=== PATIENT | male | born 1940 | race Caucasian/White ===

== ENCOUNTER → 2023-04-06 13:21 | Outpatient (REF) | payer OTHER, SELFPAY | LOC: HWRAD 13:21 | PROVIDERS: ATTENDING PHYSICIAN Family Medicine | DX: J15.69 Pneumonia due to other Gram-negative bacteria (principal) | CPT/HCPCS: 71046 ==

== ENCOUNTER → 2023-09-03 11:21 | Outpatient (REF) | payer OTHER, SELFPAY | LOC: RAD 11:21 | PROVIDERS: ATTENDING PHYSICIAN Podiatrist Foot & Ankle Surgery; FAMILY PHYSICIAN Family Medicine | DX: L97.523 Non-pressure chronic ulcer of other part of left foot with necrosis of muscle (principal); M86.172 Other acute osteomyelitis, left ankle and foot | CPT/HCPCS: 73630 ==

== ENCOUNTER → 2023-09-17 08:35 | Outpatient (REF) | payer OTHER, SELFPAY | LOC: RAD 08:35 | PROVIDERS: ATTENDING PHYSICIAN Registered Nurse; FAMILY PHYSICIAN Family Medicine | DX: I87.2 Venous insufficiency (chronic) (peripheral) (principal) | CPT/HCPCS: 93922; 93970 ==

== ENCOUNTER → 2023-09-17 09:00 | Outpatient (REF) | payer OTHER, SELFPAY | LOC: DHSLP 09:00 | PROVIDERS: ATTENDING PHYSICIAN Internal Medicine Critical Care Medicine | DX: G47.00 Insomnia, unspecified (principal) | CPT/HCPCS: 95810 ==

== ENCOUNTER 2023-09-22 18:59 | Inpatient (IN) | payer OTHER, SELFPAY ==
[2023-09-22] VITALS (7 sets, daily range): BP systolic 105–140; BP diastolic 55–65; BMI 23.6; BMI 23.0
--- NOTE | 2023-09-22 15:00 | ED.GENMED ---
History of Present Illness
General
Chief Complaint: Weakness
Source: patient and spouse
Exam Limitations: clinical condition
Time Seen by Provider: 09/22/23 14:40
History of Present Illness
History of Present Illness:
83-year-old male with a history of atrial fibrillation, hypertension, hyperlipidemia, upper GI bleed who presents with complaints of feeling weak. States he went to get out of bed last night and slipped. He injured his left foot and fell to his
buttocks. He did not hit his head. EMS reportedly helped him up but the patient did not want to come to the emergency department. states he has been tired a lot recently. She also notes and agrees that skin is a bit yellow. Patient denies
headache or abdominal pain. No nausea or vomiting. He states he just feels weak. Also was seen by wound care today who was concerned about his left foot wound
Past History
Past History
ED Past Medical History: Arrthythmia (afib on Coumadin), CAD, HTN, Hypothyroidism and Other (a fibrillation, HTN, hyperlipidemia, heart valve replacement, pacemaker, renal insufficiency, hyponatremia)
ED Past Surgical History: Cardiac (pacemaker)
Social History
Tobacco: Non-smoker
Alcohol: None
Drug: None
Personal:
Living: with family
Phy Exam
Physical Exam
Physical Exam:
CONSTITUTIONAL Patient alert and oriented to person, place. ill-appearing. Vital signs reviewed.
HEAD atraumatic, normocephalic.
EYES eyelids normal to inspection, Pupils equally round and reactive to light, Extraocular muscles intact, Conjunctiva normal, Sclera normal.
NECK normal range of motion, Trachea midline, no jugular venous distention.
RESPIRATORY CHEST No respiratory distress noted, Chest expansion equal, Bilateral breath sounds clear.
CARDIOVASCULAR regular rate and rhythm, Heart sounds normal.
ABDOMEN abdomen nontender, Bowel sounds normal. No distention.
UPPER EXTREMITY range of motion normal, Motor strength normal, no cyanosis, no edema. Scattered areas of ecchymosis
LOWER EXTREMITY range of motion normal, Motor strength normal, scattered areas of ecchymosis. Abrasion noted to the left second and first digit. Rounded lesion noted to the lateral aspect just distal to the fifth MTP joint. It is approximate 1
and half centimeter in diameter and is necrotic in appearance. Minimal surrounding redness and no drainage.
NEURO Speech normal, No focal motor deficits, Cranial Nerves intact to screening exam. at times a bit confused.
SKIN skin warm, dry, and normal in color.
Course
Orders/Labs/Results
Orders:
Orders
09/22/23 14:44
Electrocardiogram (*1) Urgent
Reason for Study: Fatigue / Weakness
Cardiac Monitoring- Treatment ONCE
EKG- Treatment ONCE
Urinalysis Reflex To Culture Urgent
09/22/23 14:55
Ammonia Urgent
Complete Blood Count/With Diff Urgent
Comprehensive Metabolic Panel Urgent
Lactic Acid Q4H
Comment: CANCEL 2nd LACTIC ACID IF 1st LACTIC ACID IS LESS THAN 2
Lipase Urgent
Prothrombin Time Urgent
09/22/23 14:59
CT Head W/o Iv Contrast Urgent
Comment:
Reason For Exam: change in ms, minor fall, on eliquis
09/22/23 15:02
Foot, Left 3 View [CR Foot - Left Min 3 Views] Urgent
Comment:
Reason For Exam: left lateral foot wound
09/22/23 16:50
0.9% Sodium Chloride 500 ml [Nss] 500 ml IV BOLUS
Cefepime HCl [Maxipime] 1,000 mg IV NOW STA
Vancomycin 1 Gram/200 ml [Vancocin] 1 gram in 200 ml IV NOW
09/22/23 17:46
CR Chest - 2 Views Urgent
Comment:
Reason For Exam: fever
09/22/23 17:49
Morphine Sulfate 4 mg IV NOW STA
09/22/23 18:14
COVID-19 Antigen Urgent
Source: Nasal Swab
09/22/23 18:34
Admit/Transfer Patient As Directed
Co-Sign Provider:
Level of Care: Inpatient admission
Assign to:: Medical/Surgical
Physician / Group: jeanette prajapati
Diagnosis: left foot wound
Reason for Hospitalization: right foot wound
Expected length of stay greater than two midnights?: Yes
ELOS- Estimated Length of Stay in days: 3
I certify the patient meets the requirements for IP care: Yes
PRN Pain Medication Management As Directed
May give lesser potent ordered pain med per pt: Yes
preference::
Protocol:: Medication orders for pain may be administered in a
manner that supports deferring to patient preference
when the pt is:
- Requesting an ordered lesser potent pain medication.
Least to most potent pain medications are defined
as: acetaminophen < NSAID < tramadol < opioids
(morphine, oxycodone, hydromorphone).
- Requesting a lesser dose of the same medication IF
ORDERED.
- Requesting a less intrusive route of administration
if both routes are prescribed by the provider (PO <
IV).
09/22/23 18:38
PODIATRY CONSULT Routine
Consulting Provider: Gucci Jimenes
Was physician already notified: Yes
Reason for consult: left foot wound, bleeding
09/22/23 19:00
0.9% Sodium Chloride 1000 ml [Nss] 1,000 ml IV 84 mls/hr
09/22/23 19:45
Artificial Tears (Pf) [Refresh Eye Drops (Pf)] 1 drops BOTH EYES QIDPRN PRN
09/22/23 19:57
CRP [C-Reactive Protein] Urgent
ESR [Erythrocyte Sed Rate] Urgent
Lactic Acid Q4H
Comment: CANCEL 2nd LACTIC ACID IF 1st LACTIC ACID IS LESS THAN 2
Total CK [Creatine Phosphokinase] Stat
09/22/23 20:00
Apixaban [Eliquis] 5 mg PO BID
Carvedilol [Coreg] 25 mg PO BID
Enalapril [Vasotec] 20 mg PO BID
Tamsulosin [Flomax] 0.4 mg PO BID
09/23/23 06:00
Levothyroxine [Synthroid] 75 mcg PO DAILY @ 0600
09/23/23 08:00
Allopurinol [Zyloprim] 300 mg PO DAILY
Ascorbic Acid [Vitamin C] 500 mg PO DAILY
Furosemide [Lasix] 20 mg PO DAILY
Abnormal Lab Results
09/22/23
14:55
WBC 11.5 H 10^3/uL
(4.8-10.8)
RBC 2.89 L 10^6/uL
(4.70-6.10)
Hgb 8.4 L g/dL
(13.0-18.0)
Hct 24.4 L %
(39.0-52.0)
RDW 15.2 H %
(11.5-14.5)
Absolute Neuts (auto) 8.9 H 10^3/uL
(1.4-6.5)
Absolute Monos (auto) 1.1 H 10^3/uL
(0.1-0.6)
Neutrophils % 77.2 H %
(42.2-75.2)
Lymphocytes % 10.5 L %
(20.5-51.1)
Monocytes % 9.6 H %
(1.7-9.3)
PT 27.5 H Sec
(11.4-14.6)
Sodium 129 L mmol/L
(135-145)
Chloride 96 L mmol/L
(98-107)
BUN 36 H mg/dl
(9-20)
Creatinine 1.4 H mg/dL
(0.7-1.3)
Total Bilirubin 3.1 H mg/dl
(0.2-1.3)
Ammonia < 9 L umol/L
(9-30)
09/22/23 14:55
09/22/23 14:55
Vital Signs
Initial and Last Documented VS:
Initial Vital Signs
Temp Pulse Resp BP Pulse Ox
100.1 F 69 12 128/61 97
09/22/23 14:29 09/22/23 14:29 09/22/23 14:29 09/22/23 14:29 09/22/23 14:29
Last Documented Vital Signs
Temp Pulse Resp BP Pulse Ox
97.0 F 63 18 134/63 98
09/22/23 19:35 09/22/23 19:35 09/22/23 19:35 09/22/23 19:35 09/22/23 19:35
MDM/Problems Addressed
Differential Diagnosis Includes:
Electrolyte disorder, urine obstruction, hepatitis, intracranial hemorrhage, sepsis, ascending cholangitis, UTI
MDM/Problems Addressed:
Jaundice, weakness, minor fall
*Pulse Oximetry
Patient hypoxic: no
*Critical Care Note
Total Time (30-74mins, 75-104mins- exclusive of procedures): Not Applicable
Data Reviewed
Review of Other/Old Records Reveals: Labs (Prior labs reveal sodium as low as 117.) and Discharge Summary (Discharge summary reviewed from February 2023)
Source: patient and spouse
ED Attending Note
-
Portions of this chart may have been created with voice recognition software.� Occasional wrong word or��sound alike� substitutions may have occurred due to the inherent limitations of voice recognition software.
Discharge Plan
Departure
Patient Disposition: Admit
Date of Disposition: 09/22/23
Time of Disposition: 17:41
Admit to: Telemetry
Presentation/result/management discussed w/ accepting MD/DO: Hospitalist
Discharge Problem:
Acute hyponatremia, infected foot wound, Acute metabolic encephalopathy, Anemia
Interventions
Interventions:
*Risk Screen - Suicide Last Done: 09/22/23 14:29
*General Assessment Last Done: 09/22/23 14:29
*Neglect/Abuse Screening Last Done: 09/22/23 14:29
ED- Fall Risk Assessment Last Done: 09/22/23 19:36
*ED COVID-19 Vaccine History Last Done: 09/22/23 14:43
*Nursing Disposition Last Done: 09/22/23 19:36
ED- Cardiac Assessment Last Done: 09/22/23 14:43
ED- Neurological Assessment Last Done: 09/22/23 14:43
ED- Pulmonary Assessment Last Done: 09/22/23 14:43
Discharge Date and Time
Discharge Date/Time: 09/22/23 19:37
[2023-09-22 15:10] LABS: % Basophils 0.4 % (0-2); % Immature Granulocytes 0.3 % (0-0.5); % Lymphocytes 10.5 % (20.5-51.1); % Monocytes 9.6 % (1.7-9.3); % Neutrophils 77.2 % (42.2-75.2); Absolute Basophils 0.1 10^3/uL (0-0.2); Absolute Eosinophils 0.2 10^3/uL (0-0.7); Absolute Lymphocytes 1.2 10^3/uL (1.2-3.4); Absolute Monocytes 1.1 10^3/uL (0.1-0.6); Absolute Neutrophils 8.9 10^3/uL (1.4-6.5); Hematocrit 24.4 % (39.0-52.0); Hemoglobin 8.4 g/dL (13.0-18.0); Mean Corp Hgb Conc. 34.4 g/dL (33.0-37.0); Mean Corpuscular Hgb 29.1 pg (27.0-31.0); Mean Corpuscular Volume 84.4 fL (80.0-94.0); Mean Platelet Volume 8.4 fL (7.4-10.4); Nucleated Red Blood Cells % 0 % (-); Platelet Count 171 10^3/uL (130-400); Red Blood Cell Count 2.89 10^6/uL (4.70-6.10); Red Cell Dist. Width 15.2 % (11.5-14.5); White Blood Cell Count 11.5 10^3/uL (4.8-10.8)
[2023-09-22 15:17] LABS: INR 2.57; PT 27.5 Sec (11.4-14.6)
[2023-09-22 15:19] LABS: Ammonia < 9 umol/L (9-30); Lactic Acid 1.5 mmol/L (0.7-2.0)
[2023-09-22 15:22] LABS: ALT (SGPT) 12 U/L (0-50); AST (SGOT) 32 U/L (17-59); Albumin 3.6 g/dl (3.5-5.0); Blood Urea Nitrogen 36 mg/dl (9-20); Calcium 9.1 mg/dl (8.4-10.2); Carbon Dioxide 26 mmol/L (22-30); Chloride 96 mmol/L (98-107); Estimated Creatinine Clearance 43 ml/min; Glucose 87 mg/dl (70-99); Lipase 37 U/L (23-300); Potassium 4.3 mmol/L (3.5-5.1); Sodium 129 mmol/L (135-145); Total Bilirubin 3.1 mg/dl (0.2-1.3); Total Protein 6.4 g/dl (6.3-8.2); eGFR 49.56
[2023-09-22 15:29] LABS: Alkaline Phosphatase 68 U/L (38-126)
[2023-09-22] MEDS: NSS 500 IV (16:58)
[2023-09-22] MEDS: MAXIPIME 1000 MG IV (16:59)
[2023-09-22] MEDS: VANCOCIN 200 IV (16:59)
[2023-09-22] MEDS: MORPHINE SULFATE 4 MG IV (17:57)
--- NOTE | 2023-09-22 18:23 | HPS.HSE ---
Family Physician
-
Family Physician: Khalida Hopper
Chief Complaint
History of Present Illness
Past medical history A-fib on Coumadin, pacemaker, CAD, chronic heart failure reduced EF, mitral valve replacement, HTN, HLD, hypothyroidism, hyponatremia SIADH chronic anemia, CKD 3B
Acute leukocytosis secondary to foot infection
WBC 11.5 with left shift, 100.1 F, HR 67, 126/60
LORIE on CKD 3B
Creat 1.4 /bun 36 prior 1.1 CrCl 43
Hyponatremia/SIADH Hx
NA 129 February was as low as 117 and did require Samsca and 3% sodium at that time
Anemia normocytic
Hgb 8.4 prior baseline 05 March 2023
Check iron panel, B12, folate
2D echo 07/26/2021: Mild reduced LVSF EF 45-50%, mild inferior wall hypokinesis, RV pacemaker, mild AR, repaired mitral valve mean gradient 5 mmHg
Medical History
Allergies / Home Medications
Allergies reflects when Allergies were last updated in [facility].
Home Medications with original date entered in [facility]
Physical Exam
Vital Signs
Vital Signs
Temp Pulse Resp BP Pulse Ox
99.5 F 67 16 126/60 96
09/22/23 14:47 09/22/23 18:01 09/22/23 18:01 09/22/23 18:01 09/22/23 18:01
Laboratory Results
-
09/22/23 14:55
09/22/23 14:55
Laboratory Results
PT 27.5 Sec (11.4-14.6) H 09/22/23 14:55
INR 2.57 09/22/23 14:55
Lactic Acid 1.5 mmol/L (0.7-2.0) 09/22/23 14:55
Total Bilirubin 3.1 mg/dl (0.2-1.3) H 09/22/23 14:55
AST 32 U/L (17-59) 09/22/23 14:55
ALT 12 U/L (0-50) 09/22/23 14:55
Alkaline Phosphatase 68 U/L (38-126) 09/22/23 14:55
Lipase 37 U/L (23-300) 09/22/23 14:55
Impression/Plan
-
IMPRESSION:
PLAN:
[2023-09-22 18:34] LABS: COVID-19 Antigen Negative (Negative)
--- NOTE | 2023-09-22 18:44 | HPS.HSE ---
Family Physician
-
Family Physician: Khalida Hopper
Chief Complaint
-
Lower extremity pain
History of Present Illness
83 male history of CAD s/p CABG, atrial fibrillation s/p PPM on anticoagulation, gout who presents with lower extremity pain after sustaining a fall/slip from the side of his bed hitting his buttocks against the ground and hitting his foot against
the ground. Had difficulty getting off the floor 911 was required last night to help him off the floor as his was not able to lift him. Left great hallux has been bleeding since. Bandaged. Bandage is bloody. He states he did not have chest
pain no shortness of breath nor did he lose consciousness before the fall. No head strike.
PER ED Documentation: As was not at bedside
He injured his left foot and fell to his buttocks. He did not hit his head. EMS reportedly helped him up but the patient did not want to come to the emergency department. states he has been tired a lot recently. She also notes and agrees
that skin is a bit yellow. Patient denies headache or abdominal pain. No nausea or vomiting. He states he just feels weak. Also was seen by wound care today who was concerned about his left foot wound
Never smoker. Does not drink alcohol. No drug use history.
Surgical history CABG
Family history father bone cancer, mother black lung
Medical History
Past Medical History
Past Medical History: Reports CAD
Past Surgical History: Reports Cardiac
Social History
Tobacco: Non-smoker
Alcohol: None
Drug: None
Personal:
Living: With Family
Family History
Family History: Cancer
Allergies / Home Medications
Allergies reflects when Allergies were last updated in [facility].
Home Medications with original date entered in [facility]
Allergy/Medication List:
Allergies
Allergy/AdvReac Type Severity Reaction Status Date / Time
Fahbpaa-JAU-GgL Reductase Allergy Unknown Verified 03/02/23 16:50
Inhibitor
[Vhhqvzp-Ddk-Nxn Reductase
Inhibitor]
Home Medications
allopurinol 300 mg tablet 300 mg PO DAILY Gout 12/18/19
ascorbic acid (vitamin C) 500 mg tablet (Vitamin C) 500 mg PO DAILY Supplement 12/18/19
levothyroxine 75 mcg tablet 75 mcg PO DAILY AT 0700 Thyroid 12/18/19
polyvinyl alcohol-povidone (PF) 1.4 %-0.6 % eye drops in a dropperette (Refresh Classic (PF)) 1 drops BOTH EYES QIDPRN PRN dry eyes 12/18/19
apixaban 5 mg tablet (Eliquis) 5 mg PO BID Blood Clot Prevention/Tx 03/02/23
carvedilol 25 mg tablet 25 mg PO BID Blood Pressure 03/02/23
enalapril maleate 20 mg tablet 20 mg PO BID Blood Pressure 03/02/23
furosemide 20 mg tablet 20 mg PO DAILY Fluid Retention/Swelling 03/02/23
tamsulosin 0.4 mg capsule 0.4 mg PO BID Urinary Issue 03/02/23
Review of Systems
-
A 12 point ROS was completed and negative except as noted: Yes
Physical Exam
Vital Signs
Vital Signs
Temp Pulse Resp BP Pulse Ox
99.5 F 67 16 126/60 96
09/22/23 14:47 09/22/23 18:01 09/22/23 18:01 09/22/23 18:01 09/22/23 18:01
Physical Exam
General: Appears Chronically Ill
Laboratory Results
-
09/22/23 14:55
09/22/23 14:55
Laboratory Results
PT 27.5 Sec (11.4-14.6) H 09/22/23 14:55
INR 2.57 09/22/23 14:55
Lactic Acid 1.5 mmol/L (0.7-2.0) 09/22/23 14:55
Total Bilirubin 3.1 mg/dl (0.2-1.3) H 09/22/23 14:55
AST 32 U/L (17-59) 09/22/23 14:55
ALT 12 U/L (0-50) 09/22/23 14:55
Alkaline Phosphatase 68 U/L (38-126) 09/22/23 14:55
Lipase 37 U/L (23-300) 09/22/23 14:55
LEFT FOOT XRAY
IMPRESSION: No convincing radiographic evidence for ostial myelitis with attention to the fifth metatarsophalangeal joint.
Curvilinear increased density within the soft tissues lateral to the fifth metatarsal joint, new since previous examination. This is most likely related to an overlying dressing.
HEAD CT
IMPRESSION:
1. No acute intracranial abnormality.
2. Severe right sided paranasal sinus mucosal disease/sinusitis, which has increased from prior. Soft tissue attenuation in the right nasal cavity again suspicious for a large nasal polyp.
JOSHUA from 09/18/23
IMPRESSION:
1. Right lower extremity: JOSHUA 1.06 within normal limits. TBI is 0.83 also within normal limits. Multiphasic continuous Doppler waveforms are noted at the dorsalis pedis artery. Monophasic continuous Doppler waveforms at the posterior tibial artery.
2. Left lower extremity: JOSHUA not obtainable secondary to noncompressibility of the vessels. TBI severely reduced at 0.26. Significantly decreased compared to prior study dated 08/05/2021 at which time measured 0.80. Continuous Doppler waveforms at
the dorsalis pedis and posterior tibial arteries are monophasic.
Impression/Plan
-
NAD, resting comfortably in bed, bruising throughout body, paperthin skin
Scleral anicteric
Moist mucous membranes
No JVD
CTA bilateral
Normal S1-S2 no murmurs
Soft nontender nondistended bowel sounds active
No peripheral pitting edema
Moves extremities spontaneously
Left great hallux wrapped in gauze. Gauze is soiled with blood. Interestingly was not able to see a superficial wound on the left small toe however this was wrapped and was unable to wrap
AAOx3
Mechanical fall slip and fall from bed. PT OT consult. Fall precautions.
Lower extremity weakness left-sided
-If not improving consider MRI lumbar spine left side
-Otherwise at this time no left great hallux was bleeding appears to have decreased or stopped, dressing is soiled with blood.
-Will obtain MRI of left lower extremity ESR CRP. Consult podiatry.-Low clinical suspicion for osteomyelitis at this time therefore we will hold off on IV antibiotics until MRI returns or podiatry recommends
Hyponatremia, hypovolemic on exam, will provide IV fluids�isotonic
LORIE/bump in creatinine of 1.4 baseline around 1.0. Likely secondary to poor p.o. intake
-He was on the ground for prolonged period of time will check CK
CABG continue beta-martin Eliquis
Hypertension continue antihypertensives
Atrial fibrillation continue beta-martin Eliquis. Repeat CBC in the a.m. if foot continues to actively bleed would repeat stat CBC hold Eliquis
BPH continue Flomax
--- NOTE | 2023-09-22 19:16 | EDRN ---
Report received, introduced myself to patient and sent no-delay upstairs
[2023-09-22 20:28] LABS: Erythrocyte Sed Rate 91 mm/hour (0-20)
[2023-09-22 21:09] LABS: Creatine Phosphokinase 524 U/L (55-170)
[2023-09-22] MEDS: NSS 1000 IV (21:18)
[2023-09-22] MEDS: ELIQUIS 5 MG PO (21:20)
[2023-09-22] MEDS: COREG 25 MG PO (21:20)
[2023-09-22] MEDS: FLOMAX 0.4 MG PO (21:21)
[2023-09-22] MEDS: VASOTEC 20 MG PO (21:21)
[2023-09-23] MEDS: SYNTHROID 75 MCG PO (05:10)
[2023-09-23 05:30] LABS: Urine Albumin Trace (Neg - Trace); Urine Bilirubin Negative (Negative); Urine Character Clear (Clear); Urine Color Yellow; Urine Glucose Negative (Negative); Urine Ketone Negative (Negative); Urine Leukocyte Negative (Negative); Urine Nitrite Negative (Negative); Urine Occult Blood Negative (Negative); Urine Specific Gravity 1.015 (<1.030); Urine Urobilinogen Negative (Neg - 1+)
[2023-09-23 07:00] VITALS: BP 125/58
[2023-09-23 07:23] LABS: Hematocrit 23.3 % (39.0-52.0); Mean Corp Hgb Conc. 34.3 g/dL (33.0-37.0); Mean Corpuscular Volume 84.4 fL (80.0-94.0); Platelet Count 181 10^3/uL (130-400); Red Blood Cell Count 2.76 10^6/uL (4.70-6.10); Red Cell Dist. Width 15.1 % (11.5-14.5)
[2023-09-23 07:54] LABS: Blood Urea Nitrogen 31 mg/dl (9-20); Calcium 8.6 mg/dl (8.4-10.2); Carbon Dioxide 23 mmol/L (22-30); Chloride 100 mmol/L (98-107); Creatine Phosphokinase 707 U/L (55-170); Estimated Creatinine Clearance 50 ml/min; Glucose 67 mg/dl (70-99); Potassium 4.1 mmol/L (3.5-5.1); Sodium 129 mmol/L (135-145); eGFR 59.63
[2023-09-23 08:00] VITALS: BMI 22.8
[2023-09-23] MEDS: ELIQUIS 5 MG PO ×2 (08:53→20:40)
[2023-09-23] MEDS: FLOMAX 0.4 MG PO ×2 (08:53→20:40)
[2023-09-23] MEDS: VITAMIN C 500 MG PO (08:53)
[2023-09-23] MEDS: VASOTEC 20 MG PO (08:53)
[2023-09-23] MEDS: COREG 25 MG PO ×2 (08:53→20:40)
[2023-09-23] MEDS: ZYLOPRIM 300 MG PO (08:53)
[2023-09-23] MEDS: LASIX 20 MG PO (08:53)
[2023-09-23] MEDS: NSS 1000 IV ×2 (10:43→22:34)
--- NOTE | 2023-09-23 10:43 | WOUNDNOTE ---
L FOREARM (UNDERSIDE NEAR ELBOW)
--- NOTE | 2023-09-23 10:44 | WOUNDNOTE ---
L PLANTAR LATERAL 5TH MTH
--- NOTE | 2023-09-23 10:44 | WOUNDNOTE ---
L LATERAL PLANTAR 5TH MTH
--- NOTE | 2023-09-23 10:44 | WOUNDNOTE ---
L TOE TIPS/GREAT TOE
--- NOTE | 2023-09-23 10:45 | WOUNDNOTE ---
L 4TH TOE (LATERAL)
--- NOTE | 2023-09-23 10:46 | WOUNDNOTE ---
L 5TH TOE
--- NOTE | 2023-09-23 10:46 | WOUNDNOTE ---
L GREAT AND 2ND TOE TIPS
--- NOTE | 2023-09-23 10:46 | WOUNDNOTE ---
L 3RD TOE (LATERAL)
--- NOTE | 2023-09-23 10:48 | CON.VAS ---
Addendum entered and electronically signed by Robert Pal MD 09/23/23 12:54:
Seen and examined with KELL Nolan. Agree with findings as noted below. 83-year-old male with CAD/A-fib with left lower extremity wounds nonhealing. He notes no prior wounds in this leg but he has had wounds in the right foot that healed without
difficulty he notes. No history of prior revascularization procedures. Denies any history of tobacco use. He does have a history of a CABG with left-sided saphenous vein harvest.
On exam/she is awake and alert. Head is normocephalic and atraumatic. Eyes are anicteric. Neck is soft without jugular venous distention. Breathing is unlabored. Abdomen is soft. Lower extremity on the right side with 2+ femoral, popliteal, DP
pulse easily palpable. On the left side 2+ femoral, 1+/2+ popliteal pulse. Nonpalpable distally. Left lower extremity wounds as noted in wound care pictures.
Noninvasive studies reviewed, left-sided TBI 0.2.
Plan/ Nonhealing left lower extremity wounds with likely CLTI (chronic limb threatening ischemia). Discussed my recommendation for angiography and possible revascularization. Discussed potential outcomes of angiography including #1 successful
revascularization with endovascular technique, #2 need for staged surgical revascularization with bypass, #3 no unreconstructable nonrevascularizable distal disease with persistent limb threat. I discussed the procedure of angiography technical
aspects as well. Discussed risks including but not limited to bleeding, arterial injury/worsened or acute limb ischemia, renal failure. He understands all these and wishes to proceed with left lower extremity arteriogram, possible
angioplasty/stent. His creatinine is 1.2 which appears to be about his baseline. He does note some history of chronic renal sufficiency for which she sees nephrology as an outpatient. Will defer to hospitalist team whether they need to be
involved now given contrast administration for angiography. Will plan angiogram tomorrow. N.p.o. after midnight.
Original Note:
Consultation
Consultation Request
Date/Time Consultation Performed: 09/23/2023 1100
Requesting Provider: Hospitalist
Performing Provider: Zahra Nolan, [employer] OPERATOR-C for Robert Pal MD
Reason for Consultation: Left foot wound
Medical History
-
Chief Complaint: Left foot wound
History of Present Illness:
This is a 83 male with significant past medical history of CAD, atrial fibrillation on anticoagulation, PPM, and gout who presented to [facility] ED on 09/22/2023 with reports of left lower extremity pain/wound after sustaining a fall from the side
of his bed. Patient endorses that he however had to call 911/EMS for assistance as his is not able to assist him off the floor. He endorses that left hallux bleeding was difficult to stop. He states he did not have chest pain no shortness of
breath nor did he lose consciousness before the fall. No head strike. He declined for EMS to take him to the ER the night of the fall. However, when bleeding persisted he then agreed to seek ED evaluation. Per ER documentation patient's
also endorses that he has been extremely fatigued and has noted yellow tinge to his skin. Noninvasive JOSHUA/TBI were obtained which demonstrated noncompressible JOSHUA but severely reduced TBI at 0.26 at the left lower extremity prompting vascular
surgical consultation. Patient denies past history of peripheral arterial disease or requirement of peripheral vascular intervention. See wound care note for pictures of wounds.
Past Medical History
Past Medical History: Arrhythmias (Atrial fibrillation), CAD and Other (Gout)
Past Surgical History: Cardiac (CABG, permanent pacemaker)
Social History
Tobacco: Non-Smoker
Alcohol: None
Drug: None
Personal:
Living: With Family
Allergies / Home Medications
Allergy/AdvReac Type Severity Reaction Status Date / Time
Oddoley-WRS-ShB Reductase Allergy Unknown Verified 03/02/23 16:50
Inhibitor
[Hncqnwv-Btq-Bmu Reductase
Inhibitor]
�Medication �Instructions �Recorded �Confirmed �Type
allopurinol 300 mg tablet 300 mg PO DAILY Gout 12/18/19 09/22/23 History
ascorbic acid (vitamin C) 500 mg 500 mg PO DAILY Supplement 12/18/19 09/22/23 History
tablet (Vitamin C)
levothyroxine 75 mcg tablet 75 mcg PO DAILY AT 0700 Thyroid 12/18/19 09/22/23 History
polyvinyl alcohol-povidone (PF) 1 drops BOTH EYES QIDPRN PRN dry 12/18/19 09/22/23 History
1.4 %-0.6 % eye drops in a eyes
dropperette (Refresh Classic (PF))
apixaban 5 mg tablet (Eliquis) 5 mg PO BID Blood Clot 03/02/23 09/22/23 History
Prevention/Tx
carvedilol 25 mg tablet 25 mg PO BID Blood Pressure 03/02/23 09/22/23 History
enalapril maleate 20 mg tablet 20 mg PO BID Blood Pressure 03/02/23 09/22/23 History
furosemide 20 mg tablet 20 mg PO DAILY Fluid 03/02/23 09/22/23 History
Retention/Swelling
tamsulosin 0.4 mg capsule 0.4 mg PO BID Urinary Issue 03/02/23 09/22/23 History
Review of Systems
-
History Source: Patient
Constitutional: Reports No Symptoms
EENT: Reports No Symptoms
Respiratory: Reports No Symptoms
Cardiac: Reports No Symptoms
Abdomen/GI: Reports No Symptoms
: Reports No Symptoms
Musculoskeletal: Reports Edema (Left lower extremity)
Skin: Reports Other (Left hallux and lateral aspect of foot with wound)
Neurological: Reports No Symptoms
Endocrine: Reports No Symptoms
Physical Exam
Vital Signs
Temp Pulse Resp BP Pulse Ox
97.8 F 74 18 125/58 97
09/23/23 07:00 09/23/23 07:00 09/23/23 07:00 09/23/23 07:00 09/23/23 09:00
Lab Results
09/23/23 08:19
09/23/23 08:19
Physical Exam
General: No Apparent Distress and Comfortable
HEENT: Normocephalic, Anicteric and Atraumatic
Respiratory: Non Labored Respirations
Cardiac: Negative JVD
GI: Soft, Non Tender and Non Distended
Musculoskeletal: Edema (+1 edema left lower extremity)
Skin: Warm and Other (Patient has multiple skin tears and abrasions with accompanying ecchymosis over left lower extremity at upper thigh and knee. Left hallux tip ulceration with dry necrosis. Left second toe with dry abrasion/ulceration. Left
plantar/medial aspect of foot with deep abrasion covered with eschar)
Neuro: AO x 3
Pulses: Bilateral Femoral: +1, Left Dorsalis Pedis: Doppler and Left Posterior Tibial: Doppler
Assessment / Plan
-
Assessment: 83-year-old male who presented to hospital status post fall with wound to left hallux, left medial aspect of foot, and left second digit with suspected peripheral arterial disease given decreased TBI.
Plan:
Dr. Robert Pal reviewed risk versus benefit, clinical indication, procedure, and recovery process for left lower extremity arteriogram with the patient at bedside, all questions and concerned addressed and he agrees to proceed.
Plan for arteriogram of left lower extremity with possible endovascular mention tomorrow 09/24/[address] Pal
NPO at midnight
Podiatry consult
--- NOTE | 2023-09-23 10:49 | WOUNDNOTE ---
[facility] RN note: Patient admitted with L foot wound, L Hallux bleeding, patient slide out of bed prior to admission. He lives with his . Patient followed by vascular Dr. Reyna.
See H&P for complete history.
PMH: CABG, a fib (Eliquis), pacemaker, gout, venous stasis.
Wound Location and type/assessment: Patient admitted with: Multiple dermal leg skin tears and bruises. Dull red sacrum, chafed discolored medial buttocks, blanchable red heels, L plantar full thickness to muscle or deeper diabetic/PAD wound, pink
with black slough cover. R great toe tip with black tissue, no current bleeding. L 4th toe and 5th toes with pink dermal ulcer d/t PAD. L lateral 3rd toe with faint purple ulcer d/t PAD. L distal 2nd toe and R distal 1st toe with dry red abrasion.
Trace-+1 LE edema. +Palpable R pedal pulse, L pedal pulse heard via portable Doppler. 09/18/23 Arterial Doppler R JOSHUA 1.06, R toe .83; L toe pressure .26.
Appetite: good.
Pressure redistribution devices in place: [employer] Accumax. Nurse Linda to coordinate switching bed to a [employer] air bed.
Plan: L foot, L great toe dressings changed. Silicone foam maintained on leg skin tears. Protective foam applied to heels and sacrum. Heels off bed with pillows. Air chair cushion given. Dr. Kasi Armas was in who consulted Dr. Pal who came in at
end of visit. Discussed with Vascular COMMUNITY CASE MANAGER Siomara, defer to vascular if any compression indicated re: RLE. Podiatry Dr. Zamudio on consult.
Confirm orders with Dr. Nohemi Armas and updated nurse Linda.
Care plan to be updated and will follow as needed.
Recommend follow up at wound care center upon discharge.
--- NOTE | 2023-09-23 11:42 | CON.ORTHO ---
Consultation
-
Date/Time Consultation Requested: 09/23/2023 10:18 am
Date/Time Consultation Performed: 09/23/2023 11:30 am
Requesting Provider: Dr. Armas
Performing Provider: Lexie Zee PA-C, for Dr. Hughes
Reason for Consultation: Left knee effusion
Consultation - Orthopedics
History
HPI: This is an 83 year old male who presented to ED yesterday after sustaining a fall at home in which his left foot slipped out and he landed on his buttocks. He was unable to get up and brought to the ED via EMS. Most of his history was
obtained through chart review as he was somnolent on exam. He was noted to have a left foot wound that was bleeding on admission and weakness per his . Today, he was noted to have left knee swelling, prompting orthopedic consultation. He
denies any current pain in the left knee and admits that the swelling and pain have improved since yesterday. He is currently on Eliquis for A-fib and has multiple skin tears on his lower extremities. He tells me he is scheduled for a vascular
procedure tomorrow on his left leg to 'open up the veins.' He denies any n/t of his left knee or any significant problems with the left knee at baseline. No x-rays of the left knee have been performed.
Past medical history: Chronic A-fib, CAD, HTN, Hypothyroidism, HLD, pacemaker, renal insufficiency, hyponatremia.
Past surgical history: Pacemaker placement, heart valve replacement.
Social history: Denies tobacco or alcohol use, lives at home with family.
Review of systems: All systems reviewed and negative except for those mentioned in HPI.
Allergies / Home Medications
Allergy/AdvReac Type Severity Reaction Status Date / Time
Nmblrxz-MJI-YfA Reductase Allergy Unknown Verified 03/02/23 16:50
Inhibitor
[Lcudgcy-Ked-Ypb Reductase
Inhibitor]
�Medication �Instructions �Recorded
allopurinol 300 mg tablet 300 mg PO DAILY Gout 12/18/19
ascorbic acid (vitamin C) 500 mg 500 mg PO DAILY Supplement 12/18/19
tablet (Vitamin C)
levothyroxine 75 mcg tablet 75 mcg PO DAILY AT 0700 Thyroid 12/18/19
polyvinyl alcohol-povidone (PF) 1 drops BOTH EYES QIDPRN PRN dry 12/18/19
1.4 %-0.6 % eye drops in a eyes
dropperette (Refresh Classic (PF))
apixaban 5 mg tablet (Eliquis) 5 mg PO BID Blood Clot 03/02/23
Prevention/Tx
carvedilol 25 mg tablet 25 mg PO BID Blood Pressure 03/02/23
enalapril maleate 20 mg tablet 20 mg PO BID Blood Pressure 03/02/23
furosemide 20 mg tablet 20 mg PO DAILY Fluid 03/02/23
Retention/Swelling
tamsulosin 0.4 mg capsule 0.4 mg PO BID Urinary Issue 03/02/23
Vital Signs / Lab Results
Temp Pulse Resp BP Pulse Ox
97.8 F 74 18 125/58 97
09/23/23 07:00 09/23/23 07:00 09/23/23 07:00 09/23/23 07:00 09/23/23 09:00
09/23/23 08:19
09/23/23 08:19
Physical examination:
General: WD/WN male in no distress at rest.
HEENT: AT/NC, neck supple.
Lungs: Non labored breathing on room air, no audible wheezing.
Left knee: Multiple superficial skin tears present on knee and lower leg. No significant warmth. No erythema about the knee. Mild effusion present. No tenderness to palpation about the knee. ROM 5- 100 degrees with pain on flexion. Able to do
independent SLR. Diffuse swelling of LLE with discoloration c/w venous insufficiency. Calf soft and non tender to palpation. N/v intact distally.
Radiographic studies:
non pertinent to left knee.
Assessment / Plan
Assessment: Left knee effusion, likely hemarthrosis secondary to eliquis.
Plan: See likely aggravated some underlying degenerative changes in his left knee during his recent fall as he reports falling onto his buttocks, rather than landing directly on the knee. He does have an effusion on exam, but reports his pain,
swelling, and function have improved since yesterday. At this point, I do not think his current level of swelling warrants aspiration. He did not have any x-rays of his left knee performed, so I have placed an order to have these done to evaluate
for any acute bony pathology. An domonique wrap was placed on his left knee today. He should continue with ice, elevation, compression, and WBAT on the LLE. Will follow up once x-rays completed to provide any updated recommendations based on the
imaging.
--- NOTE | 2023-09-23 12:01 | W.PN.HOSP.TC ---
Today's Communication/Plan
-
Monitor off of ATB until sen by Pod
Vscular consulted, LLE Angio tomorrow
Neph consulted as he will get a large ocntrast load tomorrow
Ortho to otbain Xray of the left knee
Assessment / Plan
Assessment / Plan
NAD, resting comfortably in bed, bruising throughout body, paperthin skin
Scleral anicteric
Moist mucous membranes
No JVD
CTA bilateral
Normal S1-S2 no murmurs
Soft nontender nondistended bowel sounds active
No peripheral pitting edema, Left knee effused
Moves extremities spontaneously
Left great hallux wrapped in gauze. Gauze is soiled with blood. Interestingly was not able to see a superficial wound on the left small toe however this was wrapped and was unable to wrap
AAOx3
Mechanical fall slip and fall from bed. PT OT consult. Fall precautions.
Lower extremity weakness left-sided
-If not improving consider MRI lumbar spine left side
-Otherwise at this time no left great hallux was bleeding appears to have decreased or stopped, dressing is soiled with blood.
-High EsR/CRP
-Pod to see
-Unable to obtain MRI due to old PPM
-Vascular to eval, poor JOSHUA's from 09/16
- -For LLE Angio
Hyponatremia, hypovolemic on exam, will provide IV fluids�isotonic
LORIE/bump in creatinine of 1.4 baseline around 1.0.
Likely secondary to poor p.o. intake and Rhabdo. Now improved with IVF
Mild Traumatic Rhabdo from fall
-IVF
-Daily CK and LFT's
CKD Pdlri2m
-Avoid nephrtoxins and hypotension
-Monitor UOP
-Neph consulted as he will go for LLE angio tomrorow
Knee Effusion - Left sided
-Ortho consulted
-Xray ordered
CABG continue beta-martin Eliquis
Hypertension continue antihypertensives
Atrial fibrillation continue beta-martin Eliquis. Repeat CBC in the a.m. if foot continues to actively bleed would repeat stat CBC hold Eliquis
BPH continue Flomax
Anticipated Discharge: 24 - 48 hours
Subjective/Interval History
-
Date of Service: September 23, 2023
seen an dexamined
states pain is managed
feeling better today
wound care at bedside.
-lateral left foot wound appears necrotic
-great hallux with dried blood
-doppler pulses
Objective Data
-
Labs:
Laboratory Results
09/23/23 09/23/23
06:45 08:19
WBC 10.0 Cancelled
Hgb 8.0 L Cancelled
Hct 23.3 L Cancelled
Plt Count 181 Cancelled
Sodium 129 L Cancelled
Potassium 4.1 Cancelled
Chloride 100 Cancelled
Carbon Dioxide 23 Cancelled
BUN 31 H Cancelled
Creatinine 1.2 Cancelled
Glucose 67 L Cancelled
Calcium 8.6 Cancelled
Vital Signs:
Vital Signs
Temp Pulse Resp BP Pulse Ox
97.8 F 74 18 125/58 97
09/23/23 07:00 09/23/23 07:00 09/23/23 07:00 09/23/23 07:00 09/23/23 09:00
I&O
09/22/23 09/23/23 09/24/23
06:59 06:59 06:59
Intake Total 1080 / 1080
Balance 1080 / 1080
--- NOTE | 2023-09-23 12:47 | WOUNDNOTE ---
[facility] RN Note: Rafael texted Dr. Jimenes who requested L heel weight bear only and recommended a flat surgical shoe L foot. t/c SPD and ordered a men's large flat surgical shoe. Orders placed for L heel weight bear only/flat surgical shoe L foot while
out of bed. Care plan updated.
--- NOTE | 2023-09-23 12:53 | WOUNDNOTE ---
[facility] RN Note: Colmesneil texted Dr. Jimenes who requested L heel weight bear only and recommended a flat surgical shoe L foot. t/c SPD and ordered a men's large flat surgical shoe. Orders placed for L heel weight bear only/flat surgical shoe L foot while
out of bed. Care plan updated. Updated nurse Linda via tiger text.
--- NOTE | 2023-09-23 15:15 | W.CON.NEPH ---
Consultation
-
Date/Time Consultation Requested: 09/23/23 1045
Date/Time Consultation Performed: 09/23/23 1640
Requesting Provider: Kasi Noriega
Performing Provider: Amalia Davenport
Reason for Consultation: hypoantremia and CKD
Medical History
-
Chief Complaint: Leg pain
History of Present Illness:
83 male history of CAD s/p CABG, cardiomyopathy with EF 45-50% on lasix, HTN on coreg and ACEI, atrial fibrillation s/p PPM on anticoagulation with Eliquis, gout on Allopurinol, who presents with lower extremity pain after sustaining a fall/slip
from the side of his bed hitting his buttocks and left foot against the ground, left GT started to bleed. Had difficulty getting off the floor so called 911. No loss of consciousness or head injury. He has wound lateral side of left foot for few
weeks and his recent JOSHUA done [employer] noted to PAD and need of vascular intervention for healing of the wound. He has CKD [id number] baseline cr of 1-1.3, it was at 1.4 on admit and now better at 1.3. H/o hyponatremia in Feb titi 117 required HTS which
later improved to normal range and now since admit sodium persistently low at 129. Reports pain of left foot. Offers no cp or sob. No n/v or diarrhea. No abd pain.
Past Medical History
1. Atrial fibrillation on chronic Coumadin.
2. History of pacemaker for sick sinus syndrome.
3. Coronary artery disease.
4. History of CABG and mitral valve replacement.
5. History of cardiomyopathy with EF of approximately 40-45%.
6. Hypertension.
7. Hypothyroidism.
8. Dyslipidemia.
9. BPH.
10. Gout.
PAD
Past Surgical History: Other (CABG, permanent pacemaker)
Social History
Tobacco: Non-Smoker
Alcohol: None
Personal:
Living: With Family
Family History
Family History: Not Pertinent
Allergies / Home Medications
Allergy/AdvReac Type Severity Reaction Status Date / Time
Sgcqbgz-CMG-OjJ Reductase Allergy Unknown Verified 03/02/23 16:50
Inhibitor
[Gendpku-Gis-Ycz Reductase
Inhibitor]
�Medication �Instructions �Recorded �Confirmed �Type
allopurinol 300 mg tablet 300 mg PO DAILY Gout 12/18/19 09/22/23 History
ascorbic acid (vitamin C) 500 mg 500 mg PO DAILY Supplement 12/18/19 09/22/23 History
tablet (Vitamin C)
levothyroxine 75 mcg tablet 75 mcg PO DAILY AT 0700 Thyroid 12/18/19 09/22/23 History
polyvinyl alcohol-povidone (PF) 1 drops BOTH EYES QIDPRN PRN dry 12/18/19 09/22/23 History
1.4 %-0.6 % eye drops in a eyes
dropperette (Refresh Classic (PF))
apixaban 5 mg tablet (Eliquis) 5 mg PO BID Blood Clot 03/02/23 09/22/23 History
Prevention/Tx
carvedilol 25 mg tablet 25 mg PO BID Blood Pressure 03/02/23 09/22/23 History
enalapril maleate 20 mg tablet 20 mg PO BID Blood Pressure 03/02/23 09/22/23 History
furosemide 20 mg tablet 20 mg PO DAILY Fluid 03/02/23 09/22/23 History
Retention/Swelling
tamsulosin 0.4 mg capsule 0.4 mg PO BID Urinary Issue 03/02/23 09/22/23 History
Review of Systems
-
All complete 12 point ROS have been inquired and found negative other than stated in HPI
Physical Exam
Vital Signs
Vital Signs
Temp Pulse Resp BP Pulse Ox
97.8 F 74 18 125/58 97
09/23/23 07:00 09/23/23 07:00 09/23/23 07:00 09/23/23 07:00 09/23/23 09:00
Lab Results
WBC Cancelled 09/23/23 08:19
RBC Cancelled 09/23/23 08:19
Hgb Cancelled 09/23/23 08:19
Hct Cancelled 09/23/23 08:19
Plt Count Cancelled 09/23/23 08:19
Sodium Cancelled 09/23/23 08:19
Potassium Cancelled 09/23/23 08:19
Chloride Cancelled 09/23/23 08:19
Carbon Dioxide Cancelled 09/23/23 08:19
BUN Cancelled 09/23/23 08:19
Creatinine Cancelled 09/23/23 08:19
eGFR Cancelled 09/23/23 08:19
Glucose Cancelled 09/23/23 08:19
Calcium Cancelled 09/23/23 08:19
Albumin 3.6 g/dl (3.5-5.0) 09/22/23 14:55
Abnormal Lab Results
09/22/23 09/23/23
19:57 06:45
RBC 2.76 L
Hgb 8.0 L
Hct 23.3 L
RDW 15.1 H
ESR 91 H
Sodium 129 L
BUN 31 H
Glucose 67 L
Creatine Kinase 524 H 707 H
C-Reactive Protein 150.50 H
LEFT FOOT XRAY
IMPRESSION: No convincing radiographic evidence for ostial myelitis with attention to the fifth metatarsophalangeal joint.
Curvilinear increased density within the soft tissues lateral to the fifth metatarsal joint, new since previous examination. This is most likely related to an overlying dressing.
HEAD CT
IMPRESSION:
1. No acute intracranial abnormality.
2. Severe right sided paranasal sinus mucosal disease/sinusitis, which has increased from prior. Soft tissue attenuation in the right nasal cavity again suspicious for a large nasal polyp.
JOSHUA from 09/18/23
IMPRESSION:
1. Right lower extremity: JOSHUA 1.06 within normal limits. TBI is 0.83 also within normal limits. Multiphasic continuous Doppler waveforms are noted at the dorsalis pedis artery. Monophasic continuous Doppler waveforms at the posterior tibial artery.
2. Left lower extremity: JOSHUA not obtainable secondary to noncompressibility of the vessels. TBI severely reduced at 0.26. Significantly decreased compared to prior study dated 08/05/2021 at which time measured 0.80. Continuous Doppler waveforms at
the dorsalis pedis and posterior tibial arteries are monophasic.
CXR 09/21
IMPRESSION:
Linear densities within both lower lungs, likely linear scarring and/or atelectasis.
No convincing consolidation to suggest pneumonia.
Cardiomegaly. I do not believe that the vasculature is actively congested.
Physical Exam
General: Awake, Alert, Oriented, AOx3, No Distress and Nontoxic
HEENT: EOMI, Anicteric, Conjunctivae Clear, Facial Symmetry, Neck Supple and Other (prominent ext jugar vein)
Respiratory: Clear, Normal Excursion and Nonlabored Respirations
Cardiac: S1/S2 and Regular Rate/Rhythm
Breast: Deferred by me
Abdomen: Soft, Nontender and Nondistended
Musculoskeletal: No Cyanosis and No Edema
Skin: Other (chr skin changes in both LEs)
Neuro: Nonfocal/Grossly Intact
Psych: Mood/afflect pleasant, Insight/judgement good and Appropriate
Data Reviewed
-
Radiology: Report Reviewed by me
Labs: Labs Reviewed by me and Discussed with Patient
Assessment/Plan
-
Impression:
Mechanical fall slip and fall from bed
Left lower extremity weakness
Hyponatremia,
[id number] 1-1.3
Mild Traumatic Rhabdo from fall
Knee Effusion - Left sided
CAD s/pCABG
Hypertension
Atrial fibrillation
Cardiomyopathy EF 45 to 50%
Mitral valve regurgitation, status post mitral valve repair.
Permanent pacemaker and placement
Hypothyroidism
Obstructive sleep apnea�
BPH
Gout
Plan:
a/w fall and left GT injury but has nonhealing wound fro few weeks with known PAD
CKD-cr seem with in the range of baseline
mild hyponatremia-suspect from pain, stable with isotonic IVF
monitor for now, check U osmo and U na
Bp are stable with out hypotension, holding parameters for ACEI and BB
for angio tomorrow, follow cr post procedure
hold lasix tomorrow, vol status seem stable
d/w pt
[2023-09-23 15:20] VITALS: BP 109/50
--- NOTE | 2023-09-23 16:13 | CM ---
Addendum entered by Lucinda Chavis 09/23/23 16:47:
Sent referral via [facility] to [facility] to let them know that patient was admitted; if home health recommended at discharge, will send update
Addendum entered by Lucinda Chavis 09/23/23 16:33:
CM spoke with patient's via phone; she reported that Bathroom has a low tub w/ shower and grab bars
also reported that he stopped driving ~4 weeks ago; was independent with ADLs and she assists if needed
Currently receiving Home Care services with [facility] #[phone]
Original Note:
Met with patient at bedside; initial assessment completed
Pharmacy verified: [facility] @ [address] [place] [address]
Patient and spouse live in a 2nd floor apartment; 1 step to enter building; elevator access to 2nd floor
PLOF: before admission, he reported that he was ambulating with a cane or walker; assists with ADLs as needed; Drives
DME: reported that he use to wear a CPAP; device was recalled and has not been able to get a new device
NO recent SNF history
Home Health: reported that [employer] arranged for [facility] for wound care; unable to identify agency
Transportation: or family member will provide ride home
LLE Angio scheduled for tomorrow
Plan: disposition to be determined; PT/OT assessments pending; CM will monitor for discharge needs/services
--- NOTE | 2023-09-23 16:27 | W.CS.POD ---
Consult Summary - Podiatry
-
This patient is an 83 yo male with CAD and Atrial fibrillation on anticoagulants who slipped and fell trying to to get out of his bed on 09/21/23, injuring his foot and landing on his buttocks. He could not get up and his could not lift him so
they called 911. At the time he refused to go to the ER. The patient noticed his great toe was bleeding heavily so he visited his first aid officer (Dr. Shaffer) the next day who was concerned by the increased redness an swelling of the foot, the
patient's overall appearance as well as the potential for a head injury during the fall, and subsequently sent the patient to [facility] ER with a RX/Note to be consulted to manage his foot issues. Instead, I (international tax manager DPM) was consulted to evaluate his
foot. Today the patient reports only mild discomfort intermittently, denies fever, chills or sweats.
The patient is AA&Ox3.
Afebrile, VSS.
No leukocytosis.
09/22/23 left foot XRAYS:
There is curvilinear increased density within the soft tissues lateral to the fifth metatarsophalangeal joint, new from previous examination. This is most likely related to an overlying dressing, as calcification developing in this region over the
past 19 days seem unlikely.
Comparing to previous radiograph, no definite evidence for interval bony destruction at the fifth metatarsophalangeal joint, with no convincing evidence for (osteomyelitis).
09/17/23 LE Arterial U/S:
1. Right lower extremity: JOSHUA 1.06 within normal limits. TBI is 0.83 also within normal limits. Multiphasic continuous Doppler waveforms are noted at the dorsalis pedis artery. Monophasic continuous Doppler waveforms at the posterior tibial artery.
2. Left lower extremity: JOSHUA not obtainable secondary to noncompressibility of the vessels. TBI severely reduced at 0.26. Significantly decreased compared to prior study dated 08/05/2021 at which time measured 0.80. Continuous Doppler waveforms at
the dorsalis pedis and posterior tibial arteries are monophasic.
Assessment/Plan:
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 No radiographic evidence of osteomyelitis.
-Soft tissue injury to the nail complex and distal right great toe, with dried blood/eschar essentially stable and clean. No underlying fracture on XRAY.
-CAD s/p CABG
-Atrial Fibrillation on anticoagulants
Plan:
Continue local wound care as per WCN.
Vascular note appreciated. Anticipate Angiogram on 09/24/23.
Considering non-healing wound, would recommend MRI to determine possible underlying osteomyelitis of the fifth metatarsal head.
Spoke with Dr. Shaffer by phone. She has requested taking over the in-patient care of this patient. Will have consult transferred to her service.
[2023-09-23 17:33] LABS: Osmolality Urine 431 mOsm/kg (300-900)
[2023-09-23 17:44] LABS: Urine Sodium 29 mmol/L (30-90)
[2023-09-23 23:00] VITALS: BP 134/57
[2023-09-23] MEDS: TYLENOL 650 MG PO (23:01)
--- NOTE | 2023-09-23 23:05 | PTCARENOTE ---
Pt became confused, hallucinating, and forgetful. pt thought there was a crowd of people in his room. was disoriented to time and year. pt had a iyal=036.4 - administered Tylenol. informed ACCOUNTS RECEIVABLE MANAGER [facility] [place] order. pt yelled out several times,
but eventually fell asleep.
[2023-09-23 23:24] LABS: % Basophils 0.3 % (0-2); % Immature Granulocytes 0.5 % (0-0.5); % Lymphocytes 11.4 % (20.5-51.1); % Monocytes 8.8 % (1.7-9.3); Absolute Eosinophils 0.2 10^3/uL (0-0.7); Absolute Immature Granulocytes 0.1 10^3/uL (0-0.05); Absolute Lymphocytes 1.2 10^3/uL (1.2-3.4); Absolute Monocytes 0.9 10^3/uL (0.1-0.6); Absolute Neutrophils 8.1 10^3/uL (1.4-6.5); Hematocrit 22.7 % (39.0-52.0); Hemoglobin 7.8 g/dL (13.0-18.0); Mean Corp Hgb Conc. 34.4 g/dL (33.0-37.0); Mean Corpuscular Hgb 28.8 pg (27.0-31.0); Mean Corpuscular Volume 83.8 fL (80.0-94.0); Mean Platelet Volume 9.1 fL (7.4-10.4); Nucleated Red Blood Cells % 0 % (-); Platelet Count 164 10^3/uL (130-400); Red Blood Cell Count 2.71 10^6/uL (4.70-6.10); Red Cell Dist. Width 15.1 % (11.5-14.5); White Blood Cell Count 10.5 10^3/uL (4.8-10.8)
[2023-09-23 23:36] LABS: Lactic Acid 0.8 mmol/L (0.7-2.0)
[2023-09-24] MEDS: SYNTHROID 75 MCG PO (05:36)
[2023-09-24 06:00] VITALS: BMI 24.3
[2023-09-24] MEDS: TYLENOL 650 MG PO ×2 (06:45→15:49)
--- NOTE | 2023-09-24 06:48 | W.PN.UPDATE ---
Update Note
Progress Note Update
Follow-up on patient this morning for x-ray review. X-rays left knee completed September 23, 2023 here at [facility] were negative for fracture or dislocation. Moderate tricompartmental osteoarthritis noted. Left knee Adalberto wrap was removed
while several small dressings in place over the front of the knee were left in place. Trace to small effusion noted. No warmth or erythema noted. No pain to palpation about the knee. Range of motion 0-100 degrees without pain or instability.
Minimal pain over the medial and patellofemoral joint lines. Distal neurovascular grossly intact throughout the bilateral lower extremities. Patient may do conservative treatments for his knee pain/osteoarthritis. Physical therapy may be helpful
as well. Follow-up outpatient basis for further treatment if needed. Orthopedics to sign off for now.
[2023-09-24 07:00] VITALS: BP 135/59
[2023-09-24 07:42] LABS: Hematocrit 23.3 % (39.0-52.0); Hemoglobin 7.9 g/dL (13.0-18.0); Mean Corp Hgb Conc. 33.9 g/dL (33.0-37.0); Mean Corpuscular Hgb 28.7 pg (27.0-31.0); Mean Corpuscular Volume 84.7 fL (80.0-94.0); Mean Platelet Volume 9.1 fL (7.4-10.4); Platelet Count 185 10^3/uL (130-400); Red Blood Cell Count 2.75 10^6/uL (4.70-6.10); White Blood Cell Count 10.7 10^3/uL (4.8-10.8)
[2023-09-24 08:01] LABS: INR 2.53; PT 27.6 Sec (11.4-14.6)
[2023-09-24 08:02] LABS: APTT 56.5 Sec (23.4-35.0)
[2023-09-24 08:20] LABS: Blood Urea Nitrogen 27 mg/dl (9-20); Calcium 8.5 mg/dl (8.4-10.2); Carbon Dioxide 24 mmol/L (22-30); Chloride 102 mmol/L (98-107); Estimated Creatinine Clearance 50 ml/min; Glucose 82 mg/dl (70-99); Potassium 3.9 mmol/L (3.5-5.1); Sodium 131 mmol/L (135-145); eGFR 59.63
--- NOTE | 2023-09-24 08:26 | PN.CDI ---
CDI
- -
CDI:
Physician Documentation Request
Admit Date: 09/22/23 18:59
Dear Doctor Pawel,
Please review the following and provide your response in the progress notes.
Clinical Indicators:
ED, 09/21
#Chief Complaint: Weakness
#She also notes and agrees that skin is a bit yellow.
Laboratory Tests
09/22/23
14:55
Total Bilirubin 3.1 H
Based on the above, please clarify in the progress notes, the appropriate diagnosis, if significant, that supports the above abnormalities and additional evaluation, monitoring and/or treatment rendered:
Elevated bilirubin
Abnormal lab value, clinically insignificant
Other(please specify)
Use of terms such as suspected, likely, concern for, or probable (associated with a specific diagnosis that is being evaluated, monitored, or treated as if it exists) are acceptable and can be coded in the inpatient setting, when documented at the
time of discharge.
Thank you,
Marie Corral RN BSN CCDS
CDI Specialist
Please contact via tiger text
Please use your independent medical judgment in providing your response.
[2023-09-24] MEDS: COREG 25 MG PO ×2 (08:32→20:00)
[2023-09-24] MEDS: VITAMIN C 500 MG PO (08:32)
[2023-09-24] MEDS: ELIQUIS 5 MG PO ×2 (08:32→20:00)
[2023-09-24] MEDS: ZYLOPRIM 300 MG PO (08:33)
[2023-09-24] MEDS: FLOMAX 0.4 MG PO ×2 (08:33→20:01)
--- NOTE | 2023-09-24 08:35 | PN.CDI ---
CDI
- -
CDI:
Physician Documentation Request
Admit Date: 09/22/23 18:59
Dear Doctor Pawel,
Please review the following and provide your response in the progress notes.
Clinical Indicators:
ED, 09/22
#Acute hyponatremia, infected foot wound, Acute metabolic encephalopathy, Anemia
09/23/23 23:05 (created 09/24/23 03:03) - Patient Care Note
#Pt became confused, hallucinating, and forgetful.
#...pt thought there was a crowd of people in his room.
#...was disoriented to time and year. pt had a bzhx=583.4 - administered Tylenol.
#...pt yelled out several times, but eventually fell asleep.
Based on the above and your clinical assessment, please clarify in the Progress Notes and Discharge Summary which, if any of the following, is the most likely etiology of the confusion/altered mental status.
Multifactorial Toxic Encephalopathy - due to please specify, ie infection, metabolic derangements, septic, hypertensive, hyponatremia etc.
Baseline Dementia - indicate type, such as Alzheimer's, senile, vascular, Lewy body etc., and any associated behavioral disturbances (aggressive, combative or violent behavior) if present
Other (please specify)
Use of terms such as suspected, likely, concern for, or probable (associated with a specific diagnosis that is being evaluated, monitored, or treated as if it exists) are acceptable and can be coded in the inpatient setting, when documented at the
time of discharge.
Thank you,
Marie Corral RN BSN CCDS
CDI Specialist
please contact via tiger text
Please use your independent medical judgment in providing your response.
[2023-09-24 09:56] LABS: Creatine Phosphokinase 422 U/L (55-170)
--- NOTE | 2023-09-24 11:42 | CM ---
CM met with patient bedside, confirmed patient is current with [facility]. CM will update [facility] when patient is stable for discharge. CM will continue to follow for all discharge planning needs.
Plan; home with [facility]N through [facility] phone- [phone]
--- NOTE | 2023-09-24 13:24 | W.PN.HOSP.TC ---
Addendum entered and electronically signed by Kasi Armas MD 09/24/23 17:47:
unable to comment on mental status as when i saw him he was at baseline.
cholestatic pattern lft's likely related to rhabdo.
Original Note:
Today's Communication/Plan
-
Left lower extremity angiogram
Follow-up on vascular surgery recommended
Podiatry to evaluate
Assessment / Plan
Assessment / Plan
NAD, resting comfortably in bed, bruising throughout body, paperthin skin
Scleral anicteric
Moist mucous membranes
No JVD
CTA bilateral
Normal S1-S2 no murmurs
Soft nontender nondistended bowel sounds active
No peripheral pitting edema, Left knee effused
Moves extremities spontaneously
Left great hallux wrapped in gauze. Gauze is soiled with blood. Interestingly was not able to see a superficial wound on the left small toe however this was wrapped and was unable to wrap
AAOx3
Mechanical fall slip and fall from bed. PT OT consult. Fall precautions.
Lower extremity weakness left-sided
-If not improving consider MRI lumbar spine left side
-Otherwise at this time no left great hallux was bleeding appears to have decreased or stopped, dressing is soiled with blood.
-High EsR/CRP
-Pod to see
-Unable to obtain MRI due to old PPM
-Vascular to eval, poor JOSHUA's from 09/16
- -For LLE Angio
Hyponatremia, hypovolemic on exam, will provide IV fluids�isotonic
LORIE/bump in creatinine of 1.4 baseline around 1.0.
Likely secondary to poor p.o. intake and Rhabdo. Now improved with IVF
Mild Traumatic Rhabdo from fall
-IVF
-Daily CK and LFT's
CKD [id number]
-Avoid nephrtoxins and hypotension
-Monitor UOP
-Neph consulted as he will go for LLE angio tomrorow
Knee Effusion - Left sided
-Ortho consulted
-Xray ordered
CABG continue beta-martin Eliquis
Hypertension continue antihypertensives
Atrial fibrillation continue beta-martin Eliquis. Repeat CBC in the a.m. if foot continues to actively bleed would repeat stat CBC hold Eliquis
BPH continue Flomax
Anticipated Discharge: 24 - 48 hours
Subjective/Interval History
-
Date of Service: September 24, 2023
Seen and examined. No new complaints. No acute overnight event
Objective Data
-
Labs:
Laboratory Results
09/24/23
07:05
WBC 10.7
Hgb 7.9 L
Hct 23.3 L
Plt Count 185
PT 27.6 H
INR 2.53
APTT 56.5 H
Sodium 131 L
Potassium 3.9
Chloride 102
Carbon Dioxide 24
BUN 27 H
Creatinine 1.2
Glucose 82
Calcium 8.5
Vital Signs:
Vital Signs
Temp Pulse Resp BP Pulse Ox
98.0 F 64 20 135/59 99
09/24/23 07:00 09/24/23 07:00 09/24/23 07:00 09/24/23 07:00 09/24/23 11:46
I&O
09/23/23 09/24/23 09/25/23
06:59 06:59 06:59
Intake Total 1080 / 1080 780 / 780
Output Total 450 / 450
Balance 1080 / 1080 330 / 330
[2023-09-24 15:00] VITALS: BP 119/77
--- NOTE | 2023-09-24 15:13 | PHA.VAN.IN ---
Assessment
- Assessment
Renal Function: Appears elevated from baseline (SCR slightly elevated at 1.2 vs 0.9-1 in Feb 2023)
Concomitant Antimicrobials: cefepime
AUC Dosing Plan
- Dosing Variables
Dosing Weight (kg): 81
Dosing CrCl (ml/min): 50
Vd coefficient (L/kg): 0.7
- Empiric Dosing
Initial / Loading Dose: Vanc 1000mg 09/21 16:59
Maintenance Regimen: Vanc 1250mg Q24H - first dose now then 09/24 0600
Estimated AUC (mcg*h/mL): 497
Estimated Peak (mcg*h/mL): 33
Estimated Trough (mcg/ml): 11.8
Estimated Half Life (H): 15
- Monitoring
No levels ordered at this time: consider levels in next few days
Pharmacokinetics Vancomycin I
- -
Patient Age: 83
Patient Sex: Male
Vancomycin Day #: 1
Indication: Bone And Joint
Requesting Provider: Dr. Cheney
Pertinent Antimicrobial Allergies:
no pertinent antibiotic allergies
Height / Weight:
Height 6 ft
Actual Weight 81.25 kg
Pertinent Past Medical History: CKD
- Vital Signs / Lab Results
Temp Pulse Resp BP Pulse Ox
98.0 F 64 20 135/59 99
09/24/23 07:00 09/24/23 07:00 09/24/23 07:00 09/24/23 07:00 09/24/23 11:46
Lab Results - Hematology
09/22/23 09/23/23 09/23/23
14:55 06:45 08:19
WBC 11.5 H 10.0 Cancelled
09/23/23 09/24/23
23:19 07:05
WBC 10.5 10.7
Lab Results - Chemistry
09/22/23 09/23/23 09/23/23
14:55 06:45 08:19
BUN 36 H 31 H Cancelled
Creatinine 1.4 H 1.2 Cancelled
Estimated Creat Clear 43 50 Cancelled
Albumin 3.6
09/24/23
07:05
BUN 27 H
Creatinine 1.2
Estimated Creat Clear 50
Albumin
09/22/23 09/22/23 09/23/23
14:55 19:57 23:19
Lactic Acid 1.5 1.0 0.8
Lab Results - Urine
09/23/23
04:54
Urine Nitrite (Reflex) Negative
Leukocyte Esterase Rfl Negative
Microbiology Results
09/22/23 20:41 MRSA Screen - Final
Nose No Methicillin Resistant Staphylococcus aureus isolated.
[2023-09-24] MEDS: STERILE WATER FOR INJECTION 10 ML IV (15:45)
[2023-09-24] MEDS: VANCOCIN 275 MG IV (15:45)
[2023-09-24] MEDS: MAXIPIME 1000 MG IV (15:45)
[2023-09-24] MEDS: NSS 1000 IV (15:45)
--- NOTE | 2023-09-24 16:03 | W.PN.UPDATE ---
Update Note
Progress Note Update
Patient febrile with intermittent confusion and elevated INR, will cancel arteriogram. Informed patient at bedside, will tentatively reschedule for Wednesday 09/27. Please hold Eliquis starting 09/25 after evening dose.
--- NOTE | 2023-09-24 16:12 | W.PN.NEPH.PH ---
Today's Communication / Plan
-
- stable
Assessment/Plan
-
Impression:
Mechanical fall slip and fall from bed
Left lower extremity weakness
Hyponatremia,
[id number] 1-1.3
Mild Traumatic Rhabdo from fall
Knee Effusion - Left sided
CAD s/pCABG
Hypertension
Atrial fibrillation
Cardiomyopathy EF 45 to 50%
Mitral valve regurgitation, status post mitral valve repair.
Permanent pacemaker and placement
Hypothyroidism
Obstructive sleep apnea�
BPH
Gout
Plan:
a/w fall and left GT injury but has nonhealing wound fro few weeks with known PAD
CKD-cr seem with in the range of baseline
mild hyponatremia-suspect from pain, stable with isotonic IVF
monitor for now, check U osmo and U na
Bp are stable with out hypotension, holding parameters for ACEI and BB
s/p angio, awaiting surgery recs
vol status seem stable
d/w pt
-
-
Date of Service: September 24, 2023
CC / HPI / ROS
-
Chief Complaint:
CKD, mild hypoNa
History of Present Illness:
Cr at baseline
Na stable at 131
Review of Systems:
s/p angiogram
awaiting recs of when procedure will be
Labs
-
Labs:
WBC 10.7 10^3/uL (4.8-10.8) 09/24/23 07:05
RBC 2.75 10^6/uL (4.70-6.10) L 09/24/23 07:05
Hgb 7.9 g/dL (13.0-18.0) L 09/24/23 07:05
Hct 23.3 % (39.0-52.0) L 09/24/23 07:05
Plt Count 185 10^3/uL (130-400) 09/24/23 07:05
Sodium 131 mmol/L (135-145) L 09/24/23 07:05
Potassium 3.9 mmol/L (3.5-5.1) 09/24/23 07:05
Chloride 102 mmol/L (98-107) 09/24/23 07:05
Carbon Dioxide 24 mmol/L (22-30) 09/24/23 07:05
BUN 27 mg/dl (9-20) H 09/24/23 07:05
Creatinine 1.2 mg/dL (0.7-1.3) 09/24/23 07:05
eGFR 59.63 09/24/23 07:05
Glucose 82 mg/dl (70-99) 09/24/23 07:05
Calcium 8.5 mg/dl (8.4-10.2) 09/24/23 07:05
Albumin 3.6 g/dl (3.5-5.0) 09/22/23 14:55
Physical Exam
-
Vital Signs:
Vital Signs
Temp Pulse Resp BP Pulse Ox
98.0 F 66 20 119/77 99
09/24/23 15:00 09/24/23 15:00 09/24/23 15:00 09/24/23 15:00 09/24/23 15:00
Cardiovascular:: Regular rate and rhythm
Respiratory:: Bilateral: CTA
Lung Excursion:: Normal
Abdomen:: Nontender and Soft
Bowel Sounds:: Normal
Extremity Edema:: None: Bilateral: and None: Left: (wrapped)
Reyna Catheter: No
--- NOTE | 2023-09-24 16:14 | CON.ID ---
Consultation
-
Date/Time Consultation Requested: 09/24/2023 1424
Date/Time Consultation Performed: 09/24/2023 1530
Requesting Provider: Dr. Armas
Performing Provider: Dr. Cheney
Reason for Consultation: Fever; left foot wound
Chief Complaint / Past History
History of Present Illness
See Lauren is a 83-year-old man being evaluated at the request of Dr. Armas in regards to fever and a left foot wound. History is obtained from chart review, along with patient interview. The patient presented to the emergency room on 09/21
after reportedly slipping out of bed and onto the floor the night before. According to reviewed notes the patient was evaluated by EMS at that point, but he declined coming to the emergency room. Ultimately, he had ongoing bleeding from the left
foot, along with redness and swelling and he was convinced to come to the emergency room.
He reports that he has had an ulceration on the lateral aspect of his left foot for several weeks. He notes that intermittently bleeds, but does not admit to significant pain in the area.
Overnight, the patient developed a single isolated temperature to 101 degrees. The patient has been started on empiric antibiotics, and Infectious Diseases is asked to comment upon further antimicrobial management.
Past History
Additional Past Medical History:
A-fib
CAD
HTN
Hypothyroid
Dyslipidemia
CKD
Hyponatremia
Additional Past Surgical History:
PPM placement
Mitral valve repair
Allergy History:
Prvmxxd-LPZ-PtD Reductase Inhibitor [Oqojxzk-Zef-Rui Reductase Inhibitor] Allergy (Verified 03/02/23 16:50)
Unknown
Medications Reviewed: Yes
Current Antibiotics:
Vancomycin
Cefepime
Social History
Tobacco: Non-Smoker
Alcohol: None
Drug: None
Personal:
Living: With Family
Employment: Retired
Family History
Family History: Not Pertinent
Review of Systems
Vital Signs
Temp Pulse Resp BP Pulse Ox
98.0 F 66 20 119/77 99
09/24/23 15:00 09/24/23 15:00 09/24/23 15:00 09/24/23 15:00 09/24/23 15:00
Physical Exam
Physical Exam
Constitutional: Comfortable, Chronically Ill and Non-toxic
Eyes: No Conjunctival Hemorrhage and Sclera Anicteric
Oral: No Thrush
Cardiovascular: Irregular Rate and S1/S2; Negative S3/S4 or Murmur
Pulmonary: Clear; Negative Wheezes, Rales or Rhonchi
Gastrointestinal: Soft, Non Tender, Non Distended and Normal Bowel Sounds
Skin: Warm and Dry
Wound: Other (Lateral foot with 1.5 cm fleshy ulceration over the fifth met head. Positive probe to bone.)
Neurological: Awake and Alert
Psychological: Calm
Lab / Diagnostic Study Results
09/24/23 07:05
09/24/23 07:05
Abs Immat Gran (auto) 0.1 10^3/uL (0-0.05) H 09/23/23 23:19
Absolute Neuts (auto) 8.1 10^3/uL (1.4-6.5) H 09/23/23 23:19
Absolute Lymphs (auto) 1.2 10^3/uL (1.2-3.4) 09/23/23 23:19
Absolute Monos (auto) 0.9 10^3/uL (0.1-0.6) H 09/23/23 23:19
Absolute Basos (auto) 0.0 10^3/uL (0-0.2) 09/23/23 23:19
Immature Gran % 0.5 % (0-0.5) 09/23/23 23:19
Neutrophils % 77.0 % (42.2-75.2) H 09/23/23 23:19
Lymphocytes % 11.4 % (20.5-51.1) L 09/23/23 23:19
Monocytes % 8.8 % (1.7-9.3) 09/23/23 23:19
Eosinophils % 2.0 % (0-6) 09/23/23 23:19
Basophils % 0.3 % (0-2) 09/23/23 23:19
ESR 91 mm/hour (0-20) H 09/22/23 19:57
PT 27.6 Sec (11.4-14.6) H 09/24/23 07:05
INR 2.53 09/24/23 07:05
Lactic Acid 0.8 mmol/L (0.7-2.0) 09/23/23 23:19
C-Reactive Protein 150.50 mg/L (0.0-10.00) H 09/22/23 19:57
Microbiology Results
Micro:
09/24/23 14:50 Blood Culture - Pending
Blood/Venous
09/22/23 20:41 MRSA Screen - Final
Nose No Methicillin Resistant Staphylococcus aureus isolated.
09/23/23 23:39 Blood Culture - Pending
Blood/Venous
Imaging:
09/17/2023 JOSHUA: 1. Right lower extremity: JOSHUA 1.06 within normal limits. TBI is 0.83 also within normal limits. Multiphasic continuous Doppler waveforms are noted at the dorsalis pedis artery. Monophasic continuous Doppler waveforms at the posterior
tibial artery.
2. Left lower extremity: JOSHUA not obtainable secondary to noncompressibility of the vessels. TBI severely reduced at 0.26. Significantly decreased compared to prior study dated 08/05/2021 at which time measured 0.80. Continuous Doppler waveforms at
the dorsalis pedis and posterior tibial arteries are monophasic.
Assessment / Plan
Fever
Left foot wound
Critical limb ischemia, LLE
A-fib
CAD
HTN
Hypothyroid
Dyslipidemia
CKD
Hyponatremia
Recommendations:
Fever noted, but no recurrence thus far. Cultures have been obtained. White count noted to be normal.
Workup will need to proceed for suspected osteomyelitis of left foot. Patient tentatively for angiogram.
Will order MRI to assess for osteomyelitis. If present, patient will likely need bone biopsy +/- bone debridement versus resection of the area. Podiatry is on board.
Discontinue further antibiotics in anticipation of further workup of the left foot suspected osteo.
Follow white count and temperature curve. If patient continues to spike temperatures, though, will reinitiate antibiotic therapy.
Care Review
Plan reviewed with: Other (Clinical Pharmacist)
--- NOTE | 2023-09-24 18:46 | CON.MD ---
Consultation - Medical
-
Consulted 09/24/2023 Dr Jimenes (allocation analyst) notified me patient was admitted 09/23/23 [address] Rae Shaffer 09/24/23 1745
HPI: Patient presented to my office on 09/22/2023 stating he had sustained a fall at his home @ 1am and medics were called to pick him up, he refused trip to ED. He was at that time displaying malaise and holding his head and stated he felt weak.
There was blood saturating his socks and noted to be all over his legs from various skin tears.
The hypergranular wound sub 5 present >4 weeks needed to be cauterized with AgNo3 (hence the sclerotic rim noted on 09/21 xray) to control bleeding.
Cellulitis was also noted to the left foot.
Based on h/o hyponatremia, excessive blood loss left foot, cellulitis left foot and LE weakness I sent him to ED for evaluation.
Medical History
History of Present Illness
As above. Wound left foot -hypergranular- with acute bleeding post mechanical fall as well as acute onset of edema and erythema to the dorsal left foot (contusion/hematoma second to eliquis vs cellulitis )
Past Medical / Surgical History
A-fib
CAD
HTN
Hypothyroid
Dyslipidemia
CKD
Hyponatremia
Additional Past Surgical History:
PPM placement
Mitral valve repair
ROS:All complete 12 point ROS have been inquired and found negative other than stated in HPI
Medications
Current Antibiotics: Vancomycin/Cefepime
Tamsulosin, Levothyroxine, furosemide, enalapril maleate, eliquis, carvedilol, vit c, allopurinol
Allergies
Allergy History:
Unwrnfo-IDY-EyW Reductase Inhibitor [Fckpmsx-Ifh-Rkz Reductase Inhibitor] Allergy (Verified 03/02/23 16:50)
Social / Family History
Social History
Tobacco: Non-Smoker
Alcohol: None
Drug: None
Personal:
Living: With spouse
Employment: Retired
Family History
Family History: Not Pertinent
Vital Signs / Labs
-
Vital Signs and Labs:
Temp Pulse Resp BP Pulse Ox
98.0 F 66 20 119/77 99
09/24/23 15:00 09/24/23 15:00 09/24/23 15:00 09/24/23 15:00 09/24/23 15:00
09/24/23 07:05
09/24/23 07:05
09/23/23 09/24/23
23:19 07:05
RBC 2.71 L 2.75 L
Hgb 7.8 L 7.9 L
Hct 22.7 L 23.3 L
RDW 15.1 H 15.0 H
Abs Immat Gran (auto) 0.1 H
Absolute Neuts (auto) 8.1 H
Absolute Monos (auto) 0.9 H
Neutrophils % 77.0 H
Lymphocytes % 11.4 L
PT 27.6 H
APTT 56.5 H
Sodium 131 L
BUN 27 H
Creatine Kinase 422 H D
Physical Exam
Vital Signs
Vital Signs
Temp Pulse Resp BP Pulse Ox
98.0 F 66 20 119/77 99
09/24/23 15:00 09/24/23 15:00 09/24/23 15:00 09/24/23 15:00 09/24/23 15:00
XRAYS left foot: No convincing radiographic evidence for osteomyelitis with attention to the fifth metatarsophalangeal joint.
Curvilinear increased density within the soft tissues lateral to the fifth metatarsal joint, new since previous examination. This is most likely related to an overlying dressing.THIS IS result of AGNO3 used by me on 09/21 in office to cauterize
hypergranular wound that was actively bleeding
Left lower extremity: JOSHUA not obtainable secondary to noncompressibility of the vessels. TBI severely reduced at 0.26. Significantly decreased compared to prior study dated 08/05/2021 at which time measured 0.80. Continuous Doppler waveforms at the
dorsalis pedis and posterior tibial arteries are monophasic.
Physical Exam
General: normal affect, conversant. C/O back pain. States he was sleepy, but could hear and understand everything being said yesterday and today. He in in NAD
Other: LE focused
Non palp DP/feeble PT left feet are warm and dry, RLE +1/4 DPA and CORROSION CONTROL SPECIALIST RLE
+Edema and erythema left foot (improved since last seen 09/22/23) denies pain.
Skin tears to the left great toe, right grt toe, left 2nd toe, 4th and 5th toes
Chronic left foot wound sub 5th metatarsal head-dusky appearing measures >2cm2, boggy. (Previously hypergranular and bleeding profusely) no bone is exposed or undermined no purulence was expressed to the left foot wound.
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
Assessemnt/Plan
-
1-PAD- Vascular service following. Agram cxl as result of possible bacteremia and fever sched now for Thursday
2-Chronic non healing wound sub 5 left foot- ? OM
-pt unable to have MRI as result of old pacer, will order tagged wbc scan, once agram performed we can also discuss resection of 5th met head left while off eliquis
-Continue wound care as ordered for now, WB for transfers in post op shoe.
3-Cellulitis Vs contusion/hematoma left dorsal foot- ID following, bld cx pending
Will follow along with you
[2023-09-24 23:14] VITALS: BP 146/65
[2023-09-25] MEDS: NSS IV (03:49)
[2023-09-25 06:00] VITALS: BMI 24.6
[2023-09-25] MEDS: SYNTHROID 75 MCG PO (06:19)
[2023-09-25 07:00] VITALS: BP 100/71
[2023-09-25 08:30] LABS: Blood Urea Nitrogen 22 mg/dl (9-20); Calcium 8.4 mg/dl (8.4-10.2); Carbon Dioxide 23 mmol/L (22-30); Chloride 104 mmol/L (98-107); Estimated Creatinine Clearance 60 ml/min; Glucose 74 mg/dl (70-99); Sodium 131 mmol/L (135-145); eGFR > 60.00
[2023-09-25 08:41] LABS: Potassium 3.8 mmol/L (3.5-5.1)
[2023-09-25] MEDS: ELIQUIS 5 MG PO ×2 (09:04→19:30)
[2023-09-25] MEDS: FLOMAX 0.4 MG PO ×2 (09:04→19:30)
[2023-09-25] MEDS: COREG PO (09:04)
[2023-09-25] MEDS: VITAMIN C 500 MG PO (09:04)
[2023-09-25] MEDS: ZYLOPRIM 300 MG PO (09:05)
[2023-09-25] MEDS: REFRESH EYE DROPS (PF) 1 DROPS BOTH EYES ×2 (09:12→18:24)
[2023-09-25] MEDS: TYLENOL 650 MG PO ×2 (09:12→18:24)
--- NOTE | 2023-09-25 12:18 | CM ---
Patient seen bedside with , discussed referral made to [facility], would also like PT/OT upon discharge. [facility]. CM will continue to follow for all discharge planning needs.
Plan; home with [facility] when stable.
[facility]
--- NOTE | 2023-09-25 12:48 | W.PN.HOSP.TC ---
Today's Communication/Plan
-
Hold atb per ID
-If febrile again then consider atb
Follow up Bcx
FOllow up Pod recs
Follow up on Tagged wbc scan and LLE angio
FOllow up Pod and Vascular surgery recs
Assessment / Plan
Assessment / Plan
NAD, resting comfortably in bed, bruising throughout body, paperthin skin
Scleral anicteric
Moist mucous membranes
No JVD
CTA bilateral
Normal S1-S2 no murmurs
Soft nontender nondistended bowel sounds active
No peripheral pitting edema, Left knee effused
Moves extremities spontaneously
Left great hallux wrapped in gauze. Gauze is soiled with blood. Interestingly was not able to see a superficial wound on the left small toe however this was wrapped and was unable to wrap
AAOx3
Mechanical fall slip and fall from bed. PT OT consult. Fall precautions.
Lower extremity weakness left-sided
-If not improving consider MRI lumbar spine left side
-Otherwise at this time no left great hallux was bleeding appears to have decreased or stopped, dressing is soiled with blood.
-High EsR/CRP
-Pod to see
-Unable to obtain MRI due to old PPM
-Tagged WBC scan ordered
-Vascular to eval, poor JOSHUA's from 09/16
-Hold eliuis start 09/25
- -For LLE Angio on 09/27
Hyponatremia, hypovolemic on exam, will provide IV fluids�isotonic
LORIE/bump in creatinine of 1.4 baseline around 1.0.
Likely secondary to poor p.o. intake and Rhabdo. Now improved with IVF
Mild Traumatic Rhabdo from fall
-IVF
-Daily CK and LFT's
CKD [id number]
-Avoid nephrtoxins and hypotension
-Monitor UOP
-Neph consulted as he will go for LLE angio tomrorow
Knee Effusion - Left sided
-Ortho consulted
-Xray ordered
CABG continue beta-martin Eliquis
Hypertension continue antihypertensives
Atrial fibrillation continue beta-martin Eliquis. Repeat CBC in the a.m. if foot continues to actively bleed would repeat stat CBC hold Eliquis
BPH continue Flomax
Anticipated Discharge: > 48 hours
Subjective/Interval History
-
Date of Service: September 25, 2023
Seen and examined. No new complaints. No acute overnight events
Objective Data
-
Labs:
Laboratory Results
09/25/23
07:24
Sodium 131 L
Potassium 3.8
Chloride 104
Carbon Dioxide 23
BUN 22 H
Creatinine 1.0
Glucose 74
Calcium 8.4
Vital Signs:
Vital Signs
Temp Pulse Resp BP Pulse Ox
98.9 F 80 16 100/71 95
09/25/23 07:00 09/25/23 07:00 09/25/23 07:00 09/25/23 07:00 09/25/23 07:00
I&O
09/24/23 09/25/23 09/26/23
06:59 06:59 06:59
Intake Total 780 / 780 1260 / 1260
Output Total 450 / 450 1450 / 1450
Balance 330 / 330 -190 / -190
--- NOTE | 2023-09-25 12:53 | W.PN.ID1 ---
Date of Service
Date of Service: September 25, 2023
Today's Communication
Observe closely off antibiotics. Await further vascular workup.
Assessment / Plan
Fever episode
- appears isolated
Left foot wound
- concern for underlying osteo
Critical limb ischemia, LLE
A-fib
CAD
HTN
Hypothyroid
Dyslipidemia
CKD
Hyponatremia
Recommendations:
Fever noted, but no recurrence thus far. Cultures have been obtained. White count noted to be normal.
Workup will need to proceed for suspected osteomyelitis of left foot. Patient tentatively for angiogram.
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
Bone scan to be performed.
- If positive, patient will likely need bone biopsy +/- bone debridement versus resection of the area. Podiatry is on board.
Follow white count and temperature curve. If patient continues to spike temperatures, though, will reinitiate antibiotic therapy.
����������������������������������������������������������
Chief Complaint
-: Other (Left foot ulceration)
Subjective / Review of Systems
Review of Systems: No Fever and No Chills
Vital Signs / Physical Exam
Vital Signs
Vital Signs
Temp Pulse Resp BP Pulse Ox
98.9 F 80 16 100/71 95
09/25/23 07:00 09/25/23 07:00 09/25/23 07:00 09/25/23 07:00 09/25/23 07:00
Physical Exam
Constitutional: No Acute Distress, Comfortable, Chronically Ill and Non-toxic
Eyes: Sclera Anicteric
Cardiovascular: Irregular Rate and S1/S2; Negative S3/S4
Pulmonary: Clear; Negative Wheezes or Rales
Extremities: Edema and Erythema (mild)
Wound: Other (left lat. 5th met head ulceration dressed.)
Neurological: Awake
Psychological: Calm
Objective Data
Lab Data
Lab Results
09/24/23 07:05
09/25/23 07:24
ESR 91 mm/hour (0-20) H 09/22/23 19:57
PT 27.6 Sec (11.4-14.6) H 09/24/23 07:05
INR 2.53 09/24/23 07:05
APTT 56.5 Sec (23.4-35.0) H 09/24/23 07:05
Estimated Creat Clear 60 ml/min 09/25/23 07:24
Lactic Acid 0.8 mmol/L (0.7-2.0) 09/23/23 23:19
Total Bilirubin 3.1 mg/dl (0.2-1.3) H 09/22/23 14:55
AST 32 U/L (17-59) 09/22/23 14:55
ALT 12 U/L (0-50) 09/22/23 14:55
Alkaline Phosphatase 68 U/L (38-126) 09/22/23 14:55
C-Reactive Protein 150.50 mg/L (0.0-10.00) H 09/22/23 19:57
Most recent labs reviewed.
Micro Results:
09/23/23 23:39 Blood Culture - Preliminary
Blood/Venous No Growth in 24 hours- Final report to follow
09/24/23 14:50 Blood Culture - Pending
Blood/Venous
09/22/23 20:41 MRSA Screen - Final
Nose No Methicillin Resistant Staphylococcus aureus isolated.
Imaging:
09/17/2023 JOSHUA: Right lower extremity: JOSHUA 1.06 within normal limits. TBI is 0.83 also within normal limits. Multiphasic continuous Doppler waveforms are noted at the dorsalis pedis artery. Monophasic continuous Doppler waveforms at the posterior
tibial artery. Left lower extremity: JOSHUA not obtainable secondary to noncompressibility of the vessels. TBI severely reduced at 0.26. Significantly decreased compared to prior study dated 08/05/2021 at which time measured 0.80. Continuous Doppler
waveforms at the dorsalis pedis and posterior tibial arteries are monophasic.
--- NOTE | 2023-09-25 14:24 | W.PN.NEPH.PH ---
Today's Communication / Plan
-
Chief Complaint:
Hyponatremia
History of Present Illness:
Hemodynamically labile
131 sodium
Creatinine at 1.0
Review of Systems:
Nonoliguric
Assessment/Plan
-
Impression:
Mechanical fall slip and fall from bed
Left lower extremity weakness
Hyponatremia,
[id number] 1-1.3
Mild Traumatic Rhabdo from fall
Knee Effusion - Left sided
CAD s/pCABG
Hypertension
Atrial fibrillation
Cardiomyopathy EF 45 to 50%
Mitral valve regurgitation, status post mitral valve repair.
Permanent pacemaker and placement
Hypothyroidism
Obstructive sleep apnea�
BPH
Gout
Plan:
a/w fall and left GT injury but has nonhealing wound fro few weeks with known PAD
CKD-cr seem with in the range of baseline
mild hyponatremia-suspect from pain, stable with isotonic IVF
Sodium at 131
monitor for now, check U osmo and U na
Hemodynamically labile, holding parameters for ACEI and BB
Sign off
-
-
Date of Service: September 25, 2023
CC / HPI / ROS
-
Chief Complaint:
CKD, mild hypoNa
History of Present Illness:
Cr at baseline
Na stable at 131
Review of Systems:
s/p angiogram
awaiting recs of when procedure will be
Labs
-
Labs:
WBC 10.7 10^3/uL (4.8-10.8) 09/24/23 07:05
RBC 2.75 10^6/uL (4.70-6.10) L 09/24/23 07:05
Hgb 7.9 g/dL (13.0-18.0) L 08/01/24 07:05
Hct 23.3 % (39.0-52.0) L 09/24/23 07:05
Plt Count 185 10^3/uL (130-400) 09/24/23 07:05
Sodium 131 mmol/L (135-145) L 09/25/23 07:24
Potassium 3.8 mmol/L (3.5-5.1) 09/25/23 07:24
Chloride 104 mmol/L (98-107) 09/25/23 07:24
Carbon Dioxide 23 mmol/L (22-30) 09/25/23 07:24
BUN 22 mg/dl (9-20) H 09/25/23 07:24
Creatinine 1.0 mg/dL (0.7-1.3) 09/25/23 07:24
eGFR > 60.00 09/25/23 07:24
Glucose 74 mg/dl (70-99) 09/25/23 07:24
Calcium 8.4 mg/dl (8.4-10.2) 09/25/23 07:24
Albumin 3.6 g/dl (3.5-5.0) 09/22/23 14:55
Physical Exam
-
Vital Signs:
Vital Signs
Temp Pulse Resp BP Pulse Ox
98.9 F 80 16 100/71 95
09/25/23 07:00 09/25/23 07:00 09/25/23 07:00 09/25/23 09:04 09/25/23 07:00
Cardiovascular:: Regular rate and rhythm
Respiratory:: Bilateral: CTA
Lung Excursion:: Normal
Abdomen:: Nontender and Soft
Bowel Sounds:: Normal
Extremity Edema:: None: Bilateral: and None: Left: (wrapped)
Reyna Catheter: No
[2023-09-25 15:00] VITALS: BP 97/48
[2023-09-25 15:49] VITALS: BP 101/51
[2023-09-25 16:47] VITALS: BP 113/54; BP 91/49; PULSE 66; O2SAT 97
[2023-09-25] MEDS: COREG 25 MG PO (19:29)
[2023-09-25 23:00] VITALS: BP 116/57
[2023-09-26] MEDS: SYNTHROID 75 MCG PO (05:26)
[2023-09-26 06:00] VITALS: BMI 24.5
[2023-09-26 07:00] VITALS: BP 123/58
[2023-09-26 08:30] LABS: Blood Urea Nitrogen 28 mg/dl (9-20); Calcium 8.7 mg/dl (8.4-10.2); Carbon Dioxide 22 mmol/L (22-30); Chloride 103 mmol/L (98-107); Estimated Creatinine Clearance 50 ml/min; Glucose 69 mg/dl (70-99); Potassium 4.1 mmol/L (3.5-5.1); Sodium 132 mmol/L (135-145); eGFR 59.63
[2023-09-26] MEDS: COREG 25 MG PO ×2 (09:02→20:39)
[2023-09-26] MEDS: ZYLOPRIM 300 MG PO (09:02)
[2023-09-26] MEDS: FLOMAX 0.4 MG PO ×2 (09:02→20:39)
[2023-09-26] MEDS: VITAMIN C 500 MG PO (09:02)
[2023-09-26] MEDS: ELIQUIS 5 MG PO (09:02)
[2023-09-26] MEDS: TYLENOL 650 MG PO ×2 (09:36→15:30)
--- NOTE | 2023-09-26 10:16 | W.PN.HOSP.TC ---
Today's Communication/Plan
-
On 09/28/2023
Will plan for her left lower extremity angio
Will plan for tagged white blood cell scan
Continue to monitor off of antibiotics until able to get bone culture/biopsy. If starts mounting evidence of sepsis then would start antibiotics to cover bone and soft tissue.
Assessment / Plan
Assessment / Plan
NAD, resting comfortably in bed, bruising throughout body, paperthin skin
Scleral anicteric
Moist mucous membranes
No JVD
CTA bilateral
Normal S1-S2 no murmurs
Soft nontender nondistended bowel sounds active
No peripheral pitting edema, Left knee effused
Moves extremities spontaneously
Left great hallux wrapped in gauze. Gauze is soiled with blood. Interestingly was not able to see a superficial wound on the left small toe however this was wrapped and was unable to wrap
AAOx3
Mechanical fall slip and fall from bed. PT OT consult. Fall precautions.
Lower extremity weakness left-sided
-If not improving consider MRI lumbar spine left side
-Otherwise at this time no left great hallux was bleeding appears to have decreased or stopped, dressing is soiled with blood.
-High EsR/CRP
-Pod to see
-Unable to obtain MRI due to old PPM
-Tagged WBC scan ordered likely will happen on Thursday
-Vascular to eval, poor JOSHUA's from 09/16
-Hold eliuis start 09/25
- -For LLE Angio on 09/27
Hyponatremia, hypovolemic on exam, will provide IV fluids�isotonic
LORIE/bump in creatinine of 1.4 baseline around 1.0.
Likely secondary to poor p.o. intake and Rhabdo. Now improved with IVF
Mild Traumatic Rhabdo from fall
-IVF
-Daily CK and LFT's
CKD [id number]
-Avoid nephrtoxins and hypotension
-Monitor UOP
-Neph consulted as he will go for LLE angio tomrorow
Knee Effusion - Left sided
-Ortho consulted
-Xray ordered
CABG continue beta-martin Eliquis
Hypertension continue antihypertensives
Atrial fibrillation continue beta-martin Eliquis. Repeat CBC in the a.m. if foot continues to actively bleed would repeat stat CBC hold Eliquis
BPH continue Flomax
Anticipated Discharge: > 48 hours
Subjective/Interval History
-
Date of Service: September 26, 2023
Seen and examined. Asking if he is going to go for any procedures if not he was to be able to eat breakfast. Informed him that there is no procedure scheduled for today. Breakfast has been ordered for him.
Objective Data
-
Labs:
Laboratory Results
09/26/23
05:39
Sodium 132 L
Potassium 4.1
Chloride 103
Carbon Dioxide 22
BUN 28 H
Creatinine 1.2
Glucose 69 L
Calcium 8.7
Vital Signs:
Vital Signs
Temp Pulse Resp BP Pulse Ox
97.9 F 62 20 123/58 97
09/26/23 07:00 09/26/23 07:00 09/26/23 07:00 09/26/23 07:00 09/26/23 07:00
I&O
09/25/23 09/26/23 09/27/23
06:59 06:59 06:59
Intake Total 1260 / 1260
Output Total 1450 / 1450 325 / 325
Balance -190 / -190 -325 / -325
--- NOTE | 2023-09-26 14:03 | PTCARENOTE ---
Patient OOB to chair with assist x2 and walker & off loading shoe. Patient tolerated sitting up for two hours. Patient tolerating 100% of meals. Patient with BM smears. Patient states, 'I went to the bathroom yesterday.' Patient c/o low back pain
when assisted back to bed. Tylenol given. Spouse at bedside.
--- NOTE | 2023-09-26 14:10 | W.PN.POD ---
Today's Communication
Today's Communication
Increased size of wound left sub 5, bleeding persists. bx was taken in the office 09/16 as result of chronic hypergranular wound to eval for malignancy(prior to fall and recent admission)it did not and still does not probe to bone and no bone is
exposed. Will proceed with biopsy of bone vs resection of met head to allow for better chance of healing by reducing pressure under the wound, pending agram results.
Will follow closely, continue wound care as ordered
Assessment / Plan
-
PAD- agram thursday
Non healing wound left foot
LLE weakness-back pain-
Anemia-Hgb 7.9 medicine following
Hyponatremia-per medicine/nephrology
Subjective
Chief Complaint
S/P mechanical fall/PAD/LLE weakness/Poss OM left foot
Subjective
C/O decreased back pain, but unable to freely lift the LLE as result of pain and weakness
Objective
Temp Pulse Resp BP Pulse Ox
97.9 F 62 20 123/58 97
09/26/23 07:00 09/26/23 07:00 09/26/23 07:00 09/26/23 07:00 09/26/23 07:00
09/24/23 07:05
09/26/23 05:39
Vital Signs and Lab results were reviewed.
Review of Systems
Review of Systems
Review of Systems: No Fever, No Chills, No Headache and No Nausea
Physical Exam
Physical Exam
General: No Apparent Distress
Musculoskeletal: Clubbing (left foot with ankle/foot equinas), Edema, Left Lower Extrem and Muscle Strength (weak LLE, unable to raise LLE while in bed)
Skin: Warm and Wound (left foot again hypergranular and friable, bleeding easily. Measures 2.5cm long x 3cm wide, boggy but w/o exposed bone, no undermining or tunneling)
Neuro: AO x 3 and Protective Sensation Diminished
Vascular: Capillary Refill Delayed, Pedal Hair Absent and Skin Temperature Warm to Cool
Dorsalis Pedis: Diminished
Posterior Tibialis: Absent
--- NOTE | 2023-09-26 14:47 | W.PN.ID1 ---
Date of Service
Date of Service: September 26, 2023
Today's Communication
Observe off antibiotics.
Assessment / Plan
Fever episode
- appears isolated
Left foot wound
- concern for underlying osteo
Critical limb ischemia, LLE
A-fib
CAD
HTN
Hypothyroid
Dyslipidemia
CKD
Hyponatremia
Recommendations:
Fever noted, but no recurrence thus far. Cultures have been obtained. White count noted to be normal.
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
Labeled WBC scan to be performed.
- If positive, patient will likely need bone biopsy +/- bone debridement VS. resection of the area. Podiatry is on board.
Follow white count and temperature curve.
At present, continue to follow off antibiotics.
����������������������������������������������������������
Chief Complaint
-: Other (Left foot ulceration)
Subjective / Review of Systems
Review of Systems: No Fever and No Chills
Vital Signs / Physical Exam
Vital Signs
Vital Signs
Temp Pulse Resp BP Pulse Ox
97.9 F 62 20 123/58 97
09/26/23 07:00 09/26/23 07:00 09/26/23 07:00 09/26/23 07:00 09/26/23 07:00
Physical Exam
Constitutional: No Acute Distress, Comfortable, Chronically Ill and Non-toxic
Eyes: Sclera Anicteric
Cardiovascular: Irregular Rate and S1/S2; Negative S3/S4
Pulmonary: Clear; Negative Wheezes or Rales
Extremities: Edema and Erythema (mild)
Wound: Other (left lat. 5th met head ulceration; dressed.)
Neurological: Awake and Alert
Psychological: Calm
Objective Data
Lab Data
Lab Results
09/24/23 07:05
09/26/23 05:39
ESR 91 mm/hour (0-20) H 09/22/23 19:57
PT 27.6 Sec (11.4-14.6) H 09/24/23 07:05
INR 2.53 09/24/23 07:05
APTT 56.5 Sec (23.4-35.0) H 09/24/23 07:05
Estimated Creat Clear 50 ml/min 09/26/23 05:39
Lactic Acid 0.8 mmol/L (0.7-2.0) 09/23/23 23:19
Total Bilirubin 3.1 mg/dl (0.2-1.3) H 09/22/23 14:55
AST 32 U/L (17-59) 09/22/23 14:55
ALT 12 U/L (0-50) 09/22/23 14:55
Alkaline Phosphatase 68 U/L (38-126) 09/22/23 14:55
C-Reactive Protein 150.50 mg/L (0.0-10.00) H 09/22/23 19:57
Most recent labs reviewed.
Micro Results:
09/23/23 23:39 Blood Culture - Preliminary
Blood/Venous No Growth in 48 hours- Final report to follow
09/24/23 14:50 Blood Culture - Preliminary
Blood/Venous No Growth in 24 hours- Final report to follow
09/22/23 20:41 MRSA Screen - Final
Nose No Methicillin Resistant Staphylococcus aureus isolated.
Imaging:
09/17/2023 JOSHUA: Right lower extremity: JOSHUA 1.06 within normal limits. TBI is 0.83 also within normal limits. Multiphasic continuous Doppler waveforms are noted at the dorsalis pedis artery. Monophasic continuous Doppler waveforms at the posterior
tibial artery. Left lower extremity: JOSHUA not obtainable secondary to noncompressibility of the vessels. TBI severely reduced at 0.26. Significantly decreased compared to prior study dated 08/05/2021 at which time measured 0.80. Continuous Doppler
waveforms at the dorsalis pedis and posterior tibial arteries are monophasic.
Care Review
Plan reviewed with: Physician (Podiatry)
[2023-09-26 15:00] VITALS: BP 129/55
[2023-09-26 15:46] VITALS: BP 129/55
[2023-09-26 23:00] VITALS: BP 127/65
[2023-09-27 06:00] VITALS: BMI 24.9
[2023-09-27] MEDS: SYNTHROID 75 MCG PO (06:12)
[2023-09-27 07:40] VITALS: BP 137/65
[2023-09-27] MEDS: TYLENOL 650 MG PO ×2 (08:35→18:34)
[2023-09-27] MEDS: VITAMIN C 500 MG PO (08:36)
[2023-09-27] MEDS: COREG 25 MG PO ×2 (08:36→19:58)
[2023-09-27] MEDS: ZYLOPRIM 300 MG PO (08:36)
[2023-09-27] MEDS: FLOMAX 0.4 MG PO ×2 (08:36→19:58)
[2023-09-27 09:16] LABS: Blood Urea Nitrogen 29 mg/dl (9-20); Calcium 8.7 mg/dl (8.4-10.2); Carbon Dioxide 25 mmol/L (22-30); Chloride 103 mmol/L (98-107); Estimated Creatinine Clearance 55 ml/min; Glucose 79 mg/dl (70-99); Potassium 4.3 mmol/L (3.5-5.1); Sodium 133 mmol/L (135-145); eGFR > 60.00
--- NOTE | 2023-09-27 10:43 | W.PN.HOSP.TC ---
Today's Communication/Plan
-
.
Assessment / Plan
Assessment / Plan
NAD, resting comfortably in bed, bruising throughout body, paperthin skin
Scleral anicteric
Moist mucous membranes
No JVD
CTA bilateral
Normal S1-S2 no murmurs
Soft nontender nondistended bowel sounds active
No peripheral pitting edema, Left knee effused
Moves extremities spontaneously
Left great hallux and left foot wrapped in gauze.
AAOx3
Mechanical fall slip and fall from bed. PT OT consult. Fall precautions.
Lower extremity weakness left-sided
-If not improving consider MRI lumbar spine left side
-Otherwise at this time no left great hallux was bleeding appears to have decreased or stopped, dressing is soiled with blood.
-High EsR/CRP
-Pod to see
-Unable to obtain MRI due to old PPM
-Tagged WBC scan ordered likely will happen on Thursday
-Vascular to eval, poor JOSHUA's from 09/16
-Hold eliuis start 09/25
- -For LLE Angio on 09/27
Hyponatremia, hypovolemic on exam, will provide IV fluids�isotonic
LORIE/bump in creatinine of 1.4 baseline around 1.0.
Likely secondary to poor p.o. intake and Rhabdo. Now improved with IVF
Mild Traumatic Rhabdo from fall
-IVF
-Daily CK and LFT's
CKD [id number]
-Avoid nephrtoxins and hypotension
-Monitor UOP
-Neph consulted as he will go for LLE angio tomrorow
Knee Effusion - Left sided
-Ortho consulted
-Xray ordered
CABG continue beta-martin Eliquis
Hypertension continue antihypertensives
Atrial fibrillation continue beta-martin Eliquis. Repeat CBC in the a.m. if foot continues to actively bleed would repeat stat CBC hold Eliquis
-If need to hold eliquis for more then 48hr then would start hep gtt for cva prevention
BPH continue Flomax
Anticipated Discharge: 24 - 48 hours
Subjective/Interval History
-
Date of Service: September 27, 2023
seen and examind
no new comaplints
no acute ovenriggt events.';
frustrated that he is just sitting here and waiting through out the weekend
Objective Data
-
Labs:
Laboratory Results
09/27/23
06:59
Sodium 133 L
Potassium 4.3
Chloride 103
Carbon Dioxide 25
BUN 29 H
Creatinine 1.1
Glucose 79
Calcium 8.7
Vital Signs:
Vital Signs
Temp Pulse Resp BP Pulse Ox
98.1 F 69 18 137/65 98
09/27/23 07:40 09/27/23 07:40 09/27/23 07:40 09/27/23 07:40 09/27/23 07:40
I&O
09/26/23 09/27/23 09/28/23
06:59 06:59 06:59
Intake Total 780 / 780
Output Total 325 / 325 825 / 825
Balance -325 / -325 -45 / -45
--- NOTE | 2023-09-27 12:34 | W.PN.ID1 ---
Date of Service
Date of Service: September 27, 2023
Today's Communication
Observe off abx. Await further vascular workup.
Assessment / Plan
Fever episode
- appears isolated
Left foot wound
- concern for underlying osteo
Critical limb ischemia, LLE
A-fib
CAD
HTN
Hypothyroid
Dyslipidemia
CKD
Hyponatremia
Recommendations:
Fever noted, but no recurrence thus far. Blood cultures - NGTD. White count noted to be normal.
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
Labeled WBC scan to be performed.
- If positive, patient will likely need bone biopsy +/- bone debridement VS. resection of the area. Podiatry following.
Follow white count and temperature curve.
At present, continue to follow off antibiotics.
����������������������������������������������������������
Chief Complaint
-: Other (Left foot ulceration)
Subjective / Review of Systems
Review of Systems: No Fever and No Chills
Vital Signs / Physical Exam
Vital Signs
Vital Signs
Temp Pulse Resp BP Pulse Ox
98.1 F 69 18 137/65 98
09/27/23 07:40 09/27/23 07:40 09/27/23 07:40 09/27/23 07:40 09/27/23 07:40
Physical Exam
Constitutional: No Acute Distress, Comfortable, Chronically Ill and Non-toxic
Eyes: Sclera Anicteric
Cardiovascular: Irregular Rate and S1/S2; Negative S3/S4
Pulmonary: Clear; Negative Wheezes or Rales
Extremities: Edema, Erythema (mild) and Venous Insufficiency
Wound: Other (left lat. 5th met head ulceration; dressed.)
Neurological: Awake and Alert
Psychological: Calm
Objective Data
Lab Data
Lab Results
09/24/23 07:05
09/27/23 06:59
ESR 91 mm/hour (0-20) H 09/22/23 19:57
PT 27.6 Sec (11.4-14.6) H 09/24/23 07:05
INR 2.53 09/24/23 07:05
APTT 56.5 Sec (23.4-35.0) H 09/24/23 07:05
Estimated Creat Clear 55 ml/min 09/27/23 06:59
Lactic Acid 0.8 mmol/L (0.7-2.0) 09/23/23 23:19
Total Bilirubin 3.1 mg/dl (0.2-1.3) H 09/22/23 14:55
AST 32 U/L (17-59) 09/22/23 14:55
ALT 12 U/L (0-50) 09/22/23 14:55
Alkaline Phosphatase 68 U/L (38-126) 09/22/23 14:55
C-Reactive Protein 150.50 mg/L (0.0-10.00) H 09/22/23 19:57
Most recent labs reviewed.
Micro Results:
09/23/23 23:39 Blood Culture - Preliminary
Blood/Venous No Growth in 72 hours- Final report to follow
09/24/23 14:50 Blood Culture - Preliminary
Blood/Venous No Growth in 48 hours- Final report to follow
09/22/23 20:41 MRSA Screen - Final
Nose No Methicillin Resistant Staphylococcus aureus isolated.
Imaging:
09/17/2023 JOSHUA: Right lower extremity: JOSHUA 1.06 within normal limits. TBI is 0.83 also within normal limits. Multiphasic continuous Doppler waveforms are noted at the dorsalis pedis artery. Monophasic continuous Doppler waveforms at the posterior
tibial artery. Left lower extremity: JOSHUA not obtainable secondary to noncompressibility of the vessels. TBI severely reduced at 0.26. Significantly decreased compared to prior study dated 08/05/2021 at which time measured 0.80. Continuous Doppler
waveforms at the dorsalis pedis and posterior tibial arteries are monophasic.
--- NOTE | 2023-09-27 13:02 | PTCARENOTE ---
Patient OOB to chair with assist x1, walker and off loading shoe. Patient tolerated sitting in chair for 2.5 hours. Patient tolerating 100% of diet, ambulated to bathroom and had BM. Tylenol given for low back discomfort 05/02 with good relief.
[2023-09-27 15:15] VITALS: BP 134/59
[2023-09-27 23:09] VITALS: BP 130/62
[2023-09-28] VITALS (12 sets, daily range): BP systolic 116–176; BP diastolic 58–85; BMI 24.9
[2023-09-28] MEDS: SYNTHROID 75 MCG PO (05:57)
--- NOTE | 2023-09-28 06:07 | W.PN.HOSP.TC ---
Today's Communication/Plan
-
pain control
wound care
pending tagged WBC
NPO after midnight for podiatry procedure
Monitor H&H
Assessment / Plan
Assessment / Plan
Physical Exam
Genera: NAD, resting comfortably in bed, bruising throughout body
HEENT: Scleral anicteric Moist mucous membranes
Neck: No JVD
Resp: CTA Bilateral
Card: Normal S1-S2 no murmurs
Abd: Soft nontender nondistended bowel sounds active
Ext: No peripheral pitting edema, Left great hallux and left foot wrapped in gauze. Dressing clean dry intact
Neuro: AAOx3
83M CAD CABG afib s/p ppm Gout here for evaluation non-healing left foot wound and rhabdomyolysis
Mechanical fall slip and fall from bed.
PT OT consult. appreciated SNF rehab
Fall precautions.
Lower extremity weakness left-sided
-CT Head appreciated no acute intracranial abn's, Severe right sided paranasal sinus mucosal disease/sinusitis, which has increased from prior. Soft tissue attenuation in the right nasal cavity again suspicious for a large nasal polyp. (outpt ENT
follow up recommended)
-Unable to obtain MRI due to old PPM
Left great hallux bleeding resolved at this time, dressing clean dry intact.
-High EsR/CRP
-Pod eval appreciated
-Tagged WBC scan pending
-Vascular to eval appreciated, poor JOSHUA's noted from 09/16
-Eliquis held for procedures starting 09/25
-LLE Angio on 09/27
Mild Hyponatremia
Monitor
LORIE/bump in creatinine 1.4 baseline around 1.0.
Mild Traumatic Rhabdo from fall
Likely prerenal. Improved with IVF
Mild CK elevation trended down
CKD [id number]
-Avoid nephrotoxins and hypotension
-Monitor UOP
-Neph consult appreciated since signed off
Knee Effusion - Left sided
-X-ray appreciated appreciated arthritis no fracture or dislocation
-Ortho consult appreciated conservative mgmt no intervention recommended at this time
CABG continue beta-martin Eliquis
Hypertension continue antihypertensives
Atrial fibrillation
continue beta-martin
Eliquis on hold for interventions as above
BPH continue Flomax
I spent a total of 50 minutes with the patient or on the floor. More than 50% of this time involved counseling and coordination of care.
Anticipated Discharge: 24 - 48 hours
Subjective/Interval History
-
Date of Service: September 28, 2023
No acute distress sitting up comfortably in bed. Reports pain well controlled at this time.
Objective Data
-
Labs:
Laboratory Results
09/28/23
06:00
WBC Pending
Hgb Pending
Hct Pending
Plt Count Pending
PT Pending
INR Pending
APTT Pending
Sodium Pending
Potassium Pending
Chloride Pending
Carbon Dioxide Pending
BUN Pending
Creatinine Pending
Glucose Pending
Calcium Pending
Vital Signs:
Vital Signs
Temp Pulse Resp BP Pulse Ox
99.3 F 67 18 130/62 96
09/27/23 23:09 09/27/23 23:09 09/27/23 23:09 09/27/23 23:09 09/27/23 23:09
I&O
09/26/23 09/27/23 09/28/23
06:59 06:59 06:59
Intake Total 780 / 780 480 / 480
Output Total 325 / 325 825 / 825 700 / 700
Balance -325 / -325 -45 / -45 -220 / -220
[2023-09-28 07:32] LABS: Hematocrit 21.8 % (39.0-52.0); Hemoglobin 7.4 g/dL (13.0-18.0); Mean Corp Hgb Conc. 33.9 g/dL (33.0-37.0); Mean Corpuscular Hgb 28.6 pg (27.0-31.0); Mean Corpuscular Volume 84.2 fL (80.0-94.0); Mean Platelet Volume 9.3 fL (7.4-10.4); Platelet Count 227 10^3/uL (130-400); Red Blood Cell Count 2.59 10^6/uL (4.70-6.10); Red Cell Dist. Width 15.4 % (11.5-14.5); White Blood Cell Count 9.1 10^3/uL (4.8-10.8)
[2023-09-28 08:01] LABS: INR 1.86; PT 21.3 Sec (11.4-14.6)
[2023-09-28 08:10] LABS: Blood Urea Nitrogen 31 mg/dl (9-20); Calcium 8.8 mg/dl (8.4-10.2); Carbon Dioxide 23 mmol/L (22-30); Chloride 104 mmol/L (98-107); Estimated Creatinine Clearance 60 ml/min; Glucose 84 mg/dl (70-99); Potassium 4.4 mmol/L (3.5-5.1); Sodium 133 mmol/L (135-145); eGFR > 60.00
--- NOTE | 2023-09-28 09:38 | W.SUR.PREOP ---
Pre-Operative Surgical Note
-
I have examined this patient prior to the performance of the scheduled procedure.
The patient's condition is unchanged from the time of the current History and
Physical and the patient is able to undergo the scheduled procedure.
--- NOTE | 2023-09-28 11:44 | W.SUR.POST ---
Surgical Immediate Post Op
Note
Pre Op Diagnosis: PAD
Post Op Diagnosis: PAD
Procedure Performed: Left lower extremity arteriogram, balloon angioplasty x 2 to the left PT with 3 mm balloon
Primary Surgeon: Demarco
Anesthesia: Local and sedation
Estimated Blood Loss: 2 cc
Fluids: See anesthesia flowsheet
Drains/Shunts: None
Specimens/Cultures: None
Doppler/Duplex/Angio (Y/N): Y
Complications: None
Operative Findings: Palpable PT
--- NOTE | 2023-09-28 13:34 | W.PN.ID1 ---
Date of Service
Date of Service: September 28, 2023
Today's Communication
Observe off antibiotics.
Assessment / Plan
Febrile episode
- appears resolved
Left foot wound
- concern for underlying osteo
Critical limb ischemia, LLE
A-fib
CAD
HTN
Hypothyroid
Dyslipidemia
CKD
Hyponatremia
Recommendations:
Blood cultures - NGTD. White count normal.
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
Labeled WBC scan performed. Awaiting official report.
- If positive, patient will likely need bone biopsy +/- bone debridement VS. resection of the area. Podiatry following.
Follow white count and temperature curve.
At present, continue to follow off antibiotics.
����������������������������������������������������������
Chief Complaint
-: Other (Left foot ulceration)
Subjective / Review of Systems
Review of Systems: No Fever and No Chills
Vital Signs / Physical Exam
Vital Signs
Vital Signs
Temp Pulse Resp BP Pulse Ox
97.7 F 62 17 149/71 95
09/28/23 13:00 09/28/23 13:00 09/28/23 13:00 09/28/23 13:00 09/28/23 13:00
Physical Exam
Constitutional: No Acute Distress
Eyes: Sclera Anicteric
Cardiovascular: Irregular Rate and S1/S2; Negative S3/S4
Pulmonary: Clear and Non Labored; Negative Wheezes or Rales
Gastrointestinal: Non Distended
Extremities: Edema, Erythema (mild) and Venous Insufficiency
Wound: Other (left lat. 5th met head ulceration; dressed.)
Neurological: Awake and Alert
Psychological: Calm
Objective Data
Lab Data
Lab Results
09/28/23 07:02
09/28/23 07:02
ESR 91 mm/hour (0-20) H 09/22/23 19:57
PT 21.3 Sec (11.4-14.6) H 09/28/23 07:02
INR 1.86 09/28/23 07:02
APTT 58.0 Sec (23.4-35.0) H 09/28/23 07:02
Estimated Creat Clear 60 ml/min 09/28/23 07:02
Lactic Acid 0.8 mmol/L (0.7-2.0) 09/23/23 23:19
Total Bilirubin 3.1 mg/dl (0.2-1.3) H 09/22/23 14:55
AST 32 U/L (17-59) 09/22/23 14:55
ALT 12 U/L (0-50) 09/22/23 14:55
Alkaline Phosphatase 68 U/L (38-126) 09/22/23 14:55
C-Reactive Protein 150.50 mg/L (0.0-10.00) H 09/22/23 19:57
Most recent labs reviewed.
Micro Results:
09/23/23 23:39 Blood Culture - Preliminary
Blood/Venous No Growth in 4 days- Final report to follow
09/24/23 14:50 Blood Culture - Preliminary
Blood/Venous No Growth in 72 hours- Final report to follow
09/22/23 20:41 MRSA Screen - Final
Nose No Methicillin Resistant Staphylococcus aureus isolated.
Imaging:
09/17/2023 JOSHUA: Right lower extremity: JOSHUA 1.06 within normal limits. TBI is 0.83 also within normal limits. Multiphasic continuous Doppler waveforms are noted at the dorsalis pedis artery. Monophasic continuous Doppler waveforms at the posterior
tibial artery. Left lower extremity: JOSHUA not obtainable secondary to noncompressibility of the vessels. TBI severely reduced at 0.26. Significantly decreased compared to prior study dated 08/05/2021 at which time measured 0.80. Continuous Doppler
waveforms at the dorsalis pedis and posterior tibial arteries are monophasic.
[2023-09-28] MEDS: VITAMIN C 500 MG PO (13:46)
[2023-09-28] MEDS: COREG 25 MG PO ×2 (13:46→20:39)
[2023-09-28] MEDS: NSS 1000 IV (13:47)
[2023-09-28] MEDS: FLOMAX 0.4 MG PO ×2 (13:47→20:39)
[2023-09-28] MEDS: ZYLOPRIM 300 MG PO (13:47)
[2023-09-28] MEDS: ASPIRIN 325 MG PO (14:14)
--- NOTE | 2023-09-28 14:46 | CM ---
CM reviewed chart, patient had left lower extremity arteriogram today. Patient seen bedside, CM discussed SNF recommendation with patient, patient would like to speak to his about recommendation. CM will continue to follow for all discharge
planning needs.
Plan; SNF likely, pt would like to speak with first.
--- NOTE | 2023-09-28 15:00 | PTCARENOTE ---
Patient with worsening lower leg edema. Daily weights increased last two days. Physician made aware. Lungs clear, diminished, RA sat 96%
--- NOTE | 2023-09-28 16:19 | W.PN.POD ---
Today's Communication
Today's Communication
Tagged wbc scan is pending- Will add to OR sched for tmrw/wed for debridement and bone culture
Will make NPO for tonight
Continue wound care as ordered
Assessment / Plan
-
PAD- agram with successful balloon TRANSITION MGR x 2
Non healing wound left foot
LLE weakness-back pain-
Anemia-Hgb 7.9 medicine following
Hyponatremia-per medicine/nephrology
Subjective
Chief Complaint
non healing wound left foot
Subjective
States he is feeling well post Agram.
Objective
Temp Pulse Resp BP Pulse Ox
98.0 F 66 17 164/85 96
09/28/23 15:30 09/28/23 15:30 09/28/23 15:30 09/28/23 15:30 09/28/23 15:30
09/28/23 07:02
09/28/23 07:02
Vital Signs and Lab results were reviewed.
Inspection: Cellulitis (none) and Ulcer (unchanged in size, no longer bleeding, + purulent drainage (scant) was expressed from the wound)
Review of Systems
Review of Systems
Review of Systems: No Fever, No Chills, No Nausea and No Diarrhea
Physical Exam
Physical Exam
General: No Apparent Distress
Skin: Warm and Dry
Neuro: Protective Sensation Diminished and Other (LLE weak)
Vascular: Pedal Hair Absent and Skin Temperature Warm to Warm
Dorsalis Pedis: Intact
Posterior Tibialis: Diminished
[2023-09-28] MEDS: TYLENOL 650 MG PO (22:47)
[2023-09-29] VITALS (8 sets, daily range): BP systolic 140–175; BP diastolic 68–81; PULSE 61; O2SAT 97; BMI 24.8
[2023-09-29] MEDS: NSS 1000 IV (01:18)
[2023-09-29] MEDS: SYNTHROID PO (04:17)
[2023-09-29 06:44] LABS: INR 1.54; PT 18.3 Sec (11.4-14.6)
[2023-09-29 06:56] LABS: Hematocrit 20.7 % (39.0-52.0); Hemoglobin 7.1 g/dL (13.0-18.0); Mean Corp Hgb Conc. 34.3 g/dL (33.0-37.0); Mean Corpuscular Hgb 29.5 pg (27.0-31.0); Mean Corpuscular Volume 85.9 fL (80.0-94.0); Mean Platelet Volume 9.4 fL (7.4-10.4); Platelet Count 214 10^3/uL (130-400); Red Blood Cell Count 2.41 10^6/uL (4.70-6.10); Red Cell Dist. Width 15.1 % (11.5-14.5); White Blood Cell Count 9.6 10^3/uL (4.8-10.8)
[2023-09-29 07:00] LABS: Blood Urea Nitrogen 35 mg/dl (9-20); Calcium 8.5 mg/dl (8.4-10.2); Carbon Dioxide 22 mmol/L (22-30); Chloride 106 mmol/L (98-107); Estimated Creatinine Clearance 60 ml/min; Glucose 151 mg/dl (70-99); Potassium 4.5 mmol/L (3.5-5.1); Sodium 134 mmol/L (135-145); eGFR > 60.00
--- NOTE | 2023-09-29 07:12 | W.PN.HOSP.TC ---
Today's Communication/Plan
-
cont wound care
1PRBC transfusion
Monitor H&H
npo after midnight as per Podiatry
Assessment / Plan
Assessment / Plan
Physical Exam
Genera: NAD, resting comfortably in bed, bruising throughout body
HEENT: Scleral anicteric Moist mucous membranes
Neck: No JVD
Resp: CTA Bilateral
Card: Normal S1-S2 no murmurs
Abd: Soft nontender nondistended bowel sounds active
Ext: No peripheral pitting edema, Left great hallux and left foot wrapped in gauze. Dressing clean dry intact
Neuro: AAOx3
83M CAD CABG afib s/p ppm Gout here for evaluation non-healing left foot wound and rhabdomyolysis
Mechanical fall slip and fall from bed.
PT OT consult. appreciated SNF rehab
Fall precautions.
Lower extremity weakness left-sided
-CT Head appreciated no acute intracranial abn's, Severe right sided paranasal sinus mucosal disease/sinusitis, which has increased from prior. Soft tissue attenuation in the right nasal cavity again suspicious for a large nasal polyp. (outpt ENT
follow up recommended)
-Unable to obtain MRI due to old PPM
Left great hallux bleeding resolved at this time, dressing clean dry intact.
-High EsR/CRP
-Pod eval appreciated
-Tagged WBC scan appreciated
-Vascular to eval appreciated, poor JOSHUA's noted from 09/16
-Eliquis held for procedures starting 09/25
-LLE Angioplasty 09/27
Mild Hyponatremia
Monitor
LORIE/bump in creatinine 1.4 baseline around 1.0.
Mild Traumatic Rhabdo from fall
Likely prerenal. Improved with IVF
Mild CK elevation trended down
CKD [id number]
-Avoid nephrotoxins and hypotension
-Monitor UOP
-Neph consult appreciated since signed off
Knee Effusion - Left sided
-X-ray appreciated appreciated arthritis no fracture or dislocation
-Ortho consult appreciated conservative mgmt no intervention recommended at this time
CABG continue beta-martin Eliquis
Hypertension continue antihypertensives
Atrial fibrillation
continue beta-martin
Eliquis on hold for interventions as above
Anemia multifactorial
Anemia of Chronic Disease
Mild iron deficiency
Acute blood loss from foot wound
09/28 1PRBC transfusion Hgb 7.2
monitor H&H
iron supplementation started
BPH continue Flomax
I spent a total of 50 minutes with the patient or on the floor. More than 50% of this time involved counseling and coordination of care.
Anticipated Discharge: > 48 hours
Subjective/Interval History
-
Date of Service: September 29, 2023
no acute distress sitting up comfortably in chair. Debby present during evaluation
Objective Data
-
Labs:
Laboratory Results
09/29/23
06:24
WBC 9.6
Hgb 7.1 L
Hct 20.7 L*
Plt Count 214
PT 18.3 H
INR 1.54
APTT 53.0 H
Sodium 134 L
Potassium 4.5
Chloride 106
Carbon Dioxide 22
BUN 35 H
Creatinine 1.0
Glucose 151 H
Calcium 8.5
Vital Signs:
Vital Signs
Temp Pulse Resp BP Pulse Ox
97.4 F 65 18 176/83 96
09/28/23 23:01 09/28/23 23:01 09/28/23 23:01 09/28/23 23:01 09/28/23 23:01
I&O
09/28/23 09/29/23 09/30/23
06:59 06:59 06:59
Intake Total 480 / 480 2130 / 2130
Output Total 700 / 700 950 / 950
Balance -220 / -220 1180 / 1180
--- NOTE | 2023-09-29 08:09 | W.PN.UPDATE ---
Update Note
Progress Note Update
Unable to coordinate OR time for today, Will Resume diet.
Patient added to OR schedule for thursday.
WBC scan confirms liklihood of OM, plan is for resection of ulcer and met head and will send prox margin for cx/path
Continue wound care.
PT- WB to the left heel. May require SNF for PT post op based on LLE weakness. Discussed with Debby (pts ) and she does not think he will do well with HHC/PT at home and is fall risk.
[2023-09-29 08:19] LABS: Iron 40 ug/dl (49-181)
[2023-09-29] MEDS: VITAMIN C 500 MG PO (08:21)
[2023-09-29] MEDS: COREG 25 MG PO ×2 (08:21→20:00)
[2023-09-29] MEDS: FLOMAX 0.4 MG PO ×2 (08:21→20:00)
[2023-09-29] MEDS: ZYLOPRIM 300 MG PO (08:21)
[2023-09-29] MEDS: LASIX 20 MG PO (08:22)
[2023-09-29] MEDS: LOW STRENGTH ASPIRIN 81 MG PO (08:22)
[2023-09-29] MEDS: REFRESH EYE DROPS (PF) 1 DROPS BOTH EYES ×2 (08:23→13:17)
[2023-09-29 08:28] LABS: Percent Saturation 22 % (20-50); Total Iron Binding Capacity 178 ug/dl (261-462)
--- NOTE | 2023-09-29 08:31 | OR.RPT ---
Operative Report
Operative Report
PROCEDURE DATE: 09/28/2023
Preoperative diagnosis: Chronic limb threatening ischemia left lower extremity.
Postoperative diagnosis: Same
Procedure:
1. Duplex assisted right common femoral artery cannulation.
2. Aortogram and pelvic angiogram.
3. Left lower extremity arteriogram with third order vessel catheterization of the left posterior tibial artery via right common femoral artery puncture.
4. Balloon angioplasty of long segment occlusion left posterior tibial artery with 3 mm angioplasty balloon.
5. Balloon angioplasty of proximal/origin posterior tibial artery stenosis with 3 mm angioplasty balloon.
6. Right femoral angiogram and Perclose percutaneous suture closure right common femoral artery.
7. Supervision and interpretation.
Surgeon: Demarco
Animal Eviscerator: None
Complications: None
Anesthesia: Local, sedation
Fluoroscopy:
13 min
40 mGy
10.97 Gy.cm2
Indications for procedure:
Left lower extremity nonhealing wounds. Evidence of peripheral arterial disease. Risk/benefits/alternatives of left lower extremity arteriogram were discussed. Patient understood all wish to proceed.
Description of procedure:
Patient was identified, brought to the operating room. Placed on the table in the supine position. After the adequate administration of anesthesia, the patient was prepped and draped in the standard surgical fashion. A standard preoperative
timeout was undertaken and everybody was in agreement with the plan.
The right common femoral artery was accessed with a micropuncture kit under direct duplex ultrasound guidance. A 5 German sheath was then advanced over a 0.035 inch wire, and a hilton's hook catheter was advanced into the abdominal aorta.
Aortogram and pelvic angiogram was obtained. Findings as follows:
Infrarenal aorta: Patent with no significant stenosis, though eccentric calcified plaque could be visualized.
Right common iliac artery: Patent with no significant stenosis.
Right external iliac artery: Patent with no significant stenosis.
Left common iliac artery: Patent with no significant stenosis.
Left external iliac artery: Patent with no significant stenosis.
Using a floppy angled hydrophilic wire, the left common femoral artery was cannulated and the catheter was advanced. Left lower extremity arteriogram was obtained. Findings as follows:
Common femoral artery: Patent with no significant stenosis.
Profunda femoris artery: Patent with no significant stenosis.
Superficial femoral artery: Patent with no significant stenosis.
Popliteal artery: Patent with no significant stenosis, mild luminal irregularities seen in the behind the knee segment but no stenosis noted.
Anterior tibial artery: Patent for approximately 5 to 6 cm and then occluded. No reconstituted flow seen on the foot and the dorsalis pedis.
Tibial peroneal trunk: Patent with no significant stenosis.
Peroneal artery: Patent with continuous flow down to the level of the ankle where Y collaterals seen, the distal aspect of the collaterals were very wispy small vessels.
Posterior tibial artery: Patent proximally with moderate at least stenosis at the origin. About 2 to 3 cm beyond the origin there was an occlusion with collaterals formed. Occlusion of approximately 15 cm. Reconstituted flow in the distal
posterior tibial artery with continuous flow down to the ankle and appeared to be the dominant runoff vessel into the foot to form the plantar arteries. One of the 2 plantar arteries filled the foot well, the other 1 gave collaterals and petered
out.
At this point I selectively cannulated the distal superficial femoral artery and then exchanged for a Storq wire and an up and over 5 German 70 cm sheath. I gave the patient an appropriate dose of heparin. Next under roadmap assisted guidance I
was able to cannulate the posterior tibial artery. I did this with a flopping of hydrophilic wire and a CXI catheter. I now tried with some difficulty to use that 0.035 inch Glidewire to traverse the area of occlusion in the posterior tibial
artery. I had difficulty but finally was able to get my wire through and then into the distal posterior tibial artery appearing to be in the true lumen. I could not advance my CXI catheter however. Therefore exchanged for a quick cross catheter.
This I was able to advance all the way through. I then performed angiogram to confirm I was in the true lumen. I then exchanged for a 0.014 inch [employer] wire. Next I performed balloon angioplasty of the occluded segment with a 3 mm x 160 mm
angioplasty balloon with prolonged inflation. Completion angiogram demonstrated an excellent result with no residual stenosis and excellent flow through the posterior tibial artery. The proximal stenosis/at the origin however appeared to be
significant more so now. I therefore then used a 3 mm angioplasty balloon (3 mm x 40 mm) to angioplasty this. Again prolonged angioplasty inflation was undertaken. Completion angiogram now demonstrated excellent result with brisk flow through the
entire posterior tibial artery and no residual stenosis. Flow into the runoff was preserved. At this point is very satisfied. I then withdrew my sheath over a 0.035 inch wire to the right external iliac artery. Right femoral angiogram
demonstrated good puncture in the right common femoral artery. I therefore then used a 6 German dilator after exchanging out my 5 German sheath and then used a Pro-glide Perclose percutaneous suture to suture close the common femoral artery.
Manual pressure was also applied. The patient was given some protamine to reverse the heparin as well.
The patient tolerated procedure well. Upon completion had a palpable left posterior tibial pulse.
--- NOTE | 2023-09-29 08:37 | W.PN.VS ---
Today's Communication / Plan
-
Discussed with Dr. Reyna
Assessment/Plan
-
POD 1Left lower extremity arteriogram, balloon angioplasty x 2 to the left PT with 3 mm balloon
Plan:
-Okay for discharge from vascular standpoint
-Follow-up added to chart
Subjective Data
-
Date of Service: September 29, 2023
Patient seen at bedside this a.m. Patient offers no complaints at this time. No events overnight. Groin remains clean, dry, intact.
Objective Data
-
Vital Signs
Temp Pulse Resp BP Pulse Ox
97.8 F 62 18 161/81 96
09/29/23 07:00 09/29/23 07:00 09/29/23 07:00 09/29/23 07:00 09/29/23 07:00
Intake and Output
09/28/23 09/29/23 09/30/23
06:59 06:59 06:59
Intake Total 480 / 480 2130 / 2130
Output Total 700 / 700 950 / 950
Balance -220 / -220 1180 / 1180
Intake:
Oral fluids 480 / 480 920 / 920
IV fluids (Total) 1210 / 1210
Normosol 50 / 50
Output:
Urine, Voided 700 / 700 950 / 950
Lab Results
09/29/23 06:24
Calcium 8.5 mg/dl (8.4-10.2) 09/29/23 06:24
Total Bilirubin 3.1 mg/dl (0.2-1.3) H 09/22/23 14:55
AST 32 U/L (17-59) 09/22/23 14:55
ALT 12 U/L (0-50) 09/22/23 14:55
Alkaline Phosphatase 68 U/L (38-126) 09/22/23 14:55
Total Protein 6.4 g/dl (6.3-8.2) 09/22/23 14:55
Albumin 3.6 g/dl (3.5-5.0) 09/22/23 14:55
Physical Exam
-
AAOx3
No tachypnea
No tachycardia
Abdomen soft
Groin site clean, dry, intact, no drainage noted, soft
Foot warm, pink
Palpable PT pulse
--- NOTE | 2023-09-29 08:54 | W.PN.ID1 ---
Date of Service
Date of Service: September 29, 2023
Today's Communication
Observe off antibiotics.
Assessment / Plan
Febrile episode
- appears resolved
Left foot wound
- concern for underlying osteo
Critical limb ischemia, LLE
A-fib
CAD
HTN
Hypothyroid
Dyslipidemia
CKD
Hyponatremia
Recommendations:
Blood cultures - NGTD. White count normal.
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
Labeled WBC scan performed. Small focus of activity seen, but cannot rule out infection.
Podiatry has placed patient on schedule for tomorrow for resection of ulcer and met head.
Follow white count and temperature curve.
At present, continue to follow off antibiotics.
����������������������������������������������������������
Chief Complaint
-: Other (Left foot ulceration)
Subjective / Review of Systems
Review of Systems: No Fever
Vital Signs / Physical Exam
Vital Signs
Vital Signs
Temp Pulse Resp BP Pulse Ox
97.8 F 62 18 161/81 96
09/29/23 07:00 09/29/23 07:00 09/29/23 07:00 09/29/23 07:00 09/29/23 07:00
Objective Data
Lab Data
Lab Results
09/29/23 06:24
ESR 91 mm/hour (0-20) H 09/22/23 19:57
PT 18.3 Sec (11.4-14.6) H 09/29/23 06:24
INR 1.54 09/29/23 06:24
APTT 53.0 Sec (23.4-35.0) H 09/29/23 06:24
Estimated Creat Clear 60 ml/min 09/29/23 06:24
Lactic Acid 0.8 mmol/L (0.7-2.0) 09/23/23 23:19
Total Bilirubin 3.1 mg/dl (0.2-1.3) H 09/22/23 14:55
AST 32 U/L (17-59) 09/22/23 14:55
ALT 12 U/L (0-50) 09/22/23 14:55
Alkaline Phosphatase 68 U/L (38-126) 09/22/23 14:55
C-Reactive Protein 150.50 mg/L (0.0-10.00) H 09/22/23 19:57
Most recent labs reviewed.
Micro Results:
09/23/23 23:39 Blood Culture - Final
Blood/Venous No Growth - Final Report
09/24/23 14:50 Blood Culture - Preliminary
Blood/Venous No Growth in 4 days- Final report to follow
09/22/23 20:41 MRSA Screen - Final
Nose No Methicillin Resistant Staphylococcus aureus isolated.
Imaging:
09/28/2023 Labeled WBC scan: Small focus of mild to moderate uptake of activity seen in the lateral left foot most likely about the left fifth metatarsal phalangeal joint. Unfortunately, the significance of this finding is uncertain without preceding
Nuclear Bone Scan for correlation as both studies are necessary. On the basis of this study alone, infection cannot be excluded.
09/17/2023 JOSHUA: Right lower extremity: JOSHUA 1.06 within normal limits. TBI is 0.83 also within normal limits. Multiphasic continuous Doppler waveforms are noted at the dorsalis pedis artery. Monophasic continuous Doppler waveforms at the posterior
tibial artery. Left lower extremity: JOSHUA not obtainable secondary to noncompressibility of the vessels. TBI severely reduced at 0.26. Significantly decreased compared to prior study dated 08/05/2021 at which time measured 0.80. Continuous Doppler
waveforms at the dorsalis pedis and posterior tibial arteries are monophasic.
[2023-09-29] MEDS: VASOTEC 20 MG PO (09:23)
[2023-09-29 09:25] LABS: Folate 9.5 ng/ml (2.76-20); Vitamin B12 > 1000 pg/ml (239-931)
--- NOTE | 2023-09-29 10:45 | CM ---
CM met with patient and bedside, requesting referral to [facility]. CM discussed sending additional referrals as backup. Patient for OR tomorrow. Will send SNF referrals once updated PT/OT notes. CM will continue to follow for all
discharge planning needs.
Plan; SNF pending accepting facility, once medically stable, will need auth.
[2023-09-29 11:16] LABS: Hematocrit 21.1 % (39.0-52.0); Hemoglobin 7.2 g/dL (13.0-18.0)
--- NOTE | 2023-09-29 11:25 | PTCARENOTE ---
Notified provider of patient's H/H in AM. Repeat labs ordered.
[2023-09-29] MEDS: NSS IV (12:56)
[2023-09-29] MEDS: TYLENOL 650 MG PO (22:56)
[2023-09-29] MEDS: APRESOLINE 5 MG IV (23:52)
[2023-09-30] VITALS (10 sets, daily range): BP systolic 122–156; BP diastolic 63–77; BMI 25.1
[2023-09-30] MEDS: SYNTHROID 75 MCG PO (05:11)
[2023-09-30 07:08] LABS: Hematocrit 22.6 % (39.0-52.0); Hemoglobin 7.9 g/dL (13.0-18.0); Mean Corpuscular Hgb 29.6 pg (27.0-31.0); Mean Corpuscular Volume 84.6 fL (80.0-94.0); Mean Platelet Volume 9.3 fL (7.4-10.4); Platelet Count 275 10^3/uL (130-400); Red Blood Cell Count 2.67 10^6/uL (4.70-6.10); White Blood Cell Count 11.2 10^3/uL (4.8-10.8)
--- NOTE | 2023-09-30 07:30 | W.PN.HOSP.TC ---
Today's Communication/Plan
-
wound post-op care as per podiatry
monitor H&H
pain control
follow cultures pathology
Assessment / Plan
Assessment / Plan
Physical Exam
Genera: NAD, resting comfortably in bed, bruising throughout body
HEENT: Scleral anicteric Moist mucous membranes
Neck: No JVD
Resp: CTA Bilateral
Card: Normal S1-S2 no murmurs
Abd: Soft nontender nondistended bowel sounds active
Ext: No peripheral pitting edema, Left foot wound Dressing AMANDEEP wrap clean dry intact
Neuro: AAOx3
83M CAD CABG afib s/p ppm Gout here for evaluation non-healing left foot wound and rhabdomyolysis
Mechanical fall slip and fall from bed.
PT OT consult. appreciated SNF rehab
Fall precautions.
Lower extremity weakness left-sided
-CT Head appreciated no acute intracranial abn's, Severe right sided paranasal sinus mucosal disease/sinusitis, which has increased from prior. Soft tissue attenuation in the right nasal cavity again suspicious for a large nasal polyp. (outpt ENT
follow up recommended)
-Unable to obtain MRI due to old PPM
Left great hallux bleeding resolved at this time, dressing clean dry intact.
-High EsR/CRP
-Tagged WBC scan appreciated
-Vascular to eval appreciated, poor JOSHUA's noted from 09/16
-Eliquis held for procedures starting 09/25
-LLE Angioplasty 09/27
-podiatry eval appreciated performed resection 5th met head and excision of ulcer and primary repair of wound left foot 09/29 tolerated well
Mild Hyponatremia
Monitor
LORIE/bump in creatinine 1.4 baseline around 1.0.
Mild Traumatic Rhabdo from fall
Likely prerenal. Improved with IVF
Mild CK elevation trended down
CKD [id number]
-Avoid nephrotoxins and hypotension
-Monitor UOP
-Neph consult appreciated since signed off
Knee Effusion - Left sided
-X-ray appreciated appreciated arthritis no fracture or dislocation
-Ortho consult appreciated conservative mgmt no intervention recommended at this time
CABG continue beta-martin Eliquis
Hypertension continue antihypertensives
Atrial fibrillation
continue beta-martin
Eliquis on hold for interventions as above
Anemia multifactorial
Anemia of Chronic Disease
Mild iron deficiency
Acute blood loss from foot wound
09/28 1PRBC transfusion Hgb 7.2
monitor H&H
iron supplementation started
BPH continue Flomax
updated patient's Debby over phone.
I spent a total of 50 minutes with the patient or on the floor. More than 50% of this time involved counseling and coordination of care.
Anticipated Discharge: 24 - 48 hours
Subjective/Interval History
-
Date of Service: September 30, 2023
Seen and examined at bedside in no acute distress resting comfortably in bed s/p resection 5th met head and excision of ulcer and primary repair of wound left foot. Reports overall feeling well. Denies any new acute issues at this time.
Objective Data
-
Labs:
Laboratory Results
09/30/23
05:18
WBC 11.2 H
Hgb 7.9 L
Hct 22.6 L
Plt Count 275 D
Sodium Pending
Potassium Pending
Chloride Pending
Carbon Dioxide Pending
BUN Pending
Creatinine Pending
Glucose Pending
Calcium Pending
Vital Signs:
Vital Signs
Temp Pulse Resp BP Pulse Ox
98.0 F 64 18 141/70 97
09/30/23 03:56 09/30/23 03:56 09/30/23 03:56 09/30/23 03:56 09/30/23 03:56
I&O
09/29/23 09/30/23 10/01/23
06:59 06:59 06:59
Intake Total 2130 / 2130 850 / 850
Output Total 950 / 950 910 / 910
Balance 1180 / 1180 -60 / -60
[2023-09-30 08:02] LABS: Blood Urea Nitrogen 40 mg/dl (9-20); Calcium 8.8 mg/dl (8.4-10.2); Carbon Dioxide 20 mmol/L (22-30); Chloride 107 mmol/L (98-107); Estimated Creatinine Clearance 60 ml/min; Glucose 93 mg/dl (70-99); Magnesium 1.9 mg/dl (1.6-2.3); Phosphorus 3.3 mg/dl (2.5-4.5); Potassium 4.5 mmol/L (3.5-5.1); Sodium 136 mmol/L (135-145); eGFR > 60.00
[2023-09-30] MEDS: VASOTEC 20 MG PO (08:25)
[2023-09-30] MEDS: FEOSOL 325 MG PO (08:25)
[2023-09-30] MEDS: FLOMAX 0.4 MG PO ×2 (08:25→20:09)
[2023-09-30] MEDS: LOW STRENGTH ASPIRIN 81 MG PO (08:26)
[2023-09-30] MEDS: COREG 25 MG PO ×2 (08:26→20:09)
[2023-09-30] MEDS: VITAMIN C 500 MG PO (08:26)
[2023-09-30] MEDS: LASIX 20 MG PO (08:26)
[2023-09-30] MEDS: ZYLOPRIM 300 MG PO (08:26)
--- NOTE | 2023-09-30 09:03 | CM ---
CM reviewed chart, patient for OR today. PT recommending SNF upon discharge. Patient and requesting [facility], discussed sending additional referrals as backup. Referrals sent in [facility]. Patient will need insurance auth when stable for
discharge and bed is found. CM will continue to follow all discharge planning needs.
Plan; SNF pending accepting facility, will need auth, once medically stable.
--- NOTE | 2023-09-30 12:40 | W.PN.ID1 ---
Date of Service
Date of Service: September 30, 2023
Today's Communication
Observe closely off antibiotics.
Assessment / Plan
Febrile episode
- appears resolved
Left foot wound
- concern for underlying osteo
Critical limb ischemia, LLE
A-fib
CAD
HTN
Hypothyroid
Dyslipidemia
CKD
Hyponatremia
Recommendations:
Blood cultures - NGTD. White count normal.
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
Labeled WBC scan performed. Small focus of activity seen, but cannot rule out infection.
Patient for resection of ulcer and met head.
Follow white count and temperature curve.
At present, continue to follow off antibiotics.
����������������������������������������������������������
Chief Complaint
-: Other (Left foot ulceration)
Subjective / Review of Systems
Review of Systems: No Fever and No Chills
Vital Signs / Physical Exam
Vital Signs
Vital Signs
Temp Pulse Resp BP Pulse Ox
98.2 F 60 16 156/67 97
09/30/23 11:32 09/30/23 11:32 09/30/23 11:32 09/30/23 11:32 09/30/23 11:32
Physical Exam
Constitutional: No Acute Distress, Comfortable and Non-toxic
Cardiovascular: S1/S2; Negative S3/S4
Pulmonary: Non Labored
Gastrointestinal: Non Distended
Extremities: Edema and Venous Insufficiency
Wound: Other (Left lateral fifth met head wound dressed.)
Neurological: Awake and Alert
Psychological: Calm
Objective Data
Lab Data
Lab Results
09/30/23 05:18
09/30/23 05:18
ESR 91 mm/hour (0-20) H 09/22/23 19:57
PT 18.3 Sec (11.4-14.6) H 09/29/23 06:24
INR 1.54 09/29/23 06:24
APTT 53.0 Sec (23.4-35.0) H 09/29/23 06:24
Estimated Creat Clear 60 ml/min 09/30/23 05:18
Lactic Acid 0.8 mmol/L (0.7-2.0) 09/23/23 23:19
Total Bilirubin 3.1 mg/dl (0.2-1.3) H 09/22/23 14:55
AST 32 U/L (17-59) 09/22/23 14:55
ALT 12 U/L (0-50) 09/22/23 14:55
Alkaline Phosphatase 68 U/L (38-126) 09/22/23 14:55
C-Reactive Protein 150.50 mg/L (0.0-10.00) H 09/22/23 19:57
Most recent labs reviewed.
Micro Results:
09/24/23 14:50 Blood Culture - Final
Blood/Venous No Growth - Final Report
09/23/23 23:39 Blood Culture - Final
Blood/Venous No Growth - Final Report
09/22/23 20:41 MRSA Screen - Final
Nose No Methicillin Resistant Staphylococcus aureus isolated.
Imaging:
09/28/2023 Labeled WBC scan: Small focus of mild to moderate uptake of activity seen in the lateral left foot most likely about the left fifth metatarsal phalangeal joint. Unfortunately, the significance of this finding is uncertain without preceding
Nuclear Bone Scan for correlation as both studies are necessary. On the basis of this study alone, infection cannot be excluded.
09/17/2023 JOSHUA: Right lower extremity: JOSHUA 1.06 within normal limits. TBI is 0.83 also within normal limits. Multiphasic continuous Doppler waveforms are noted at the dorsalis pedis artery. Monophasic continuous Doppler waveforms at the posterior
tibial artery. Left lower extremity: JOSHUA not obtainable secondary to noncompressibility of the vessels. TBI severely reduced at 0.26. Significantly decreased compared to prior study dated 08/05/2021 at which time measured 0.80. Continuous Doppler
waveforms at the dorsalis pedis and posterior tibial arteries are monophasic.
--- NOTE | 2023-09-30 13:17 | W.SUR.POST ---
Surgical Immediate Post Op
Note
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
Post Op Diagnosis: same
Procedure Performed: resection 5th met head and excision of ulcer and primary repair of wound left foot
Primary Surgeon: Mp Shaffer
Secondary Surgeons: n/a
Anesthesia: mac w/local block - 10 ml 1% lido pl and 10 cc 0.5%jean-paul plain
Estimated Blood Loss: 50mL
Fluids: N/A
Drains/Shunts: none
Specimens/Cultures: prox margin 5th met left
Doppler/Duplex/Angio (Y/N): N
Complications: none
Operative Findings: see op note. No abscess or purulence
[2023-09-30] MEDS: TYLENOL 650 MG PO (23:15)
[2023-10-01] VITALS (12 sets, daily range): BP systolic 101–150; BP diastolic 49–75; PULSE 60–62; O2SAT 97–98; BMI 24.6
[2023-10-01] MEDS: SYNTHROID 75 MCG PO (06:06)
[2023-10-01 06:48] LABS: Hemoglobin 7.5 g/dL (13.0-18.0); Mean Corp Hgb Conc. 34.1 g/dL (33.0-37.0); Mean Corpuscular Hgb 29.3 pg (27.0-31.0); Mean Corpuscular Volume 85.9 fL (80.0-94.0); Mean Platelet Volume 9.4 fL (7.4-10.4); Platelet Count 255 10^3/uL (130-400); Red Blood Cell Count 2.56 10^6/uL (4.70-6.10); Red Cell Dist. Width 15.5 % (11.5-14.5); White Blood Cell Count 9.7 10^3/uL (4.8-10.8)
[2023-10-01 07:16] LABS: Blood Urea Nitrogen 42 mg/dl (9-20); Calcium 8.8 mg/dl (8.4-10.2); Carbon Dioxide 23 mmol/L (22-30); Chloride 107 mmol/L (98-107); Estimated Creatinine Clearance 55 ml/min; Glucose 86 mg/dl (70-99); Magnesium 1.9 mg/dl (1.6-2.3); Phosphorus 3.3 mg/dl (2.5-4.5); Potassium 4.2 mmol/L (3.5-5.1); Sodium 136 mmol/L (135-145); eGFR > 60.00
--- NOTE | 2023-10-01 07:24 | W.PN.HOSP.TC ---
Today's Communication/Plan
-
resume Eliquis
wound care as per Podiatry
monitor H&H
PT/OT
Assessment / Plan
Assessment / Plan
Physical Exam
Genera: NAD, resting comfortably in bed, bruising throughout body
HEENT: Scleral anicteric Moist mucous membranes
Neck: No JVD
Resp: CTA Bilateral
Card: Normal S1-S2 no murmurs
Abd: Soft nontender nondistended bowel sounds active
Ext: No peripheral pitting edema, Left foot wound Dressing AMANDEEP wrap clean dry intact
Neuro: AAOx3
83M CAD CABG afib s/p ppm Gout here for evaluation non-healing left foot wound and rhabdomyolysis
Mechanical fall slip and fall from bed.
PT OT consult. appreciated SNF rehab
Fall precautions.
Lower extremity weakness left-sided
-CT Head appreciated no acute intracranial abn's, Severe right sided paranasal sinus mucosal disease/sinusitis, which has increased from prior. Soft tissue attenuation in the right nasal cavity again suspicious for a large nasal polyp. (outpt ENT
follow up recommended)
-Unable to obtain MRI due to old PPM
Left great hallux bleeding resolved at this time, dressing clean dry intact.
-High EsR/CRP
-Tagged WBC scan appreciated
-Vascular to eval appreciated, poor JOSHUA's noted from 09/16
-Eliquis held for procedures starting 09/25
-LLE Angioplasty 09/27
-podiatry eval appreciated performed resection 5th met head and excision of ulcer and primary repair of wound left foot 09/29 tolerated well
Mild Hyponatremia
Monitor
LORIE/bump in creatinine 1.4 baseline around 1.0.
Mild Traumatic Rhabdo from fall
Likely prerenal. Improved with IVF
Mild CK elevation trended down
CKD Uithl2t
-Avoid nephrotoxins and hypotension
-Monitor UOP
-Neph consult appreciated since signed off
Knee Effusion - Left sided
-X-ray appreciated appreciated arthritis no fracture or dislocation
-Ortho consult appreciated conservative mgmt no intervention recommended at this time
CABG continue beta-martin Eliquis
Hypertension continue antihypertensives
Atrial fibrillation
continue beta-martin
Cleared to resume anticoagulation as per Podiatry, Eliquis resumed
Anemia multifactorial
Anemia of Chronic Disease
Mild iron deficiency
Acute blood loss from foot wound
09/28 1PRBC transfusion Hgb 7.2
monitor H&H
iron supplementation started
BPH continue Flomax
updated patient's Debby
I spent a total of 50 minutes with the patient or on the floor. More than 50% of this time involved counseling and coordination of care.
Anticipated Discharge: 24 - 48 hours
Subjective/Interval History
-
Date of Service: October 01, 2023
no acute distress reports feeling well.
Objective Data
-
Labs:
Laboratory Results
10/01/23
06:20
WBC 9.7
Hgb 7.5 L
Hct 22.0 L
Plt Count 255
Sodium 136
Potassium 4.2
Chloride 107
Carbon Dioxide 23
BUN 42 H
Creatinine 1.1
Glucose 86
Calcium 8.8
Vital Signs:
Vital Signs
Temp Pulse Resp BP Pulse Ox
97.7 F 61 16 104/51 96
10/01/23 03:20 10/01/23 03:20 10/01/23 03:20 10/01/23 03:20 10/01/23 03:20
I&O
09/30/23 10/01/23 10/02/23
06:59 06:59 06:59
Intake Total 850 / 850 660 / 660
Output Total 910 / 910 900 / 900
Balance -60 / -60 -240 / -240
[2023-10-01] MEDS: FEOSOL 325 MG PO (08:59)
[2023-10-01] MEDS: FLOMAX 0.4 MG PO ×2 (08:59→19:43)
[2023-10-01] MEDS: ZYLOPRIM 300 MG PO (08:59)
[2023-10-01] MEDS: LOW STRENGTH ASPIRIN 81 MG PO (08:59)
[2023-10-01] MEDS: VITAMIN C 500 MG PO (08:59)
[2023-10-01] MEDS: LASIX 20 MG PO (09:00)
[2023-10-01] MEDS: VASOTEC 20 MG PO (09:00)
[2023-10-01] MEDS: COREG 25 MG PO ×2 (09:00→19:43)
--- NOTE | 2023-10-01 10:56 | W.PN.ID1 ---
Date of Service
Date of Service: October 01, 2023
Today's Communication
Observe off antibiotics. Await cultures and pathology.
Assessment / Plan
Febrile episode
- appears resolved
Left foot wound
- concern for underlying osteo
Critical limb ischemia, LLE
A-fib
CAD
HTN
Hypothyroid
Dyslipidemia
CKD
Hyponatremia
Recommendations:
Blood cultures - NGTD. White count normal.
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
Labeled WBC scan performed. Small focus of activity seen, but cannot rule out infection.
Patient S/P resection of ulcer and partial met head resection.
Cultures pending, but no growth at present.
Follow white count and temperature curve.
At present, continue to follow off antibiotics.
Await final culture and pathology to determine if antibiotics necessary.
����������������������������������������������������������
Chief Complaint
-: Other (Left foot ulceration)
Subjective / Review of Systems
Patient seen and examined. Patient underwent left fifth partial met resection yesterday. Currently feels well. Denies complaints at present.
Review of Systems: No Fever and No Chills
Vital Signs / Physical Exam
Vital Signs
Vital Signs
Temp Pulse Resp BP Pulse Ox
98.4 F 61 18 148/75 97
10/01/23 07:00 10/01/23 09:00 10/01/23 07:00 10/01/23 09:00 10/01/23 07:00
Physical Exam
Constitutional: No Acute Distress, Comfortable, Chronically Ill and Non-toxic
Eyes: Sclera Anicteric
Cardiovascular: S1/S2; Negative S3/S4
Pulmonary: Non Labored
Gastrointestinal: Non Distended
Extremities: Edema and Venous Insufficiency
Wound: Other (Left foot dressed in Adalberto wrap.)
Neurological: Awake and Alert
Psychological: Calm
Objective Data
Lab Data
Lab Results
10/01/23 06:20
10/01/23 06:20
ESR 91 mm/hour (0-20) H 09/22/23 19:57
PT 18.3 Sec (11.4-14.6) H 09/29/23 06:24
INR 1.54 09/29/23 06:24
APTT 53.0 Sec (23.4-35.0) H 09/29/23 06:24
Estimated Creat Clear 55 ml/min 10/01/23 06:20
Lactic Acid 0.8 mmol/L (0.7-2.0) 09/23/23 23:19
Total Bilirubin 3.1 mg/dl (0.2-1.3) H 09/22/23 14:55
AST 32 U/L (17-59) 09/22/23 14:55
ALT 12 U/L (0-50) 09/22/23 14:55
Alkaline Phosphatase 68 U/L (38-126) 09/22/23 14:55
C-Reactive Protein 150.50 mg/L (0.0-10.00) H 09/22/23 19:57
Most recent labs reviewed.
Micro Results:
09/30/23 12:47 Wound Culture - Pending
Foot - Left Gram Stain - Preliminary
09/30/23 12:47 Anaerobic Culture - Pending
Foot - Left
09/24/23 14:50 Blood Culture - Final
Blood/Venous No Growth - Final Report
09/23/23 23:39 Blood Culture - Final
Blood/Venous No Growth - Final Report
09/22/23 20:41 MRSA Screen - Final
Nose No Methicillin Resistant Staphylococcus aureus isolated.
Imaging:
09/28/2023 Labeled WBC scan: Small focus of mild to moderate uptake of activity seen in the lateral left foot most likely about the left fifth metatarsal phalangeal joint. Unfortunately, the significance of this finding is uncertain without preceding
Nuclear Bone Scan for correlation as both studies are necessary. On the basis of this study alone, infection cannot be excluded.
09/17/2023 JOSHUA: Right lower extremity: JOSHUA 1.06 within normal limits. TBI is 0.83 also within normal limits. Multiphasic continuous Doppler waveforms are noted at the dorsalis pedis artery. Monophasic continuous Doppler waveforms at the posterior
tibial artery. Left lower extremity: JOSHUA not obtainable secondary to noncompressibility of the vessels. TBI severely reduced at 0.26. Significantly decreased compared to prior study dated 08/05/2021 at which time measured 0.80. Continuous Doppler
waveforms at the dorsalis pedis and posterior tibial arteries are monophasic.
--- NOTE | 2023-10-01 12:41 | CM ---
CM reviewed patient with Hospitalist. [facility] can accept patient tomorrow. Patient will need updated PT/OT notes for insurance authorization. CM spoke with patients , discussed [facility] will have bed tomorrow if patient is stable for discharge. CM
will continue to follow for all discharge planning needs.
Plan; [facility] SNF tomorrow, will need insurance auth.
--- NOTE | 2023-10-01 18:06 | W.PN.POD ---
Today's Communication
Today's Communication
Non healing wound w/ Osteomyelitis left foot-POD #1 S/P 5th met resection and excision of ulceration and primary repair
-->Patient able to ambulate in post op shoe w/weight to heel
-->Incision / dressing left undisrupted. If he is here 10/02/23 afternoon I will change dressing, (wound care upon DC to SNF: cleanse wound w/ vashe, apply adaptic over sutures/silver alginate,4x4 and loosely wrap with kerlix q 2 days)
--> Re Wound cx bone/prox margin- few staph/diptheroids, It is possible there was some contamination of specimen, if path returns - for OM long-term abt could be terminated early, however, I will defer to Dr Cheney/ID
Assessment / Plan
-
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
Non healing wound w/ Osteomyelitis left foot-POD #1 S/P 5th met resection and excision of ulceration and primary repair
LLE weakness-back pain- improved
Anemia-Hgb dropped post op- medicine following/ transfused today
Hyponatremia-per medicine/nephrology-corrected
Subjective
Chief Complaint
Chronic wound left foot/Osteomyelitis
Subjective
POD #1 S/P resection 5th metatarsal head and repair of plantar ulceration.
Patient sitting up- denies pain to the left foot, states he was up walking with PT and feeling Ok
Objective
Temp Pulse Resp BP Pulse Ox
98.1 F 60 18 148/73 98
10/01/23 16:51 10/01/23 16:56 10/01/23 16:56 10/01/23 16:56 10/01/23 15:00
10/01/23 06:20
10/01/23 06:20
Wendy
RUN DATE: 10/01/23 [facility] *LIVE* PAGE 1
RUN TIME: 1817 Specimen Inquiry
PATIENT: TRUNG VEGA LOC: [facility] U #: [id number]
AGE/SX: 83/M Race: WHITE ROOM: 414 RE09/22/[address]: Praveen Ortiz MD : 1940 BED: 01 DIS:
STATUS: ADM IN TLOC:
SPEC #: [id number] MICHAEL: 09/30/23-124 STATUS: RES REQ #: [id number]
RECD: 09/30/23-[address]: Rae Shaffer DPM
SOURCE: FOOT ENTR: 09/30/23-[address]: Saul PRESSLEY,Jered Aponte
SPDESC: Left Khalida Hopper DO
Maximiliano Cheney DO
Kasi Armas MD
Praveen Ortiz MD
Amalia Alfonso MD
ORDERED: Wound/Other
QUERIES: Comment BONE 5TH METATARSAL HEAD PROXIMAL MARGIN
Date Specimen was Collected 09/30/23
Time Specimen was Collected 1246
Procedure Result Verified
Wound/abscess/other Cult Preliminary 10/01/23-1233
Few Presumptive Staphylococcus aureus
Few Diptheroids
Gram Stain Preliminary 10/01/23-1129
Rare WBC
No Organisms Seen
l Signs and Lab results were reviewed.
Inspection: Cellulitis (none) and Other (post op dressing left intact C/D w/o bloody strike through. )
Review of Systems
Review of Systems
Review of Systems: No Chills, No Headache, No Nausea and No Diarrhea
Physical Exam
Physical Exam
General: No Apparent Distress and Comfortable
Musculoskeletal: Clubbing (equinovarus deformity left foot) and Edema, Left Lower Extrem (mild)
Skin: Warm, Dry and Other (incision left foot- dressing left intact)
Neuro: AO x 3, Protective Sensation Diminished and Other
Vascular: Capillary Refill Delayed, Pedal Hair Absent and Skin Temperature Warm to Warm
Dorsalis Pedis: Intact
Posterior Tibialis: Intact
[2023-10-01] MEDS: ELIQUIS 5 MG PO (19:43)
[2023-10-02] MEDS: TYLENOL 650 MG PO (00:20)
[2023-10-02 03:38] VITALS: BP 140/66
[2023-10-02 06:00] VITALS: BMI 24.4
[2023-10-02] MEDS: SYNTHROID 75 MCG PO (06:23)
[2023-10-02 07:00] VITALS: BP 151/75
--- NOTE | 2023-10-02 07:14 | W.PN.HOSP.TC ---
Today's Communication/Plan
-
abx as per ID
Medically stable for discharge SNF rehab pending placement
Assessment / Plan
Assessment / Plan
Physical Exam
Genera: NAD, resting comfortably in bed, bruising throughout body
HEENT: Scleral anicteric Moist mucous membranes
Neck: No JVD
Resp: CTA Bilateral
Card: Normal S1-S2 no murmurs
Abd: Soft nontender nondistended bowel sounds active
Ext: No peripheral pitting edema, Left foot wound Dressing AMANDEEP wrap clean dry intact
Neuro: AAOx3
83M CAD CABG afib s/p ppm Gout here for evaluation non-healing left foot wound and rhabdomyolysis
Mechanical fall slip and fall from bed.
PT OT consult. appreciated SNF rehab
Fall precautions.
Lower extremity weakness left-sided
-CT Head appreciated no acute intracranial abn's, Severe right sided paranasal sinus mucosal disease/sinusitis, which has increased from prior. Soft tissue attenuation in the right nasal cavity again suspicious for a large nasal polyp. (outpt ENT
follow up recommended)
-Unable to obtain MRI due to old PPM
Left great hallux bleeding resolved at this time, dressing clean dry intact.
-High EsR/CRP
-Tagged WBC scan appreciated
-Vascular to eval appreciated, poor JOSHUA's noted from 09/16
-Eliquis held for procedures starting 09/25
-LLE Angioplasty 09/27
-podiatry eval appreciated performed resection 5th met head and excision of ulcer and primary repair of wound left foot 09/29 tolerated well
-wound cx noted positive MSSA and diphtheroid started empirically in Cefazolin later switched to PO Keflex as path result notes surgical cure per ID
Mild Hyponatremia
Monitor
LORIE/bump in creatinine 1.4 baseline around 1.0.
Mild Traumatic Rhabdo from fall
Likely prerenal. Improved with IVF
Mild CK elevation trended down
CKD [id number]
-Avoid nephrotoxins and hypotension
-Monitor UOP
-Neph consult appreciated since signed off
Knee Effusion - Left sided
-X-ray appreciated appreciated arthritis no fracture or dislocation
-Ortho consult appreciated conservative mgmt no intervention recommended at this time
CABG continue beta-martin Eliquis
Hypertension continue antihypertensives
Atrial fibrillation
continue beta-martin
Cleared to resume anticoagulation as per Podiatry, Eliquis resumed
Anemia multifactorial
Anemia of Chronic Disease
Mild iron deficiency
Acute blood loss from foot wound
09/28 1PRBC transfusion Hgb 7.2
monitor H&H
iron supplementation started
BPH continue Flomax
updated patient's Debby
I spent a total of 40 minutes with the patient or on the floor. More than 50% of this time involved counseling and coordination of care.
Anticipated Discharge: Within 24 hours
Subjective/Interval History
-
Date of Service: October 02, 2023
No acute distress. Reports overall feeling well. Looking forward to discharge.
Objective Data
-
Labs:
Laboratory Results
10/02/23
06:00
WBC Pending
Hgb Pending
Hct Pending
Plt Count Pending
Sodium Pending
Potassium Pending
Chloride Pending
Carbon Dioxide Pending
BUN Pending
Creatinine Pending
Glucose Pending
Calcium Pending
Vital Signs:
Vital Signs
Temp Pulse Resp BP Pulse Ox
98.5 F 61 18 140/66 98
10/02/23 03:38 10/02/23 03:38 10/02/23 03:38 10/02/23 03:38 10/02/23 03:38
I&O
10/01/23 10/02/23 10/03/23
06:59 06:59 06:59
Intake Total 660 / 660 1450 / 1450
Output Total 900 / 900 1050 / 1050
Balance -240 / -240 400 / 400
[2023-10-02] MEDS: VASOTEC 20 MG PO (08:04)
[2023-10-02] MEDS: ZYLOPRIM 300 MG PO (08:05)
[2023-10-02] MEDS: FLOMAX 0.4 MG PO ×2 (08:05→20:27)
[2023-10-02] MEDS: LASIX 20 MG PO (08:05)
[2023-10-02] MEDS: FEOSOL 325 MG PO (08:05)
[2023-10-02] MEDS: LOW STRENGTH ASPIRIN 81 MG PO (08:05)
[2023-10-02] MEDS: COREG 25 MG PO ×2 (08:05→20:26)
[2023-10-02] MEDS: VITAMIN C 500 MG PO (08:05)
[2023-10-02] MEDS: ELIQUIS 5 MG PO ×2 (08:05→20:26)
[2023-10-02 09:29] LABS: Hematocrit 26.3 % (39.0-52.0); Mean Corp Hgb Conc. 34.2 g/dL (33.0-37.0); Mean Corpuscular Hgb 30.1 pg (27.0-31.0); Mean Platelet Volume 8.9 fL (7.4-10.4); Platelet Count 252 10^3/uL (130-400); Red Blood Cell Count 2.99 10^6/uL (4.70-6.10); Red Cell Dist. Width 15.7 % (11.5-14.5); White Blood Cell Count 10.7 10^3/uL (4.8-10.8)
--- NOTE | 2023-10-02 09:58 | W.PN.ID1 ---
Addendum entered and electronically signed by Zahra Gregorio MD 10/02/23 15:05:
5th metatarsal bone proximal margin negative osteo.
Can discharge on cephalexin 500mg po qid x 7 days.
d/w Dr. Shaffer and Dr. Ortiz
Original Note:
Date of Service
Date of Service: October 02, 2023
Today's Communication
Start IV cefazolin.
Await bone path to determine length of IV abx.
Assessment / Plan
Febrile episode
- appears resolved
Left foot wound
- concern for underlying osteo
Critical limb ischemia, LLE
A-fib
CAD
HTN
Hypothyroid
Dyslipidemia
CKD
Hyponatremia
Recommendations:
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
Labeled WBC scan performed. Small focus of activity seen, but cannot rule out infection.
Patient S/P resection of ulcer and partial met head resection.
OR proximal margin bone cx: MSSA, diphtheroids
OR bone path pending
Start IV cefazolin.
Await bone path to determine length of IV abx.
����������������������������������������������������������
Chief Complaint
-: Other (Left foot ulceration)
Subjective / Review of Systems
No post-op pain.
Vital Signs / Physical Exam
Vital Signs
Vital Signs
Temp Pulse Resp BP Pulse Ox
98.2 F 61 18 151/75 97
10/02/23 07:00 10/02/23 08:04 10/02/23 07:00 10/02/23 08:04 10/02/23 07:00
Physical Exam
Constitutional: No Acute Distress and Comfortable
Pulmonary: Clear
Gastrointestinal: Non Tender and Non Distended
Wound: Other (left wound dressing dry)
Objective Data
Lab Data
Lab Results
10/02/23 08:44
ESR 91 mm/hour (0-20) H 09/22/23 19:57
PT 18.3 Sec (11.4-14.6) H 09/29/23 06:24
INR 1.54 09/29/23 06:24
APTT 53.0 Sec (23.4-35.0) H 09/29/23 06:24
Estimated Creat Clear 55 ml/min 10/01/23 06:20
Lactic Acid 0.8 mmol/L (0.7-2.0) 09/23/23 23:19
Total Bilirubin 3.1 mg/dl (0.2-1.3) H 09/22/23 14:55
AST 32 U/L (17-59) 09/22/23 14:55
ALT 12 U/L (0-50) 09/22/23 14:55
Alkaline Phosphatase 68 U/L (38-126) 09/22/23 14:55
C-Reactive Protein 150.50 mg/L (0.0-10.00) H 09/22/23 19:57
Most recent labs reviewed.
Micro Results:
09/30/23 12:47 Anaerobic Culture - Preliminary
Foot - Left Culture pending. Anaerobic cultures are examined after 3
days incubation. Additional information to follow.
09/30/23 12:47 Wound Culture - Preliminary
Foot - Left S aureus-Methicillin Sensitive
Diptheroids
Gram Stain - Preliminary
09/24/23 14:50 Blood Culture - Final
Blood/Venous No Growth - Final Report
09/23/23 23:39 Blood Culture - Final
Blood/Venous No Growth - Final Report
09/22/23 20:41 MRSA Screen - Final
Nose No Methicillin Resistant Staphylococcus aureus isolated.
Imaging:
09/28/2023 Labeled WBC scan: Small focus of mild to moderate uptake of activity seen in the lateral left foot most likely about the left fifth metatarsal phalangeal joint. Unfortunately, the significance of this finding is uncertain without preceding
Nuclear Bone Scan for correlation as both studies are necessary. On the basis of this study alone, infection cannot be excluded.
09/17/2023 JOSHUA: Right lower extremity: JOSHUA 1.06 within normal limits. TBI is 0.83 also within normal limits. Multiphasic continuous Doppler waveforms are noted at the dorsalis pedis artery. Monophasic continuous Doppler waveforms at the posterior
tibial artery. Left lower extremity: JOSHUA not obtainable secondary to noncompressibility of the vessels. TBI severely reduced at 0.26. Significantly decreased compared to prior study dated 08/05/2021 at which time measured 0.80. Continuous Doppler
waveforms at the dorsalis pedis and posterior tibial arteries are monophasic.
[2023-10-02 10:06] LABS: Blood Urea Nitrogen 41 mg/dl (9-20); Calcium 8.8 mg/dl (8.4-10.2); Carbon Dioxide 27 mmol/L (22-30); Chloride 106 mmol/L (98-107); Estimated Creatinine Clearance 55 ml/min; Glucose 93 mg/dl (70-99); Magnesium 1.9 mg/dl (1.6-2.3); Phosphorus 3.3 mg/dl (2.5-4.5); Sodium 137 mmol/L (135-145); eGFR > 60.00
[2023-10-02 11:00] VITALS: BP 136/69
--- NOTE | 2023-10-02 11:50 | CM ---
CM reviewed with Hospitalist, possible discharge over weekend. CM updated [facility] at [facility]. Patient seen bedside, discussed possible discharge over weekend. Patient disappointed, hopeful to go to rehab today. CM discussed [facility] may have a bed
over the weekend, will depend on patient discharge status and if facility has open beds, patient understands. CM will continue to follow for all discharge planning needs.
Plan: SNF pending accepting facility, patient will need auth ([employer] patient). Check in with [facility] over weekend if any open beds.
[2023-10-02] MEDS: ANCEF 10 IV (14:41)
[2023-10-02 15:00] VITALS: BP 118/63
--- NOTE | 2023-10-02 15:25 | W.PN.POD ---
Today's Communication
Today's Communication
incision redressed to the left lateral foot, wound care upon DC- Aquacel Ag and dry dressing q2days and prn if soiled or removed
D/W Dr De La Rosa/ID results of culture prox margin + few S.A and diptheroids and bone path - for osteo to prox margin, therefore, it is likely that the bone cx was contaminated during procedure as result of proximity to the chronic wound. Appreciaate ID
recommendations 1 week po abt
DC to SNF pending placement
Assessment / Plan
-
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
Non healing wound w/ Osteomyelitis left foot-POD #2 S/P 5th met resection and excision of ulceration and primary repair
LLE weakness-back pain- improved, c/o knee and thight pain
Anemia-Hgb improved to 9 post transfusion
Subjective
Chief Complaint
Chronic wound left foot/OM 5th met head
Subjective
POD # 2 S/P 5th met head resection and primary repair wound left foot.
Patient sitting up, denies pain
Objective
Temp Pulse Resp BP Pulse Ox
98.4 F 63 18 118/63 96
10/02/23 15:00 10/02/23 15:00 10/02/23 15:00 10/02/23 15:00 10/02/23 15:00
10/02/23 08:44
10/02/23 08:44
Vital Signs and Lab results were reviewed.
Review of Systems
Review of Systems
Review of Systems: No Fever, No Chills, No Headache, No Nausea and Other (c/o pain left thigh and knee)
Physical Exam
Physical Exam
General: No Apparent Distress and Comfortable
Musculoskeletal: Edema, Left Lower Extrem
Skin: Other (Dressing with scant bloody drainage. Incision seen and evaluated C/D/I with good CFT. No active bleeding from incision noted. No signs of dehiscense, no erythema, mild LLE edema)
Neuro: AO x 3, Protective Sensation Diminished and Other (equinovarus Left foot)
Vascular: Capillary Refill Intact and Pedal Hair Absent
Dorsalis Pedis: Intact
Posterior Tibialis: Intact
[2023-10-02] MEDS: KEFLEX 500 MG PO ×2 (17:24→22:06)
[2023-10-02 19:37] VITALS: BP 144/67
[2023-10-02 23:05] VITALS: BP 149/78
[2023-10-03 03:35] VITALS: BP 146/71
[2023-10-03] MEDS: SYNTHROID 75 MCG PO (05:37)
[2023-10-03 05:55] VITALS: BMI 24.6
--- NOTE | 2023-10-03 07:11 | W.PN.HOSP.TC ---
Today's Communication/Plan
-
Medically stable for discharge SNF rehab pending placement/insurance Auth
Assessment / Plan
Assessment / Plan
Physical Exam
Genera: NAD, resting comfortably in bed, bruising throughout body
HEENT: Scleral anicteric Moist mucous membranes
Neck: No JVD
Resp: CTA Bilateral
Card: Normal S1-S2 no murmurs
Abd: Soft nontender nondistended bowel sounds active
Ext: No peripheral pitting edema, Left foot wound Dressing AMANDEEP wrap clean dry intact
Neuro: AAOx3
83M CAD CABG afib s/p ppm Gout here for evaluation non-healing left foot wound and rhabdomyolysis
Mechanical fall slip and fall from bed.
PT OT consult. appreciated SNF rehab
Fall precautions.
Lower extremity weakness left-sided
-CT Head appreciated no acute intracranial abn's, Severe right sided paranasal sinus mucosal disease/sinusitis, which has increased from prior. Soft tissue attenuation in the right nasal cavity again suspicious for a large nasal polyp. (outpt ENT
follow up recommended)
-Unable to obtain MRI due to old PPM
Left great hallux bleeding resolved at this time, dressing clean dry intact.
-High EsR/CRP
-Tagged WBC scan appreciated
-Vascular to eval appreciated, poor JOSHUA's noted from 09/16
-Eliquis held for procedures starting 09/25
-LLE Angioplasty 09/27
-podiatry eval appreciated performed resection 5th met head and excision of ulcer and primary repair of wound left foot 09/29 tolerated well
-wound cx noted positive MSSA and diphtheroid started empirically in Cefazolin later switched to PO Keflex as path result note surgical cure per ID
Mild Hyponatremia
Monitor
LORIE/bump in creatinine 1.4 baseline around 1.0.
Mild Traumatic Rhabdo from fall
Likely prerenal. Improved with IVF, LORIE resolved
Mild CK elevation trended down
CKD [id number]
-Avoid nephrotoxins and hypotension
-Monitor UOP
-Neph consult appreciated since signed off
Knee Effusion - Left sided
-X-ray appreciated appreciated arthritis no fracture or dislocation
-Ortho consult appreciated conservative mgmt no intervention recommended at this time
CABG
continue beta-amrtin Eliquis
Hypertension continue antihypertensives
Atrial fibrillation
continue beta-martin
Cleared to resume anticoagulation as per Podiatry, Eliquis resumed tolerating
Anemia multifactorial
Anemia of Chronic Disease
Mild iron deficiency
Acute blood loss from foot wound
PRBC transfusions 09/28 and 09/30 with good response noted
H&H stable since last transfusion
iron supplementation started, cont
BPH continue Flomax
Medically stable for discharge SNF rehab with outpatient follow up recommendations.
discussed with patient and patient's Debby
Total Time Preparing Discharge ___50____ minutes including examination of the patient, summary of the hospital stay, instructions for continuing care to all relevant caregivers; and preparation of discharge records, prescriptions, and referral
forms if necessary.
Anticipated Discharge: Within 24 hours
Subjective/Interval History
-
Date of Service: October 03, 2023
Seen and examined at bedside in no acute distress sitting up comfortably chair. Reports feeling well, no significant bleeding. Denies new acute issues, pain well controlled a this time.
Objective Data
-
Labs:
Laboratory Results
10/03/23
06:00
Hgb Pending
Hct Pending
Vital Signs:
Vital Signs
Temp Pulse Resp BP Pulse Ox
98.8 F 60 18 146/71 98
10/03/23 03:35 10/03/23 03:35 10/03/23 03:35 10/03/23 03:35 10/03/23 03:35
I&O
10/02/23 10/03/23 10/04/23
06:59 06:59 06:59
Intake Total 1450 / 1450 1530 / 1530
Output Total 1050 / 1050 1620 / 1620
Balance 400 / 400 -90 / -90
[2023-10-03 07:12] VITALS: BP 155/74
[2023-10-03] MEDS: VASOTEC 20 MG PO (07:57)
[2023-10-03] MEDS: VITAMIN C 500 MG PO (07:57)
[2023-10-03] MEDS: COREG 25 MG PO ×2 (07:58→21:30)
[2023-10-03] MEDS: FLOMAX 0.4 MG PO ×2 (07:58→21:31)
[2023-10-03] MEDS: ZYLOPRIM 300 MG PO (07:58)
[2023-10-03] MEDS: FEOSOL 325 MG PO (07:58)
[2023-10-03] MEDS: KEFLEX 500 MG PO ×4 (07:59→21:31)
[2023-10-03] MEDS: ELIQUIS 5 MG PO ×2 (07:59→21:30)
[2023-10-03] MEDS: LOW STRENGTH ASPIRIN 81 MG PO (07:59)
[2023-10-03] MEDS: LASIX 20 MG PO (07:59)
[2023-10-03 10:02] LABS: Hematocrit 26.4 % (39.0-52.0); Hemoglobin 8.8 g/dL (13.0-18.0)
--- NOTE | 2023-10-03 10:17 | CM ---
Addendum entered by Lucinda Chavis 10/03/23 15:09:
Contacted Shaun to submit AUTH; was told to call -ASK BLUE.
--ASK BLUE forwarded me to an answering service; patient info and reason for call provided; was told that someone would call me back to submit AUTH.
As of now, no one returned my call.
Attending and [facility] Admission coordinator notified
Addendum entered by Lucinda Chavis 10/03/23 12:25:
IMM benefit explained; form signed
Addendum entered by Lucinda Chavis 10/03/23 10:45:
Just notified that [facility] has a bed pending AUTH approval
Addendum entered by Lucinda Chavis 10/03/23 10:23:
Care Team notified of placement status
Original Note:
Per Attending, patient is stable for discharge pending bed availability
Left Voice Mails @ [facility] and [facility]
[2023-10-03] MEDS: TYLENOL 650 MG PO (14:20)
[2023-10-03] MEDS: SENOKOT-S 1 TABLET PO (14:21)
[2023-10-03 15:07] VITALS: BP 124/65
[2023-10-03 20:58] VITALS: BP 129/57
[2023-10-03 23:00] VITALS: BP 147/72
[2023-10-04] MEDS: SYNTHROID 75 MCG PO (05:30)
[2023-10-04 06:00] VITALS: BMI 24.2
[2023-10-04 07:16] VITALS: BP 144/71
--- NOTE | 2023-10-04 07:52 | W.PN.HOSP.TC ---
Today's Communication/Plan
-
discharge
Assessment / Plan
Assessment / Plan
Physical Exam
Genera: NAD, resting comfortably in bed, bruising throughout body
HEENT: Scleral anicteric Moist mucous membranes
Neck: No JVD
Resp: CTA Bilateral
Card: Normal S1-S2 no murmurs
Abd: Soft nontender nondistended bowel sounds active
Ext: No peripheral pitting edema, Left foot wound Dressing AMANDEEP wrap clean dry intact
Neuro: AAOx3
83M CAD CABG afib s/p ppm Gout here for evaluation non-healing left foot wound and rhabdomyolysis
Mechanical fall slip and fall from bed.
PT OT consult. appreciated SNF rehab
Fall precautions.
Lower extremity weakness left-sided
-CT Head appreciated no acute intracranial abn's, Severe right sided paranasal sinus mucosal disease/sinusitis, which has increased from prior. Soft tissue attenuation in the right nasal cavity again suspicious for a large nasal polyp. (outpt ENT
follow up recommended)
-Unable to obtain MRI due to old PPM
Left great hallux bleeding resolved at this time, dressing clean dry intact.
-High EsR/CRP
-Tagged WBC scan appreciated
-Vascular to eval appreciated, poor JOSHUA's noted from 09/16
-Eliquis held for procedures starting 09/25
-LLE Angioplasty 09/27
-podiatry eval appreciated performed resection 5th met head and excision of ulcer and primary repair of wound left foot 09/29 tolerated well
-wound cx noted positive MSSA and diphtheroid started empirically in Cefazolin later switched to PO Keflex as path result note surgical cure per ID
Mild Hyponatremia
Monitor
LORIE/bump in creatinine 1.4 baseline around 1.0.
Mild Traumatic Rhabdo from fall
Likely prerenal. Improved with IVF, LORIE resolved
Mild CK elevation trended down
CKD [id number]
-Avoid nephrotoxins and hypotension
-Monitor UOP
-Neph consult appreciated since signed off
Knee Effusion - Left sided
-X-ray appreciated appreciated arthritis no fracture or dislocation
-Ortho consult appreciated conservative mgmt no intervention recommended at this time
CABG
continue beta-martin Eliquis
Hypertension continue antihypertensives
Atrial fibrillation
continue beta-martin
Cleared to resume anticoagulation as per Podiatry, Eliquis resumed tolerating
Anemia multifactorial
Anemia of Chronic Disease
Mild iron deficiency
Acute blood loss from foot wound
PRBC transfusions 09/28 and 09/30 with good response noted
H&H stable since last transfusion
iron supplementation started, cont
BPH continue Flomax
Medically stable for discharge SNF rehab with outpatient follow up recommendations.
Total Time Preparing Discharge ___40____ minutes including examination of the patient, summary of the hospital stay, instructions for continuing care to all relevant caregivers; and preparation of discharge records, prescriptions, and referral
forms if necessary.
Anticipated Discharge: Today
Subjective/Interval History
-
Date of Service: October 04, 2023
Seen and examined at bedside in acute distress sitting up comfortably in chair. Reports overall feeling well. Looking forward to discharge to SNF rehab.
Objective Data
-
Vital Signs:
Vital Signs
Temp Pulse Resp BP Pulse Ox
98.1 F 68 18 147/72 97
10/03/23 23:00 10/03/23 23:00 10/03/23 23:00 10/03/23 23:00 10/03/23 23:00
I&O
10/03/23 10/04/23 10/05/23
06:59 06:59 06:59
Intake Total 1530 / 1530 910 / 910
Output Total 1620 / 1620 1055 / 1055
Balance -90 / -90 -145 / -145
[2023-10-04] MEDS: ELIQUIS 5 MG PO (08:01)
[2023-10-04] MEDS: LOW STRENGTH ASPIRIN 81 MG PO (08:01)
[2023-10-04] MEDS: ZYLOPRIM 300 MG PO (08:01)
[2023-10-04] MEDS: KEFLEX 500 MG PO ×2 (08:01→11:23)
[2023-10-04] MEDS: FLOMAX 0.4 MG PO (08:01)
[2023-10-04] MEDS: LASIX 20 MG PO (08:01)
[2023-10-04] MEDS: COREG 25 MG PO (08:02)
[2023-10-04] MEDS: VITAMIN C 500 MG PO (08:02)
[2023-10-04] MEDS: VASOTEC 20 MG PO (08:02)
[2023-10-04] MEDS: FEOSOL 325 MG PO (08:02)
--- NOTE | 2023-10-04 10:43 | CM ---
Addendum entered by Lucinda Chavis 10/04/23 11:24:
Ambulance slat pickler time 1300 today
Addendum entered by Lucinda Chavis 10/04/23 11:03:
AUTH for Ambulance transport approved:
Auth # [id number]
Addendum entered by Lucinda Chavis 10/04/23 10:56:
Plan: Discharge to [facility] today
Transport to be determined; waiting to hear from [place] regarding ambulance coverage
Patient may need to transport via [facility]
Report # [phone]

Original Note:
AUTH approved; start 10/03 - 10/08/2023
AUTH # [id number]; Call # for concurrent review
Plan: Discharge to [facility]
Report #
Fax #
[2023-10-04 11:31] VITALS: BP 119/53
== END 2023-10-04 13:10 | DRG 253 ==
LOC: 4 WEST ACU 18:59
PROVIDERS: Nurse Practitioner; Nurse Practitioner Acute Care; Nurse Practitioner Family; Surgery Vascular Surgery; ADMITTING PHYSICIAN Hospitalist; ATTENDING PHYSICIAN Internal Medicine; CONSULT PHYSICIAN Internal Medicine; CONSULT PHYSICIAN Internal Medicine Infectious Disease; CONSULT PHYSICIAN Orthopaedic Surgery; CONSULT PHYSICIAN Podiatrist Foot & Ankle Surgery; EMERGENCY PHYSICIAN Emergency Medicine; FAMILY PHYSICIAN Family Medicine; OTHER PHYSICIAN Podiatrist Foot & Ankle Surgery
PROC: 047S3ZZ Dilation of Left Posterior Tibial Artery, Percutaneous Approach (ICD-10-PCS; 2023-09-29)
PROC: 30233N1 Transfusion of Nonautologous Red Blood Cells into Peripheral Vein, Percutaneous Approach (ICD-10-PCS; 2023-09-29)
PROC: 0QBP0ZZ Excision of Left Metatarsal, Open Approach (ICD-10-PCS; 2023-09-30)
DX: I70.262 Atherosclerosis of native arteries of extremities with gangrene, left leg (principal); D62 Acute posthemorrhagic anemia; E87.1 Hypo-osmolality and hyponatremia; I48.20 Chronic atrial fibrillation, unspecified; N17.9 Acute kidney failure, unspecified; M86.9 Osteomyelitis, unspecified; I42.9 Cardiomyopathy, unspecified; L03.116 Cellulitis of left lower limb; L97.522 Non-pressure chronic ulcer of other part of left foot with fat layer exposed; I34.0 Nonrheumatic mitral (valve) insufficiency; I25.10 Atherosclerotic heart disease of native coronary artery without angina pectoris; I12.9 Hypertensive chronic kidney disease with stage 1 through stage 4 chronic kidney disease, or unspecified chronic kidney disease; N18.31 Chronic kidney disease, stage 3a; E86.1 Hypovolemia; N40.0 Benign prostatic hyperplasia without lower urinary tract symptoms; T79.6XXA Traumatic ischemia of muscle, initial encounter; M25.462 Effusion, left knee; M10.9 Gout, unspecified; I49.5 Sick sinus syndrome; E03.9 Hypothyroidism, unspecified; E78.5 Hyperlipidemia, unspecified; G47.33 Obstructive sleep apnea (adult) (pediatric); R53.1 Weakness; D63.1 Anemia in chronic kidney disease; M17.12 Unilateral primary osteoarthritis, left knee; S90.412A Abrasion, left great toe, initial encounter; S90.415A Abrasion, left lesser toe(s), initial encounter; W06.XXXA Fall from bed, initial encounter; Z79.01 Long term (current) use of anticoagulants; Z95.0 Presence of cardiac pacemaker; Z95.1 Presence of aortocoronary bypass graft; Z79.890 Hormone replacement therapy; Y92.003 Bedroom of unspecified non-institutional (private) residence as the place of occurrence of the external cause; Z79.899 Other long term (current) drug therapy
CPT/HCPCS: 88304; 88311; 37228; 70450; 71046; 73560; 73620; 73630; 75625; 75716; 76937; 78803; 80048; 80053; 81003; 82140; 82550; 82607; 82746; 83540; 83550; 83605; 83690; 83735; 83935; 84100; 84300; 85014; 85018; 85025; 85027; 85610; 85652; 85730; 86140; 86850; 86900; 86901; 86920; 87040; 87070; 87075; 87147; 87186; 87205; 87811; 93005; 97116; 97163; 97167; 97530; 97535; 99285; A9569; C1725; C1760; C1769; C1887; C1894; P9016

== ENCOUNTER 2023-10-15 16:53 | Inpatient (IN) | payer OTHER, SELFPAY ==
[2023-10-15] VITALS (27 sets, daily range): BP systolic 69–130; BP diastolic 43–100; BMI 24.2; BMI 23.6
[2023-10-15 14:18] LABS: % Basophils 0.1 % (0-2); % Eosinophils 5.8 % (0-6); % Immature Granulocytes 0.7 % (0-0.5); % Lymphocytes 20.1 % (20.5-51.1); % Monocytes 7.6 % (1.7-9.3); % Neutrophils 65.7 % (42.2-75.2); Absolute Eosinophils 0.5 10^3/uL (0-0.7); Absolute Immature Granulocytes 0.1 10^3/uL (0-0.05); Absolute Lymphocytes 1.7 10^3/uL (1.2-3.4); Absolute Monocytes 0.7 10^3/uL (0.1-0.6); Absolute Neutrophils 5.7 10^3/uL (1.4-6.5); Hematocrit 13.5 % (39.0-52.0); Hemoglobin 4.5 g/dL (13.0-18.0); Mean Corp Hgb Conc. 33.3 g/dL (33.0-37.0); Mean Corpuscular Hgb 28.7 pg (27.0-31.0); Mean Platelet Volume 10.1 fL (7.4-10.4); Nucleated Red Blood Cells % 0 % (-); Platelet Count 185 10^3/uL (130-400); Red Blood Cell Count 1.57 10^6/uL (4.70-6.10); Red Cell Dist. Width 16.5 % (11.5-14.5); White Blood Cell Count 8.6 10^3/uL (4.8-10.8)
[2023-10-15 14:26] LABS: INR 2.26; PT 25.2 Sec (11.4-14.6)
[2023-10-15 14:27] LABS: APTT 61.1 Sec (23.4-35.0)
--- NOTE | 2023-10-15 14:44 | ED.GENMED ---
History of Present Illness
General
Chief Complaint: Abnormal Lab Value
Source: patient and records
Exam Limitations: none
Time Seen by Provider: 10/15/23 14:14
Nursing documentation reviewed up to this point in time: agreed with
History of Present Illness
History of Present Illness:
Patient is a 83-year-old male that was sent to the emergency department because of low hemoglobin. Patient denies any chest pain, shortness of breath, abdominal pain, nausea, vomiting or diarrhea. Patient states his stools are dark but denies any
blood. Patient has chronic issues with his lower extremities. Patient does complain of right low back pain. Patient denies a history of falling. Patient denies any injury or illnesses. Patient does have a history of upper GI bleeds.
Past History
Past History
ED Past Medical History: Arrthythmia (afib on Coumadin), CAD, HTN, Hypothyroidism and Other (a fibrillation, HTN, hyperlipidemia, heart valve replacement, pacemaker, renal insufficiency, hyponatremia)
ED Past Surgical History: Cardiac (pacemaker)
Social History
Tobacco: Non-smoker
Alcohol: None
Drug: None
Personal:
Living: with family
Review of Systems
Review of Systems
All Other Systems: ROS reviewed and negative except as documented in HPI and ROS
Constitutional: Reports fatigue; Denies fever or chills
EENT: Reports no symptoms
Respiratory: Reports no symptoms
Cardiac: Reports no symptoms
ABD/GI: Reports black stools; Denies abdominal pain, nausea, vomiting, diarrhea or constipated
: Reports no symptoms
Musculoskeletal: Reports back pain
Skin: Reports no symptoms
Neurological: Reports no symptoms
Hematologic/Lymphatic: Reports no symptoms
Phy Exam
Physical Exam
Physical Exam:
Physical Exam
General: mild to moderate distress, alert and appropriate, well nourished, well hydrated
HENT: Normocephalic, supple with no lymphadenopathy, no thyromegaly
Eyes: Clear sclera, conjuctiva without injection
Heart: Regular rhythm and rate. No S3, S4. No murmur. No NVD
Lungs: No respiratory distress, no stridor, lung sounds clear and equal bilaterally, chest wall symmetrical and nontender
Abdomen: Soft, nontender, no organomegaly, BS good. Rectal shows good sphincter tone with black stool which is Hemoccult positive
Neuro: Alert and usual mental status, CN II - XII intact, no motor focality
Skin: Scattered ecchymosis as well as on the left great toe distally there is an eschar
Psychiatric: well kept. interactive and cooperative
Extremities: No edema, cyanosis, tenderness
Musculoskeletal: Mild tenderness in the right SI region
Course
Orders/Labs/Results
Orders:
Orders
10/15/23 13:58
Cardiac Monitoring- Treatment ONCE
IV Insert/Care/Rem.- Treatment PRN
O2 Therapy [RESP] Urgent
Titrate/Wean O2 to maintain O2 sat greater than (%): 93
Special Instructions: MAINTAIN CONTINOUS O2 SATS > OR = 93%
Pulse Ox/spot Check [RESP] Urgent
Quantity: 1
Special Instructions: ON ROOM AIR
10/15/23 14:03
Basic Metabolic Panel Urgent
Complete Blood Count/With Diff Urgent
PTT Urgent
Prothrombin Time Urgent
10/15/23 14:30
Type+Screen Routine
[employer] Wristband Number:
10/15/23 14:44
Blood Bank Products [* Blood Bank Products] Urgent
Blood Bank Products: *Packed RBC Leuko(PRBC's)
Quantity: 2
Transfuse Today: Yes
Reason: Anemia
0.9% Sodium Chloride 500 ml [Nss] 500 ml IV BOLUS
Morphine Sulfate 4 mg IV NOW STA
Ondansetron Injectable [Zofran] 4 mg IV NOW STA
10/15/23 15:04
Potassium Urgent
Comment: potassium
10/15/23 15:07
IV Insert/Care/Rem.- Treatment PRN
Pantoprazole 80 mg/100 ml Nss [Protonix] 80 mg in 100 ml IV NOW
Pantoprazole [Protonix IV] 80 mg IV NOW STA
Abnormal Lab Results
10/15/23 10/15/23
14:03 14:30
RBC 1.57 L 10^6/uL
(4.70-6.10)
Hgb 4.5 L* g/dL
(13.0-18.0)
Hct 13.5 L* %
(39.0-52.0)
RDW 16.5 H %
(11.5-14.5)
Abs Immat Gran (auto) 0.1 H 10^3/uL
(0-0.05)
Absolute Monos (auto) 0.7 H 10^3/uL
(0.1-0.6)
Immature Gran % 0.7 H %
(0-0.5)
Lymphocytes % 20.1 L %
(20.5-51.1)
PT 25.2 H Sec
(11.4-14.6)
APTT 61.1 H Sec
(23.4-35.0)
Sodium 129 L mmol/L
(135-145)
BUN 116 H* mg/dl
(9-20)
Calcium 8.1 L mg/dl
(8.4-10.2)
Crossmatch IS Only See Detail
10/15/23 14:03
Vital Signs
Initial and Last Documented VS:
Initial Vital Signs
Temp Pulse Resp Pulse Ox
97.7 F 61 18 100
10/15/23 13:43 10/15/23 13:43 10/15/23 13:43 10/15/23 13:43
Last Documented Vital Signs
Temp Pulse Resp BP Pulse Ox
97.7 F 60 15 94/45 99
10/15/23 13:43 10/15/23 14:30 10/15/23 14:30 10/15/23 14:05 10/15/23 14:30
*Radiology
Radiology exam reviewed: other (na)
*Pulse Oximetry
Patient hypoxic: no
*EKG
Interpreted by ED Provider?: NA
*Dry Can Tender Interpretation
Rate: normal
Interpretation: abnormal
Heart Rate: 60
Rhythm: ventricular paced
*Critical Care Note
Total Time (30-74mins, 75-104mins- exclusive of procedures): 35 minutes
Update Note
Update Note:
Patient's hemoglobin is low for him or he runs normally around 8-9. Rectal was positive. Patient's BUN is elevated. This appears to be an upper GI bleed. Patient will be transfused placed on Protonix and admitted. Patient has been hypotensive
especially after the morphine but relatively asymptomatic with it.
ED Attending Note
-
Portions of this chart may have been created with voice recognition software.� Occasional wrong word or��sound alike� substitutions may have occurred due to the inherent limitations of voice recognition software.
Discharge Plan
Departure
Patient Disposition: Admit
Date of Disposition: 10/15/23
Time of Disposition: 15:49
Admit to: Telemetry
Admit to doctor: Hospitalist
Presentation/result/management discussed w/ accepting MD/DO: Hospitalist
Patient with high blood pressure during this ER visit?: No
Condition: Serious
Covid-19: Not Applicable
Discharge Problem:
Acute upper gastrointestinal hemorrhage, Anemia, Transfusion, Acute prerenal azotemia
Prescriptions:
No Action
levothyroxine 75 MCG tablet
75 mcg PO DAILY
ascorbic acid (vitamin C) [Vitamin C] 500 MG tablet
500 mg PO DAILY
allopurinol 300 MG tablet
300 mg PO DAILY
furosemide 20 mg Tablet
20 mg PO DAILY
Eliquis 5 mg Tablet
5 mg PO BID
carvedilol 25 mg tablet
25 mg PO BID
enalapril maleate 20 mg tablet
20 mg PO BID
tamsulosin 0.4 mg capsule
0.4 mg PO BID
ferrous sulfate [FeroSul] 325 mg (65 mg iron) Tablet
325 mg PO DAILY 30 Days Qty: 30 0RF
aspirin 81 mg Tablet,Chewable
81 mg PO DAILY 30 Days Qty: 30 0RF
acetaminophen 325 mg Tablet
650 mg PO Q6HPRN MDD 3000 mg PRN (Reason: mild pain/fever >100)
guaifenesin 100 mg/5 mL Liquid
200 mg PO Q4HPRN PRN (Reason: cough)
magnesium hydroxide [Milk of Magnesia] 400 mg/5 mL Suspension
400 mg PO HSPRN PRN (Reason: no bm 2 days)
bisacodyl [Dulcolax (bisacodyl)] 10 mg Suppository
10 mg IL DAILYPRN PRN (Reason: no bm 3 days)
Fleet Enema 19-7 gram/118 mL Enema
118 ml IL DAILYPRN PRN (Reason: no bm 4 days)
folic acid 1 mg Tablet
1 mg PO DAILY
polyvinyl alcohol-povidone 0.5-0.6 % Drops
1 drp BOTH EYES Q6HPRN PRN (Reason: dry eyes)
Referrals:
Karan Horta MD [Family Provider] -
Interventions
Interventions:
*Risk Screen - Suicide Last Done: 10/15/23 13:43
*General Assessment Last Done: 10/15/23 13:43
*Neglect/Abuse Screening Last Done: 10/15/23 13:43
*ED COVID-19 Vaccine History Last Done: 10/15/23 13:43
Discharge Date and Time
Print Language: SENEGALESE
[2023-10-15] MEDS: NSS 500 IV (14:50)
[2023-10-15] MEDS: MORPHINE SULFATE 4 MG IV (14:51)
[2023-10-15] MEDS: ZOFRAN 4 MG IV (14:51)
[2023-10-15 14:57] LABS: Blood Urea Nitrogen 116 mg/dl (9-20); Calcium 8.1 mg/dl (8.4-10.2); Carbon Dioxide 22 mmol/L (22-30); Chloride 98 mmol/L (98-107); Estimated Creatinine Clearance 50 ml/min; Glucose 98 mg/dl (70-99); Sodium 129 mmol/L (135-145); eGFR 59.63
[2023-10-15] MEDS: PROTONIX IV 80 MG IV (15:14)
[2023-10-15] MEDS: PROTONIX 100 IV (15:15)
[2023-10-15 15:55] LABS: Potassium 5.2 mmol/L (3.5-5.1)
--- NOTE | 2023-10-15 16:10 | HPS.HSE ---
Family Physician
-
Family Physician: Kraan Horta
Chief Complaint
-
low hemoglobin
History of Present Illness
83-year-old male with PMH forCKD, CAD, HTN,atrial fib, sick sinus syndrome, coronary artery disease, hypothyroidism gout, anemia, GI bleed presented to the [facility]. Patient had a blood work done at 0.1 which showed hemoglobin of 4.5.
Patient always has black stool as he is on iron panel. Denied bright blood BM from rectum denied abdominal pain, nausea, vomiting, diarrhea. Patient denied any headache, dizziness, syncopal episode patient denied fever, chills, chest pain, short
of breath. Patient denied any headache, dizziness, syncopal episode. Patient denied dysuria,hematuria.patient has left plantar surface wound. Patient does complain of right low back pain. Patient denies a history of falling.
patient was tested positive for COVID few days at [facility].
patient was discharged on 10/08 s/p resection 5th met head and excision of ulcer and primary repair of wound left foot 09/29 tolerated well. Wound cx noted positive MSSA and diphtheroid started empirically in Cefazolin later switched to PO Keflex.
he was noted to have acute blood loss from foot wound and was transfused with PRBCs.
Upon arrival noted hemoglobin of 4.5. Transfusing with 2 units of blood initiated on IV PPI.. Admitting for further management
Medical History
Past Medical History
Past Medical History: Reports Other
Additional Past Medical History:
Chronic kidney disease stage IV
Coronary artery disease
hypertension
Paroxysmal A-fib
Sick sinus syndrome
Hypothyroidism
Gout
Anemia
Obstructive sleep apnea
Past Surgical History: Reports Other
Additional Past Surgical History:
Mitral valve repair
Cardiac pacemaker
Coronary artery bypass graft
Social History
Tobacco: Non-smoker
Alcohol: None
Drug: None
Personal:
Living: Assisted Living
Family History
Family History: Not pertinent
Allergies / Home Medications
Allergies reflects when Allergies were last updated in [facility].
Home Medications with original date entered in [facility]
Allergy/Medication List:
Allergies
Allergy/AdvReac Type Severity Reaction Status Date / Time
Ieebphf-CMD-RiQ Reductase Allergy Unknown Verified 03/02/23 16:50
Inhibitor
[Bovkstz-Xgn-Doh Reductase
Inhibitor]
Home Medications
allopurinol 300 mg tablet 300 mg PO DAILY Gout 12/18/19
ascorbic acid (vitamin C) 500 mg tablet (Vitamin C) 500 mg PO DAILY Supplement 12/18/19
levothyroxine 75 mcg tablet 75 mcg PO DAILY Thyroid 12/18/19
apixaban 5 mg tablet (Eliquis) 5 mg PO BID Blood Clot Prevention/Tx 03/02/23
carvedilol 25 mg tablet 25 mg PO BID Blood Pressure 03/02/23
enalapril maleate 20 mg tablet 20 mg PO BID Blood Pressure 03/02/23
furosemide 20 mg tablet 20 mg PO DAILY Fluid Retention/Swelling 03/02/23
tamsulosin 0.4 mg capsule 0.4 mg PO BID Urinary Issue 03/02/23
aspirin 81 mg chewable tablet 81 mg PO DAILY 30 days #30 tabs 10/03/23
ferrous sulfate 325 mg (65 mg iron) tablet (FeroSul) 325 mg PO DAILY 30 days #30 tabs 10/03/23
acetaminophen 325 mg tablet 650 mg PO Q6HPRN PRN mild pain/fever >100 10/15/23
bisacodyl 10 mg rectal suppository (Dulcolax (bisacodyl)) [address] DAILYPRN PRN no bm 3 days 10/15/23
folic acid 1 mg tablet 1 mg PO DAILY 10/15/23
guaifenesin 100 mg/5 mL oral liquid 200 mg PO Q4HPRN PRN cough 10/15/23
magnesium hydroxide 400 mg/5 mL oral suspension (Milk of Magnesia) 400 mg PO HSPRN PRN no bm 2 days 10/15/23
polyvinyl alcohol-povidone 0.5 %-0.6 % eye drops 1 drp BOTH EYES Q6HPRN PRN dry eyes 10/15/23
sodium phosphates 19 gram-7 gram/118 mL enema (Fleet Enema) [address] DAILYPRN PRN no bm 4 days 10/15/23
Review of Systems
-
Constitutional: Reports No Symptoms
EENT: Reports No Symptoms
Respiratory: Reports No Symptoms
Cardiac: Reports No Symptoms
Abdomen/GI: Reports Black Stools
: Reports No Symptoms
Musculoskeletal: Reports No Symptoms
Skin: Reports Other (Left plantar, left quan wound)
Neurological: Reports No Symptoms
Endocrine: Reports No Symptoms
Hematologic/Lymphatic: Reports No Symptoms
Psych: Reports No Symptoms
Physical Exam
Vital Signs
Vital Signs
Temp Pulse Resp BP Pulse Ox
98.2 F 61 20 90/44 99
10/15/23 15:58 10/15/23 16:00 10/15/23 16:00 10/15/23 16:00 10/15/23 15:45
Physical Exam
General: Well Developed, Well Nourished and No Apparent Distress
HEENT: NormoCephalic, Moist mucous membranes and Atraumatic
Respiratory: Clear
Cardiac: S1/S2 and Regular Rhythm; No Murmur or Rub
GI: Soft, Non Tender, Non Distended and Normal Bowel Sounds; No Organomegaly
Rectal: Deferred by Provider
Musculoskeletal: No Clubbing, No Cyanosis and No Edema
Skin: Other (Left plantar wound, left quan wound, right lower extremity wrapped in Adalberto as well)
Neuro: AO x 3 and Nonfocal/grossly intact
Psych: Calm
Laboratory Results
-
10/15/23 14:03
10/15/23 15:04
Laboratory Results
PT 25.2 Sec (11.4-14.6) H 10/15/23 14:03
INR 2.26 10/15/23 14:03
APTT 61.1 Sec (23.4-35.0) H 10/15/23 14:03
Total Bilirubin Cancelled 10/15/23 14:03
AST Cancelled 10/15/23 14:03
ALT Cancelled 10/15/23 14:03
Alkaline Phosphatase Cancelled 10/15/23 14:03
Data Reviewed
-
Lab Data: Labs Reviewed by me
Impression/Plan
-
# Acute on chronic blood loss anemia likely from GI bleed
-Rectal Hemoccult positive and melanotic stools
-Hemoglobin 4.5
-Protonix drip continued
-Transfusing with 2total of 4 units of blood
-Trend hemoglobin
-Keep patient n.p.o.
-GI consult
# Acute on chronic hyponatremia likely hypovolemic
-Sodium 129, K5.2
-Normal saline continued
# Recent COVID-19 infection
-Obtain COVID swab
-Patient symptoms getting better
-Oxygenating very well on room air
-Continue to monitor
-obtain chest x ray
# Hypotensive likely from anemia
-Hold all antihypertensive
-Normal saline continued
#Atrial fibrillation
-Hold beta-blockers due to hypotension
-Hold anticoagulants
-Obtain EKG
-Heart rate controlled
# Gout
-Allopurinol continued
# Hypothyroidism
-Levothyroxine continued
BPH continue Flomax
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
-Status post fifth metatarsal resection and excision of ulceration and primary repair
-Patient was discharged on cephalexin 500 mg 4 times a day for 7 days
# DVT prophylaxis
-SCDs
# CODE STATUS
-Full code
--- NOTE | 2023-10-15 16:52 | CON.INTV ---
Consultation
Consultation Request
Date/Time Consultation Requested: 10/15/2023 - 1646
Date/Time Consultation Performed: 10/15/2023 - 1647
Requesting Provider: LIANET Christopher
Performing Provider: Matthew Reyna MD
Reason for Consultation: GIB/Hypotension
Medical History
-
Chief Complaint: Abnormal labs with low hemoglobin
History of Present Illness:
83-year-old male non-smoker with past medical history of CAD s/p CABG, history of upper GI bleed, history of CHF, LENA, hypothyroidism, history of SSS, paroxysmal atrial fibrillation on Eliquis, gout and CKD who presents with abnormal labs showing
low hemoglobin. In triage she stated he has lower back pain and was positive for COVID-19 recently on 10/09/2023. He endorses black stool but that this is chronic for him as he is on iron. Initial vitals showed he was afebrile to 97.7 �F, pulse
rate 61, RR: 18 breaths/min, BP 87/61 and saturating 100% on room air. Labs show severe anemia with Hb 4.5 (baseline Hb 9-10.5g/dL), INR 2.26, serum sodium 129, serum potassium 5.2, BUN 116, and creatinine 1.2, he was given IVF with NS 0.9% X5 100
cc, Protonix 80 mg IV followed by Protonix drip, Zofran 4 mg + morphine 4 mg. 2 units PRBC also being ordered. Given patient's hypotension with severe anemia, patient being admitted to the ICU for further care, and critical care services consulted
for additional management/recommendations.
When I saw the patient he was in bed in no acute distress. Says he has dark stools without he takes iron. He denies abdominal pain, chest pain, shortness of breath, fatigue, fevers or chills. He mainly endorses back pain.
PMHx: CKD, CAD, hypertension, paroxysmal A-fib on Eliquis, history of SSS, hypothyroidism, gout, anemia, LENA, Hx of CHF, Hx of pneumonia, Hx of UGIB, [place]
PSHx: MV repair, PPM, CABG
Past Medical History
Past Medical History: Other (Above as per HPI)
Past Surgical History: Other (Above as per HPI)
Social History
Tobacco: Non-smoker
Alcohol: None
Drug: None
Personal:
Living: Assisted Living
Family History
Family History: Reviewed & Not Pertinent
Allergies / Home Medications
Allergies
Allergy/AdvReac Type Severity Reaction Status Date / Time
Domcypp-NFL-JdS Reductase Allergy Unknown Verified 03/02/23 16:50
Inhibitor
[Tgndpsc-Duz-Elg Reductase
Inhibitor]
Home Medications
�Medication �Instructions �Recorded �Confirmed �Last Taken �Type
allopurinol 300 mg tablet 300 mg PO DAILY Gout 12/18/19 10/15/23 09/21/23 History
ascorbic acid (vitamin C) 500 mg 500 mg PO DAILY Supplement 12/18/19 10/15/23 09/22/23 History
tablet (Vitamin C)
levothyroxine 75 mcg tablet 75 mcg PO DAILY Thyroid 12/18/19 10/15/23 09/22/23 History
apixaban 5 mg tablet (Eliquis) 5 mg PO BID Blood Clot 03/02/23 10/15/23 09/22/23 History
Prevention/Tx
carvedilol 25 mg tablet 25 mg PO BID Blood Pressure 03/02/23 10/15/23 09/22/23 History
enalapril maleate 20 mg tablet 20 mg PO BID Blood Pressure 03/02/23 10/15/23 09/22/23 History
furosemide 20 mg tablet 20 mg PO DAILY Fluid 03/02/23 10/15/23 09/22/23 History
Retention/Swelling
tamsulosin 0.4 mg capsule 0.4 mg PO BID Urinary Issue 03/02/23 10/15/23 09/22/23 History
aspirin 81 mg chewable tablet 81 mg PO DAILY 30 days #30 tabs 10/03/23 10/15/23 Unknown Rx
ferrous sulfate 325 mg (65 mg 325 mg PO DAILY 30 days #30 tabs 10/03/23 10/15/23 Unknown Rx
iron) tablet (FeroSul)
acetaminophen 325 mg tablet 650 mg PO Q6HPRN PRN mild 10/15/23 10/15/23 Unknown History
pain/fever >100
bisacodyl 10 mg rectal suppository [address] DAILYPRN PRN no bm 3 days 10/15/23 10/15/23 Unknown History
(Dulcolax (bisacodyl))
folic acid 1 mg tablet 1 mg PO DAILY 10/15/23 10/15/23 Unknown History
guaifenesin 100 mg/5 mL oral liquid 200 mg PO Q4HPRN PRN cough 10/15/23 10/15/23 Unknown History
magnesium hydroxide 400 mg/5 mL 400 mg PO HSPRN PRN no bm 2 days 10/15/23 10/15/23 Unknown History
oral suspension (Milk of Magnesia)
polyvinyl alcohol-povidone 0.5 1 drp BOTH EYES Q6HPRN PRN dry eyes 10/15/23 10/15/23 Unknown History
%-0.6 % eye drops
sodium phosphates 19 gram-[address] DAILYPRN PRN no bm 4 days 10/15/23 10/15/23 Unknown History
gram/118 mL enema (Fleet Enema)
Review of Systems
-
History Source: Patient
All other systems: Negative unless noted
Vitals / Labs / Diagnostic Testing
Vital Signs
Temp Pulse Resp BP Pulse Ox
96.4 F L 60 18 90/44 99
10/15/23 16:13 10/15/23 16:13 10/15/23 16:13 10/15/23 16:00 10/15/23 15:45
Lab Data
10/15/23 14:03
10/15/23 15:04
Laboratory Results
10/15/23
14:03
PT 25.2 H
INR 2.26
APTT 61.1 H
Diagnostic Testing:
Physical Exam
-
HEENT: Normocephalic and Anicteric
Cardiovascular: S1/S2 and Peripheral Edema (negative)
Respiratory: Wheeze (negative), Rales (negative), Rhonchi (negative) and Non-Labored Respirations
GI: Soft, Non Distended, Non Tender and Normal Bowel Sounds
Neurology: Awake and Alert
Skin: Warm, Dry and Other (Bandage across left foot and right knee)
General: Respiratory Distress (negative), Comfortable, Fever (negative) and Chills (negative)
Assessment
-
Assessment: 83-year-old male non-smoker with past medical history of CAD s/p CABG, history of upper GI bleed, history of CHF, LENA, hypothyroidism, history of SSS, paroxysmal atrial fibrillation on Eliquis, gout and CKD who presents with abnormal
labs showing low hemoglobin. In triage she stated he has lower back pain and was positive for COVID-19 recently on 10/09/2023. He endorses black stool but that this is chronic for him as he is on iron. Initial vitals showed he was afebrile to 97.7
�F, pulse rate 61, RR: 18 breaths/min, BP 87/61 and saturating 100% on room air. Labs show severe anemia with Hb 4.5 (baseline Hb 9-10.5g/dL), INR 2.26, serum sodium 129, serum potassium 5.2, BUN 116, and creatinine 1.2, he was given IVF with NS
0.9% X5 100 cc, Protonix 80 mg IV followed by Protonix drip, Zofran 4 mg + morphine 4 mg. 2 units PRBC also being ordered. Given patient's hypotension with severe anemia, patient being admitted to the ICU for further care, and critical care
services consulted for additional management/recommendations.
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
Impression:
#Acute GI bleed: Suspect upper GI bleed given severely elevated BUN much greater than baseline
#Acute blood loss anemia (baseline Hb 9-10.5g/dL)
#Hypotension
#Hypothermia
#Elevated INR likely due to Eliquis
#Hyponatremia (baseline Na 136-137)
#Atrial fibrillation on Eliquis
Plan:
- Large bore IV x2
- Being transfused 2 units PRBC --> follow up Hb with serial H/H
- Transfuse to keep Hb >7g/dL, and keep plt>50k
- Hold anticoagulation/antiplatelets
- Consult GI
- NPO
- PPI gtt
- Maintain SpO2 >90-94%
- Maintain MAP>65
- Replete electrolytes with K>4, Mg>2
- Maintain euglycemia with goal BG 140-180
- prn nebulized bronchodilators
- Incentive spirometer
- DVT ppx: SCDs for now
Continue ICU level care for this critically ill patient with severe acute on chronic anemia.
Critical care statement: A total of 40 minutes of critical care time was provided for this patient today. This includes management of unstable vital signs, evaluation of the patient at bedside, reviewing the patient's pertinent medical records
including radiographs, microbiology, laboratory evaluations, and discussion with primary team, consultants, pharmacy, nutrition, physical therapy, case management, charge nurse, critical care nursing, and respiratory therapy.
--- NOTE | 2023-10-15 16:59 | W.PN.UPDATE ---
Addendum entered and electronically signed by Holger Kern MD 10/15/23 17:01:
#COVID-19
tested posuitive few days ago
not hypoxic
Check chest XR
No indication for decadron/remdesivir treatment at this time, will avoid Paxlovid with multiple interactions and new acute status
Original Note:
Update Note
Progress Note Update
I have independently examined the patient and agree with H&P written on the same date. In addition:
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 His hgb 4.5 with his previous on discharge to be >8. He had 2
units of PRBC transfused on his past admission due to obngoing bleeding from his wound. This time in ED found FOBT positive stool, that ws melanotic, however patient is on iron.
A/P:
#Acute blood lose anemia with impending hemorrhagic shock 2/2 GIB on chronic bleeding from wound
#PENNY
Hold anticoag and antiplatelets
two large bore IV and transfuse PRBC for Hgbaround 8
PPI drip
NPO
GI consult
ICU observation
IVF
hold oral antihypertensives
#PAD
#Recent OM
Podiatry consult to eval for wound as a bleeding source
#Afib, unspecified
cont rate control
telemetry
#BPH
Watch for retention as FLomax held
#Gout
#Hypothyroidism
cont home meds
DVT ppx SCDs
I have spent at least 78min admitting the patient, reviewing chart, test results, communicating with consultants and direct patient care
[2023-10-15 17:12] LABS: COVID-19 Antigen Negative (Negative)
--- NOTE | 2023-10-15 18:30 | CON.GI ---
Consultation
-
Date/Time Consultation Requested: 10/15/23 5pm
Date/Time Consultation Performed: 10/15/23 6:30pm
Requesting Provider: Ave Mckeon
Performing Provider: Reno Harrison
Reason for Consultation: Melena
Medical History
Chief Complaint / HPI
Chief Complaint: Melena
History of Present Illness:
Patient is an 83-year-old male who was just discharged from the hospital for left foot wound requiring metatarsal amputation and left lower extremity angioplasty. He was discharged to SNF. He tested positive for COVID and was sent to the ER.
Hemoglobin was noted to be 4.5. He had black heme positive stool. Discharge hemoglobin was 8.8 on October 02. He reports 1 bowel movement per day that is black due to being on oral iron. He denies NSAIDs. He had endoscopy and colonoscopy done in
November 2019 for melena that was negative for bleeding source.
Past Medical History
Past Medical History: Arrhythmias (Afib), CAD, HTN and Other (PAD)
Past Surgical History: Cardiac (CABG, MV repair) and Orthopedic
Social History
Tobacco: Non-Smoker
Alcohol: None
Family History
Family History: Reviewed & Not Pertinent
Allergies / Home Medications
Allergy/AdvReac Type Severity Reaction Status Date / Time
Msnhsze-GZU-JpE Reductase Allergy Unknown Verified 03/02/23 16:50
Inhibitor
[Vadxkdn-Gah-Bys Reductase
Inhibitor]
�Medication �Instructions �Recorded
allopurinol 300 mg tablet 300 mg PO DAILY Gout 12/18/19
ascorbic acid (vitamin C) 500 mg 500 mg PO DAILY Supplement 12/18/19
tablet (Vitamin C)
levothyroxine 75 mcg tablet 75 mcg PO DAILY Thyroid 12/18/19
apixaban 5 mg tablet (Eliquis) 5 mg PO BID Blood Clot 03/02/23
Prevention/Tx
carvedilol 25 mg tablet 25 mg PO BID Blood Pressure 03/02/23
enalapril maleate 20 mg tablet 20 mg PO BID Blood Pressure 03/02/23
furosemide 20 mg tablet 20 mg PO DAILY Fluid 03/02/23
Retention/Swelling
tamsulosin 0.4 mg capsule 0.4 mg PO BID Urinary Issue 03/02/23
aspirin 81 mg chewable tablet 81 mg PO DAILY 30 days #30 tabs 10/03/23
ferrous sulfate 325 mg (65 mg 325 mg PO DAILY 30 days #30 tabs 10/03/23
iron) tablet (FeroSul)
acetaminophen 325 mg tablet 650 mg PO Q6HPRN PRN mild 10/15/23
pain/fever >100
bisacodyl 10 mg rectal suppository 10 mg [place] DAILYPRN PRN no bm 3 days 10/15/23
(Dulcolax (bisacodyl))
folic acid 1 mg tablet 1 mg PO DAILY 10/15/23
guaifenesin 100 mg/5 mL oral liquid 200 mg PO Q4HPRN PRN cough 10/15/23
magnesium hydroxide 400 mg/5 mL 400 mg PO HSPRN PRN no bm 2 days 10/15/23
oral suspension (Milk of Magnesia)
polyvinyl alcohol-povidone 0.5 1 drp BOTH EYES Q6HPRN PRN dry eyes 10/15/23
%-0.6 % eye drops
sodium phosphates 19 gram-7 118 ml [place] DAILYPRN PRN no bm 4 days 10/15/23
gram/118 mL enema (Fleet Enema)
Review of Systems
-
All other systems: A 12 pt ROS was Negative except as stated above in HPI
Vital Signs
Temp Pulse Resp BP Pulse Ox
97.3 F 66 18 105/61 100
10/15/23 17:49 10/15/23 18:00 10/15/23 18:00 10/15/23 17:49 10/15/23 18:00
Physical Exam
Exam
General: No Apparent Distress
HEENT: Normocephalic and Atraumatic
Respiratory: Non Labored Respirations
GI: Soft, Non Tender and Non Distended
Skin: Warm and Dry
Neuro: Awake and Alert
Results
WBC 8.6 10^3/uL (4.8-10.8) 10/15/23 14:03
Hgb 4.5 g/dL (13.0-18.0) L* 10/15/23 14:03
Hct 13.5 % (39.0-52.0) L* 10/15/23 14:03
MCV 86.0 fL (80.0-94.0) 10/15/23 14:03
Plt Count 185 10^3/uL (130-400) 10/15/23 14:03
Absolute Neuts (auto) 5.7 10^3/uL (1.4-6.5) 10/15/23 14:03
PT 25.2 Sec (11.4-14.6) H 10/15/23 14:03
INR 2.26 10/15/23 14:03
APTT 61.1 Sec (23.4-35.0) H 10/15/23 14:03
Sodium 129 mmol/L (135-145) L 10/15/23 14:03
Potassium 5.2 mmol/L (3.5-5.1) H 10/15/23 15:04
Chloride 98 mmol/L (98-107) 10/15/23 14:03
Carbon Dioxide 22 mmol/L (22-30) 10/15/23 14:03
BUN 116 mg/dl (9-20) H* 10/15/23 14:03
Creatinine 1.2 mg/dL (0.7-1.3) 10/15/23 14:03
Calcium 8.1 mg/dl (8.4-10.2) L 10/15/23 14:03
Total Bilirubin Cancelled 10/15/23 14:03
AST Cancelled 10/15/23 14:03
ALT Cancelled 10/15/23 14:03
Alkaline Phosphatase Cancelled 10/15/23 14:03
Diagnostic Image Results:
Prior GI Procedures:
EGD:
Colonoscopy:
Assessment / Plan
-
Summary: 83yo male presents from rehab with COVID positive test and Hgb 4.5. He was recently d/c'd for L foot wound and underwent metatarsal amputation, LLE angioplasty. Hgb was 8.8 at d/c on 10/03/23. Black heme positive stool in ER. BUN 116. He
had EGD/colonoscopy in November 2019 for melena, negative for bleeding source. Denies NSAIDs. INR 2.26. On Eliquis for Afib
Impression:
Melena. Hgb 4.5
Afib on Eliquis. INR 2.26
COVID positive
CAD/CABG
PAD s/p recent L foot metatarsal amputation
Recommendations:
NPO
Protonix gtt
Transfuse PRBC
Hold Eliquis
Check f/u Hgb, INR
Recommend EGD when INR appropriate or more urgently if necessary. Pt was somewhat ambivalent about proceeding with EGD.
Possible PUD with rapid drop in Hgb and elevated BUN
Will follow
-
-
Thank you for consultation and allowing me to participate in the patient's care. Please call the traction power engineer GI physician during the after hours with any questions or concerns.
[2023-10-15] MEDS: NSS 1000 IV (20:38)
[2023-10-15] MEDS: LIDOCAINE 4% PATCH 1 PATCH TOPICAL (20:38)
[2023-10-15] MEDS: FLOMAX 0.4 MG PO (20:39)
[2023-10-15] MEDS: DILAUDID 0.5 MG IV (22:05)
[2023-10-16] VITALS (31 sets, daily range): BP systolic 89–123; BP diastolic 43–94; PULSE 70; O2SAT 96; BMI 23.5
[2023-10-16] MEDS: PROTONIX 100 IV ×4 (00:16→20:26)
[2023-10-16 00:46] LABS: Hematocrit 20.6 % (39.0-52.0); Hemoglobin 7.1 g/dL (13.0-18.0)
[2023-10-16] MEDS: SYNTHROID 75 MCG PO (06:39)
[2023-10-16 06:53] LABS: Blood Urea Nitrogen 96 mg/dl (9-20); Calcium 7.5 mg/dl (8.4-10.2); Carbon Dioxide 22 mmol/L (22-30); Chloride 104 mmol/L (98-107); Estimated Creatinine Clearance 50 ml/min; Glucose 77 mg/dl (70-99); Potassium 4.6 mmol/L (3.5-5.1); Sodium 134 mmol/L (135-145); eGFR 59.63
[2023-10-16 07:18] LABS: Hematocrit 19.3 % (39.0-52.0); Hemoglobin 6.6 g/dL (13.0-18.0); Mean Corp Hgb Conc. 34.2 g/dL (33.0-37.0); Mean Corpuscular Hgb 29.7 pg (27.0-31.0); Mean Corpuscular Volume 86.9 fL (80.0-94.0); Red Blood Cell Count 2.22 10^6/uL (4.70-6.10); Red Cell Dist. Width 15.2 % (11.5-14.5); White Blood Cell Count 9.8 10^3/uL (4.8-10.8)
[2023-10-16 08:13] LABS: Mean Platelet Volume 9.8 fL (7.4-10.4); Platelet Count 145 10^3/uL (130-400)
--- NOTE | 2023-10-16 08:30 | PTCARENOTE ---
Unit of PRBC started. (4th unit per TAR)
Pt AAOx3, very [place]
Pt denies pain or SOB. SpO2 96% on RA
Protonix gtt infusing per order.
No BM. Last reported yesterday per pt.
Urine clear yellow via condom cath.
[2023-10-16] MEDS: ZYLOPRIM 300 MG PO (08:38)
[2023-10-16] MEDS: FLOMAX 0.4 MG PO ×2 (08:38→20:26)
--- NOTE | 2023-10-16 08:43 | W.PN.INTV ---
Today's Communication / Plan
Recommendations
Serial H&H with goal Hb >7
keep plt>50k
INR goal <1.8
Hold Eliquis and resume anti-HTN meds when clinically safe to with SBP>100mmHg for >12-18 hrs
Defer endoscopy to GI
Large bore IV x2
PPI gtt
If Hb remains stable with no plans for endoscopy, downgrade to telemetry status if okay with gastroenterology. Otherwise if patient remains in ICU we will continue to follow along. If patient downgraded then ladle operator/pulmonary service will sign
off.
Assessment
-
Assessment: 83-year-old male non-smoker with past medical history of CAD s/p CABG, history of upper GI bleed, history of CHF, LENA, hypothyroidism, history of SSS, paroxysmal atrial fibrillation on Eliquis, gout and CKD who presents with abnormal
labs showing low hemoglobin. In triage she stated he has lower back pain and was positive for COVID-19 recently on 10/09/2023. He endorses black stool but that this is chronic for him as he is on iron. Initial vitals showed he was afebrile to 97.7
�F, pulse rate 61, RR: 18 breaths/min, BP 87/61 and saturating 100% on room air. Labs show severe anemia with Hb 4.5 (baseline Hb 9-10.5g/dL), INR 2.26, serum sodium 129, serum potassium 5.2, BUN 116, and creatinine 1.2, he was given IVF with NS
0.9% X5 100 cc, Protonix 80 mg IV followed by Protonix drip, Zofran 4 mg + morphine 4 mg. 2 units PRBC also being ordered. Given patient's hypotension with severe anemia, patient being admitted to the ICU for further care, and critical care
services consulted for additional management/recommendations.
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
Impression:
#Acute GI bleed: Suspect upper GI bleed given severely elevated BUN much greater than baseline
#Acute blood loss anemia (baseline Hb 9-10.5g/dL)
#Hypotension
#Hypothermia - resolved
#Elevated INR likely due to Eliquis
#Hyponatremia (baseline Na 136-137)
#Atrial fibrillation on Eliquis
Plan:
- Large bore IV x2
- Has been transfused 3 units total since admission, getting 4th U PRBC now due to Hb 6.6 this AM--> c/w serial H/H
- Transfuse to keep Hb >7g/dL, and keep plt>50k
- Hold anticoagulation/antiplatelets
- GI consulted --> defer endoscopy to GI
- NPO
- PPI gtt
- Maintain SpO2 >90-94%
- Maintain MAP>65
- Replete electrolytes with K>4, Mg>2
- Maintain euglycemia with goal BG 140-180
- prn nebulized bronchodilators
- Incentive spirometer
- DVT ppx: SCDs for now
If Hb remains stable with no plans for endoscopy, downgrade to telemetry status if okay with gastroenterology. Otherwise if patient remains in ICU we will continue to follow along. If patient downgraded then ladle operator/pulmonary service will sign
off.
Total time spent today was 75 minutes for this encounter. Time includes reviewing laboratory test/imaging results, reviewing pertinent medical records, obtaining and reviewing medical history, performing an appropriate exam, ordering medications,
tests and procedures. Time also includes documentation of this encounter, coordinating patient care and communicating with other healthcare professionals. Total time does not include separately billed tests performed on this date of service.
Subjective Dataa
Subjective Data
Date of Service:
Date of Service: October 16, 2023
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
Subjective:
Patient seen and evaluated this morning. No BM overnight, and no nausea/vomiting. BP 98/52, heart rate 66, SpO2 97% on room air. Remains on PPI gtt. he feels well although has some back pain. Denies SOB, HENDRICKS, abdominal pain, nausea, fevers or
chills.
Review of Systems
General: Other (Negative unless mentioned above)
Objective Data
Data Reviewed
Vital Signs / I&O / Oxygen:
Vital Signs
Temp Pulse Resp BP Pulse Ox
97.7 F 72 21 107/49 96
10/16/23 08:43 10/16/23 08:43 10/16/23 08:43 10/16/23 08:43 10/16/23 05:00
Intake and Output
10/15/23 10/16/23 10/17/23
06:59 06:59 06:59
Intake Total 250 / 250 700 / 700
Output Total 1000 / 1000
Balance -750 / -750 700 / 700
SaO2 96
Physical Exam
General: Respiratory Distress (Negative) and Comfortable
HEENT: Normocephalic and Anicteric
Cardiovascular: Irregular Rhythm, Peripheral Edema (Trace TAZ bilaterally) and Other (normal rate)
Respiratory: Clear, Wheeze (Negative), Crackles (Negative), Rhonchi (Negative) and Non-Labored Respirations
GI: Soft, Non Distended, Non Tender and Normal Bowel Sounds
Neurology: Awake, Alert and Tremors (Negative)
Skin: Warm, Dry, Cyanosis (Negative), Jaundice (Negative) and Other (Bandage on right knee + left foot)
Labs/Micro/Reports
Lab Data
10/16/23 06:05
Laboratory Results
10/15/23
14:03
PT 25.2 H
INR 2.26
APTT 61.1 H
--- NOTE | 2023-10-16 08:43 | W.PN.HOSP.TC ---
Today's Communication/Plan
-
serial H&H
GI for mgmt
Assessment / Plan
Assessment / Plan
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 His hgb 4.5 with his previous on discharge to be >8. He had 2
units of PRBC transfused on his past admission due to ongoing bleeding from his wound. This time in ED found FOBT positive stool. Received 4 units of PRBC in first 24h from admission
A/P:
#Acute blood lose anemia with impending hemorrhagic shock 2/2 GIB on chronic bleeding from wound
#PENNY
Hold anticoag and antiplatelets - patient aware of increased risk of stroke and worsening CAD, however with severe anemia - accepted it
two large bore IV and transfuse PRBC for Hgb around 8, serial H&H
Follow Ca, consider supplementation oif low
PPI drip
NPO
GI consult
ICU observation
IVF
hold oral antihypertensives
#PAD
#Recent OM
Podiatry consult to eval for wound as a bleeding source
#Afib, unspecified
#SSS s/p PPM
#CAD s/p CABG
cont rate control
telemetry
cont home meds when appropriate
#BPH
Watch for retention as FLomax held
#Gout
#Hypothyroidism
cont home meds
#COVID-19
tested positive reportedly 8 days ago
repeated test neg
no need for isolation
#LENA
CPAP @HS as needed
DVT ppx SCDs
Full code
I have spent at least 57min reviewing chart, test results, communication with consultants and direct patient care
Anticipated Discharge: > 48 hours
Subjective/Interval History
-
Date of Service: October 16, 2023
Objective Data
-
Labs:
Laboratory Results
10/15/23 10/16/23 10/16/23
20:00 00:12 06:05
WBC 9.8
Hgb Cancelled 7.1 L D Cancelled
Hct Cancelled 20.6 L*
Plt Count
Sodium
Potassium
Chloride
Carbon Dioxide
BUN
Creatinine
Glucose
Calcium
10/16/23 10/16/23 10/16/23
06:05 06:05 08:00
WBC
Hgb 6.6 L* Pending
Hct Cancelled 19.3 L* Pending
Plt Count 145 D
Sodium 134 L
Potassium 4.6
Chloride 104
Carbon Dioxide 22
BUN 96 H
Creatinine 1.2
Glucose 77
Calcium 7.5 L
10/16/23
14:00
WBC
Hgb Pending
Hct Pending
Plt Count
Sodium
Potassium
Chloride
Carbon Dioxide
BUN
Creatinine
Glucose
Calcium
Vital Signs:
Vital Signs
Temp Pulse Resp BP Pulse Ox
98.5 F 72 21 95/44 96
10/16/23 08:25 10/16/23 08:25 10/16/23 08:25 10/16/23 08:25 10/16/23 05:00
I&O
10/15/23 10/16/23 10/17/23
06:59 06:59 06:59
Intake Total 250 / 250 700 / 700
Output Total 1000 / 1000
Balance -750 / -750 700 / 700
Review of Systems
-
History Source: Patient
All other systems: Reviewed and negative
Physical Exam
-
General: No Apparent Distress
HEENT: Normocephalic and Atraumatic
Respiratory: Clear to Auscultation
Cardiac: Regular Rhythm
GI: Soft, Nontender and Nondistended
Musculoskeletal: No Clubbing, No Cyanosis, No Edema and Other (RLE in dressing)
Neuro: Awake, Alert, Oriented and AO x 3
Psych: Calm
--- NOTE | 2023-10-16 09:58 | W.PN.GI.CBS2 ---
Addendum entered and electronically signed by Kemar Gupta MD 10/16/23 17:06:
I saw and examined the patient.
The DEVOPS CONSULTANT or PA's note was reviewed and I agree with the note.
Comment:
Pt with no overt bleeding last night (did speak to night nurse). biggest issue is coughing
abd soft, nontender
impression:
anemia
recent covid
?melena
plan:
PPI
watch hgb and transfuse as needed
hold eliquis
EGD at some point when cough is better
Addendum entered and electronically signed by LIANET Edmonds 10/16/23 14:04:
still no further bleeding, hbg up to 7.8 and INR 1.7 will hold EGD for today. Consider closer to discharge with recent covid unless signs of increased bleeding ok for clear diet no reds.
Original Note:
Today's Communication / Plan
-
s/p 3 units PRBC with still some drop to 6.6 but no stools overnight, BUN trending down 116 to 96
now getting 4th units and still some cough with recent covid per nursing staff
for repeat H/H and INR around noon after transfusion
will need to decide of possible EGD today vs further Eliquis(pt unsure of last dose) wash out and INR down before proceeding
Pt still considering if he would want to proceed but would like to be aware prior to proceeding
NPO
Protonix gtt
Transfuse PRBC
Hold Eliquis
reviewed with nursing staff
Assessment / Plan
-
Summary: 83yo male presents from rehab with COVID positive test and Hgb 4.5. He was recently d/c'd for L foot wound and underwent metatarsal amputation, LLE angioplasty. Hgb was 8.8 at d/c on 10/03/23. Black heme positive stool in ER. BUN 116. He
had EGD/colonoscopy in November 2019 for melena, negative for bleeding source. Denies NSAIDs. INR 2.26. On Eliquis for Afib
Laboratory Tests
10/03/23 10/15/23 10/15/23
08:00 06:00 14:03
Hgb 8.8 L 4.5 L* 4.5 L*
10/16/23 10/16/23
00:12 06:05
Hgb 7.1 L D 6.6 L*
Impression:
Melena. Hgb 4.5
Afib on Eliquis. INR 2.26
COVID positive
CAD/CABG
PAD s/p recent L foot metatarsal amputation
Recommendations:
s/p 3 units PRBC with still some drop to 6.6 but no stools overnight, BUN trending down 116 to 96
now getting 4th units and still some cough with recent covid per nursing staff
for repeat H/H and INR around noon after transfusion
will need to decide of possible EGD today vs further Eliquis(pt unsure of last dose) wash out and INR down before proceeding
Pt still considering if he would want to proceed but would like to be aware prior to proceeding
NPO
Protonix gtt
Transfuse PRBC
Hold Eliquis
reviewed with nursing staff
Subjective
Subjective
Date of Service: October 16, 2023
NPO no stools, NPO
Objective
Data Reviewed
Laboratory Data:
Laboratory Results
10/16/23 06:05
Laboratory Results
PT 25.2 Sec (11.4-14.6) H 10/15/23 14:03
INR 2.26 10/15/23 14:03
APTT 61.1 Sec (23.4-35.0) H 10/15/23 14:03
Total Bilirubin Cancelled 10/15/23 14:03
AST Cancelled 10/15/23 14:03
ALT Cancelled 10/15/23 14:03
Alkaline Phosphatase Cancelled 10/15/23 14:03
Vital Signs and I&O:
Vital Signs
Temp Pulse Resp BP Pulse Ox
97.7 F 66 16 115/94 98
10/16/23 08:43 10/16/23 09:45 10/16/23 09:45 10/16/23 09:00 10/16/23 09:45
I&O
10/15/23 10/16/23 10/17/23
06:59 06:59 06:59
Intake Total 250 / 250 700 / 700
Output Total 1000 / 1000
Balance -750 / -750 700 / 700
Physical Exam
Physical Exam
HEENT: Anicteric and Moist mucous membranes
Cardiology: Normal Sinus Rhythm
Pulmonary: Other (decreased mild cough )
GI: Soft, Non Distended and Non Tender
Extremities: No Edema
Neuro: Non Focal
[2023-10-16 10:43] LABS: Magnesium 1.7 mg/dl (1.6-2.3); Phosphorus 3.7 mg/dl (2.5-4.5)
[2023-10-16] MEDS: CALCIUM GLUCONATE 100 IV (11:22)
--- NOTE | 2023-10-16 11:44 | PTCARENOTE ---
PRBC complete. No s/s transfusion reaction noted. Pt offers no complaints except for back pain with turns. Will request PO Tylenol as Pt does not report pain as severe requiring Dilaudid. All other assessments unchanged.
[2023-10-16 12:32] LABS: Hematocrit 22.6 % (39.0-52.0); Hemoglobin 7.8 g/dL (13.0-18.0)
[2023-10-16 12:45] LABS: INR 1.77; PT 20.5 Sec (11.4-14.6)
[2023-10-16 12:46] LABS: APTT 51.6 Sec (23.4-35.0)
[2023-10-16] MEDS: TYLENOL 650 MG PO (16:21)
[2023-10-16 17:03] LABS: TSH Reflex To Free T4 3.91 uIU/ml (0.47-4.68)
--- NOTE | 2023-10-16 17:23 | W.CS.POD ---
Consult Summary - Podiatry
-
Time Consultation Requested: 10/15/23 1655
Date/Time Consultation Performed: 10/16/23 1530
Requesting Provider: Ave Mckeon
Performing Provider: Rae Shaffer
Reason for Consultation: S/P debridement left foot (DOS 09/30/2023)
Medical History
History of Present Illness: Patient is an 83-year-old male who was discharged from the hospital for left foot wound requiring ostectomy left 5th met head and excision of ulcer left foot. He also was noted to have PAD and had revasc via left lower
extremity angioplasty. He was not feeling well at SNF and tested +covid and sent to ED where he was found to have Hemoglobin of 4.5.
Past Medical History
Past Medical History: Arrhythmias (Afib), CAD, HTN and Other (PAD)
Past Surgical History: Cardiac (CABG, MV repair) and Orthopedic
Social History: Non-Smoker, denies alcohol or drug use. Lives home with his .
Family History: Reviewed & Not Pertinent
Allergies / Home Medications
Allergy/AdvReac Type Severity Reaction Status Date / Time
Myvzofh-IOS-CfX Reductase Allergy Unknown Verified 03/02/23 16:50
Inhibitor
[Nmirnbc-Fru-Mwu Reductase
Inhibitor]
�Medication �Instructions �Recorded
allopurinol 300 mg tablet 300 mg PO DAILY Gout 12/18/19
ascorbic acid (vitamin C) 500 mg 500 mg PO DAILY Supplement 12/18/19
tablet (Vitamin C)
levothyroxine 75 mcg tablet 75 mcg PO DAILY Thyroid 12/18/19
apixaban 5 mg tablet (Eliquis) 5 mg PO BID Blood Clot 03/02/23
Prevention/Tx
carvedilol 25 mg tablet 25 mg PO BID Blood Pressure 03/02/23
enalapril maleate 20 mg tablet 20 mg PO BID Blood Pressure 03/02/23
furosemide 20 mg tablet 20 mg PO DAILY Fluid 03/02/23
Retention/Swelling
tamsulosin 0.4 mg capsule 0.4 mg PO BID Urinary Issue 03/02/23
aspirin 81 mg chewable tablet 81 mg PO DAILY 30 days #30 tabs 10/03/23
ferrous sulfate 325 mg (65 mg 325 mg PO DAILY 30 days #30 tabs 10/03/23
iron) tablet (FeroSul)
acetaminophen 325 mg tablet 650 mg PO Q6HPRN PRN mild 10/15/23
pain/fever >100
bisacodyl 10 mg rectal suppository 10 mg ID DAILYPRN PRN no bm 3 days 10/15/23
(Dulcolax (bisacodyl))
folic acid 1 mg tablet 1 mg PO DAILY 10/15/23
guaifenesin 100 mg/5 mL oral liquid 200 mg PO Q4HPRN PRN cough 10/15/23
magnesium hydroxide 400 mg/5 mL 400 mg PO HSPRN PRN no bm 2 days 10/15/23
oral suspension (Milk of Magnesia)
polyvinyl alcohol-povidone 0.5 1 drp BOTH EYES Q6HPRN PRN dry eyes 10/15/23
%-0.6 % eye drops
sodium phosphates 19 gram-7 118 ml ID DAILYPRN PRN no bm 4 days 10/15/23
gram/118 mL enema (Fleet Enema)
Review of Systems
-
All other systems: A 12 pt ROS was Negative except as stated above in HPI
Vital Signs / Labs
-
Vital Signs and Labs:
Temp Pulse Resp BP Pulse Ox
98.9 F 69 18 112/56 96
10/16/23 11:19 10/16/23 14:15 10/16/23 14:15 10/16/23 14:00 10/16/23 14:15
10/16/23 06:05
10/15/23 10/16/23 10/16/23
14:30 00:12 06:05
RBC 2.22 L
Hgb 7.1 L D 6.6 L*
Hct 20.6 L* 19.3 L*
RDW 15.2 H
PT
APTT
Sodium 134 L
BUN 96 H
Calcium 7.5 L
Crossmatch IS Only See Detail
10/16/23
12:15
RBC
Hgb 7.8 L
Hct 22.6 L
RDW
PT 20.5 H
APTT 51.6 H
Sodium
BUN
Calcium
Crossmatch IS Only
Physical Exam
Vital Signs
Vital Signs
Temp Pulse Resp BP Pulse Ox
98.9 F 69 18 112/56 96
10/16/23 11:19 10/16/23 14:15 10/16/23 14:15 10/16/23 14:00 10/16/23 14:15
Physical Exam
General: Lethargic, chronically-ill appearing, but alert and oriented and in NAD
Lower Extremities: pedal pulses are feeble but palpable. feet are warm and dry. There are various skin tears noted to LEs and left dorsal midfoot, crusted eschar left great toe that is boggy and necrotic appearing, suture site left foot 5th met is
well coapted c/d/i, no signs of infection. Absent protective sensation, equinovarus foot and ankle left, LE weakness B/L L>RLE, Skin overall is hyperpigmented dry, scaly and thin/fragile. Heels slightly boggy but intact and w/o breakdown at present
Assessemnt/Plan
-
1-PAD S/P LLE revasc
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
-Sutures DC at bedside today and dressed with dry dressing as result of scant bleeding from suture removal (otherwise incision healed)
3-Anemia/Afib/anticoag- pt transfused last hospitalization prior to DC to SNF, GI work up ongoing
4-Unstable gait- increased equinas LLE and LE weakness. H/O of fall and excessive blood loss from open wound was primary reason for ED eval last admission.
Patient was DC to SNF upon Dc 10/03/23 for rehab and deconditioning, and will require further PT. WBAT LLE with grippy socks/sneakers
5-Superficial abscess and chronic wound left great toe- wound non-excisionally debrided at bedside with sterile forceps and purulent drainage was expressed. Patient insensate and tolerated well. No active bleeding noted.
6-Multiple skin tears and abrasions noted to legs and feet- mostly superficial and secondary to fragile skin and bleeding caused by eliquis
wound care orders on chart.
-Protect skin/heels as he is at high risk for further skin breakdown.
Will see prn request.
[2023-10-16 18:39] LABS: Hemoglobin 7.3 g/dL (13.0-18.0)
--- NOTE | 2023-10-16 19:49 | PTCARENOTE ---
on assessment pt aaox3 but drowsy, denies pain, underlying AFIB on the monitor with V paced beats, ABD and BLLE edema noted, RA, denies SOB, clear liquids, wound dressings C/D/I, bed alarm on , and call phillips in reach. no signs of bleeding noted,
Protonix gtt infusing per MD order.
[2023-10-17] VITALS (35 sets, daily range): BP systolic 75–157; BP diastolic 44–88; BMI 23.6
[2023-10-17 04:42] LABS: ALT (SGPT) 18 U/L (0-50); AST (SGOT) 54 U/L (17-59); Albumin 2.4 g/dl (3.5-5.0); Alkaline Phosphatase 58 U/L (38-126); Blood Urea Nitrogen 87 mg/dl (9-20); Carbon Dioxide 20 mmol/L (22-30); Chloride 108 mmol/L (98-107); Estimated Creatinine Clearance 46 ml/min; Glucose 71 mg/dl (70-99); Potassium 4.5 mmol/L (3.5-5.1); Sodium 137 mmol/L (135-145); Total Bilirubin 1.7 mg/dl (0.2-1.3); eGFR 54.17
[2023-10-17 04:45] LABS: % Basophils 0.3 % (0-2); % Eosinophils 4.6 % (0-6); % Immature Granulocytes 0.5 % (0-0.5); % Lymphocytes 17.9 % (20.5-51.1); % Monocytes 8.8 % (1.7-9.3); % Neutrophils 67.9 % (42.2-75.2); Absolute Eosinophils 0.3 10^3/uL (0-0.7); Absolute Lymphocytes 1.1 10^3/uL (1.2-3.4); Absolute Monocytes 0.6 10^3/uL (0.1-0.6); Absolute Neutrophils 4.2 10^3/uL (1.4-6.5); Hematocrit 20.3 % (39.0-52.0); Hemoglobin 7.1 g/dL (13.0-18.0); Mean Corpuscular Hgb 30.1 pg (27.0-31.0); Mean Platelet Volume 8.8 fL (7.4-10.4); Nucleated Red Blood Cells % 0 % (-); Platelet Count 144 10^3/uL (130-400); Red Blood Cell Count 2.36 10^6/uL (4.70-6.10); Red Cell Dist. Width 15.8 % (11.5-14.5); White Blood Cell Count 6.2 10^3/uL (4.8-10.8)
[2023-10-17 04:47] LABS: INR 1.58; PT 18.6 Sec (11.4-14.6)
[2023-10-17 05:13] LABS: APTT 49.4 Sec (23.4-35.0)
[2023-10-17] MEDS: PROTONIX 100 IV ×2 (05:50→17:36)
[2023-10-17] MEDS: SYNTHROID 75 MCG PO (05:50)
--- NOTE | 2023-10-17 07:55 | PTCARENOTE ---
Medium burgundy-black stool, heme +
Gait improved today ambulating to bathroom with walker and one assist.
Good appetite. Clear liquid diet.
[2023-10-17] MEDS: FLOMAX 0.4 MG PO ×2 (08:06→21:07)
[2023-10-17] MEDS: ZYLOPRIM 300 MG PO (08:06)
--- NOTE | 2023-10-17 08:38 | W.PN.INTV ---
Today's Communication / Plan
Recommendations
Serial H&H with goal Hb >7
keep plt>50k
INR goal <1.8
Hold Eliquis and resume anti-HTN meds when clinically safe to with SBP>100mmHg for >12-18 hrs
Defer endoscopy to GI --> hopefully EGD will be done this Thursday as his Hb continues to be low despite multiple PRBC transfusions
Large bore IV x2
PPI gtt
Given no plans for endoscopy today, downgrade to IMU level of care for continued monitoring with serial H&H. Electric Motor Winder/Pulmonary service will now sign off. Please reconsult if there are any additional questions/concerns, or if patient's
respiratory status deteriorates.
Assessment
-
Assessment: 83-year-old male non-smoker with past medical history of CAD s/p CABG, history of upper GI bleed, history of CHF, LENA, hypothyroidism, history of SSS, paroxysmal atrial fibrillation on Eliquis, gout and CKD who presents with abnormal
labs showing low hemoglobin. In triage she stated he has lower back pain and was positive for COVID-19 recently on 10/09/2023. He endorses black stool but that this is chronic for him as he is on iron. Initial vitals showed he was afebrile to 97.7
�F, pulse rate 61, RR: 18 breaths/min, BP 87/61 and saturating 100% on room air. Labs show severe anemia with Hb 4.5 (baseline Hb 9-10.5g/dL), INR 2.26, serum sodium 129, serum potassium 5.2, BUN 116, and creatinine 1.2, he was given IVF with NS
0.9% X5 100 cc, Protonix 80 mg IV followed by Protonix drip, Zofran 4 mg + morphine 4 mg. 2 units PRBC also being ordered. Given patient's hypotension with severe anemia, patient being admitted to the ICU for further care, and critical care
services consulted for additional management/recommendations.
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
Impression:
#Acute GI bleed: Suspect upper GI bleed given severely elevated BUN much greater than baseline
#Acute blood loss anemia (baseline Hb 9-10.5g/dL)
#Hypotension
#Hypothermia - resolved
#Elevated INR likely due to Eliquis
#Transaminitis with elevated T. bili + D. bili
#Hyponatremia (baseline Na 136-137)
#Atrial fibrillation on Eliquis
Plan:
- Large bore IV x2
- Has been transfused 4 units total since admission, getting 5th unit PRBC now due to Hb 7.1 this AM--> c/w serial H/H
- Transfuse to keep Hb >7g/dL, and keep plt>50k
- Give a dose of lasix 40mg IVP x1 to avoid volume overload given he now has minor crackles on exam and is getting his 5th unit of PRBC, plus he takes lasix at home and we've been holding his diuretics
- Hold anticoagulation/antiplatelets
- GI consulted --> defer endoscopy to GI (plan for EGD hopefully early next week)
- Continue with clear liquid diets and ADAT at direction of GI
- PPI gtt
- Maintain SpO2 >90-94%
- Maintain MAP>65
- Replete electrolytes with K>4, Mg>2
- Maintain euglycemia with goal BG 140-180
- prn nebulized bronchodilators
- Incentive spirometer encouraged
- DVT ppx: SCDs for now; continue to hold Eliquis especially in preparation for upcoming endoscopy
Given no plans for endoscopy today, downgrade to IMU level of care for continued monitoring with serial H&H. Electric [employer] Winder/Pulmonary service will now sign off. Thank you for allowing us to be involved in the care of this patient. Please reconsult
if there are any additional questions/concerns, or if patient's respiratory status deteriorates.
Total time spent today was 75 minutes for this encounter. Time includes reviewing laboratory test/imaging results, reviewing pertinent medical records, obtaining and reviewing medical history, performing an appropriate exam, ordering medications,
tests and procedures. Time also includes documentation of this encounter, coordinating patient care and communicating with other healthcare professionals. Total time does not include separately billed tests performed on this date of service.
Subjective Dataa
Subjective Data
Date of Service:
Date of Service: October 17, 2023
Chief Complaint: Electric Motor Winder Follow Up
Subjective:
Patient seen and evaluated today at bedside. Patient's , Debby, at bedside. All questions were answered. Hb this morning 7.1 and 1 unit PRBC being transfused. This will be his 5th unit PRBC since admission. He has no complaints. Denies
CP, HENDRICKS, SOB, abdominal pain, fevers or chills. Heart rate 72, BP 110/59 and he is on room air breathing comfortably saturating 94%.
Review of Systems
General: Other (Negative unless mentioned above)
Objective Data
Data Reviewed
Vital Signs / I&O / Oxygen:
Vital Signs
Temp Pulse Resp BP Pulse Ox
97.9 F 70 19 120/59 94
10/17/23 11:02 10/17/23 11:02 10/17/23 11:02 10/17/23 11:02 10/17/23 08:51
Intake and Output
10/16/23 10/17/23 10/18/23
06:59 06:59 06:59
Intake Total 250 / 250 1260 / 1260 250 / 250
Output Total 1000 / 1000 925 / 925 300 / 300
Balance -750 / -750 335 / 335 -50 / -50
SaO2 94
Physical Exam
General: Respiratory Distress (Negative) and Comfortable
HEENT: Normocephalic and Anicteric
Cardiovascular: Irregular Rhythm, Peripheral Edema (Trace TAZ bilaterally) and Other (normal rate; V-paced)
Respiratory: Wheeze (Negative), Crackles (Bibasilar (R >L)), Rhonchi (Negative), Non-Labored Respirations and Other (Diminished breath sounds bilaterally)
GI: Soft, Non Distended, Non Tender and Normal Bowel Sounds
Neurology: Awake, Alert and Tremors (Negative)
Skin: Warm, Dry, Cyanosis (Negative), Jaundice (Negative) and Other (Bandage on right knee + left foot)
Labs/Micro/Reports
Lab Data
10/17/23 04:07
10/17/23 04:07
Laboratory Results
10/16/23 10/17/23
12:15 04:07
PT 20.5 H 18.6 H
INR 1.77 1.58
APTT 51.6 H 49.4 H
--- NOTE | 2023-10-17 11:03 | PTCARENOTE ---
1 unit of PRBC transfused per order. No s/s transfusion reaction noted.
Pt denies pain or SOB at this time. Reports feeling tired and weak today.
All other assessments unchanged.
[2023-10-17] MEDS: TYLENOL 650 MG PO (11:29)
--- NOTE | 2023-10-17 13:39 | W.PN.HOSP.TC ---
Addendum entered and electronically signed by Holger Kern MD 10/17/23 13:46:
#Mild bilirubinemia
check retics, LDH, haptoglobin and direct bili
Follow LFT
No RUQ tenderness at this time
Original Note:
Today's Communication/Plan
-
Transfuse PRBC
had melanotic stool
Serial H&H q12h
Transfer to IMU
Assessment / Plan
Assessment / Plan
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 His hgb 4.5 with his previous on discharge to be >8. He had 2
units of PRBC transfused on his past admission due to ongoing bleeding from his wound. This time in ED found FOBT positive stool. Received 4 units of PRBC in first 24h from admission
A/P:
#Acute blood lose anemia with impending hemorrhagic shock 2/2 GIB on chronic bleeding from wound
#PENNY
Hold anticoag and antiplatelets - patient aware of increased risk of stroke and worsening CAD, however with severe anemia - accepted it
two large bore IV and transfuse PRBC for Hgb around 8, serial H&H
Follow Ca, consider supplementation oif low
PPI drip
NPO
GI consult
ICU observation
IVF
hold oral antihypertensives
#PAD
#Recent OM
Podiatry consult: no significant bleeding from the wound
#Afib, unspecified
#SSS s/p PPM
#CAD s/p CABG
cont rate control
telemetry
cont home meds when appropriate
If cannot restart Eliquis - will ask cardio to eval for Watchman
#BPH
Watch for retention as Flomax held
#Gout
#Hypothyroidism
cont home meds
#COVID-19
tested positive reportedly 8 days ago
repeated test neg
no need for isolation
#LENA
CPAP @HS as needed
DVT ppx SCDs
Full code
I have spent at least 37min reviewing chart, test results, communication with consultants and direct patient care
Anticipated Discharge: > 48 hours
Subjective/Interval History
-
Date of Service: October 17, 2023
Objective Data
-
Labs:
Laboratory Results
10/17/23 10/17/23
04:07 14:00
WBC 6.2 Pending
Hgb 7.1 L Pending
Hct 20.3 L* Pending
Plt Count 144 Pending
PT 18.6 H
INR 1.58
APTT 49.4 H
Sodium 137
Potassium 4.5
Chloride 108 H
Carbon Dioxide 20 L
BUN 87 H
Creatinine 1.3
Glucose 71
Calcium 8.0 L
Total Bilirubin 1.7 H
AST 54
ALT 18
Alkaline Phosphatase 58
Vital Signs:
Vital Signs
Temp Pulse Resp BP Pulse Ox
97.9 F 70 19 120/59 94
10/17/23 11:02 10/17/23 11:02 10/17/23 11:02 10/17/23 11:02 10/17/23 08:51
I&O
10/16/23 10/17/23 10/18/23
06:59 06:59 06:59
Intake Total 250 / 250 1260 / 1260 500 / 500
Output Total 1000 / 1000 925 / 925 300 / 300
Balance -750 / -750 335 / 335 200 / 200
Review of Systems
-
History Source: Patient
All other systems: Reviewed and negative
Physical Exam
-
General: Well Developed and Well Nourished
HEENT: Normocephalic
Respiratory: Clear to Auscultation
Cardiac: Regular Rhythm
GI: Soft, Nontender and Nondistended
Musculoskeletal: No Clubbing, No Cyanosis and No Edema
Neuro: Other (Back pain, chronic)
Psych: Calm
[2023-10-17 14:44] LABS: Hemoglobin 7.3 g/dL (13.0-18.0); Mean Corp Hgb Conc. 34.8 g/dL (33.0-37.0); Mean Corpuscular Hgb 29.9 pg (27.0-31.0); Mean Corpuscular Volume 86.1 fL (80.0-94.0); Mean Platelet Volume 9.1 fL (7.4-10.4); Platelet Count 133 10^3/uL (130-400); Red Blood Cell Count 2.44 10^6/uL (4.70-6.10); Red Cell Dist. Width 15.4 % (11.5-14.5); White Blood Cell Count 6.4 10^3/uL (4.8-10.8)
[2023-10-17 15:18] LABS: Reticulocyte Count 2.5 % (0.4-2.8)
[2023-10-17] MEDS: LASIX 40 MG IV (15:18)
[2023-10-17 15:26] LABS: Direct Bilirubin 0.5 mg/dl (0.0-0.4); LDH 236 U/L (120-246)
--- NOTE | 2023-10-17 15:55 | W.PN.GI.CBS2 ---
Today's Communication / Plan
-
egd this week
Assessment / Plan
-
Summary: 83yo male presents from rehab with COVID positive test and Hgb 4.5. He was recently d/c'd for L foot wound and underwent metatarsal amputation, LLE angioplasty. Hgb was 8.8 at d/c on 10/03/23. Black heme positive stool in ER. BUN 116. He
had EGD/colonoscopy in November 2019 for melena, negative for bleeding source. Denies NSAIDs. INR 2.26. On Eliquis for Afib
Laboratory Tests
10/03/23 10/15/23 10/15/23
08:00 06:00 14:03
Hgb 8.8 L 4.5 L* 4.5 L*
10/16/23 10/16/23
00:12 06:05
Hgb 7.1 L D 6.6 L*
Impression:
Melena. Hgb 4.5
Afib on Eliquis. INR 2.26
COVID positive
CAD/CABG
PAD s/p recent L foot metatarsal amputation
Recommendations:
PPI
holding eliquis
INR trending down
received 1 unit this morning and will continue to monitor hgb
EGD early this week
Subjective
Subjective
Date of Service: October 17, 2023
Some dark stool overnight
Objective
Data Reviewed
Laboratory Data:
Laboratory Results
10/17/23 04:07
Laboratory Results
PT 18.6 Sec (11.4-14.6) H 10/17/23 04:07
INR 1.58 10/17/23 04:07
APTT 49.4 Sec (23.4-35.0) H 10/17/23 04:07
Phosphorus 3.7 mg/dl (2.5-4.5) 10/16/23 06:05
Magnesium 1.7 mg/dl (1.6-2.3) 10/16/23 06:05
Total Bilirubin 1.7 mg/dl (0.2-1.3) H 10/17/23 04:07
AST 54 U/L (17-59) 10/17/23 04:07
ALT 18 U/L (0-50) 10/17/23 04:07
Alkaline Phosphatase 58 U/L (38-126) 10/17/23 04:07
Vital Signs and I&O:
Vital Signs
Temp Pulse Resp BP Pulse Ox
98.7 F 70 19 120/59 94
10/17/23 15:00 10/17/23 11:02 10/17/23 11:02 10/17/23 11:02 10/17/23 08:51
I&O
10/16/23 10/17/23 10/18/23
06:59 06:59 06:59
Intake Total 250 / 250 1260 / 1260 500 / 500
Output Total 1000 / 1000 925 / 925 300 / 300
Balance -750 / -750 335 / 335 200 / 200
Physical Exam
Physical Exam
GI: Soft and Non Distended
[2023-10-17 17:55] LABS: Hematocrit 21.2 % (39.0-52.0); Hemoglobin 7.5 g/dL (13.0-18.0)
[2023-10-18] VITALS (25 sets, daily range): BP systolic 82–137; BP diastolic 44–98; PULSE 81–118; O2SAT 100; BMI 22.7
[2023-10-18] MEDS: PROTONIX 100 IV (03:12)
[2023-10-18 05:41] LABS: % Basophils 0.4 % (0-2); % Eosinophils 6.1 % (0-6); % Immature Granulocytes 0.4 % (0-0.5); % Lymphocytes 16.5 % (20.5-51.1); % Monocytes 9.4 % (1.7-9.3); % Neutrophils 67.2 % (42.2-75.2); Absolute Eosinophils 0.4 10^3/uL (0-0.7); Absolute Lymphocytes 1.1 10^3/uL (1.2-3.4); Absolute Monocytes 0.7 10^3/uL (0.1-0.6); Absolute Neutrophils 4.6 10^3/uL (1.4-6.5); Hematocrit 22.1 % (39.0-52.0); Hemoglobin 7.7 g/dL (13.0-18.0); Mean Corp Hgb Conc. 34.8 g/dL (33.0-37.0); Mean Corpuscular Hgb 30.1 pg (27.0-31.0); Mean Corpuscular Volume 86.3 fL (80.0-94.0); Mean Platelet Volume 9.8 fL (7.4-10.4); Nucleated Red Blood Cells % 0 % (-); Platelet Count 176 10^3/uL (130-400); Red Blood Cell Count 2.56 10^6/uL (4.70-6.10); Red Cell Dist. Width 15.7 % (11.5-14.5); White Blood Cell Count 6.9 10^3/uL (4.8-10.8)
[2023-10-18 06:09] LABS: NT-proBNP 8630 pg/ml
[2023-10-18 06:10] LABS: ALT (SGPT) 19 U/L (0-50); AST (SGOT) 55 U/L (17-59); Albumin 2.6 g/dl (3.5-5.0); Alkaline Phosphatase 59 U/L (38-126); Blood Urea Nitrogen 73 mg/dl (9-20); Calcium 8.2 mg/dl (8.4-10.2); Carbon Dioxide 22 mmol/L (22-30); Chloride 107 mmol/L (98-107); Direct Bilirubin 0.5 mg/dl (0.0-0.4); Estimated Creatinine Clearance 42 ml/min; Glucose 68 mg/dl (70-99); Magnesium 1.9 mg/dl (1.6-2.3); Phosphorus 3.5 mg/dl (2.5-4.5); Potassium 4.5 mmol/L (3.5-5.1); Sodium 138 mmol/L (135-145); Total Bilirubin 2.3 mg/dl (0.2-1.3); Total Protein 5.5 g/dl (6.3-8.2); eGFR 49.56
[2023-10-18] MEDS: SYNTHROID 75 MCG PO (06:43)
[2023-10-18] MEDS: FLOMAX 0.4 MG PO ×2 (08:12→20:08)
[2023-10-18] MEDS: ZYLOPRIM 300 MG PO (08:12)
[2023-10-18] MEDS: TYLENOL 650 MG PO ×2 (08:13→16:18)
--- NOTE | 2023-10-18 08:40 | PTCARENOTE ---
Assumed care of pt at 0715 following shift report. Pt awake and resting quietly in bed. Reports 3/10 lower back pain. Medicated w/ Tylenol as documented in APR. Protonix gtt continues at 8mg/hr via peripheral IV site. Physical assessment completed.
Hygiene and comfort care provided. Call alan w/in pt reach and safe environment maintained.
--- NOTE | 2023-10-18 08:56 | W.PN.HOSP.TC ---
Addendum entered and electronically signed by Holger Kern MD 10/18/23 09:02:
#Indirect bilirubinemia
possible Gilbert, since LDH WNL
Haptoglobin still pending
Original Note:
Today's Communication/Plan
-
keep follow Hgb and transfuse as needed
Assessment / Plan
Assessment / Plan
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 His hgb 4.5 with his previous on discharge to be >8. He had 2
units of PRBC transfused on his past admission due to ongoing bleeding from his wound. This time in ED found FOBT positive stool. Received 4 units of PRBC in first 24h from admission. Patient has a remote history of EGD and colonoscopy in 2019 for
anemia without significant findings
A/P:
#Acute blood lose anemia with impending hemorrhagic shock 2/2 GIB on chronic bleeding from wound
#PENNY
Hold anticoag and antiplatelets - patient aware of increased risk of stroke and worsening CAD, however with severe anemia - accepted it
two large bore IV and transfuse PRBC for Hgb around 8, serial H&H
Follow Ca, consider supplementation of low
PPI drip
NPO
GI consult: to determine timing for the procedure. No additional suggestions from paperhanger and painter at this point
ICU observation
IVF
hold oral antihypertensives
Patient is not decompensated from the perspective of his chronic condition. No additional acute management indicated to minimize his already at least moderate risk for complications during endoscopic procedures.
#PAD
#Recent OM
Podiatry consult: no significant bleeding from the wound
#Afib, unspecified
#SSS s/p PPM
#CAD s/p CABG
cont rate control
telemetry
cont home meds when appropriate
If cannot restart Eliquis - will ask cardio to eval for Watchman
#BPH
Watch for retention as Flomax held
#Gout
#Hypothyroidism
cont home meds
#COVID-19
tested positive reportedly 8 days ago
repeated test neg
no need for isolation
#LENA
CPAP @HS as needed
DVT ppx SCDs
Full code
I have spent at least 37min reviewing chart, test results, communication with consultants and direct patient care
Anticipated Discharge: > 48 hours
Subjective/Interval History
-
Date of Service: October 18, 2023
Objective Data
-
Labs:
Laboratory Results
10/18/23
05:12
WBC 6.9
Hgb 7.7 L
Hct 22.1 L
Plt Count 176 D
Sodium 138
Potassium 4.5
Chloride 107
Carbon Dioxide 22
BUN 73 H
Creatinine 1.4 H
Glucose 68 L
Calcium 8.2 L
Total Bilirubin 2.3 H
AST 55
ALT 19
Alkaline Phosphatase 59
Vital Signs:
Vital Signs
Temp Pulse Resp BP Pulse Ox
98.8 F 74 16 116/61 94
10/18/23 03:41 10/18/23 06:30 10/18/23 06:30 10/18/23 06:00 10/17/23 08:51
I&O
10/17/23 10/18/23 10/19/23
06:59 06:59 06:59
Intake Total 1260 / 1260 530 / 530
Output Total 925 / 925 2750 / 2750
Balance 335 / 335 -2220 / -2220
Review of Systems
-
History Source: Patient
All other systems: Reviewed and negative
Physical Exam
-
General: No Apparent Distress
HEENT: Normocephalic and Atraumatic
Respiratory: Clear to Auscultation
Cardiac: Irregular Rhythm
GI: Soft, Nontender and Nondistended
Genito-urinary: No Costovertebral Tender
Musculoskeletal: No Clubbing, No Cyanosis and No Edema
Skin: Warm
Neuro: Awake, Alert, Oriented and AO x 3
Psych: Calm
--- NOTE | 2023-10-18 09:30 | W.PN.GI.CBS2 ---
Today's Communication / Plan
-
EGD tomorrow
Assessment / Plan
-
Summary: 83yo male presents from rehab with COVID positive test and Hgb 4.5. He was recently d/c'd for L foot wound and underwent metatarsal amputation, LLE angioplasty. Hgb was 8.8 at d/c on 10/03/23. Black heme positive stool in ER. BUN 116. He
had EGD/colonoscopy in November 2019 for melena, negative for bleeding source. Denies NSAIDs. INR 2.26. On Eliquis for Afib
Laboratory Tests
10/03/23 10/15/23 10/15/23
08:00 06:00 14:03
Hgb 8.8 L 4.5 L* 4.5 L*
10/16/23 10/16/23
00:12 06:05
Hgb 7.1 L D 6.6 L*
Impression:
Melena. Hgb 4.5
Afib on Eliquis. INR 2.26
COVID positive
CAD/CABG
PAD s/p recent L foot metatarsal amputation
Recommendations:
PPI
EGD tomorrow, Debby his gave consent via the phone (patient preferred this)
INR acceptable
eliquis has now been off > 2 days
NPO after midnight
Subjective
Subjective
Date of Service: October 18, 2023
Pt w/o bleeding last night. Hgb still hanging in the 7s. he has had multiple transfusions. no abdominal pain
Objective
Data Reviewed
Laboratory Data:
Laboratory Results
10/18/23 05:12
Laboratory Results
PT 18.6 Sec (11.4-14.6) H 10/17/23 04:07
INR 1.58 10/17/23 04:07
APTT 49.4 Sec (23.4-35.0) H 10/17/23 04:07
Phosphorus 3.5 mg/dl (2.5-4.5) 10/18/23 05:12
Magnesium 1.9 mg/dl (1.6-2.3) 10/18/23 05:12
Total Bilirubin 2.3 mg/dl (0.2-1.3) H 10/18/23 05:12
AST 55 U/L (17-59) 10/18/23 05:12
ALT 19 U/L (0-50) 10/18/23 05:12
Alkaline Phosphatase 59 U/L (38-126) 10/18/23 05:12
Vital Signs and I&O:
Vital Signs
Temp Pulse Resp BP Pulse Ox
98.8 F 74 16 116/61 94
10/18/23 03:41 10/18/23 06:30 10/18/23 06:30 10/18/23 06:00 10/17/23 08:51
I&O
10/17/23 10/18/23 10/19/23
06:59 06:59 06:59
Intake Total 1260 / 1260 530 / 530
Output Total 925 / 925 2750 / 2750
Balance 335 / 335 -2220 / -2220
Physical Exam
Physical Exam
GI: Soft and Non Distended
Neuro: Other (awake, no distress)
--- NOTE | 2023-10-18 14:00 | PTCARENOTE ---
Pt OOB in chair since visit from PT/OT, here to visit-updated on pt's present condition, plan of care including planned EGD in AM. All questions answered. Protonix gtt d/c'ed per order. Pt remains on RA w/ Pox 96%.
[2023-10-18 16:20] LABS: Hemoglobin 7.8 g/dL (13.0-18.0)
[2023-10-18] MEDS: NSS (PRESERVATIVE FREE) 10 ML IV (20:08)
[2023-10-18] MEDS: PROTONIX IV 40 MG IV (20:08)
--- NOTE | 2023-10-18 20:28 | W.PN.UPDATE ---
Update Note
Progress Note Update
Reported by the nursing staff that the called and would like to change the patient from full code to DNR.
- I called the / Debby, explained what is full code and what is DNR. Debby verbalized her understanding. She mentioned that she had this discussion with her before and that what he want to be DNR.
-Patient & also agreed about fluids and pressors if needed.
-Confirm with the patient while the assigned nurse in the room. Patient stated ' I agree with what Debby is saying'.
-Code status changed from full code to DNR per and patient request.
[2023-10-18] MEDS: TYLENOL 1000 MG PO (22:08)
--- NOTE | 2023-10-18 22:43 | PTCARENOTE ---
Received pt resting in bed, AAOx3. C/O low back pain- extra dose 1000mg Tylenol ordered by LIANET. Repositioning PRN. Afib on tele. HR 70s-80s. B/L LE trace edema. L foot dressing c/d/i. On RA. Harsh, productive cough with thick, yellow mucus. + bowel
sounds. No BM today. Tolerating clear liquid diet- will be NPO at midnight. Voiding in urinal celeste urine.
, Debby, called and wished to change his code status. Notified LIANET Mcclelland who discussed status with and patient. Code status changed to DNR.
[2023-10-18] MEDS: ROBITUSSIN DM 5 ML PO (23:45)
[2023-10-19] VITALS (13 sets, daily range): BP systolic 102–134; BP diastolic 53–77; PULSE 80; O2SAT 97; BMI 22.8
[2023-10-19] MEDS: TESSALON PERLES 100 MG PO ×2 (02:42→12:47)
[2023-10-19 04:29] LABS: % Basophils 0.4 % (0-2); % Immature Granulocytes 0.7 % (0-0.5); % Lymphocytes 14.4 % (20.5-51.1); % Monocytes 10.9 % (1.7-9.3); % Neutrophils 68.6 % (42.2-75.2); Absolute Eosinophils 0.4 10^3/uL (0-0.7); Absolute Immature Granulocytes 0.1 10^3/uL (0-0.05); Absolute Lymphocytes 1.1 10^3/uL (1.2-3.4); Absolute Monocytes 0.8 10^3/uL (0.1-0.6); Hematocrit 22.8 % (39.0-52.0); Hemoglobin 7.8 g/dL (13.0-18.0); Mean Corp Hgb Conc. 34.2 g/dL (33.0-37.0); Mean Corpuscular Volume 90.5 fL (80.0-94.0); Mean Platelet Volume 9.4 fL (7.4-10.4); Nucleated Red Blood Cells % 0 % (-); Platelet Count 159 10^3/uL (130-400); Red Blood Cell Count 2.52 10^6/uL (4.70-6.10); Red Cell Dist. Width 15.9 % (11.5-14.5); White Blood Cell Count 7.3 10^3/uL (4.8-10.8)
[2023-10-19 04:52] LABS: ALT (SGPT) 17 U/L (0-50); AST (SGOT) 40 U/L (17-59); Albumin 2.5 g/dl (3.5-5.0); Alkaline Phosphatase 70 U/L (38-126); Blood Urea Nitrogen 57 mg/dl (9-20); Calcium 8.4 mg/dl (8.4-10.2); Carbon Dioxide 23 mmol/L (22-30); Chloride 107 mmol/L (98-107); Estimated Creatinine Clearance 42 ml/min; Glucose 70 mg/dl (70-99); Potassium 3.9 mmol/L (3.5-5.1); Sodium 138 mmol/L (135-145); Total Bilirubin 2.8 mg/dl (0.2-1.3); Total Protein 5.3 g/dl (6.3-8.2); eGFR 49.56
[2023-10-19] MEDS: SYNTHROID 75 MCG PO (06:01)
[2023-10-19] MEDS: TYLENOL 650 MG PO ×3 (06:01→23:52)
[2023-10-19] MEDS: FLOMAX PO (07:26)
[2023-10-19] MEDS: PROTONIX IV 40 MG IV ×2 (07:26→20:01)
[2023-10-19] MEDS: ZYLOPRIM PO (07:26)
[2023-10-19] MEDS: NSS (PRESERVATIVE FREE) 10 ML IV ×2 (07:26→20:00)
--- NOTE | 2023-10-19 08:07 | PTCARENOTE ---
Update with GI team. In at bedside this am for am EGD await call time. Updated assessment and vital signs ongoing and as documented. Follow up update with via phone. Continue with teaching and bedside cares as needed. Medication follow up via
emar. Patient verbalizes relief in chrinic back pain with meds and sleep.
--- NOTE | 2023-10-19 09:06 | W.PN.HOSP.TC ---
Addendum entered and electronically signed by Chaparro Roberts MD 10/19/23 15:18:
Spoke with Dr. George and okay to resume Eliquis but hold Aspirin. Resumed Eliquis. Also requested vascular surgery input.
Original Note:
Today's Communication/Plan
-
Transferred to tele
Discuss with GI today about restarting Eliquis -- can restart if patient really needs it -- consulted cardiology and vascular surgery for guidance regarding continuing Aspirin vs. Eliquis vs. both
Assessment / Plan
Assessment / Plan
Physical Exam
General: No Apparent Distress
HEENT: Normocephalic and Atraumatic
Respiratory: Clear to Auscultation
Cardiac: Irregular Rhythm
GI: Soft, Nontender and Nondistended. Positive bowel sounds.
Musculoskeletal: No Cyanosis and No Edema
Skin: Warm
Neuro: Awake, Alert, Oriented and AO x 3
Psych: Calm

A/P
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 His hgb 4.5 with his previous on discharge to be >8. He had 2
units of PRBC transfused on his past admission due to ongoing bleeding from his wound. This time in ED found FOBT positive stool. Received 4 units of PRBC in first 24h from admission. Patient has a remote history of EGD and colonoscopy in 2019 for
anemia without significant findings
#Acute blood lose anemia with impending hemorrhagic shock 2/2 GIB on chronic bleeding from wound
#PENNY
#Black Stool initially from iron patient was taking
#Bleeding from wound
Hold anticoagulation and antiplatelet agents - patient aware of increased risk of stroke and worsening CAD, however with severe anemia - accepted it
INR goal <1.8
Resume anti-HTN meds when clinically safe to with SBP>100mmHg for >12-18 hrs
Two large bore IV and transfuse PRBC for Hgb around 8, and platelets >50k serial H&H -- received at least 5 PRBC transfusions this admission
Follow Ca, consider supplementation of low
Replete electrolytes with K>4, Mg>2
PPI drip
NPO
GI consulted: EGD from 10/19/23 showed gastritis and very thick yellow mucus coming down from the oropharynx to the stomach
Discussed (with Dr. Kemar Gupta from GI) on 10/19/23 about restarting patient's Eliquis and Aspirin, and per Dr. Kemar Gupta can resume patient's Aspirin and Eliquis if patient really needs it -- consulted cardiology and vascular surgery for
guidance regarding continuing Aspirin vs. Eliquis vs. both
#Indirect bilirubinemia
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
Haptoglobin still pending
Consulted hematology, appreciate evaluation and recommendations
#PAD
#Recent OM
Podiatry consult: no significant bleeding from the wound
#Afib, unspecified
#SSS s/p PPM
#CAD s/p CABG
cont rate control
telemetry
cont home meds when appropriate
If cannot restart Eliquis - will ask cardio to eval for Watchman
#BPH
Watch for retention as Flomax held
#Gout
#Hypothyroidism
cont home meds
#COVID-19
tested positive reportedly 8 days ago
repeated test neg
no need for isolation
#LENA
CPAP @HS as needed
DVT PPx: Eliquis
Code Status: DNR (see 'Update Note' from October 18, 2023)
Anticipated Discharge: > 48 hours
Subjective/Interval History
-
Date of Service: October 19, 2023
Patient was seen and examined. He denied any pain or any other complaints at the time he was seen.
Objective Data
-
Labs:
Laboratory Results
10/19/23
03:54
WBC 7.3
Hgb 7.8 L
Hct 22.8 L
Plt Count 159
Sodium 138
Potassium 3.9
Chloride 107
Carbon Dioxide 23
BUN 57 H
Creatinine 1.4 H
Glucose 70
Calcium 8.4
Total Bilirubin 2.8 H
AST 40
ALT 17
Alkaline Phosphatase 70
Vital Signs:
Vital Signs
Temp Pulse Resp BP Pulse Ox
98.4 F 69 16 134/58 97
10/19/23 07:33 10/19/23 07:33 10/19/23 07:33 10/19/23 07:33 10/19/23 08:01
I&O
10/18/23 10/19/23 10/20/23
06:59 06:59 06:59
Intake Total 530 / 530 650 / 650
Output Total 2750 / 2750 1000 / 1000
Balance -2220 / -2220 -350 / -350
--- NOTE | 2023-10-19 10:11 | PTCARENOTE ---
Update with GI team pending transfer to lab. Update with patient. Voided. 300ml celeste urine. Skin cares provided.
--- NOTE | 2023-10-19 10:57 | W.PN.UPDATE ---
Update Note
Progress Note Update
Very thick yellow mucus coming from oropharynx into esophagus
Otherwise EGD unremarkable
would not pursue any other GI w/u at this time. Black initial stool likely from iron he was initially taken
will sign off call with questions
he can resume diet that is preferred by primary team
--- NOTE | 2023-10-19 11:58 | PTCARENOTE ---
Patient return from EGD. Viatl signs stable and ongoing. Assessment unchanged. Continue pulmonary toilet and cough deep breath exercises. Hospitalist at [facility] restart diet as ordered. Continue hourly rounds and skin care needs, oral cares and
patient cares. Await lunch. Updated via phone, await arrival. Follow up telemetry orders continue.
[2023-10-19] MEDS: ROBITUSSIN DM 5 ML PO ×2 (12:47→20:08)
--- NOTE | 2023-10-19 13:22 | PTCARENOTE ---
Family updated plan of cares. Plan of transfer. Discuss family request for [facility] rehab. Hospitalist to follow up pt/ot and transfer plan of cares. Update with [facility] team. Prep for transfer. Liliam high tolerated 100% of lunch with assist.
--- NOTE | 2023-10-19 13:25 | CM ---
CM following re: discharge planning.
Reviewed pt's chart, met with pt. pt's spouse and her twin sister at bedside.
Pt is an 83 year old male admitted with primary dx of Acute Blood Loss anemia.
Pt lives with spouse in a small 2nd floor apartment; 1 step to enter building; elevator access to 2nd floor. Per spouse, pt ambulates with a cane or walker at baseline; assists with ADLs as needed; Pt drives. pt had C-pap machine at home.
Pt is admitted from [facility] where he was 11 days. Per [facility] admissions assistant, pt will be accepted back for a short term rehab when medically stable.
Pt's spouse agrees with pt returning back to [facility] and at the same time pt's spouse requested [facility] as number one choice.
PT and PT evaluations noted - SNF level of care recommended.
A referral to [facility] and [facility] made. Awaiting for determination.
D/C plan: [facility] number one choice. Plan B: [facility].
CM will follow with discharge plan updates as hospitalization progresses
[2023-10-19 14:22] LABS: Haptoglobin 76 mg/dL (30-200)
[2023-10-19] MEDS: FLOMAX 0.4 MG PO (20:00)
[2023-10-19] MEDS: ELIQUIS 5 MG PO (20:00)
[2023-10-20 03:00] VITALS: BP 114/55
[2023-10-20] MEDS: SYNTHROID 75 MCG PO (05:59)
[2023-10-20 06:00] VITALS: BMI 22.4
[2023-10-20 07:10] VITALS: BP 130/64
[2023-10-20] MEDS: PROTONIX IV 40 MG IV ×2 (09:00→20:58)
[2023-10-20] MEDS: FLOMAX 0.4 MG PO ×2 (09:00→20:57)
[2023-10-20] MEDS: ZYLOPRIM 300 MG PO (09:00)
[2023-10-20] MEDS: NSS (PRESERVATIVE FREE) 10 ML IV ×2 (09:01→20:57)
[2023-10-20] MEDS: ELIQUIS 5 MG PO ×2 (09:01→20:57)
[2023-10-20 09:07] LABS: Hemoglobin 7.7 g/dL (13.0-18.0); Mean Corp Hgb Conc. 33.5 g/dL (33.0-37.0); Mean Corpuscular Hgb 30.7 pg (27.0-31.0); Mean Corpuscular Volume 91.6 fL (80.0-94.0); Platelet Count 168 10^3/uL (130-400); Red Blood Cell Count 2.51 10^6/uL (4.70-6.10); Red Cell Dist. Width 16.4 % (11.5-14.5); White Blood Cell Count 6.9 10^3/uL (4.8-10.8)
--- NOTE | 2023-10-20 09:51 | CON.ONC ---
Impression
Impression
acute on chronic anemia
heme+ stool (?melena at admission), high BUN/creat ratio at admission, as can be seen w/ GI bleeding
EGD without bleeding source
on Eliquis for Afib
recent toe amputation for osteomyelitis
slight elevation of bilirubin, normal haptoglobin
recent COVID
CKD3
Plan
Plan
Clinical picture most suggestive of anemia of blood loss (GI bleed, wound bleeding), on Eliquis for afib, as well as AoCD n the setting of recent osteomyelitis. CKD could also be contributory.
No bleeding source noted on EGD. Colonoscopy not done. Would monitor H/H and BMs as Eliquis was restarted
I added iron studies to am labs, haven't been done this admission. If ferritin < 100, recommend treating with IV iron while hospitalized.
Slight bilirubin elevation noted, may be c/w Gilbert's or secondary to transfusions. Normal haptoglobin noted
Will sign off, please call w/ any hematology questions.
Patient History
History of Present Illness
83 yo M presented to ER on 10/15/23 after outpatient labs showed hgb of 4.5. He reported black stool, on oral iron as outpatient. Rectal exam revealed melena, heme+.
BUN was 116, creatinine 1.2.
Eliquis (for afib) was held at admission.
He was transfused 4u prbcs at admission.
Total bililrubin yesterday was 2.3 with direct bili 0.5. Tbili is 2.8 today. Haptoglobin is normal.
He'd been hospitalized in early September with left foot wound, for which he underwent resxn of 5th met head, and was d/c'd on 10/09/23. He's had ongoing blood loss from the wound.
Hgb in August 2023 was in the 7-8gm range.
Iron studies on 09/29/23 were suggestive of chronic disease, with iron of 40, low TIBC and borderline low iron saturation. Ferritin wasn't done. Iron studies haven't been updated since then.
EGD on 10/19/23 showed normal esophagus, gastritis, normal duodenum. No specimens collected.
He recently tested positive for COVID.
Past-Medical/Surgical History
Past Medical History: Reports Other
Additional Past Medical History:
Chronic kidney disease stage IV
Coronary artery disease
hypertension
Paroxysmal A-fib
Sick sinus syndrome
Hypothyroidism
Gout
Anemia
Obstructive sleep apnea
Past Surgical History: Reports Other
Additional Past Surgical History:
Mitral valve repair
Cardiac pacemaker
Coronary artery bypass graft
Social History
Tobacco: Non-smoker
Alcohol: None
Drug: None
Personal:
Living: Assisted Living
Family History
Family History: Not pertinent
Patient Medication
�Medication �Instructions �Recorded �Confirmed �Last Taken �Type
allopurinol 300 mg tablet 300 mg PO DAILY Gout 12/18/19 10/15/23 09/21/23 History
ascorbic acid (vitamin C) 500 mg 500 mg PO DAILY Supplement 12/18/19 10/15/23 09/22/23 History
tablet (Vitamin C)
levothyroxine 75 mcg tablet 75 mcg PO DAILY Thyroid 12/18/19 10/15/23 09/22/23 History
apixaban 5 mg tablet (Eliquis) 5 mg PO BID Blood Clot 03/02/23 10/15/23 09/22/23 History
Prevention/Tx
carvedilol 25 mg tablet 25 mg PO BID Blood Pressure 03/02/23 10/15/23 09/22/23 History
enalapril maleate 20 mg tablet 20 mg PO BID Blood Pressure 03/02/23 10/15/23 09/22/23 History
furosemide 20 mg tablet 20 mg PO DAILY Fluid 03/02/23 10/15/23 09/22/23 History
Retention/Swelling
tamsulosin 0.4 mg capsule 0.4 mg PO BID Urinary Issue 03/02/23 10/15/23 09/22/23 History
aspirin 81 mg chewable tablet 81 mg PO DAILY 30 days #30 tabs 10/03/23 10/15/23 Unknown Rx
ferrous sulfate 325 mg (65 mg 325 mg PO DAILY 30 days #30 tabs 10/03/23 10/15/23 Unknown Rx
iron) tablet (FeroSul)
acetaminophen 325 mg tablet 650 mg PO Q6HPRN PRN mild 10/15/23 10/15/23 Unknown History
pain/fever >100
bisacodyl 10 mg rectal suppository 10 mg GA DAILYPRN PRN no bm 3 days 10/15/23 10/15/23 Unknown History
(Dulcolax (bisacodyl))
folic acid 1 mg tablet 1 mg PO DAILY Supplement 10/15/23 10/15/23 Unknown History
guaifenesin 100 mg/5 mL oral liquid 200 mg PO Q4HPRN PRN cough 10/15/23 10/15/23 Unknown History
magnesium hydroxide 400 mg/5 mL 400 mg PO HSPRN PRN no bm 2 days 10/15/23 10/15/23 Unknown History
oral suspension (Milk of Magnesia)
polyvinyl alcohol-povidone 0.5 1 drp BOTH EYES Q6HPRN PRN dry eyes 10/15/23 10/15/23 Unknown History
%-0.6 % eye drops
sodium phosphates 19 gram-7 118 ml GA DAILYPRN PRN no bm 4 days 10/15/23 10/15/23 Unknown History
gram/118 mL enema (Fleet Enema)
Active Medications
Generic Name Dose Route Start Last Admin
Trade Name Freq PRN Reason Stop Dose Admin
Acetaminophen 650 mg 10/18/23 21:10 10/19/23 23:52
Acetaminophen 325 Mg Tablet PO 11/15/23 21:08 650 mg
Q4HPRN PRN Administration
mild pain/ fever>100.5F
Allopurinol 300 mg 10/16/23 08:00 10/20/23 09:00
Allopurinol 300 Mg Tablet PO 11/13/23 07:59 300 mg
DAILY GAB Administration
Apixaban 5 mg 10/19/23 20:00 10/20/23 09:01
Apixaban (Eliquis) 5 Mg Tablet PO 11/16/23 19:59 5 mg
BID GAB Administration
Benzonatate 100 mg 10/19/23 02:02 10/19/23 12:47
Benzonatate 100 Mg Capsule PO 11/16/23 02:01 100 mg
TIDPRN PRN Administration
cough
Guaifenesin/Dextromethorphan 5 ml 10/18/23 23:37 10/19/23 20:08
Guaifenesin/Dextromethorphan 200 Mg/10 Ml Cup PO 11/15/23 23:36 5 ml
Q4HPRN PRN Administration
productive cough
Levothyroxine Sodium 75 mcg 10/16/23 06:00 10/20/23 05:59
Levothyroxine 75 Mcg Tablet PO 11/13/23 05:59 75 mcg
DAILY@0600 GAB Administration
Pantoprazole Sodium 40 mg 10/18/23 20:00 10/20/23 09:00
Pantoprazole Sodium 40 Mg/10 Ml Vial IV 11/15/23 19:59 40 mg
BID GAB Administration
Sodium Chloride 0 flush 10/15/23 19:00
Sodium Chloride 0.9% (Flush) Syringe IV 11/12/23 18:59
PER PROTOCOL GAB
Sodium Chloride 10 ml 10/18/23 20:00 10/20/23 09:01
Sodium Chloride 0.9% (Preservative Free) 10 Ml Vial IV 11/15/23 19:59 10 ml
BID GAB Administration
Tamsulosin HCl 0.4 mg 10/15/23 20:00 10/20/23 09:00
Tamsulosin 0.4 Mg Capsule PO 11/12/23 19:59 0.4 mg
BID GAB Administration
Physical Exam
-
General: No Apparent Distress; Negative Conversant
HEENT: Negative Jaundice
Cardiology: Normal Sinus Rhythm
Pulmonary: Clear
GI: Soft
Musculoskeletal: Other (left ankle/foot dresssing)
Neurology: Non Focal
Skin: Warm and Dry
Psych: Calm
Labs
Lab Results
WBC 6.9 10^3/uL (4.8-10.8) 10/20/23 08:32
RBC 2.51 10^6/uL (4.70-6.10) L 10/20/23 08:32
Hgb 7.7 g/dL (13.0-18.0) L 10/20/23 08:32
Hct 23.0 % (39.0-52.0) L 10/20/23 08:32
MCV 91.6 fL (80.0-94.0) 10/20/23 08:32
MCH 30.7 pg (27.0-31.0) 10/20/23 08:32
MCHC 33.5 g/dL (33.0-37.0) 10/20/23 08:32
RDW 16.4 % (11.5-14.5) H 10/20/23 08:32
Plt Count 168 10^3/uL (130-400) 10/20/23 08:32
MPV 9.0 fL (7.4-10.4) 10/20/23 08:32
Abs Immat Gran (auto) 0.1 10^3/uL (0-0.05) H 10/19/23 03:54
Absolute Neuts (auto) 5.0 10^3/uL (1.4-6.5) 10/19/23 03:54
Absolute Lymphs (auto) 1.1 10^3/uL (1.2-3.4) L 10/19/23 03:54
Absolute Monos (auto) 0.8 10^3/uL (0.1-0.6) H 10/19/23 03:54
Absolute Eos (auto) 0.4 10^3/uL (0-0.7) 10/19/23 03:54
Absolute Basos (auto) 0.0 10^3/uL (0-0.2) 10/19/23 03:54
Immature Gran % 0.7 % (0-0.5) H 10/19/23 03:54
Neutrophils % 68.6 % (42.2-75.2) 10/19/23 03:54
Lymphocytes % 14.4 % (20.5-51.1) L 10/19/23 03:54
Monocytes % 10.9 % (1.7-9.3) H 10/19/23 03:54
Eosinophils % 5.0 % (0-6) 10/19/23 03:54
Basophils % 0.4 % (0-2) 10/19/23 03:54
Creatinine 1.4 mg/dL (0.7-1.3) H 10/19/23 03:54
Vital Signs
Vital Signs
Temp Pulse Resp BP Pulse Ox
97.7 F 75 16 130/64 98
10/20/23 07:10 10/20/23 07:10 10/20/23 07:10 10/20/23 07:10 10/20/23 07:10
[2023-10-20 10:00] LABS: Blood Urea Nitrogen 48 mg/dl (9-20); Calcium 8.3 mg/dl (8.4-10.2); Carbon Dioxide 23 mmol/L (22-30); Chloride 108 mmol/L (98-107); Estimated Creatinine Clearance 42 ml/min; Glucose 62 mg/dl (70-99); Potassium 4.1 mmol/L (3.5-5.1); Sodium 139 mmol/L (135-145); eGFR 49.56
--- NOTE | 2023-10-20 10:50 | W.PN.HOSP.TC ---
Today's Communication/Plan
-
Check iron studies, appreciate hematology
If Ferritin less than 100, will need IV iron
Coreg resumed today -- monitor blood pressure to make no hypotension
Critical things to monitor are Hemoglobin and blood pressure
Assessment / Plan
Assessment / Plan
Physical Exam
General: No Apparent Distress
HEENT: Normocephalic and Atraumatic
Respiratory: Clear to Auscultation
Cardiac: Irregular Rhythm
GI: Soft, Nontender and Nondistended. Positive bowel sounds.
Musculoskeletal: No Cyanosis and No Edema
Skin: Warm
Neuro: Awake, Alert, Oriented and AO x 3
Psych: Calm

A/P
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 His hgb 4.5 with his previous on discharge to be >8. He had 2
units of PRBC transfused on his past admission due to ongoing bleeding from his wound. This time in ED found FOBT positive stool. Received 4 units of PRBC in first 24h from admission. Patient has a remote history of EGD and colonoscopy in 2020 for
anemia without significant findings
#Acute blood lose anemia with impending hemorrhagic shock 2/2 GIB on chronic bleeding from wound
#PENNY
#Black Stool initially from iron patient was taking
#Bleeding from wound
Hold Aspirin - patient aware of increased risk of stroke and worsening CAD, however with severe anemia - accepted it. Resumed Eliquis after discussing with cardiology and vascular surgery on 10/19/23 and 10/20/23, via [facility].
INR goal <1.8
Resumed home Coreg today (plan was to resume anti-HTN meds when clinically safe to with SBP>100mmHg for >12-18 hrs)
Two large bore IV and transfuse PRBC for Hgb around 8, and platelets >50k serial H&H -- received at least 5 PRBC transfusions this admission
Follow Ca, consider supplementation of low
Replete electrolytes with K>4, Mg>2
PPI IV BID
GI consulted: EGD from 10/19/23 showed gastritis and very thick yellow mucus coming down from the oropharynx to the stomach
Discussed (with Dr. Kemar Gupta from GI) on 10/19/23 about restarting patient's Eliquis and Aspirin, and per Dr. Kemar Gupta can resume patient's Aspirin and Eliquis if patient really needs it -- on 10/19/23 and 10/20/23 discussed with cardiology
and vascular surgery for guidance regarding continuing Aspirin vs. Eliquis vs. both -- and their recommendation was to continue the Eliquis, but hold Aspirin for now
#Multifactorial Anemia (secondary to blood loss (possible GI bleed, wound bleeding), on Eliquis for A-fib, as well as AoCD in the setting of recent osteomyelitis as well as possibly CKD)
#Indirect bilirubinemia
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 Haptoglobin normal.
Continue to monitor H&H and bowel movements, Eliquis was resumed on 10/19/23
Consulted hematology, appreciate evaluation and recommendations
Appreciate hematology ordering iron studies, if ferritin < 100, recommend treating with IV iron while hospitalized
#PAD
#Recent OM
Podiatry consult: no significant bleeding from the wound
#Afib, unspecified
#SSS s/p PPM
#CAD s/p CABG
cont rate control
telemetry
cont home med Coreg starting on 10/20/23
Resumed Eliquis on 10/19/23
#BPH
Watch for retention as Flomax held
#Gout
#Hypothyroidism
cont home meds
#COVID-19
tested positive reportedly 1 to 2 weeks ago
repeated test neg
no need for isolation
#LENA
CPAP @HS as needed
DVT PPx: Eliquis
Code Status: DNR (see 'Update Note' from October 18, 2023)
Anticipated Discharge: 24 - 48 hours
Subjective/Interval History
-
Date of Service: October 20, 2023
Patient was seen and examined. He denied any new symptoms or complaints.
Objective Data
-
Labs:
Laboratory Results
10/20/23
08:32
WBC 6.9
Hgb 7.7 L
Hct 23.0 L
Plt Count 168
Sodium 139
Potassium 4.1
Chloride 108 H
Carbon Dioxide 23
BUN 48 H
Creatinine 1.4 H
Glucose 62 L
Calcium 8.3 L
Vital Signs:
Vital Signs
Temp Pulse Resp BP Pulse Ox
97.7 F 75 16 130/64 98
10/20/23 07:10 10/20/23 07:10 10/20/23 07:10 10/20/23 07:10 10/20/23 07:10
I&O
10/19/23 10/20/23 10/21/23
06:59 06:59 06:59
Intake Total 650 / 650 700 / 700
Output Total 1000 / 1000 1050 / 1050
Balance -350 / -350 -350 / -350
--- NOTE | 2023-10-20 11:20 | PTOTSP ---
Speech Language Pathology
Pt seen for clinical bedside swallow evaluation. Frequent wet cough at baseline, productive at times. He reported coughing for some time at rehab. Hoarse vocal quality noted, which he endorsed started at same time as cough. P.O. trials of
regular solids and thin liquids provided. Adequate mastication, bolus formation, and A-P transit noted with no oral residue. Occasional cough noted post P.O. However, cough was similar to baseline cough in both frequency and type. Given clear
CXR and WBC WNL, do not suspect coughing related to P.O. intake.
Recommend:
(1) Regular solids/thin liquids
(2) General aspiration precautions
(3) Meds as tolerated
(4) GREASE BUFFER to sign off. Please reconsult as indicated
[2023-10-20] MEDS: COREG 25 MG PO ×2 (11:31→20:56)
[2023-10-20] MEDS: FOLVITE 1 MG PO (11:31)
[2023-10-20 11:51] LABS: Iron < 20 ug/dl (49-181)
[2023-10-20 11:56] LABS: Total Iron Binding Capacity 195 ug/dl (261-462)
--- NOTE | 2023-10-20 14:20 | CM ---
CM met with patients , requesting referrals to [facility] and [facility]. tearful and anxious about all patient has been through this past month, support provided. Patient will require insurance auth once SNF bed found.
CM discussed bed availability depends on day of discharge, understands. Referral sent to [facility], awaiting response. Will send additional referral to [facility]. CM will continue to follow for all discharge planning needs.
Plan: SNF pending accepting facility, will require auth.
[2023-10-20 15:05] VITALS: BP 120/60
--- NOTE | 2023-10-20 15:29 | PN.CDI ---
CDI
- -
CDI:
Physician Documentation Request
Admit Date: 10/15/23 16:53
Dear Doctor Armando,
Please review the following and provide your response in the progress notes.
Clinical Indicators:
Pt admitted with Acute blood loss anemia.
10/17 progress notes ' Hold anticoagulation and antiplatelet agents...received at least 5 PRBC transfusions this admission.'
Please clarify the relationship between these conditions:
Acute blood loss is related to/associated with/exacerbated by Eliquis.
Acute blood loss is not related to/associated with/exacerbated by Eliquis
Other
Use of terms such as suspected, likely, concern for, or probable (associated with a specific diagnosis that is being evaluated, monitored, or treated as if it exists) are acceptable and can be coded in the inpatient setting, when documented at the
time of discharge.
Thank you,
Madhuri Eddy RN, BSN
CDI Specialist
Available via [place] [employer]
Please use your independent medical judgment in providing your response.
[2023-10-20 19:25] VITALS: BP 114/58
[2023-10-20 23:00] VITALS: BP 130/64
[2023-10-21] VITALS (11 sets, daily range): BP systolic 80–134; BP diastolic 42–94; PULSE 60; O2SAT 98; BMI 22.7
[2023-10-21] MEDS: TYLENOL 650 MG PO ×2 (00:10→12:34)
[2023-10-21] MEDS: SYNTHROID 75 MCG PO (05:40)
[2023-10-21 08:22] LABS: Hematocrit 21.3 % (39.0-52.0); Hemoglobin 7.1 g/dL (13.0-18.0); Mean Corp Hgb Conc. 33.3 g/dL (33.0-37.0); Mean Corpuscular Hgb 30.1 pg (27.0-31.0); Mean Corpuscular Volume 90.3 fL (80.0-94.0); Mean Platelet Volume 8.8 fL (7.4-10.4); Platelet Count 167 10^3/uL (130-400); Red Blood Cell Count 2.36 10^6/uL (4.70-6.10); Red Cell Dist. Width 16.6 % (11.5-14.5); White Blood Cell Count 6.9 10^3/uL (4.8-10.8)
[2023-10-21 08:51] LABS: Blood Urea Nitrogen 37 mg/dl (9-20); Calcium 8.2 mg/dl (8.4-10.2); Carbon Dioxide 23 mmol/L (22-30); Chloride 108 mmol/L (98-107); Estimated Creatinine Clearance 45 ml/min; Glucose 75 mg/dl (70-99); Potassium 3.9 mmol/L (3.5-5.1); Sodium 138 mmol/L (135-145); eGFR 54.17
[2023-10-21] MEDS: FLOMAX 0.4 MG PO ×2 (09:12→21:20)
[2023-10-21] MEDS: NSS (PRESERVATIVE FREE) 10 ML IV ×2 (09:13→21:20)
[2023-10-21] MEDS: COREG 25 MG PO ×2 (09:13→21:19)
[2023-10-21] MEDS: ZYLOPRIM 300 MG PO (09:15)
[2023-10-21] MEDS: ELIQUIS 5 MG PO ×2 (09:15→21:19)
[2023-10-21] MEDS: PROTONIX IV 40 MG IV ×2 (09:16→21:20)
[2023-10-21] MEDS: FOLVITE 1 MG PO (09:16)
[2023-10-21] MEDS: ROBITUSSIN DM 5 ML PO (12:35)
--- NOTE | 2023-10-21 13:18 | CM ---
Placed a call to [facility] as they offered acceptance through [employer]. Spoke with Mildred in admissions who confirmed that they can accept patient upon discharge. Will get NPIs for auth.
Reviewed chart, met with patient's upon her request who expressed that she is anxious about patient's condition. Spoke with patient and his and sister in law for a while. Discussed dispo to SNF upon medical clearance. Provided emotional
support. Encouraged patient's to talk to CM about any concerns.
Plan: Case management will continue to follow and assist with discharge planning. SNF when stable.
--- NOTE | 2023-10-21 14:26 | W.PN.HOSP.TC ---
Addendum entered and electronically signed by Chaparro Roberts MD 10/21/23 15:16:
I just called and spoke to patient's Debby. Debby mentioned that patient has been having more of a wet cough (not like his usual chronic cough) and also lower back pain for the past 3 to 4 weeks.
Plan:
-Transfuse 1 unit of PRBC today given patient has history of CAD and CABG and Hgb this AM was 7.1, and would like to keep Hgb around 8
-Will consider CXR
-Resume patient's Lasix
-Check proBNP
-Consider CT to check for retroperitoneal hematoma
-Also will consider texting podiatry about patient's foot wound which was bleeding significantly in the past
Original Note:
Today's Communication/Plan
-
Hgb dropped to 7.1
Will need another 1 unit of blood transfusion
Assessment / Plan
Assessment / Plan
Physical Exam
General: No Apparent Distress
HEENT: Normocephalic and Atraumatic
Respiratory: Clear to Auscultation
Cardiac: Irregular Rhythm
GI: Soft, Nontender and Nondistended. Positive bowel sounds.
Musculoskeletal: No Cyanosis and No Edema
Skin: Warm
Neuro: Awake, Alert, Oriented and AO x 3
Psych: Calm

A/P
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 His hgb 4.5 with his previous on discharge to be >8. He had 2
units of PRBC transfused on his past admission due to ongoing bleeding from his wound. This time in ED found FOBT positive stool. Received 4 units of PRBC in first 24h from admission. Patient has a remote history of EGD and colonoscopy in 2019 for
anemia without significant findings
#Acute blood lose anemia with impending hemorrhagic shock 2/2 GIB on chronic bleeding from wound
#Acute blood loss is related to/associated with/exacerbated by Eliquis.
#PENNY
#Black Stool initially from iron patient was taking
#Bleeding from wound
Hold Aspirin - patient aware of increased risk of stroke and worsening CAD, however with severe anemia - accepted it. Previously resumed Eliquis after discussing with cardiology and vascular surgery on 10/19/23 and 10/20/23, via [place] [employer].
INR goal <1.8
Resumed home Coreg on 10/20/23 (plan was to resume anti-HTN meds when clinically safe to with SBP>100mmHg for >12-18 hrs)
Two large bore IV and transfuse PRBC for Hgb around 8, and platelets >50k serial H&H -- received at least 5 PRBC transfusions this admission
Follow Ca, consider supplementation of low
Replete electrolytes with K>4, Mg>2
PPI IV BID
GI consulted: EGD from 10/19/23 showed gastritis and very thick yellow mucus coming down from the oropharynx to the stomach
Discussed (with Dr. Kemar Gupta from GI) on 10/19/23 about restarting patient's Eliquis and Aspirin, and per Dr. Kemar Gupta can resume patient's Aspirin and Eliquis if patient really needs it -- on 10/19/23 and 10/20/23 discussed with cardiology
and vascular surgery for guidance regarding continuing Aspirin vs. Eliquis vs. both -- and their recommendation was to continue the Eliquis, but hold Aspirin for now
#Multifactorial Anemia (secondary to blood loss (possible GI bleed, wound bleeding), on Eliquis for A-fib, as well as AoCD in the setting of recent osteomyelitis as well as possibly CKD)
#Indirect bilirubinemia
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 Haptoglobin normal.
Continue to monitor H&H and bowel movements, Eliquis was resumed on 10/19/23
Consulted hematology, appreciate evaluation and recommendations
Appreciate hematology ordering iron studies, since ferritin > 100,hematology recommended against treating with any iron
#PAD
#Recent OM
Podiatry consult: no significant bleeding from the wound
#Afib, unspecified
#SSS s/p PPM
#CAD s/p CABG
cont rate control
telemetry
cont home med Coreg starting on 10/20/23
Resumed Eliquis on 10/19/23
#BPH
Watch for retention as Flomax held
#Gout
#Hypothyroidism
cont home meds
#COVID-19
tested positive reportedly 1 to 2 weeks ago
repeated test neg
no need for isolation
#LENA
CPAP @HS as needed
DVT PPx: Eliquis
Code Status: DNR (see 'Update Note' from October 18, 2023)
Anticipated Discharge: 24 - 48 hours
Subjective/Interval History
-
Date of Service: October 21, 2023
Patient was seen and examined. He denied any complaints, he has not had a bowel movement.
Objective Data
-
Labs:
Laboratory Results
10/21/23 10/21/23
07:50 20:00
WBC 6.9 Pending
Hgb 7.1 L Pending
Hct 21.3 L Pending
Plt Count 167 Pending
Sodium 138
Potassium 3.9
Chloride 108 H
Carbon Dioxide 23
BUN 37 H
Creatinine 1.3
Glucose 75
Calcium 8.2 L
Vital Signs:
Vital Signs
Temp Pulse Resp BP Pulse Ox
97.7 F 61 16 109/57 98
10/21/23 11:58 10/21/23 11:58 10/21/23 11:58 10/21/23 11:58 10/21/23 11:58
I&O
10/20/23 10/21/23 10/22/23
06:59 06:59 06:59
Intake Total 700 / 700 1320 / 1320
Output Total 1050 / 1050 450 / 450
Balance -350 / -350 870 / 870
[2023-10-21] MEDS: LASIX 20 MG PO (16:43)
[2023-10-21 17:09] LABS: Hematocrit 22.2 % (39.0-52.0); Hemoglobin 7.5 g/dL (13.0-18.0); Mean Corp Hgb Conc. 33.8 g/dL (33.0-37.0); Mean Corpuscular Hgb 30.6 pg (27.0-31.0); Mean Corpuscular Volume 90.6 fL (80.0-94.0); Mean Platelet Volume 9.6 fL (7.4-10.4); Platelet Count 176 10^3/uL (130-400); Red Blood Cell Count 2.45 10^6/uL (4.70-6.10); Red Cell Dist. Width 16.4 % (11.5-14.5); White Blood Cell Count 7.9 10^3/uL (4.8-10.8)
[2023-10-21 17:30] LABS: NT-proBNP 16400 pg/ml
[2023-10-22] VITALS (7 sets, daily range): BP systolic 86–129; BP diastolic 52–67; PULSE 62; O2SAT 98; BMI 22.4
[2023-10-22] MEDS: TYLENOL 650 MG PO ×2 (01:07→18:02)
[2023-10-22] MEDS: SYNTHROID 75 MCG PO (04:37)
[2023-10-22] MEDS: PROTONIX IV 40 MG IV ×2 (08:41→20:10)
[2023-10-22] MEDS: NSS (PRESERVATIVE FREE) 10 ML IV ×2 (08:41→20:10)
[2023-10-22] MEDS: COREG 25 MG PO ×2 (08:41→20:09)
[2023-10-22] MEDS: FOLVITE 1 MG PO (08:41)
[2023-10-22] MEDS: ZYLOPRIM 300 MG PO (08:41)
[2023-10-22] MEDS: LASIX 20 MG PO (08:41)
[2023-10-22] MEDS: FLOMAX 0.4 MG PO ×2 (08:41→20:09)
[2023-10-22] MEDS: ELIQUIS 5 MG PO ×2 (08:42→20:10)
[2023-10-22] MEDS: ROBITUSSIN DM 5 ML PO ×2 (08:42→18:02)
[2023-10-22 09:10] LABS: Hematocrit 24.3 % (39.0-52.0); Hemoglobin 8.2 g/dL (13.0-18.0); Mean Corp Hgb Conc. 33.7 g/dL (33.0-37.0); Mean Corpuscular Hgb 29.8 pg (27.0-31.0); Mean Corpuscular Volume 88.4 fL (80.0-94.0); Mean Platelet Volume 9.2 fL (7.4-10.4); Platelet Count 183 10^3/uL (130-400); Red Blood Cell Count 2.75 10^6/uL (4.70-6.10); Red Cell Dist. Width 16.4 % (11.5-14.5); White Blood Cell Count 8.3 10^3/uL (4.8-10.8)
[2023-10-22 09:34] LABS: ALT (SGPT) 13 U/L (0-50); AST (SGOT) 22 U/L (17-59); Albumin 2.5 g/dl (3.5-5.0); Alkaline Phosphatase 72 U/L (38-126); Blood Urea Nitrogen 40 mg/dl (9-20); Calcium 8.2 mg/dl (8.4-10.2); Carbon Dioxide 23 mmol/L (22-30); Chloride 106 mmol/L (98-107); Estimated Creatinine Clearance 42 ml/min; Glucose 74 mg/dl (70-99); Magnesium 1.7 mg/dl (1.6-2.3); Potassium 4.1 mmol/L (3.5-5.1); Sodium 136 mmol/L (135-145); Total Bilirubin 2.1 mg/dl (0.2-1.3); Total Protein 5.3 g/dl (6.3-8.2); eGFR 49.56
--- NOTE | 2023-10-22 14:09 | CM ---
Met with patient's Debby at her request. She spoke for a while about patient's condition. Again emotional support provided. Verified that referrals have been sent out to requested facilities and will f/u with them closer to discharge for bed
availability. Auth will be needed.
Plan: Case management will continue to follow and assist with discharge planning. SNF when stable.
--- NOTE | 2023-10-22 15:59 | CON.CAR ---
Addendum entered and electronically signed by Elias Doss MD 10/22/23 16:57:
83 yo male with MV repair, CABG, permanent A fib, PPM admitted with severe anemia s/p pRBC. He was on ASA and eliquis on admission. ASA has been stopped; eliquis was held, then resumed. Exam with irregular rhythm, no murmurs, no edema. Cr 1.4.
His weight is lower than prior dry weight. Doubt acute HF. Would resume home lasix 20mg daily for chronic HFPEF.
Please call us back with additional questions.
Original Note:
Consultation
Consultation Request
Date/Time Consultation Requested: 10/22/23 1448
Date/Time Consultation Performed: 10/22/23 1615
Requesting Provider: Dr. Roberts
Performing Provider: Lyubov MARTINI for Dr. Doss
Reason for Consultation: CHF
Medical History
-
Chief Complaint: anemia
History of Present Illness:
83 y/o male with permanent AFIB on Eliquis, CAD s/p CABG x 3 2011, MV repair, [employer] single chamber pacemaker, hypertension, CKD3A, and improved CM (preciously 45-50% EF, now 50-55%). Patient came in for an outpatient hgb of 4.5. Heme stool was +.
He received multiple units of PRBC's (6 per nursing) and had endoscopy without obvious cause for bleeding. Hematology is on board as well. We are consulted since patient has been having cough. Notably, he had recent Covid-19.
Past Medical History
Past Medical History: CAD, CHF, HTN and Valvular Disease
Social History
Personal:
Family History
Family History: Reviewed & Not Pertinent
Allergies / Home Medications
Allergy/AdvReac Type Severity Reaction Status Date / Time
Qjfqvak-VRM-HwB Reductase Allergy Unknown Verified 03/02/23 16:50
Inhibitor
[Pgwjkrm-God-Gbq Reductase
Inhibitor]
�Medication �Instructions �Recorded �Confirmed �Type
allopurinol 300 mg tablet 300 mg PO DAILY Gout 12/18/19 10/15/23 History
ascorbic acid (vitamin C) 500 mg 500 mg PO DAILY Supplement 12/18/19 10/15/23 History
tablet (Vitamin C)
levothyroxine 75 mcg tablet 75 mcg PO DAILY Thyroid 12/18/19 10/15/23 History
apixaban 5 mg tablet (Eliquis) 5 mg PO BID Blood Clot 03/02/23 10/15/23 History
Prevention/Tx
carvedilol 25 mg tablet 25 mg PO BID Blood Pressure 03/02/23 10/15/23 History
enalapril maleate 20 mg tablet 20 mg PO BID Blood Pressure 03/02/23 10/15/23 History
furosemide 20 mg tablet 20 mg PO DAILY Fluid 03/02/23 10/15/23 History
Retention/Swelling
tamsulosin 0.4 mg capsule 0.4 mg PO BID Urinary Issue 03/02/23 10/15/23 History
aspirin 81 mg chewable tablet 81 mg PO DAILY 30 days #30 tabs 10/03/23 10/15/23 Rx
ferrous sulfate 325 mg (65 mg 325 mg PO DAILY 30 days #30 tabs 10/03/23 10/15/23 Rx
iron) tablet (FeroSul)
acetaminophen 325 mg tablet 650 mg PO Q6HPRN PRN mild 10/15/23 10/15/23 History
pain/fever >100
bisacodyl 10 mg rectal suppository 10 mg NJ DAILYPRN PRN no bm 3 days 10/15/23 10/15/23 History
(Dulcolax (bisacodyl))
folic acid 1 mg tablet 1 mg PO DAILY Supplement 10/15/23 10/15/23 History
guaifenesin 100 mg/5 mL oral liquid 200 mg PO Q4HPRN PRN cough 10/15/23 10/15/23 History
magnesium hydroxide 400 mg/5 mL 400 mg PO HSPRN PRN no bm 2 days 10/15/23 10/15/23 History
oral suspension (Milk of Magnesia)
polyvinyl alcohol-povidone 0.5 1 drp BOTH EYES Q6HPRN PRN dry eyes 10/15/23 10/15/23 History
%-0.6 % eye drops
sodium phosphates 19 gram-7 118 ml NJ DAILYPRN PRN no bm 4 days 10/15/23 10/15/23 History
gram/118 mL enema (Fleet Enema)
Review of Systems
-
History Source: Patient
All other systems: Negative unless noted
Respiratory: Cough
Physical Exam
Vital Signs
Temp Pulse Resp BP Pulse Ox
98.7 F 62 16 94/64 98
10/22/23 12:00 10/22/23 12:00 10/22/23 12:00 10/22/23 12:00 10/22/23 12:00
Lab Results
10/22/23 08:39
10/22/23 08:39
Anu-L-Sovsaenbhav Pept 91548 pg/ml 10/21/23 16:50
Physical Exam
General: No Apparent Distress
HEENT: Normocephalic and Anicteric
Respiratory: Clear and Non Labored Respirations
Cardiac: Irregular Rhythm and Peripheral Edema (trace BLE edema)
Skin: Warm and Dry
Neuro: Awake and Alert
Psych: Calm
Impression / Plan
-
Anemia, severe:
-hgb 4.5 on arrival. S/p multiple units PRBC's (6 per nursing).
-Eliquis and ASA held on admission, then Eliquis alone resumed (per notes discussion took place with cardio earlier this admit)
-bleeding cause not clear, but internal medicine team is assessing
HFimpEF: chronic
-echo today as below- EF 50-55%
-patient has received 4 units PRBC's and 1.5 L fluid and has not been getting his daily lasix, but it is now resumed. May be mildly volume overloaded as a result. Weight is actually down from admit.
-patient with cough, but had recent covid-19
-continue lasix and monitor volume
CAD s/p CABG:
-has been stable
Permanent AFIB:
-stable- continue coreg
-back on Eliquis
Hx MV repair:
-stable by echo
Data Reviewed
-
EKG: Tracing Personally Visualized and interpreted (EKG 09/22/23 AFIB, NS ST/T abnormality)
Radiology: Report Reviewed by me (CXR 10/21/23: Decreased left basilar atelectasis. Trace bilateral pleural effusions.)
Medical Tests (Nuc Med, Echo etc): Report Reviewed by me (Echo 10/22/23: Mild LVH with inferobasal akinesis with EF 50-55%. Status post mitral valve repair with mean gradient 5 mmHg and mild MR. Aortic sclerosis without stenosis. Mild pulmonary
hypertension with estimated PA systolic pressure 35-40 mmHg. Mildly dilated aortic root (4.2 cm).)
Labs: Labs Reviewed by me
--- NOTE | 2023-10-22 19:05 | W.PN.HOSP.TC ---
Today's Communication/Plan
-
Hgb improved
If Hgb continues to remain stable, will revisit discharge with patient's
Assessment / Plan
Assessment / Plan
Physical Exam
General: No Apparent Distress
HEENT: Normocephalic and Atraumatic
Respiratory: Clear to Auscultation
Cardiac: Irregular Rhythm
GI: Soft, Nontender and Nondistended. Positive bowel sounds.
Musculoskeletal: No Cyanosis and No Edema
Skin: Warm
Neuro: Awake, Alert, Oriented and AO x 3
Psych: Calm

A/P
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 His hgb 4.5 with his previous on discharge to be >8. He had 2
units of PRBC transfused on his past admission due to ongoing bleeding from his wound. This time in ED found FOBT positive stool. Received 4 units of PRBC in first 24h from admission. Patient has a remote history of EGD and colonoscopy in 2020 for
anemia without significant findings
#Acute blood lose anemia with impending hemorrhagic shock 2/2 GIB on chronic bleeding from wound
#Acute blood loss is related to/associated with/exacerbated by Eliquis.
#PENNY
#Black Stool initially from iron patient was taking
#Bleeding from wound
Hold Aspirin - patient aware of increased risk of stroke and worsening CAD, however with severe anemia - accepted it. Previously resumed Eliquis after discussing with cardiology and vascular surgery on 10/19/23 and 10/20/23, via [place].
INR goal <1.8
Resumed home Coreg on 10/20/23 (plan was to resume anti-HTN meds when clinically safe to with SBP>100mmHg for >12-18 hrs)
Two large bore IV and transfuse PRBC for Hgb around 8, and platelets >50k serial H&H -- received at least 5 PRBC transfusions this admission
Follow Ca, consider supplementation of low
Replete electrolytes with K>4, Mg>2
PPI IV BID
GI consulted: EGD from 10/19/23 showed gastritis and very thick yellow mucus coming down from the oropharynx to the stomach
Discussed (with Dr. Kemar Gupta from GI) on 10/19/23 about restarting patient's Eliquis and Aspirin, and per Dr. Kemar Gupta can resume patient's Aspirin and Eliquis if patient really needs it -- on 10/19/23 and 10/20/23 discussed with cardiology
and vascular surgery for guidance regarding continuing Aspirin vs. Eliquis vs. both -- and their recommendation was to continue the Eliquis, but hold Aspirin for now
#Multifactorial Anemia (secondary to blood loss (possible GI bleed, wound bleeding), on Eliquis for A-fib, as well as AoCD in the setting of recent osteomyelitis as well as possibly CKD)
#Indirect bilirubinemia
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 Haptoglobin normal.
Continue to monitor H&H and bowel movements, Eliquis was resumed on 10/19/23
Consulted hematology, appreciate evaluation and recommendations
Appreciate hematology ordering iron studies, since ferritin > 100,hematology recommended against treating with any iron
#Cough
-Wondering if fluid overload or CHF
-Could be from recent COVID-19 infection
-Cardiology consulted, continue home dose of Lasix
#PAD
#Recent OM
Podiatry consult: no significant bleeding from the wound
#Afib, unspecified
#SSS s/p PPM
#CAD s/p CABG
cont rate control
telemetry
cont home med Coreg starting on 10/20/23
Resumed Eliquis on 10/19/23
#BPH
Watch for retention as Flomax held
#Gout
#Hypothyroidism
cont home meds
#COVID-19
tested positive reportedly 1 to 2 weeks ago
repeated test neg
no need for isolation
#LENA
CPAP @HS as needed
DVT PPx: Eliquis
Code Status: DNR (see 'Update Note' from October 18, 2023)
Anticipated Discharge: 24 - 48 hours
Subjective/Interval History
-
Date of Service: October 22, 2023
Patient was seen and examined. He denied any new significant complaints, except some wet cough.
Objective Data
-
Labs:
Laboratory Results
10/22/23
08:39
WBC 8.3
Hgb 8.2 L
Hct 24.3 L
Plt Count 183
Sodium 136
Potassium 4.1
Chloride 106
Carbon Dioxide 23
BUN 40 H
Creatinine 1.4 H
Glucose 74
Calcium 8.2 L
Total Bilirubin 2.1 H
AST 22
ALT 13
Alkaline Phosphatase 72
Vital Signs:
Vital Signs
Temp Pulse Resp BP Pulse Ox
98.5 F 60 16 103/56 97
10/22/23 16:20 10/22/23 16:20 10/22/23 16:20 10/22/23 16:20 10/22/23 16:20
I&O
10/21/23 10/22/23 10/23/23
06:59 06:59 06:59
Intake Total 1320 / 1320 1220 / 1220 1200 / 1200
Output Total 450 / 450 800 / 800 400 / 400
Balance 870 / 870 420 / 420 800 / 800
[2023-10-23 02:58] VITALS: BP 120/62
[2023-10-23] MEDS: SYNTHROID 75 MCG PO (05:55)
[2023-10-23 06:00] VITALS: BMI 22.4
[2023-10-23 07:30] VITALS: BP 108/71
[2023-10-23 08:03] LABS: Hematocrit 24.4 % (39.0-52.0); Hemoglobin 8.2 g/dL (13.0-18.0); Mean Corp Hgb Conc. 33.6 g/dL (33.0-37.0); Mean Corpuscular Hgb 29.9 pg (27.0-31.0); Mean Corpuscular Volume 89.1 fL (80.0-94.0); Mean Platelet Volume 8.6 fL (7.4-10.4); Platelet Count 181 10^3/uL (130-400); Red Blood Cell Count 2.74 10^6/uL (4.70-6.10); Red Cell Dist. Width 16.3 % (11.5-14.5); White Blood Cell Count 8.4 10^3/uL (4.8-10.8)
[2023-10-23 08:45] LABS: ALT (SGPT) 12 U/L (0-50); AST (SGOT) 20 U/L (17-59); Albumin 2.5 g/dl (3.5-5.0); Alkaline Phosphatase 77 U/L (38-126); Blood Urea Nitrogen 38 mg/dl (9-20); Calcium 8.3 mg/dl (8.4-10.2); Carbon Dioxide 24 mmol/L (22-30); Chloride 106 mmol/L (98-107); Estimated Creatinine Clearance 39 ml/min; Glucose 75 mg/dl (70-99); Magnesium 1.7 mg/dl (1.6-2.3); Potassium 4.1 mmol/L (3.5-5.1); Sodium 139 mmol/L (135-145); Total Bilirubin 1.7 mg/dl (0.2-1.3); Total Protein 5.5 g/dl (6.3-8.2); eGFR 45.62
[2023-10-23] MEDS: COREG 25 MG PO (09:05)
[2023-10-23] MEDS: ELIQUIS 5 MG PO (09:09)
[2023-10-23] MEDS: LASIX 20 MG PO (09:09)
[2023-10-23] MEDS: FOLVITE 1 MG PO (09:09)
[2023-10-23] MEDS: PROTONIX IV 40 MG IV (09:09)
[2023-10-23] MEDS: FLOMAX 0.4 MG PO (09:09)
[2023-10-23] MEDS: ZYLOPRIM 300 MG PO (09:10)
[2023-10-23] MEDS: NSS (PRESERVATIVE FREE) 10 ML IV (09:10)
[2023-10-23 11:15] VITALS: BP 118/55; PULSE 63; O2SAT 98
[2023-10-23] MEDS: MUCINEX 1200 MG PO (11:40)
[2023-10-23 12:15] VITALS: BP 113/58
--- NOTE | 2023-10-23 12:15 | W.PN.HOSP.TC ---
Today's Communication/Plan
-
Discharge today
Assessment / Plan
Assessment / Plan
Physical Exam
General: No Apparent Distress
HEENT: Normocephalic and Atraumatic
Respiratory: Clear to Auscultation
Cardiac: Irregular Rhythm
GI: Soft, Nontender and Nondistended. Positive bowel sounds.
Musculoskeletal: No Cyanosis and No Edema
Skin: Warm
Neuro: Awake, Alert, Oriented and AO x 3
Psych: Calm

A/P
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 His hgb 4.5 with his previous on discharge to be >8. He had 2
units of PRBC transfused on his past admission due to ongoing bleeding from his wound. This time in ED found FOBT positive stool. Received 4 units of PRBC in first 24h from admission. Patient has a remote history of EGD and colonoscopy in 2020 for
anemia without significant findings
#Acute blood lose anemia with impending hemorrhagic shock 2/2 GIB on chronic bleeding from wound
#Acute blood loss is related to/associated with/exacerbated by Eliquis.
#PENNY
#Black Stool initially from iron patient was taking
#Bleeding from wound
Hold Aspirin - patient aware of increased risk of stroke and worsening CAD, however with severe anemia - accepted it. Previously resumed Eliquis after discussing with cardiology and vascular surgery on 10/19/23 and 10/20/23, via [place] [employer].
INR goal <1.8
Resumed home Coreg on 10/20/23 (plan was to resume anti-HTN meds when clinically safe to with SBP>100mmHg for >12-18 hrs)
Two large bore IV and transfuse PRBC for Hgb around 8, and platelets >50k serial H&H -- received at least 5 PRBC transfusions this admission
Follow Ca, consider supplementation of low
Replete electrolytes with K>4, Mg>2
PPI 40 mg PO BID -- check with gastroenterology office (Dr. Gupta's office) regarding how long you should be on PPI
GI consulted: EGD from 10/19/23 showed gastritis and very thick yellow mucus coming down from the oropharynx to the stomach
Discussed (with Dr. Kemar Gupta from GI) on 10/19/23 about restarting patient's Eliquis and Aspirin, and per Dr. Kemar Gupta can resume patient's Aspirin and Eliquis if patient really needs it -- on 10/19/23 and 10/20/23 discussed with cardiology
and vascular surgery for guidance regarding continuing Aspirin vs. Eliquis vs. both -- and their recommendation was to continue the Eliquis, but hold Aspirin for now
#Multifactorial Anemia (secondary to blood loss (possible GI bleed, wound bleeding), on Eliquis for A-fib, as well as AoCD in the setting of recent osteomyelitis as well as possibly CKD)
#Indirect bilirubinemia
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 Haptoglobin normal.
Continue to monitor H&H and bowel movements, Eliquis was resumed on 10/19/23
Consulted hematology, appreciate evaluation and recommendations
Appreciate hematology ordering iron studies, since ferritin > 100,hematology recommended against treating with any iron
#Cough
-Could be from recent COVID-19 infection, bronchitis
-Mucinex
-Cardiology consulted, continue home dose of Lasix
#PAD
#Recent OM
Podiatry consult: no significant bleeding from the wound
#Permanent Afib
#SSS s/p PPM
#CAD s/p CABG
cont rate control
telemetry
cont home med Coreg starting on 10/20/23
Resumed Eliquis on 10/19/23
#HFimpEF: chronic
Continue home Lasix
Daily weights
#BPH
Watch for retention as Flomax held
#Gout
#Hypothyroidism
cont home meds
#COVID-19
tested positive reportedly 1 to 2 weeks ago
repeated test neg
no need for isolation
#History of MV repair
#LENA
CPAP @HS as needed
DVT PPx: Eliquis
Code Status: DNR (see 'Update Note' from October 18, 2023)
More than 30 minutes spent in discharge including
Final examination of the patient
Summarizing hospital stay
Instructions for continuing care to all relevant caregivers
Preparation of discharge records, prescriptions, and referral forms
Total time spent (in minutes): 40
Anticipated Discharge: Today
Subjective/Interval History
-
Date of Service: October 23, 2023
Patient was seen and examined. He reported cough, but otherwise denied any other new, significant symptoms or complaints.
Objective Data
-
Labs:
Laboratory Results
10/23/23
07:49
WBC 8.4
Hgb 8.2 L
Hct 24.4 L
Plt Count 181
Sodium 139
Potassium 4.1
Chloride 106
Carbon Dioxide 24
BUN 38 H
Creatinine 1.5 H
Glucose 75
Calcium 8.3 L
Total Bilirubin 1.7 H
AST 20
ALT 12
Alkaline Phosphatase 77
Vital Signs:
Vital Signs
Temp Pulse Resp BP Pulse Ox
97.9 F 65 16 108/71 98
10/23/23 07:30 10/23/23 07:30 10/23/23 07:30 10/23/23 07:30 10/23/23 07:30
I&O
10/22/23 10/23/23 10/24/23
06:59 06:59 06:59
Intake Total 1220 / 1220 1200 / 1200 240 / 240
Output Total 800 / 800 400 / 400 200 / 200
Balance 420 / 420 800 / 800 40 / 40
--- NOTE | 2023-10-23 13:14 | CM ---
Addendum entered by NATALIA Levin 10/23/23 15:28:
Received notification from [facility] community services officer, that acute care stated that patient does not meet criteria for ambulance. Provided patient's with the # for transportation and she stated that she will call and make payment for w/c.
Original Note:
Reviewed chart, received message from attending that patient is medically cleared for discharge. Placed a call to Mildred in admissions at [facility] who confirmed bed for patient.
Placed a call to [facility] and spoke with a premium representative named, Leonela, who took clinical and provided auth [id number] for 5 days skilled NRD 10/26 concurrent review should be called in to [phone].
Called Mildred in admissions at [facility] to relay above information.
# For report, and fax # [phone]
Patient's spouse called and asked to speak to attending. Messaged attending.
Plan: Case management will continue to follow to and assist with discharge planning/transfer to [facility].
[2023-10-23] MEDS: MAGNESIUM SULFATE 102 GRAMS IV (13:41)
--- NOTE | 2023-10-23 13:43 | W.DCSUMMARY ---
Discharge Summary
Discharge Data
Date of Admission: 10/15/23
Date of Discharge: 10/23/23
Total time spent discharging patient (in min): 40
-
Pending Results: No
Hospital Course
83 y/o male with past medical history of atrial fibrillation on Eliquis, PAD s/p revascularization, L foot OM s/p 5th metatarsal resection on 09/30/23, SSS s/p PPM, falls, CKD, anemia, CAD s/p CABG, and hypertension brought from rehab with anemia. His
hgb was 4.5 with his previous Hgb on discharge to be >8. He had 2 units of packed red blood cells transfused on his past admission due to ongoing bleeding from his wound. This time in ED, he was found to have FOBT-positive stool, that was melanotic,
however patient was noted to be on iron. Patient was admitted to the intensive care unit, Protonix Drip started, Eliquis held and he received a total of 6 units of packed red blood cells during his hospitalization. Patient's antihypertensive
medications were also held. Podiatry was consulted and it was noted that a possible source of his bleeding were associated with multiple skin tears and abrasions noted to his legs and feet- mostly superficial and secondary to fragile skin, possibly
also related to left foot debridement earlier in September 2023. Patient and his requested change in code status from Full Code to DNR. Upper EGD was done showing, as per embedded software test engineer's note, 'Very thick yellow mucus coming from oropharynx
into esophagus. Otherwise EGD unremarkable. would not pursue any other GI w/u at this time. Black initial stool likely from iron he was initially taken.....' Hematology was consulted and mentioned that patient's 'Clinical picture most suggestive of
anemia of blood loss (GI bleed, wound bleeding), on Eliquis for afib, as well as AoCD n the setting of recent osteomyelitis. CKD could also be contributory.' Cardiology was consulted for concerns for a possible heart failure, but they mentioned that
he did not have acute CHF, and advised to continue home Lasix.
Discharge Plan
-
Patient Disposition: [facility]
Discharge Diagnosis/Procedures: #Acute blood lose anemia with impending hemorrhagic shock 2/2 GIB on chronic bleeding from wound
#Acute blood loss is related to/associated with/exacerbated by Eliquis.
#PENNY
#Black Stool initially from iron patient was taking
#Bleeding from foot wound (left foot skin tears were bleeding)
#Multifactorial Anemia (secondary to blood loss (possible GI bleed, foot wound bleeding), on Eliquis for A-fib, as well as AoCD in the setting of recent osteomyelitis as well as possibly CKD)
#Indirect bilirubinemia
#Cough
#Peripheral Artery Disease
#Recent OM
#Permanent Atrial Fibrillation
#SSS s/p PPM
#CAD s/p CABG
#HFimpEF: chronic
#BPH
#Gout
#Hypothyroidism
#COVID-19
#History of MV repair
#LENA
#EGD from 10/19/23 showed gastritis and very thick yellow mucus coming down from the oropharynx to the stomach
Chest X-Ray Results (as per radiologist's report)
'IMPRESSION:
Stable mild left lower lung field atelectasis versus scarring.'
Second Chest X-Ray Results (as per radiologist's report)
'IMPRESSION:
No acute disease of the chest.
Improved minimal left lower lung atelectasis'
Third Chest X-Ray Results (as per radiologist's report)
'IMPRESSION:
Decreased left basilar atelectasis.
Trace bilateral pleural effusions.'
Condition: Fair
Diet: Low Fat, 2 Gram Sodium and Restrict fluids to 64 oz
Activity: As tolerated
Driving Restrictions: No driving
Blood Work: Recheck CBC, CMP and Magnesium in 3 to 5 days and ensure outpatient doctors keep potassium at least 4 (and within normal range) and magnesium at least 2 (and within normal range). Also check vitamin B12 levels.
Other Services: PT and OT
Wound Care: xeroform to LLE wounds qod, post cleanse w/nss, cover with mepilex foam dressing LLE and re cover with tubigrips size D/E from toes to below knee, xeroform dressing left great toe daily, offload heels at hs. reress wounds post shower
Specialty Instructions: Weigh Daily- Call MD for wt gain/loss 3 lbs overnight/5 lbs in 1 week
Activity Restrictions/Additional Instructions:
weight bearing as tolerated in sneakers
Referrals:
Kemar Gupta MD [Active] - in two to three weeks (Hospital follow-up)
Elias Doss MD [Active] - in four to six weeks (Hospital follow-up)
Lexie Underwood MD [Active] - in two to four weeks (Hospital anemia follow-up)
Karan Horta MD [Family Provider] - in less than 1 week
Rae Shaffer DPM [Active] - in one to two weeks (Wound recheck )
Additional Discharge Medication Instructions: Aspirin 81 mg daily stopped due to your severe anemia -- check with your outpatient insurance coder whether or not you should resume this medication in the near future.
Pantoprazole is a new medication -- check with gastroenterology office (Dr. Kemar Gupta's office) to find out how long you should be on pantoprazole, and if needed, obtain refills from gastroenterology office.
Enalapril held given your soft (but improved) blood pressures. Check with outpatient physician if and when this medication should be resumed.
Ferrous Sulfate held - check with outpatient physician if and when this medication should be resumed.
Prescriptions:
New
guaifenesin 600 mg Tablet Extended Release 12hr
1,200 mg PO Q12 Qty: 10 0RF
pantoprazole [Protonix] 40 mg tablet,delayed release (/EC)
40 mg PO BID Qty: 30 0RF
Continued
levothyroxine 75 MCG tablet
75 mcg PO DAILY
ascorbic acid (vitamin C) [Vitamin C] 500 MG tablet
500 mg PO DAILY
allopurinol 300 MG tablet
300 mg PO DAILY
furosemide 20 mg Tablet
20 mg PO DAILY
Eliquis 5 mg Tablet
5 mg PO BID
carvedilol 25 mg tablet
25 mg PO BID
tamsulosin 0.4 mg capsule
0.4 mg PO BID
acetaminophen 325 mg Tablet
650 mg PO Q6HPRN MDD 3000 mg PRN (Reason: mild pain/fever >100)
guaifenesin 100 mg/5 mL Liquid
200 mg PO Q4HPRN PRN (Reason: cough)
magnesium hydroxide [Milk of Magnesia] 400 mg/5 mL Suspension
400 mg PO HSPRN PRN (Reason: no bm 2 days)
bisacodyl [Dulcolax (bisacodyl)] 10 mg Suppository
10 mg [place] DAILYPRN PRN (Reason: no bm 3 days)
Fleet Enema 19-7 gram/118 mL Enema
118 ml [place] DAILYPRN PRN (Reason: no bm 4 days)
folic acid 1 mg Tablet
1 mg PO DAILY
polyvinyl alcohol-povidone 0.5-0.6 % Drops
1 drp BOTH EYES Q6HPRN PRN (Reason: dry eyes)
Held
enalapril maleate 20 mg tablet
20 mg PO BID
Hold Instructions: Resume on 10/30/23. Please check with your outpatient physicians to determine whether or not you can resume this medication.
ferrous sulfate [FeroSul] 325 mg (65 mg iron) Tablet
325 mg PO DAILY 30 Days Qty: 30 0RF
Hold Instructions: Resume on 10/30/23. Please check with your outpatient physicians to determine whether or not you can resume this medication.
Discontinued
aspirin 81 mg Tablet,Chewable
81 mg PO DAILY 30 Days Qty: 30 0RF
Discharge Orders:
Discharge Patient (As Directed); Ordered 10/23/23
Ordered By: Chaparro Roberts
Discharge Date and Time
Discharge Date/Time: 10/23/23 17:02
Print Language: INDONESIAN
--- NOTE | 2023-10-23 15:10 | W.PN.UPDATE ---
Update Note
Progress Note Update
The patient was seen today prior to discharge to SNF per request.
Patient states he 'feels ok' today. Denies F/C/N/M
Incision site remains C/D/I and sutures had been DC last week when he was admitted to .
There is a wound to the distal left great toe, and 2 stasis ulcers to the LLE. There are no signs of infection to these wounds.
+ bloody drainage only, involves dermis and subcutaneous tissue and is 100% granular. No purulence. No cellulitis
A/P
1-PAD S/P angio and revasc LLE
2-H/O fall- gait dysfunction and LE weakness
-OK from surgical standpoint to resume sneakers for PT, WBAT w/ walker assist
3-Full thickness wounds LLE and Left great toe
-wound care orders written on DC form, xeroform to wounds qod, all wounds cleansed, examined and redressed
4-At risk for decubiti- offload and protect heels
Will see post DC from SNF
[2023-10-23 15:30] VITALS: BP 96/53
== END 2023-10-23 17:02 | DRG 812 ==
LOC: 3 WEST ACU 16:53
PROVIDERS: Internal Medicine; Nurse Practitioner Primary Care; Registered Nurse; ADMITTING PHYSICIAN Internal Medicine; ATTENDING PHYSICIAN Hospitalist; CONSULT PHYSICIAN Internal Medicine; CONSULT PHYSICIAN Internal Medicine Critical Care Medicine; CONSULT PHYSICIAN Podiatrist Foot & Ankle Surgery; CONSULT PHYSICIAN Specialist; EMERGENCY PHYSICIAN Emergency Medicine; FAMILY PHYSICIAN Internal Medicine; OTHER PHYSICIAN Internal Medicine Hematology & Oncology
PROC: 30233N1 Transfusion of Nonautologous Red Blood Cells into Peripheral Vein, Percutaneous Approach (ICD-10-PCS; 2023-10-15)
PROC: 0H9NXZZ Drainage of Left Foot Skin, External Approach (ICD-10-PCS; 2023-10-16)
PROC: 0DJ08ZZ Inspection of Upper Intestinal Tract, Via Natural or Artificial Opening Endoscopic (ICD-10-PCS; 2023-10-19)
DX: D62 Acute posthemorrhagic anemia (principal); E87.1 Hypo-osmolality and hyponatremia; I13.0 Hypertensive heart and chronic kidney disease with heart failure and stage 1 through stage 4 chronic kidney disease, or unspecified chronic kidney disease; I48.21 Permanent atrial fibrillation; I50.32 Chronic diastolic (congestive) heart failure; J98.11 Atelectasis; N18.4 Chronic kidney disease, stage 4 (severe); D68.32 Hemorrhagic disorder due to extrinsic circulating anticoagulants; L02.612 Cutaneous abscess of left foot; Z66 Do not resuscitate; I25.10 Atherosclerotic heart disease of native coronary artery without angina pectoris; E03.9 Hypothyroidism, unspecified; E78.5 Hyperlipidemia, unspecified; E86.1 Hypovolemia; G47.33 Obstructive sleep apnea (adult) (pediatric); I27.20 Pulmonary hypertension, unspecified; I49.5 Sick sinus syndrome; I73.9 Peripheral vascular disease, unspecified; N40.0 Benign prostatic hyperplasia without lower urinary tract symptoms; M10.9 Gout, unspecified; I95.9 Hypotension, unspecified; D50.9 Iron deficiency anemia, unspecified; R26.89 Other abnormalities of gait and mobility; E80.4 Gilbert syndrome; K29.70 Gastritis, unspecified, without bleeding; R05.9 Cough, unspecified; S80.812A Abrasion, left lower leg, initial encounter; S90.812A Abrasion, left foot, initial encounter; T45.515A Adverse effect of anticoagulants, initial encounter; X58.XXXA Exposure to other specified factors, initial encounter; Z89.432 Acquired absence of left foot; Z95.1 Presence of aortocoronary bypass graft; Z86.16 Personal history of COVID-19; Z88.8 Allergy status to other drugs, medicaments and biological substances; Z95.0 Presence of cardiac pacemaker; Z79.890 Hormone replacement therapy; Z79.01 Long term (current) use of anticoagulants; Z79.82 Long term (current) use of aspirin; Z79.899 Other long term (current) drug therapy
CPT/HCPCS: 36415; 36430; 71045; 71046; 80048; 80053; 82248; 82728; 83010; 83540; 83550; 83615; 83735; 83880; 84100; 84132; 84443; 85014; 85018; 85025; 85027; 85045; 85610; 85730; 86850; 86900; 86901; 86920; 87811; 92610; 93005; 93306; 96365; 96366; 96375; 97110; 97116; 97163; 97167; 97530; 97535; 99291; P9016

== ENCOUNTER 2023-11-10 02:57 | Observation (INO) | payer OTHER, SELFPAY ==
[2023-11-09 20:46] VITALS: BP 136/62
[2023-11-09 21:00] VITALS: BP 136/62
[2023-11-09 21:09] LABS: % Basophils 0.8 % (0-2); % Eosinophils 16.4 % (0-6); % Immature Granulocytes 0.3 % (0-0.5); % Monocytes 8.8 % (1.7-9.3); % Neutrophils 55.7 % (42.2-75.2); Absolute Basophils 0.1 10^3/uL (0-0.2); Absolute Lymphocytes 1.1 10^3/uL (1.2-3.4); Absolute Monocytes 0.5 10^3/uL (0.1-0.6); Absolute Neutrophils 3.4 10^3/uL (1.4-6.5); Hematocrit 22.3 % (39.0-52.0); Hemoglobin 7.6 g/dL (13.0-18.0); Mean Corp Hgb Conc. 34.1 g/dL (33.0-37.0); Mean Corpuscular Volume 88.1 fL (80.0-94.0); Mean Platelet Volume 8.9 fL (7.4-10.4); Nucleated Red Blood Cells % 0 % (-); Platelet Count 188 10^3/uL (130-400); Red Blood Cell Count 2.53 10^6/uL (4.70-6.10); White Blood Cell Count 6.1 10^3/uL (4.8-10.8)
[2023-11-09 21:46] LABS: ALT (SGPT) 13 U/L (0-50); AST (SGOT) 24 U/L (17-59); Alkaline Phosphatase 90 U/L (38-126); Blood Urea Nitrogen 35 mg/dl (9-20); Calcium 8.8 mg/dl (8.4-10.2); Carbon Dioxide 21 mmol/L (22-30); Chloride 101 mmol/L (98-107); Estimated Creatinine Clearance 35 ml/min; Glucose 108 mg/dl (70-99); Potassium 4.1 mmol/L (3.5-5.1); Sodium 136 mmol/L (135-145); Total Bilirubin 0.9 mg/dl (0.2-1.3); Total Protein 6.3 g/dl (6.3-8.2); eGFR 39.26
--- NOTE | 2023-11-09 21:55 | ED.GENMED ---
History of Present Illness
General
Chief Complaint: Abnormal Lab Value
Source: patient
Exam Limitations: none
Time Seen by Provider: 11/09/23 21:19
Nursing documentation reviewed up to this point in time: agreed with
History of Present Illness
History of Present Illness:
Patient is an 83-year-old male on Eliquis for A-fib status post foot surgery September 2023, pacemaker chronic kidney disease history of anemia bypass presents to the ER for evaluation of low hemoglobin. Patient was sent by [facility] for
evaluation. He has no complaints. Patient is on Eliquis.
Past History
Past History
ED Past Medical History: Arrthythmia (afib on Coumadin), CAD, HTN, Hypothyroidism and Other (a fibrillation, HTN, hyperlipidemia, heart valve replacement, pacemaker, renal insufficiency, hyponatremia)
ED Past Surgical History: Cardiac (pacemaker)
Social History
Tobacco: Non-smoker
Alcohol: None
Drug: None
Personal:
Living: with family
Review of Systems
Review of Systems
Allergies reviewed?: Yes
All Other Systems: ROS reviewed and negative except as documented in HPI and ROS
Constitutional: Reports no symptoms; Denies fever or fatigue
Respiratory: Reports no symptoms
Cardiac: Reports no symptoms
ABD/GI: Reports no symptoms; Denies nausea, vomiting or diarrhea
Musculoskeletal: Reports no symptoms
Skin: Reports no symptoms
Neurological: Reports no symptoms
Psychiatric: Reports no symptoms
Phy Exam
General Physical Exam
General Presentation: no apparent distress
General age: appears stated age
General Skin: warm and dry
General Habitus: elderly
General Mental: alert
General Hydration: appears well hydrated
Cardiovascular Exam
Cardiovascular Exam: regular rate/rhythm, no murmur and normal peripheral pulses
Pulmonary Exam
Pulmonary Exam: lungs clear and no respiratory distress
Gastrointestinal Exam
Gastrointestinal Exam: other (Black stools(on iron) trace heme positive)
Neurological Exam
Neurological Exam: alert and oriented x3
Musculoskeletal Exam
Musculoskeletal Exam: full ROM and other (Healing wound to left foot)
Skin Exam
Skin Exam: normal color and warm/dry
Psychiatric Exam
Psychiatric Exam: normal mood/affect
Course
Orders/Labs/Results
Orders:
Orders
11/09/23 21:00
Type+Screen Urgent
CBC/With Diff [Complete Blood Count/With Diff] Urgent
CMP [Comprehensive Metabolic Panel] Urgent
11/09/23 22:18
Electrocardiogram (*1) Stat
Reason for Study: Other
Other Reason for Exam: chest pain
Cardiac Monitoring- Treatment ONCE
EKG- Treatment ONCE
Abnormal Lab Results
11/09/23
21:00
RBC 2.53 L 10^6/uL
(4.70-6.10)
Hgb 7.6 L g/dL
(13.0-18.0)
Hct 22.3 L %
(39.0-52.0)
RDW 16.0 H %
(11.5-14.5)
Absolute Lymphs (auto) 1.1 L 10^3/uL
(1.2-3.4)
Absolute Eos (auto) 1.0 H 10^3/uL
(0-0.7)
Lymphocytes % 18.0 L %
(20.5-51.1)
Eosinophils % 16.4 H %
(0-6)
Carbon Dioxide 21 L mmol/L
(22-30)
BUN 35 H mg/dl
(9-20)
Creatinine 1.7 H mg/dL
(0.7-1.3)
Glucose 108 H mg/dl
(70-99)
Albumin 3.0 L g/dl
(3.5-5.0)
11/09/23 21:00
11/09/23 21:00
Vital Signs
Initial and Last Documented VS:
Initial Vital Signs
Temp Pulse Resp BP Pulse Ox
97.8 F 60 18 136/62 100
11/09/23 20:46 11/09/23 20:46 11/09/23 20:46 11/09/23 20:46 11/09/23 20:46
Last Documented Vital Signs
Temp Pulse Resp BP Pulse Ox
97.8 F 59 18 122/58 99
11/09/23 20:46 11/09/23 22:45 11/09/23 21:15 11/09/23 22:00 11/09/23 22:00
MDM/Problems Addressed
Differential Diagnosis Includes:
Not limited to GI bleed, anemia
MDM/Problems Addressed:
Patient is an 83-year-old male with past medical history of A-fib on Eliquis history of GI bleed in the past presents to the ER for low hemoglobin. Patient's hemoglobin is 7.6. He has no complaints his source dark black he is on iron however trace
heme positive with low hemoglobin and trace heme positive stools with admit for further evaluation monitoring. Patient does have chronic kidney disease in addition which also may affect hemoglobin however we will continue to monitor 8
Chronic conditions affecting care:
A-fib on Eliquis history of GI bleed on iron renal disease
*Pulse Oximetry
Patient hypoxic: no
*EKG
Interpreted by ED Provider?: Yes
Heart Rate: 60
Rate: normal
Rhythm: ventricular paced
*Critical Care Note
Total Time (30-74mins, 75-104mins- exclusive of procedures): Not Applicable
ED Attending Note
-
Portions of this chart may have been created with voice recognition software.� Occasional wrong word or��sound alike� substitutions may have occurred due to the inherent limitations of voice recognition software.
Discharge Plan
Departure
Patient Disposition: Admit
Date of Disposition: 11/09/23
Time of Disposition: 23:42
Admit to: Med/Surg
Admit to doctor: hospitalist
Presentation/result/management discussed w/ accepting MD/DO: Hospitalist
Patient with high blood pressure during this ER visit?: No
Condition: Fair
Covid-19: Not Applicable
Discharge Problem:
Anemia
Prescriptions:
No Action
levothyroxine 75 MCG tablet
75 mcg PO DAILY
ascorbic acid (vitamin C) [Vitamin C] 500 MG tablet
500 mg PO DAILY
allopurinol 300 MG tablet
300 mg PO DAILY
furosemide 20 mg Tablet
20 mg PO DAILY
Eliquis 5 mg Tablet
5 mg PO BID
carvedilol 25 mg tablet
25 mg PO BID
enalapril maleate 20 mg tablet
20 mg PO BID
tamsulosin 0.4 mg capsule
0.4 mg PO BID
ferrous sulfate [FeroSul] 325 mg (65 mg iron) Tablet
325 mg PO DAILY 30 Days Qty: 30 0RF
acetaminophen 325 mg Tablet
650 mg PO Q6HPRN MDD 3000 mg PRN (Reason: mild pain/fever >100)
guaifenesin 100 mg/5 mL Liquid
200 mg PO Q4HPRN PRN (Reason: cough)
magnesium hydroxide [Milk of Magnesia] 400 mg/5 mL Suspension
400 mg PO HSPRN PRN (Reason: no bm 2 days)
bisacodyl [Dulcolax (bisacodyl)] 10 mg Suppository
10 mg [place] DAILYPRN PRN (Reason: no bm 3 days)
Fleet Enema 19-7 gram/118 mL Enema
118 ml [place] DAILYPRN PRN (Reason: no bm 4 days)
folic acid 1 mg Tablet
1 mg PO DAILY
polyvinyl alcohol-povidone 0.5-0.6 % Drops
1 drp BOTH EYES Q6HPRN PRN (Reason: dry eyes)
guaifenesin 600 mg Tablet Extended Release 12hr
1,200 mg PO Q12 Qty: 10 0RF
pantoprazole [Protonix] 40 mg tablet,delayed release (DR/EC)
40 mg PO BID Qty: 30 0RF
Referrals:
Karan Horta MD [Family Provider] -
Interventions
Interventions:
*Risk Screen - Suicide Last Done: 11/09/23 20:46
*General Assessment Last Done: 11/09/23 20:46
*Neglect/Abuse Screening Last Done: 11/09/23 20:46
Discharge Date and Time
Print Language: MONEGASQUE
[2023-11-09 22:00] VITALS: BP 122/58
[2023-11-09 23:00] VITALS: BP 140/62
[2023-11-10] VITALS (12 sets, daily range): BP systolic 117–144; BP diastolic 54–77; BMI 22.2
--- NOTE | 2023-11-10 02:21 | HPS.HSE ---
Family Physician
-
Family Physician: Karan Horta
Chief Complaint
-
Patient sent to the emergency department from rehab for low hemoglobin.
History of Present Illness
This is an 83 y/o male with past medical history of atrial fibrillation on Eliquis, PAD s/p revascularization, L foot OM s/p 5th metatarsal resection on 09/30/23, SSS s/p PPM, falls, CKD, anemia, CAD s/p CABG, and hypertension brought from rehab with
anemia. Hemoglobin was measured at 6.8 today. His prior hemoglobin on October 27 was 8.1.
Patient was hospitalized approximately 20/2 weeks ago with severe anemia and a hemoglobin of 4.5, found to have FOBT-positive stool, that was melanotic, however patient was noted to be on iron. Possibly hemorrhagic shock requiring resuscitation
with transfusion, Protonix. Source of bleeding was unclear and was thought to be secondary to multiple skin tears and abrasions and was related to his left foot debridement. He did have EGD which was negative for bleeding at the time. Patient
reports multiple prior EGDs as well as colonoscopy for anemia that has shown no evidence of intra luminal bleeding. He was placed back on his Eliquis and discharged to the rehab facility with continuation of iron supplementation.
Patient himself denies any abdominal pain nausea vomiting hematemesis or hematochezia. He reports black stools but is on iron supplementation. He denies feeling dizzy or lightheaded. He denies any noticing any kwame bleeding from his lower
extremities. He does notice ongoing bruising throughout his skin.
On arrival in the Emergency Department he was normotensive with a blood pressure of 128/60, heart rate was 60 paced oxygen saturation was 90% on room air. He was afebrile. ECG shows V paced rhythm at 60. Hemoglobin was 7.6 on measurement here.
He is chemistries were unremarkable with a BUN of 35 and creatinine of 1.7
Medical History
Past Medical History
Past Medical History: Reports Arrhythmia (atrial fibrillation), CHF, HTN and Hypothyroidism
Additional Past Medical History:
CKD
Anemia
LENA
Past Surgical History: Reports Orthopedic
Social History
Tobacco: Non-smoker
Alcohol: None
Drug: None
Living: Custodial
Employment: Retired
Family History
Family History: Not pertinent
Allergies / Home Medications
Allergies reflects when Allergies were last updated in [employer]
Home Medications with original date entered in [employer]
Allergy/Medication List:
Allergies
Allergy/AdvReac Type Severity Reaction Status Date / Time
Iukoksq-[id number]-GgG Reductase Allergy Unknown Verified 11/09/23 20:45
Inhibitor
[Gwoatwx-Mij-Tfj Reductase
Inhibitor]
Home Medications
allopurinol 300 mg tablet 300 mg PO DAILY Gout 12/18/19
ascorbic acid (vitamin C) 500 mg tablet (Vitamin C) 500 mg PO DAILY Supplement 12/18/19
levothyroxine 75 mcg tablet 75 mcg PO DAILY Thyroid 12/18/19
apixaban 5 mg tablet (Eliquis) 5 mg PO BID Blood Clot Prevention/Tx 03/02/23
carvedilol 25 mg tablet 25 mg PO BID Blood Pressure 03/02/23
enalapril maleate 20 mg tablet 20 mg PO BID Blood Pressure 03/02/23
furosemide 20 mg tablet 20 mg PO DAILY Fluid Retention/Swelling 03/02/23
tamsulosin 0.4 mg capsule 0.4 mg PO BID Urinary Issue 03/02/23
ferrous sulfate 325 mg (65 mg iron) tablet (FeroSul) 325 mg PO DAILY 30 days #30 tabs 10/03/23
acetaminophen 325 mg tablet 650 mg PO Q6HPRN PRN mild pain/fever >100 10/15/23
bisacodyl 10 mg rectal suppository (Dulcolax (bisacodyl)) 10 mg [place] DAILYPRN PRN if mom is ineffective 10/15/23
folic acid 1 mg tablet 1 mg PO DAILY Supplement 10/15/23
guaifenesin 100 mg/5 mL oral liquid 200 mg PO Q4HPRN PRN cough 10/15/23
magnesium hydroxide 400 mg/5 mL oral suspension (Milk of Magnesia) 400 mg PO HSPRN PRN if no bm x 3 days 10/15/23
polyvinyl alcohol-povidone 0.5 %-0.6 % eye drops 1 drp BOTH EYES Q6HPRN PRN dry eyes 10/15/23
sodium phosphates 19 gram-7 gram/118 mL enema (Fleet Enema) 118 ml [place] DAILYPRN PRN if dulcolax is ineffective 10/15/23
pantoprazole 40 mg tablet,delayed release (Protonix) 40 mg PO BID #30 tabs 10/23/23
diclofenac sodium 1 % topical gel 1 ea topical BID 11/09/23
guaifenesin 400 mg tablet 1,200 mg PO Q12H 11/09/23
Review of Systems
-
History Source: Patient
Constitutional: Reports No Symptoms
EENT: Reports No Symptoms
Respiratory: Reports No Symptoms
Cardiac: Reports No Symptoms
Abdomen/GI: Reports No Symptoms
: Reports No Symptoms
Musculoskeletal: Reports No Symptoms
Skin: Reports Rash (abrasions)
Neurological: Reports No Symptoms
Endocrine: Reports No Symptoms
Hematologic/Lymphatic: Reports No Symptoms
Psych: Reports No Symptoms
Physical Exam
Vital Signs
Vital Signs
Temp Pulse Resp BP Pulse Ox
97.8 F 60 18 128/67 99
11/09/23 20:46 11/10/23 00:31 11/09/23 21:15 11/10/23 00:00 11/09/23 22:00
Physical Exam
General: Appears Chronically Ill
HEENT: NormoCephalic, Anicteric, Moist mucous membranes and Atraumatic
Respiratory: Clear
Cardiac: S1/S2, Regular Rhythm and JVD
Breast: Deferred by me
GI: Soft, Non Tender, Non Distended and Normal Bowel Sounds
Rectal: Hem Positive
Genito-urinary: Deferred by me
Musculoskeletal: No Clubbing, No Cyanosis, Edema, Left Lower Extremity (2+) and Edema, Right Lower Extremity (2+)
Skin: Warm and Other (LLE blisters and erosion)
Neuro: AO x 3 and Nonfocal/grossly intact
Hematologic/Lymphatic: No Lymphadenopathy
Psych: Calm
Laboratory Results
-
11/09/23 21:00
11/09/23 21:00
Laboratory Results
Total Bilirubin 0.9 mg/dl (0.2-1.3) 11/09/23 21:00
AST 24 U/L (17-59) 11/09/23 21:00
ALT 13 U/L (0-50) 11/09/23 21:00
Alkaline Phosphatase 90 U/L (38-126) 11/09/23 21:00
Data Reviewed
-
Medical Tests (Nuc Med, Echo, EKG etc): Image Personally Visualized and interpreted
Lab Data: Labs Reviewed by me
Impression/Plan
-
IMPRESSION:
Patient sent in from rehab for low hemoglobin.
PLAN:
Anemia -patient with history of anemia hemoglobin around 8 who has been admitted multiple times for transition dependent anemia with concerns for bleeding last admission approximately 20/2 weeks ago with hemoglobin of 4 requiring resuscitation with
multiple units of packed red blood cells. Source of anemia is thought to be secondary to blood loss and iron deficiency. The source of the blood loss is unclear thought to be secondary to his chronic wound. He did have an EGD which was negative
for bleeding source. Patient he is chronically anticoagulated for atrial fibrillation. This anticoagulant anticoagulation was interrupted and is now continued. Patient has no symptoms of acute anemia. Hemoglobin jay jay was recorded as 6.8 today at
the rehab. Repeat hemoglobin here is 7.6. MCV within normal limits. I suspect patient drifted down to 7.6 in setting of iron deficiency and ACD rather than acute blood loss at this time.
- admit to med surg
- repeat Hgb to trend for now
- check iron studies
- patient meets criteria for reducing eliquis to 2.5 bid with age >=80 and Cr > 1.5.
- transfuse for Hgb < 7
- typed and crossed.
- continue ppi bid
CHF - Stable peripheral edema without shortness of breath or hypoxia.
- continue carvedilil, enalaprinl, lasix per home regimen
AFIB - v paced rhythm at 60.
- carvedilol
- ac with eliquis 5 for now, consider cardiology input on reducing dose to 2.5 bid
Hyothyroide
- continue levothyroxine
CKD
- renal function is not markedly changed so will monitor
DVT PPX - on eliquis
Code Status DNR
[2023-11-10] MEDS: SYNTHROID 75 MCG PO (06:22)
--- NOTE | 2023-11-10 06:40 | PTCARENOTE ---
pt is beth dawson. wound care completed. pt oriented to room w/ call phillips in reach.
[2023-11-10 07:54] LABS: Hematocrit 22.5 % (39.0-52.0); Hemoglobin 7.5 g/dL (13.0-18.0); Mean Corp Hgb Conc. 33.3 g/dL (33.0-37.0); Mean Corpuscular Hgb 29.5 pg (27.0-31.0); Mean Corpuscular Volume 88.6 fL (80.0-94.0); Mean Platelet Volume 9.5 fL (7.4-10.4); Platelet Count 216 10^3/uL (130-400); Red Blood Cell Count 2.54 10^6/uL (4.70-6.10); Red Cell Dist. Width 16.1 % (11.5-14.5); White Blood Cell Count 5.6 10^3/uL (4.8-10.8)
[2023-11-10 08:24] LABS: Blood Urea Nitrogen 34 mg/dl (9-20); Calcium 8.8 mg/dl (8.4-10.2); Carbon Dioxide 23 mmol/L (22-30); Chloride 103 mmol/L (98-107); Estimated Creatinine Clearance 36 ml/min; Glucose 83 mg/dl (70-99); Iron 41 ug/dl (49-181); Potassium 4.5 mmol/L (3.5-5.1); Sodium 137 mmol/L (135-145); eGFR 42.22
[2023-11-10 08:33] LABS: Percent Saturation 25 % (20-50); Total Iron Binding Capacity 160 ug/dl (261-462)
[2023-11-10 09:35] LABS: Folate > 20.0 ng/ml (2.76-20); Vitamin B12 > 1000 pg/ml (239-931)
[2023-11-10] MEDS: MUCINEX 1200 MG PO ×2 (11:13→20:27)
[2023-11-10] MEDS: FLOMAX 0.4 MG PO ×2 (11:13→20:27)
[2023-11-10] MEDS: PROTONIX 40 MG PO ×2 (11:13→20:28)
[2023-11-10] MEDS: ZYLOPRIM 300 MG PO (11:13)
[2023-11-10] MEDS: FEOSOL 325 MG PO (11:13)
[2023-11-10] MEDS: FOLVITE 1 MG PO (11:14)
--- NOTE | 2023-11-10 11:14 | WOUNDNOTE ---
L GREAT TOE TIP
--- NOTE | 2023-11-10 11:14 | WOUNDNOTE ---
L MEDIAL LOWER LEG
[2023-11-10] MEDS: COREG 25 MG PO ×2 (11:15→20:28)
[2023-11-10] MEDS: LASIX 20 MG PO (11:15)
--- NOTE | 2023-11-10 11:15 | WOUNDNOTE ---
WON RN note: Patient admitted with Anemia.
See H&P for complete history. Sent from Rehab at [facility].
PMH: CABG, a fib (Eliquis), pacemaker, gout, venous stasis, PAD s/p revascularization L leg, L 5th MH resection 09/2023.
Wound Location and type/assessment: Patient known to service, last seen 09/23/23 for L foot wounds. Now admitted with healed L 5th met head surgical site and great toe, now with thin small scabs. Has scattered bruising and healed skin tears on arms
and legs. L lower leg anterior and medial with shallow pink venous ulcers and scattered tiny serous filled blisters. L dorsal foot with tiny pink opening and flat blisters, scant drainage. +1-2 L leg LE edema. +Palpable R pedal pulse, L pedal pulse
heard via portable Doppler. Patient able to turn to sides on own, sacrum and heels intact. Slight bogginess and blanchable pink heels. R lateral groin with healed abrasion, scar visible, brief ties left open, using urinal on own.
Appetite: Good. Set patient up to eat breakfast.
Pressure redistribution devices in place: [employer] Accumax, easily turns self to sides. Pillow under calves in use.
Plan: Moisturized legs with A&D ointment, will order mineral oil. Adaptic, abd pad and wilda applied to L lower leg, small silicone foam to dorsal foot. Adalberto wrap applied knee high. Protective foam applied to heels, silicone foam in use on sacrum.
Will confirm orders with hospitalist and updated nurse Cathie. Care plan to be updated and will follow as needed. Recommend follow up at wound care center upon discharge.
[2023-11-10] MEDS: VASOTEC 20 MG PO ×2 (11:19→20:27)
[2023-11-10] MEDS: ELIQUIS 2.5 MG PO ×2 (12:58→20:28)
--- NOTE | 2023-11-10 14:07 | CM ---
Addendum entered by Netta Mccrary 11/10/23 15:07:
NPI [facility]: [id number]
Dr. Horta: [phone]
Report: [phone]

Original Note:
CM reviewed chart, met with patient bedside. CM recognized patient from recent admissions. Patient came from [facility], per Mildred, liaison at [facility], not on a bed hold, will need an auth to return to SNF. TT to Hospitalist for PT/OT orders.
Patient PCP Dr. Horta, pharmacy [facility]. Patient reports he is having a good experience at [facility] and would like to return. WAN reviewed, refused to sign, placed in chart. CM will continue to follow for all discharge planning
needs.
Plan; [facility] when stable, will need auth.
--- NOTE | 2023-11-10 14:15 | PTCARENOTE ---
1340 Started one unit of PRBC's as ordered per MD. Checked with second RN as per protocol. Stayed with pt 15 minutes. VS stable.
Pt tolerated transfusion, continue to monitor pt closely.
--- NOTE | 2023-11-10 14:19 | W.PN.HOSP.TC ---
Today's Communication/Plan
-
Transfuse and follow hemoglobin
Continue oral iron
PT evaluation
Assessment / Plan
Assessment / Plan
Impression:
Sent from [facility] facility because of the abnormal laboratory values
Chronic anemia with drifting down hemoglobin 10
Other conditions:
Recent hospitalization with severe anemia requiring transfusion and unrevealing GI workup.
PAD status post angio with revascularization of left lower extremity.
Chronic left lower extremity trophic ulcers
Chronic heart failure preserved EF 50-55%
CAD status post CABG
Permanent atrial fibrillation
Anticoagulation with Eliquis.
History of mitral valve repair
CKD stage IIIb
Ambulatory dysfunction
Plan:
Chronic anemia with drifting down hemoglobin at 6.4 at the nursing facility with repeated hemoglobin value in ED at 7.6.
Hemodynamically stable upon presentation, trace heme positive stool. Overall with no clinical symptoms of brisk blood loss.
Recent GI workup including EGD 10/16 with mild gastritis otherwise unrevealing for source of anemia.
Iron stores marginal
Transfuse to keep hemoglobin above 8.
Continue oral iron.
Follow CBC in the morning.
Adjust Eliquis dose to 2.5 mg twice daily according to age and renal clearance.
Chronic CHF preserved EF
Volume status compensated.
Monitor closely with transfusion
Continue Coreg, enalapril, Lasix
Permanent atrial fibrillation.
Rate controlled.
Continue Coreg
Reduce Eliquis dose to 2.5 mg twice daily.
CKD stage IIIb.
Creatinine at the baseline
Physical therapy evaluation
CODE STATUS DNR.
Anticipated Discharge: 24 - 48 hours
Subjective/Interval History
-
Date of Service: November 10, 2023
Objective Data
-
Labs:
Laboratory Results
11/10/23
06:17
WBC 5.6
Hgb 7.5 L
Hct 22.5 L
Plt Count 216
Sodium 137
Potassium 4.5
Chloride 103
Carbon Dioxide 23
BUN 34 H
Creatinine 1.6 H
Glucose 83
Calcium 8.8
Vital Signs:
Vital Signs
Temp Pulse Resp BP Pulse Ox
98.5 F 63 19 118/61 99
11/10/23 13:56 11/10/23 13:56 11/10/23 13:56 11/10/23 13:56 11/10/23 07:41
I&O
11/09/23 11/10/23 11/11/23
06:59 06:59 06:59
Intake Total 0 / 0
Balance 0 / 0
Physical Exam
-
General: No Apparent Distress
HEENT: Normocephalic and Atraumatic
Respiratory: Clear to Auscultation
Cardiac: Irregular Rhythm
GI: Soft, Nontender and Nondistended
Genito-urinary: No Costovertebral Tender
Musculoskeletal: No Clubbing, No Cyanosis and No Edema
Skin: Warm
Neuro: Awake, Alert, Oriented and AO x 3
Psych: Calm
[2023-11-11] VITALS (7 sets, daily range): BP systolic 97–132; BP diastolic 47–74; PULSE 62; O2SAT 96; BMI 22.1
--- NOTE | 2023-11-11 03:17 | DOWNTIME ---
There was a [employer] Downtime on 11/11/2023 from 0100 to 11/11/2023 at 0300. Downtime documentation of patient's care, including medication administrations, has been reconciled in the electronic record per guidelines. Refer to the
patient's paper chart under the miscellaneous tab to see printed paper medication records and downtime forms.
[2023-11-11] MEDS: SYNTHROID 75 MCG PO (06:06)
[2023-11-11 08:33] LABS: Hematocrit 24.5 % (39.0-52.0); Hemoglobin 8.2 g/dL (13.0-18.0); Mean Corp Hgb Conc. 33.5 g/dL (33.0-37.0); Mean Corpuscular Hgb 30.1 pg (27.0-31.0); Mean Corpuscular Volume 90.1 fL (80.0-94.0); Mean Platelet Volume 8.6 fL (7.4-10.4); Platelet Count 182 10^3/uL (130-400); Red Blood Cell Count 2.72 10^6/uL (4.70-6.10); Red Cell Dist. Width 15.7 % (11.5-14.5); White Blood Cell Count 6.2 10^3/uL (4.8-10.8)
[2023-11-11 09:28] LABS: Blood Urea Nitrogen 27 mg/dl (9-20); Calcium 8.5 mg/dl (8.4-10.2); Carbon Dioxide 24 mmol/L (22-30); Chloride 102 mmol/L (98-107); Estimated Creatinine Clearance 44 ml/min; Glucose 74 mg/dl (70-99); Potassium 4.2 mmol/L (3.5-5.1); Sodium 136 mmol/L (135-145); eGFR 54.17
[2023-11-11] MEDS: PROTONIX 40 MG PO (09:32)
[2023-11-11] MEDS: COREG 25 MG PO (09:32)
[2023-11-11] MEDS: FLOMAX 0.4 MG PO (09:32)
[2023-11-11] MEDS: LASIX 20 MG PO (09:33)
[2023-11-11] MEDS: ZYLOPRIM 300 MG PO (09:33)
[2023-11-11] MEDS: FEOSOL 325 MG PO (09:33)
[2023-11-11] MEDS: FOLVITE 1 MG PO (09:34)
[2023-11-11] MEDS: ELIQUIS PO ×2 (09:34→09:51)
[2023-11-11] MEDS: VASOTEC 20 MG PO (09:35)
[2023-11-11] MEDS: MUCINEX 1200 MG PO (09:35)
[2023-11-11] MEDS: ELIQUIS 2.5 MG PO (09:55)
[2023-11-11] MEDS: HYDROPHOR 1 APPLIC TOPICAL (10:36)
--- NOTE | 2023-11-11 11:10 | CM ---
Addendum entered by Netta Mccrary 11/11/23 13:11:
Patient scheduled for [facility], 5:00 p.m. updated with transport time and number to call, cost $125. Mildred at [facility] updated with time, confirms patient can return to same room.
Plan; [facility], 5:00 p.m. WC Van
Report: [phone]

Addendum entered by Netta Mccrary 11/11/23 12:42:
CM received auth, approved [id number], 11/10-11/15, next review 11/15 to [phone], discussed with [facility] patients copay, [place] reports they will discuss copays with family. Phone call to , discussed auth approved, discussed
facility will also review copay costs with family. aware patient will need [facility] transport and there will be a cost. Family inquiring if patient can get same room at facility, TT to liaison with request.
Original Note:
CM spoke with patients , Debby, discussed patient likely will be medically clear for discharge to return back to [facility], will need auth. CM placed call to ) initiated SNF auth. Auth will be sent to medical intern as
patient ambulated 50 ft with RW and min A. CM will await return call from insurance with auth approval/denial. Per insurance- patient has used 35 of his SNF days, days 21-100 include a $203 copay. CM will relay to patients . CM will continue to
follow for all discharge planning needs.
Plan; [facility] pending auth approval.
[2023-11-11 11:45] LABS: Hemoglobin 8.6 g/dL (13.0-18.0)
[2023-11-11] MEDS: TYLENOL 650 MG PO (12:30)
--- NOTE | 2023-11-11 15:04 | W.PN.HOSP.TC ---
Today's Communication/Plan
-
Appropriate response to transfusion
No evidence for active blood loss.
Transfuse additional unit to keep hemoglobin above 9.
Discharge planing back to senior care facility for rehab.
Assessment / Plan
Assessment / Plan
Impression:
Sent from senior care facility because of the abnormal laboratory values
Chronic anemia with drifting down hemoglobin 10
Other conditions:
Recent hospitalization with severe anemia requiring transfusion and unrevealing GI workup.
PAD status post angio with revascularization of left lower extremity.
Chronic left lower extremity trophic ulcers
Chronic heart failure preserved EF 50-55%
CAD status post CABG
Permanent atrial fibrillation
Anticoagulation with Eliquis.
History of mitral valve repair
CKD stage IIIb
Ambulatory dysfunction
Plan:
Chronic anemia with drifting down hemoglobin at 6.4 at the nursing facility with repeated hemoglobin value in ED at 7.6.
Hemodynamically stable upon presentation, trace heme positive stool. Overall with no clinical symptoms of brisk blood loss.
Recent GI workup including EGD 10/16 with mild gastritis otherwise unrevealing for source of anemia.
Iron stores marginal
Transfuse to keep hemoglobin above 8-9
Continue oral iron.
Follow CBC in the morning.
Adjust Eliquis dose to 2.5 mg twice daily according to age and renal clearance.
Chronic CHF preserved EF
Volume status compensated.
Monitor closely with transfusion
Continue Coreg, enalapril, Lasix
Permanent atrial fibrillation.
Rate controlled.
Continue Coreg
Reduce Eliquis dose to 2.5 mg twice daily.
CKD stage IIIb.
Creatinine at the baseline
Physical therapy evaluation
CODE STATUS DNR.
Anticipated Discharge: 24 - 48 hours
Subjective/Interval History
-
Date of Service: November 11, 2023
Objective Data
-
Labs:
Laboratory Results
11/11/23 11/11/23
07:55 10:10
WBC 6.2
Hgb 8.2 L 8.6 L
Hct 24.5 L
Plt Count 182
Sodium 136
Potassium 4.2
Chloride 102
Carbon Dioxide 24
BUN 27 H
Creatinine 1.3
Glucose 74
Calcium 8.5
Vital Signs:
Vital Signs
Temp Pulse Resp BP Pulse Ox
98.0 F 67 16 102/50 98
11/11/23 12:26 11/11/23 12:26 11/11/23 12:26 11/11/23 12:26 11/11/23 07:23
I&O
11/10/23 11/11/23 11/12/23
06:59 06:59 06:59
Intake Total 1560 / 1560 0 / 0
Output Total 1700 / 1700
Balance -140 / -140 0 / 0
Physical Exam
-
General: No Apparent Distress
HEENT: Normocephalic and Atraumatic
Respiratory: Clear to Auscultation
Cardiac: Irregular Rhythm
GI: Soft, Nontender and Nondistended
Genito-urinary: No Costovertebral Tender
Musculoskeletal: No Clubbing, No Cyanosis and No Edema
Skin: Warm
Neuro: Awake, Alert, Oriented and AO x 3
Psych: Calm
--- NOTE | 2023-11-11 15:10 | W.DS.TRANS ---
DC Summary - [employer]
-
Discharge Instructions:
Discharge Diagnosis/Procedures Anemia
Diet 2 Gram Sodium
Instructions:
Stand-Alone Forms:
Changes to Home Medications: Yes
Discharge Medications:
DC Medications w/original date entered in [place]
allopurinol 300 mg tablet 300 mg PO DAILY Gout 12/18/19
ascorbic acid (vitamin C) 500 mg tablet (Vitamin C) 500 mg PO DAILY Supplement 12/18/19
levothyroxine 75 mcg tablet 75 mcg PO DAILY Thyroid 12/18/19
carvedilol 25 mg tablet 25 mg PO BID Blood Pressure 03/02/23
enalapril maleate 20 mg tablet 20 mg PO BID Blood Pressure 03/02/23
furosemide 20 mg tablet 20 mg PO DAILY Fluid Retention/Swelling 03/02/23
tamsulosin 0.4 mg capsule 0.4 mg PO BID Urinary Issue 03/02/23
ferrous sulfate 325 mg (65 mg iron) tablet (FeroSul) 325 mg PO DAILY 30 days #30 tabs 10/03/23
acetaminophen 325 mg tablet 650 mg PO Q6HPRN PRN mild pain/fever >100 10/15/23
bisacodyl 10 mg rectal suppository (Dulcolax (bisacodyl)) 10 mg [place] DAILYPRN PRN if mom is ineffective 10/15/23
folic acid 1 mg tablet 1 mg PO DAILY Supplement 10/15/23
guaifenesin 100 mg/5 mL oral liquid 200 mg PO Q4HPRN PRN cough 10/15/23
magnesium hydroxide 400 mg/5 mL oral suspension (Milk of Magnesia) 400 mg PO HSPRN PRN if no bm x 3 days 10/15/23
polyvinyl alcohol-povidone 0.5 %-0.6 % eye drops 1 drp BOTH EYES Q6HPRN PRN dry eyes 10/15/23
sodium phosphates 19 gram-7 gram/118 mL enema (Fleet Enema) 118 ml [place] DAILYPRN PRN if dulcolax is ineffective 10/15/23
pantoprazole 40 mg tablet,delayed release (Protonix) 40 mg PO BID #30 tabs 10/23/23
diclofenac sodium 1 % topical gel 1 ea topical BID 11/09/23
guaifenesin 400 mg tablet 1,200 mg PO Q12H 11/09/23
apixaban 5 mg tablet (Eliquis) 2.5 mg (1/2 x 5 mg) PO BID Blood Clot Prevention/Tx #0 tabs 11/11/23
Home Medication Changes
Eliquis dose adjusted
Pending Results: No
[2023-11-11 16:34] LABS: Hemoglobin 9.7 g/dL (13.0-18.0)
--- NOTE | 2023-11-11 17:36 | PTCARENOTE ---
Called [facility] to give report, but no answer. Discharge packet sent with patient and wound supplies.
== END 2023-11-11 17:39 ==
LOC: 4 WEST ACU 02:57
PROVIDERS: Emergency Medicine; ADMITTING PHYSICIAN Internal Medicine; ATTENDING PHYSICIAN Internal Medicine; EMERGENCY PHYSICIAN Emergency Medicine; FAMILY PHYSICIAN Internal Medicine
DX: D64.9 Anemia, unspecified (principal); R79.89 Other specified abnormal findings of blood chemistry; I73.9 Peripheral vascular disease, unspecified; I13.0 Hypertensive heart and chronic kidney disease with heart failure and stage 1 through stage 4 chronic kidney disease, or unspecified chronic kidney disease; I50.32 Chronic diastolic (congestive) heart failure; N18.32 Chronic kidney disease, stage 3b; I48.21 Permanent atrial fibrillation; E03.9 Hypothyroidism, unspecified; I25.10 Atherosclerotic heart disease of native coronary artery without angina pectoris; R26.2 Difficulty in walking, not elsewhere classified; R07.9 Chest pain, unspecified; L97.909 Non-pressure chronic ulcer of unspecified part of unspecified lower leg with unspecified severity; G47.33 Obstructive sleep apnea (adult) (pediatric); E78.5 Hyperlipidemia, unspecified; Z95.2 Presence of prosthetic heart valve; Z79.890 Hormone replacement therapy; Z95.1 Presence of aortocoronary bypass graft; Z79.01 Long term (current) use of anticoagulants; Z95.0 Presence of cardiac pacemaker; Z88.8 Allergy status to other drugs, medicaments and biological substances; Z66 Do not resuscitate
CPT/HCPCS: 80048; 80053; 82607; 82746; 83540; 83550; 85018; 85025; 85027; 86850; 86900; 86901; 86920; 87070; 93005; 97163; 97166; 99285; G0378; P9016

== ENCOUNTER 2023-12-10 15:47 | Emergency (ER) | payer OTHER, SELFPAY ==
[2023-12-10 15:53] VITALS: BP 119/62; BMI 21.5
[2023-12-10 16:00] VITALS: BP 106/57
[2023-12-10 16:11] LABS: % Basophils 0.7 % (0-2); % Eosinophils 12.5 % (0-6); % Immature Granulocytes 0.3 % (0-0.5); % Lymphocytes 15.9 % (20.5-51.1); % Monocytes 7.7 % (1.7-9.3); % Neutrophils 62.9 % (42.2-75.2); Absolute Basophils 0.1 10^3/uL (0-0.2); Absolute Eosinophils 1.5 10^3/uL (0-0.7); Absolute Lymphocytes 1.9 10^3/uL (1.2-3.4); Absolute Monocytes 0.9 10^3/uL (0.1-0.6); Absolute Neutrophils 7.4 10^3/uL (1.4-6.5); Hematocrit 26.4 % (39.0-52.0); Hemoglobin 8.8 g/dL (13.0-18.0); Mean Corp Hgb Conc. 33.3 g/dL (33.0-37.0); Mean Corpuscular Hgb 29.2 pg (27.0-31.0); Mean Corpuscular Volume 87.7 fL (80.0-94.0); Mean Platelet Volume 8.5 fL (7.4-10.4); Nucleated Red Blood Cells % 0 % (-); Platelet Count 231 10^3/uL (130-400); Red Blood Cell Count 3.01 10^6/uL (4.70-6.10); Red Cell Dist. Width 17.1 % (11.5-14.5); White Blood Cell Count 11.8 10^3/uL (4.8-10.8)
--- NOTE | 2023-12-10 16:51 | ED.GENMED ---
History of Present Illness
General
Chief Complaint: Blood Pressure Problem
Source: patient and previous hospital records
Exam Limitations: none
Time Seen by Provider: 12/10/23 15:57
Nursing documentation reviewed up to this point in time: agreed with
History of Present Illness
History of Present Illness:
The patient is a pleasant 83-year-old man with a past medical history of anemia, peripheral artery disease status post revascularization of the left lower extremity, chronic heart failure, coronary artery disease, A-fib on Eliquis, and chronic
kidney disease who was sent to the emergency department after a visiting nurse observed that his blood pressure was on the low side at home today. The patient denies all complaints. He denies chest pain or shortness of breath. He denies fevers
and chills. He denies abdominal pain, black and bloody stool. Patient reports that he has not been eating and drinking as well because his appetite is diminished and he is not sure why.
Past History
Past History
ED Past Medical History: Arrthythmia (afib on Coumadin), CAD, HTN, Hypothyroidism and Other (a fibrillation, HTN, hyperlipidemia, heart valve replacement, pacemaker, renal insufficiency, hyponatremia)
ED Past Surgical History: Cardiac (pacemaker)
Social History
Tobacco: Non-smoker
Alcohol: None
Drug: None
Personal:
Living: with family
Employment: Other
Family History
Family History: Other
Review of Systems
Review of Systems
Allergies reviewed?: Yes
All Other Systems: ROS reviewed and negative except as documented in HPI and ROS
Constitutional: Reports no symptoms
EENT: Reports no symptoms
Respiratory: Reports no symptoms
Cardiac: Reports no symptoms
ABD/GI: Reports anorexia
: Reports no symptoms
Musculoskeletal: Reports no symptoms
Skin: Reports other (Chronic skin ulcers on bilateral lower extremities)
Neurological: Reports no symptoms
Endocrine: Reports no symptoms
Hematologic/Lymphatic: Reports no symptoms
Psychiatric: Reports no symptoms
Phy Exam
Physical Exam
Physical Exam:
Physical Exam
General: no apparent distress, comfortable, smiling, conversational
Neck: supple. no meningeal signs. normal psoterior pharynx
Heart: Regular rate, irregular rhythm
Lungs: no acute respiratory distress. clear bilaterally
Abdomen: normal bowel sounds. not tender. no CVAT. Patient adamantly refused rectal exam. Explained to him that there could be microscopic blood in his stool that he cannot see and he still does not want it done. States he
recently had a rectal exam done and does not want to go through it again
Neuro: alert and oriented. no focal neurological deficits
Skin: Chronic skin breakage and ulcers on bilateral lower extremities
Psychiatric: well kept. interactive and cooperative
Extremities: 1+ pitting edema bilateral lower extremities. Negative Homans' sign.
Course
Orders/Labs/Results
Orders:
Orders
12/10/23 15:51
EKG [Electrocardiogram (*1)] Urgent
Reason for Study: Fatigue / Weakness
12/10/23 15:52
EKG- Treatment ONCE
12/10/23 15:58
Type+Screen Urgent
CBC/With Diff [Complete Blood Count/With Diff] Urgent
CMP [Comprehensive Metabolic Panel] Urgent
12/10/23 16:50
0.9% Sodium Chloride 500 ml [Nss] 500 ml IV BOLUS
CR Chest - 2 Views Urgent
Comment:
Reason For Exam: transient hypotenion
12/10/23 17:57
0.9% Sodium Chloride 500 ml [Nss] 500 ml IV BOLUS
12/10/23 19:41
Urinalysis Reflex To Culture Urgent
Date Specimen was Collected: 12/10/23
Time Specimen was Collected: 16:51
Urine Microscopic Reflex Cult Urgent
Urine Culture Urgent
RENATA Source: U
Specimen Description:
Date Specimen was Collected: 12/10/23
Time Specimen was Collected: 16:51
Abnormal Lab Results
12/10/23 12/10/23
15:58 19:41
WBC 11.8 H 10^3/uL
(4.8-10.8)
RBC 3.01 L 10^6/uL
(4.70-6.10)
Hgb 8.8 L g/dL
(13.0-18.0)
Hct 26.4 L %
(39.0-52.0)
RDW 17.1 H %
(11.5-14.5)
Absolute Neuts (auto) 7.4 H 10^3/uL
(1.4-6.5)
Absolute Monos (auto) 0.9 H 10^3/uL
(0.1-0.6)
Absolute Eos (auto) 1.5 H 10^3/uL
(0-0.7)
Lymphocytes % 15.9 L %
(20.5-51.1)
Eosinophils % 12.5 H %
(0-6)
Sodium 131 L mmol/L
(135-145)
Chloride 96 L mmol/L
(98-107)
BUN 35 H mg/dl
(9-20)
Creatinine 2.1 H mg/dL
(0.7-1.3)
Glucose 113 H mg/dl
(70-99)
Total Bilirubin 1.4 H mg/dl
(0.2-1.3)
Albumin 3.2 L g/dl
(3.5-5.0)
Leukocyte Esterase Rfl Trace A
(Negative)
Urine Bacteria (Reflex) Moderate A
(Negative)
12/10/23 15:58
12/10/23 15:58
Vital Signs
Initial and Last Documented VS:
Initial Vital Signs
Temp Pulse Resp BP Pulse Ox
98.0 F 72 17 119/62 100
12/10/23 15:53 12/10/23 15:53 12/10/23 15:53 12/10/23 15:53 12/10/23 15:53
Last Documented Vital Signs
Temp Pulse Resp BP Pulse Ox
98.0 F 69 22 120/55 100
12/10/23 15:53 12/10/23 18:30 12/10/23 19:17 12/10/23 19:17 12/10/23 15:53
MDM/Problems Addressed
Differential Diagnosis Includes:
Acute dehydration, acute on chronic anemia, acute hepatic failure
MDM/Problems Addressed:
Patient presents for acute hypotension which is now resolved
Chronic conditions affecting care:
Given patient is on diuretics and has heart failure, he can have acute dehydration
Chronic conditions affecting care: Cardiomyopathy
Acute Exacerbation and/or Progression of Chronic Illness:
Patient can have acute on chronic anemia
Acute Exacerbation and/or Progression of Chronic Illness: Other (Anemia)
*Radiology
Radiology exam reviewed: preliminary read by ED provider (No acute disease) and radiology read reviewed
*Pulse Oximetry
Patient hypoxic: no
*EKG
Interpreted by ED Provider?: Yes
Interpretation: abnormal
Comparison EKG: no changes
Rate: normal
Rhythm: a-fib and PVC's
[place]: left axis deviation
Interval: normal interval
QRS Pattern: normal QRS
Ischemia: non-specific ST changes
*Employee Relations Advisor Interpretation
Rate: normal
Interpretation: abnormal
Rhythm: a-fib
*Critical Care Note
Total Time (30-74mins, 75-104mins- exclusive of procedures): Not Applicable
Data Reviewed
Review of Other/Old Records Reveals: Discharge Summary (Discharge summary reviewed from hospitalist from 11/11/2023 when patient was admitted for worsening anemia and underwent GI workup including upper endoscopy which showed no evidence for active
bleeding)
Source: patient
Patient Management
Social determinants of health affecting care: Living situation and Strong social support
Update Note
Update Note:
Patient resting comfortably for hours without all complaints. He was never hypotensive in the ED. There is no sign of fever or sepsis. There is no sign of pneumonia or UTI. Patient was mildly dehydrated which may have attributed to his
hypotension at home. Patient still refused to allow me to do a rectal exam to check for microscopic blood in the stool.
ED Attending Note
-
Portions of this chart may have been created with voice recognition software.� Occasional wrong word or��sound alike� substitutions may have occurred due to the inherent limitations of voice recognition software.
Discharge Plan
Departure
Patient Disposition: Home (Routine Discharge)
Date of Disposition: 12/10/23
Time of Disposition: 20:08
Patient with high blood pressure during this ER visit?: No
Condition: Good
Covid-19: Not Applicable
Discharge Problem:
Acute dehydration, Acute on chronic anemia
Instructions: Dehydration, Adult ED
Prescriptions:
No Action
levothyroxine 75 MCG tablet
75 mcg PO DAILY
ascorbic acid (vitamin C) [Vitamin C] 500 MG tablet
500 mg PO DAILY
allopurinol 300 MG tablet
300 mg PO DAILY
furosemide 20 mg Tablet
20 mg PO DAILY
carvedilol 25 mg tablet
25 mg PO BID
enalapril maleate 20 mg tablet
20 mg PO BID
tamsulosin 0.4 mg capsule
0.4 mg PO BID
ferrous sulfate [FeroSul] 325 mg (65 mg iron) Tablet
325 mg PO DAILY 30 Days Qty: 30 0RF
acetaminophen 325 mg Tablet
650 mg PO Q6HPRN MDD 3000 mg PRN (Reason: mild pain/fever >100)
guaifenesin 100 mg/5 mL Liquid
200 mg PO Q4HPRN PRN (Reason: cough)
magnesium hydroxide [Milk of Magnesia] 400 mg/5 mL Suspension
400 mg PO HSPRN PRN (Reason: if no bm x 3 days)
bisacodyl [Dulcolax (bisacodyl)] 10 mg Suppository
10 mg [place] DAILYPRN PRN (Reason: if mom is ineffective)
Fleet Enema 19-7 gram/118 mL Enema
118 ml [place] DAILYPRN PRN (Reason: if dulcolax is ineffective)
folic acid 1 mg Tablet
1 mg PO DAILY
polyvinyl alcohol-povidone 0.5-0.6 % Drops
1 drp BOTH EYES Q6HPRN PRN (Reason: dry eyes)
pantoprazole [Protonix] 40 mg tablet,delayed release (DR/EC)
40 mg PO BID Qty: 30 0RF
guaifenesin 400 mg Tablet
1,200 mg PO Q12H
diclofenac sodium 1 % Gel
1 ea TOPICAL BID
Rx Instructions:
apply to left knee
Eliquis 5 mg Tablet
2.5 mg PO BID Qty: 0 0RF
Referrals:
Khalida Hopper DO [Family Provider] -
Activity Restrictions/Additional Instructions:
Please see your primary care doctor within 1 week to have your hemoglobin rechecked. Today it was 8.8.
Interventions
Interventions:
*Risk Screen - Suicide Last Done: 12/10/23 15:53
*General Assessment Last Done: 12/10/23 15:53
*Neglect/Abuse Screening Last Done: 12/10/23 15:53
ED- Fall Risk Assessment Last Done: 12/10/23 15:57
ED- Cardiac Assessment Last Done: 12/10/23 15:57
ED- Neurological Assessment Last Done: 12/10/23 15:57
ED- Pulmonary Assessment Last Done: 12/10/23 15:57
Discharge Date and Time
Print Language: SPANISH
[2023-12-10 16:54] LABS: ALT (SGPT) 11 U/L (0-50); AST (SGOT) 24 U/L (17-59); Albumin 3.2 g/dl (3.5-5.0); Alkaline Phosphatase 88 U/L (38-126); Blood Urea Nitrogen 35 mg/dl (9-20); Calcium 8.8 mg/dl (8.4-10.2); Carbon Dioxide 26 mmol/L (22-30); Chloride 96 mmol/L (98-107); Estimated Creatinine Clearance 27 ml/min; Glucose 113 mg/dl (70-99); Potassium 4.7 mmol/L (3.5-5.1); Sodium 131 mmol/L (135-145); Total Bilirubin 1.4 mg/dl (0.2-1.3); Total Protein 6.5 g/dl (6.3-8.2); eGFR 30.47
[2023-12-10] MEDS: NSS 500 IV ×2 (16:57→18:30)
[2023-12-10 17:00] VITALS: BP 107/52
[2023-12-10 18:00] VITALS: BP 117/59
[2023-12-10 19:17] VITALS: BP 120/55
[2023-12-10 19:51] LABS: Urine Albumin Trace (Neg - Trace); Urine Bilirubin Negative (Negative); Urine Character Clear (Clear); Urine Color Yellow; Urine Glucose Negative (Negative); Urine Ketone Negative (Negative); Urine Leukocyte Trace (Negative); Urine Nitrite Negative (Negative); Urine Occult Blood Negative (Negative); Urine Urobilinogen 1+ (Neg - 1+); Urine pH 6.5 (5.0-9.0)
[2023-12-10 20:12] LABS: Urine Bacteria Moderate (Negative); Urine Red Blood Cell 0-2 /HPF (0-2); Urine White Cell 0-2 /HPF (0-5)
== END 2023-12-10 20:39 | disposition home or self-care (01) ==
LOC: EMR 15:47
PROVIDERS: EMERGENCY PHYSICIAN Emergency Medicine; FAMILY PHYSICIAN Family Medicine
DX: D64.9 Anemia, unspecified (principal); E86.0 Dehydration; I13.0 Hypertensive heart and chronic kidney disease with heart failure and stage 1 through stage 4 chronic kidney disease, or unspecified chronic kidney disease; N18.9 Chronic kidney disease, unspecified; I50.9 Heart failure, unspecified; Z79.01 Long term (current) use of anticoagulants; I73.9 Peripheral vascular disease, unspecified
CPT/HCPCS: 99285; 96360; 71046; 80053; 81003; 81015; 85025; 86850; 86860; 86870; 86880; 86900; 86901; 87086; 93005

== ENCOUNTER 2023-12-13 10:08 | Emergency (ER) | payer OTHER, SELFPAY ==
[2023-12-13 10:11] VITALS: BP 133/68
[2023-12-13 11:02] VITALS: BP 119/69
[2023-12-13 12:00] VITALS: BP 130/64
[2023-12-13] MEDS: NSS 1000 IV (12:12)
[2023-12-13 12:19] LABS: % Basophils 0.9 % (0-2); % Eosinophils 16.4 % (0-6); % Immature Granulocytes 0.4 % (0-0.5); % Lymphocytes 20.7 % (20.5-51.1); % Monocytes 8.3 % (1.7-9.3); % Neutrophils 53.3 % (42.2-75.2); Absolute Basophils 0.1 10^3/uL (0-0.2); Absolute Eosinophils 1.3 10^3/uL (0-0.7); Absolute Lymphocytes 1.6 10^3/uL (1.2-3.4); Absolute Monocytes 0.6 10^3/uL (0.1-0.6); Absolute Neutrophils 4.1 10^3/uL (1.4-6.5); Hematocrit 25.4 % (39.0-52.0); Hemoglobin 8.7 g/dL (13.0-18.0); Mean Corp Hgb Conc. 34.3 g/dL (33.0-37.0); Mean Corpuscular Hgb 29.9 pg (27.0-31.0); Mean Corpuscular Volume 87.3 fL (80.0-94.0); Mean Platelet Volume 8.9 fL (7.4-10.4); Nucleated Red Blood Cells % 0 % (-); Platelet Count 226 10^3/uL (130-400); Red Blood Cell Count 2.91 10^6/uL (4.70-6.10); Red Cell Dist. Width 16.6 % (11.5-14.5); Urine Albumin 3+ (Neg - Trace); Urine Bilirubin Negative (Negative); Urine Character Bloody (Clear); Urine Color Red; Urine Glucose Negative (Negative); Urine Ketone Negative (Negative); Urine Leukocyte 1+ (Negative); Urine Nitrite Positive (Negative); Urine Occult Blood 4+ (Negative); Urine Urobilinogen 1+ (Neg - 1+); White Blood Cell Count 7.6 10^3/uL (4.8-10.8)
[2023-12-13 12:29] LABS: INR 1.54; PT 18.3 Sec (11.4-14.6)
[2023-12-13 12:30] LABS: APTT 49.4 Sec (23.4-35.0)
[2023-12-13 12:41] LABS: Urine Bacteria Moderate (Negative); Urine Red Blood Cell >100 /HPF (0-2)
[2023-12-13 12:42] LABS: ALT (SGPT) 11 U/L (0-50); AST (SGOT) 24 U/L (17-59); Alkaline Phosphatase 85 U/L (38-126); Blood Urea Nitrogen 35 mg/dl (9-20); Calcium 8.8 mg/dl (8.4-10.2); Carbon Dioxide 25 mmol/L (22-30); Chloride 101 mmol/L (98-107); Glucose 87 mg/dl (70-99); Potassium 4.8 mmol/L (3.5-5.1); Sodium 134 mmol/L (135-145); Total Bilirubin 1.3 mg/dl (0.2-1.3); Total Protein 6.3 g/dl (6.3-8.2); eGFR 36.66
--- NOTE | 2023-12-13 13:23 | ED.GENMED ---
History of Present Illness
General
Chief Complaint: Urinary Symptoms
Time Seen by Provider: 12/13/23 11:30
History of Present Illness
History of Present Illness:
83-year-old male with history of anemia, CKD, atrial fibrillation on Eliquis, congestive heart failure presenting for hematuria. Patient reports when he urinated this morning, had episode of kwame blood. Denies any pain associated with urination.
Denies abdominal pain or back pain. Denies history of hematuria in the past. Reports that he was in the hospital on for suspected low blood pressure, however was discharged home after normal blood pressure. Denies fever or known sick
contacts. Denies any chest pain or difficulty breathing. Denies weakness or lightheadedness. Denies additional acute medical complaints
Past History
Past History
ED Past Medical History: Arrthythmia (afib on Coumadin), CAD, HTN, Hypothyroidism and Other (a fibrillation, HTN, hyperlipidemia, heart valve replacement, pacemaker, renal insufficiency, hyponatremia)
ED Past Surgical History: Cardiac (pacemaker)
Social History
Tobacco: Non-smoker
Alcohol: None
Drug: None
Personal:
Living: with family
Employment: Other
Family History
Family History: Other
Phy Exam
Physical Exam
Physical Exam:
General: Well-appearing, no clinical signs of dehydration, nontoxic and in no acute distress
HEENT: protecting airway
Neck: appears supple
CV: Normal heart rate, regular rhythm
Resp: No accessory muscle use, no increased work of breathing, lungs clear to auscultation bilaterally
Abd: Soft and non-distended, no tenderness to palpation, no flank tenderness
Extremities: No deformities, no swelling, no erythema
Neuro: alert, no focal neurologic deficit
: deferred
Rectal: deferred
Psych: Normal affect
Skin: Intact
Course
Orders/Labs/Results
Orders:
Orders
12/13/23 11:57
0.9% Sodium Chloride 1000 ml [Nss] 1,000 ml IV BOLUS
12/13/23 12:10
Complete Blood Count/With Diff Urgent
Comprehensive Metabolic Panel Urgent
PTT Urgent
Prothrombin Time Urgent
Urinalysis Reflex To Culture Urgent
Date Specimen was Collected: 12/13/23
Time Specimen was Collected: 12:07
Urine Microscopic Reflex Cult Urgent
Urine Culture Urgent
RENATA Source: U
Specimen Description:
Date Specimen was Collected: 12/13/23
Time Specimen was Collected: 12:07
12/13/23 12:59
Cefepime HCl [Maxipime] 2,000 mg IV NOW STA
12/13/23 14:07
Cephalexin Monohydrate [Keflex] 500 mg PO NOW STA
Abnormal Lab Results
12/13/23
12:10
RBC 2.91 L 10^6/uL
(4.70-6.10)
Hgb 8.7 L g/dL
(13.0-18.0)
Hct 25.4 L %
(39.0-52.0)
RDW 16.6 H %
(11.5-14.5)
Absolute Eos (auto) 1.3 H 10^3/uL
(0-0.7)
Eosinophils % 16.4 H %
(0-6)
PT 18.3 H Sec
(11.4-14.6)
APTT 49.4 H Sec
(23.4-35.0)
Sodium 134 L mmol/L
(135-145)
BUN 35 H mg/dl
(9-20)
Creatinine 1.8 H mg/dL
(0.7-1.3)
Albumin 3.0 L g/dl
(3.5-5.0)
Ur Occult Blood Reflex 4+ A
(Negative)
Urine Nitrite (Reflex) Positive A
(Negative)
Leukocyte Esterase Rfl 1+ A
(Negative)
Urine RBC >100 A /HPF
(0-2)
Urine WBC (Reflex) 11-15 A /HPF
(0-5)
Urine Bacteria (Reflex) Moderate A
(Negative)
Urine Albumin (Reflex) 3+ A
(Neg - Trace)
12/13/23 12:10
12/13/23 12:10
Vital Signs
Initial and Last Documented VS:
Initial Vital Signs
Temp Pulse Resp BP Pulse Ox
97.5 F 78 18 133/68 100
12/13/23 10:11 12/13/23 10:11 12/13/23 10:11 12/13/23 10:11 12/13/23 10:11
Last Documented Vital Signs
Temp Pulse Resp BP Pulse Ox
97.5 F 78 20 119/69 100
12/13/23 10:11 12/13/23 10:11 12/13/23 11:02 12/13/23 11:02 12/13/23 10:11
MDM/Problems Addressed
MDM/Problems Addressed:
83-year-old male with history of A-fib on Eliquis presenting to the emergency department for hematuria. Vital signs on arrival are normal.
On exam patient is well-appearing, no acute distress. Benign examination without tenderness abdomen or flank. Patient with urine at bedside, red-tinged right sclera, no clots. No kwame hematuria. Suspect that hematuria could be secondary to
known anticoagulation. Possible urinary function. Lower suspicion for obstructive uropathy, urinary without issue. Lower suspicion for kidney stone, without any pain.
13:30 - Patient's labs relatively unremarkable, known CKD at baseline. Anemia at baseline. Urine is positive for infection, nitrites. Fluids infusing. Will have patient urinate again to ensure no worsening hematuria.
14:15 - No worsening of hematuria, no clots, no kwame hematuria. There is however obvious blood in the urine. Suspect urethral irritation from urinary tract infection. Urine culture sent. Will start patient on cephalexin. Otherwise patient
remains to be dynamically stable. He would prefer to go home which I feel is reasonable. Patient did not take his Eliquis today. Advised holding Eliquis today and following up close with his primary care. Will also provide urology follow-up.
Return precautions discussed and patient and bedside verbalized understanding
*Critical Care Note
Total Time (30-74mins, 75-104mins- exclusive of procedures): Not Applicable
ED Attending Note
-
Portions of this chart may have been created with voice recognition software.� Occasional wrong word or��sound alike� substitutions may have occurred due to the inherent limitations of voice recognition software.
Discharge Plan
Departure
Patient Disposition: Home (Routine Discharge)
Date of Disposition: 12/13/23
Time of Disposition: 14:07
Patient with high blood pressure during this ER visit?: No
Condition: Good
Discharge Problem:
Urinary tract infection, Hematuria
Instructions: Urinary Tract Infection, Adult (DC), Blood in the Urine (Hematuria), Adult (DC)
Prescriptions:
New
cephalexin 500 mg capsule
500 mg PO BID 10 Days Qty: 20 0RF
No Action
levothyroxine 75 MCG tablet
75 mcg PO DAILY
ascorbic acid (vitamin C) [Vitamin C] 500 MG tablet
500 mg PO DAILY
allopurinol 300 MG tablet
300 mg PO DAILY
furosemide 20 mg Tablet
20 mg PO MOWEFR
enalapril maleate 20 mg tablet
10 mg PO DAILYPRN PRN (Reason: if bp >100)
ferrous sulfate [FeroSul] 325 mg (65 mg iron) Tablet
325 mg PO DAILY 30 Days Qty: 30 0RF
folic acid 1 mg Tablet
1 mg PO DAILY
Referrals:
Yoshi Garsia MD [Active] - (hematuria)
Khalida Hopper DO [Family Provider] -
Activity Restrictions/Additional Instructions:
You were seen in the emergency department for blood in your urine
You were found to have a urinary tract infection, and you were started on antibiotics. Your hemoglobin was found to be stable. Please hold your Eliquis today.
Please follow-up closely with your primary care physician.
Return to the emergency department for any worsening of your symptoms including increased blood when urinating, or any development of chest pain, difficulty breathing, abdominal pain with persistent vomiting and inability to tolerate food or liquid
by mouth (concern for dehydration), weakness or lightheadedness, headache or confusion, fever greater than 100.4, or any additional symptoms that are concerning to you.
Thank you for choosing [facility].
Interventions
Interventions:
*Risk Screen - Suicide Last Done: 12/13/23 10:14
*General Assessment Last Done: 12/13/23 10:14
*Neglect/Abuse Screening Last Done: 12/13/23 10:14
*ED COVID-19 Vaccine History Last Done: 12/13/23 10:14
ED-Male Genitourinary Assessment Last Done: 12/13/23 12:30
Discharge Date and Time
Print Language: SAMOAN
[2023-12-13] MEDS: MAXIPIME 2000 MG IV (13:36)
[2023-12-13] MEDS: KEFLEX 500 MG PO (14:28)
== END 2023-12-13 14:38 | disposition home or self-care (01) ==
LOC: EMR 10:08
PROVIDERS: EMERGENCY PHYSICIAN Student in an Organized Health Care Education/Training Program; FAMILY PHYSICIAN Family Medicine
DX: N39.0 Urinary tract infection, site not specified (principal); R31.9 Hematuria, unspecified; D64.9 Anemia, unspecified; N18.9 Chronic kidney disease, unspecified; I13.0 Hypertensive heart and chronic kidney disease with heart failure and stage 1 through stage 4 chronic kidney disease, or unspecified chronic kidney disease; I50.9 Heart failure, unspecified; I48.91 Unspecified atrial fibrillation; Z79.01 Long term (current) use of anticoagulants
CPT/HCPCS: 99284; 96374; 96361; 80053; 81003; 81015; 85025; 85610; 85730; 87086

== ENCOUNTER → 2023-12-22 12:27 | Outpatient (REF) | payer OTHER, SELFPAY | LOC: WOUND 12:27 | PROVIDERS: ATTENDING PHYSICIAN Surgery | DX: I87.313 Chronic venous hypertension (idiopathic) with ulcer of bilateral lower extremity (principal) | CPT/HCPCS: 29581; 99203 ==

== ENCOUNTER → 2023-12-28 08:46 | Outpatient (REF) | payer OTHER, SELFPAY | LOC: WOUND 08:46 | PROVIDERS: ATTENDING PHYSICIAN Surgery; FAMILY PHYSICIAN Family Medicine | DX: I87.313 Chronic venous hypertension (idiopathic) with ulcer of bilateral lower extremity (principal); L97.811 Non-pressure chronic ulcer of other part of right lower leg limited to breakdown of skin; L97.821 Non-pressure chronic ulcer of other part of left lower leg limited to breakdown of skin; L97.411 Non-pressure chronic ulcer of right heel and midfoot limited to breakdown of skin; L97.421 Non-pressure chronic ulcer of left heel and midfoot limited to breakdown of skin; N18.4 Chronic kidney disease, stage 4 (severe); I87.2 Venous insufficiency (chronic) (peripheral); I73.9 Peripheral vascular disease, unspecified; Z95.1 Presence of aortocoronary bypass graft; Z95.0 Presence of cardiac pacemaker | CPT/HCPCS: 29581; 99213 ==

== ENCOUNTER → 2024-01-01 12:33 | Outpatient (REF) | payer OTHER, SELFPAY | LOC: RAD 12:33 | PROVIDERS: ATTENDING PHYSICIAN Surgery Vascular Surgery; FAMILY PHYSICIAN Family Medicine | DX: I73.9 Peripheral vascular disease, unspecified (principal) | CPT/HCPCS: 93922; 93925 ==

== ENCOUNTER → 2024-01-01 13:53 | Outpatient (REF) | payer OTHER, SELFPAY | LOC: WOUND 13:53 | PROVIDERS: ATTENDING PHYSICIAN Surgery; FAMILY PHYSICIAN Family Medicine | DX: I87.313 Chronic venous hypertension (idiopathic) with ulcer of bilateral lower extremity (principal); L97.811 Non-pressure chronic ulcer of other part of right lower leg limited to breakdown of skin; L97.821 Non-pressure chronic ulcer of other part of left lower leg limited to breakdown of skin; L97.411 Non-pressure chronic ulcer of right heel and midfoot limited to breakdown of skin; L97.421 Non-pressure chronic ulcer of left heel and midfoot limited to breakdown of skin; N18.4 Chronic kidney disease, stage 4 (severe); I87.2 Venous insufficiency (chronic) (peripheral); I73.9 Peripheral vascular disease, unspecified; Z95.1 Presence of aortocoronary bypass graft; Z95.0 Presence of cardiac pacemaker; Z79.01 Long term (current) use of anticoagulants | CPT/HCPCS: 29581 ==

== ENCOUNTER → 2024-01-05 10:15 | Outpatient (REF) | payer OTHER, SELFPAY | LOC: WOUND 10:15 | PROVIDERS: ATTENDING PHYSICIAN Surgery; FAMILY PHYSICIAN Family Medicine | DX: I87.313 Chronic venous hypertension (idiopathic) with ulcer of bilateral lower extremity (principal); L97.811 Non-pressure chronic ulcer of other part of right lower leg limited to breakdown of skin; L97.821 Non-pressure chronic ulcer of other part of left lower leg limited to breakdown of skin; L97.411 Non-pressure chronic ulcer of right heel and midfoot limited to breakdown of skin; L97.421 Non-pressure chronic ulcer of left heel and midfoot limited to breakdown of skin; N18.4 Chronic kidney disease, stage 4 (severe); I87.2 Venous insufficiency (chronic) (peripheral); I73.9 Peripheral vascular disease, unspecified; Z95.1 Presence of aortocoronary bypass graft; Z95.0 Presence of cardiac pacemaker; Z79.01 Long term (current) use of anticoagulants | CPT/HCPCS: 29581 ==

== ENCOUNTER → 2024-01-12 10:43 | Outpatient (REF) | payer OTHER, SELFPAY | LOC: WOUND 10:43 | PROVIDERS: ATTENDING PHYSICIAN Surgery; FAMILY PHYSICIAN Family Medicine | DX: I87.313 Chronic venous hypertension (idiopathic) with ulcer of bilateral lower extremity (principal); L97.811 Non-pressure chronic ulcer of other part of right lower leg limited to breakdown of skin; L97.821 Non-pressure chronic ulcer of other part of left lower leg limited to breakdown of skin; L97.411 Non-pressure chronic ulcer of right heel and midfoot limited to breakdown of skin; L97.421 Non-pressure chronic ulcer of left heel and midfoot limited to breakdown of skin; N18.4 Chronic kidney disease, stage 4 (severe); I87.2 Venous insufficiency (chronic) (peripheral); I73.9 Peripheral vascular disease, unspecified; Z95.0 Presence of cardiac pacemaker; Z95.1 Presence of aortocoronary bypass graft; Z79.01 Long term (current) use of anticoagulants | CPT/HCPCS: 11042; 29581 ==

== ENCOUNTER → 2024-01-19 10:26 | Outpatient (REF) | payer OTHER, SELFPAY | LOC: WOUND 10:26 | PROVIDERS: ATTENDING PHYSICIAN Surgery; FAMILY PHYSICIAN Family Medicine | DX: I87.313 Chronic venous hypertension (idiopathic) with ulcer of bilateral lower extremity (principal); L97.811 Non-pressure chronic ulcer of other part of right lower leg limited to breakdown of skin; L97.821 Non-pressure chronic ulcer of other part of left lower leg limited to breakdown of skin; L97.411 Non-pressure chronic ulcer of right heel and midfoot limited to breakdown of skin; L97.421 Non-pressure chronic ulcer of left heel and midfoot limited to breakdown of skin; N18.4 Chronic kidney disease, stage 4 (severe); I87.2 Venous insufficiency (chronic) (peripheral); I73.9 Peripheral vascular disease, unspecified; Z95.1 Presence of aortocoronary bypass graft; Z95.0 Presence of cardiac pacemaker; Z79.01 Long term (current) use of anticoagulants | CPT/HCPCS: 29581 ==

== ENCOUNTER → 2024-01-25 09:38 | Outpatient (REF) | payer OTHER, SELFPAY | LOC: WOUND 09:38 | PROVIDERS: ATTENDING PHYSICIAN Surgery; FAMILY PHYSICIAN Family Medicine | DX: I87.313 Chronic venous hypertension (idiopathic) with ulcer of bilateral lower extremity (principal); L97.811 Non-pressure chronic ulcer of other part of right lower leg limited to breakdown of skin; L97.821 Non-pressure chronic ulcer of other part of left lower leg limited to breakdown of skin; L97.411 Non-pressure chronic ulcer of right heel and midfoot limited to breakdown of skin; L97.421 Non-pressure chronic ulcer of left heel and midfoot limited to breakdown of skin; N18.4 Chronic kidney disease, stage 4 (severe); I87.2 Venous insufficiency (chronic) (peripheral); I73.9 Peripheral vascular disease, unspecified; Z95.1 Presence of aortocoronary bypass graft; Z79.01 Long term (current) use of anticoagulants | CPT/HCPCS: 29581; 99213 ==

== ENCOUNTER → 2024-02-01 10:46 | Outpatient (REF) | payer OTHER, SELFPAY | LOC: WOUND 10:46 | PROVIDERS: ATTENDING PHYSICIAN Surgery; FAMILY PHYSICIAN Family Medicine | DX: I87.313 Chronic venous hypertension (idiopathic) with ulcer of bilateral lower extremity (principal); L97.811 Non-pressure chronic ulcer of other part of right lower leg limited to breakdown of skin; L97.821 Non-pressure chronic ulcer of other part of left lower leg limited to breakdown of skin; L97.411 Non-pressure chronic ulcer of right heel and midfoot limited to breakdown of skin; L97.421 Non-pressure chronic ulcer of left heel and midfoot limited to breakdown of skin; N18.4 Chronic kidney disease, stage 4 (severe); Z79.01 Long term (current) use of anticoagulants; I87.2 Venous insufficiency (chronic) (peripheral); I73.9 Peripheral vascular disease, unspecified; Z95.1 Presence of aortocoronary bypass graft; Z95.0 Presence of cardiac pacemaker | CPT/HCPCS: 29581; 99213 ==

== ENCOUNTER → 2024-02-03 10:18 | Outpatient (REF) | payer OTHER, SELFPAY ==
[2024-02-03 11:47] LABS: % Eosinophils 21.3 % (0-6); % Immature Granulocytes 0.3 % (0-0.5); % Lymphocytes 22.6 % (20.5-51.1); % Monocytes 7.3 % (1.7-9.3); % Neutrophils 47.5 % (42.2-75.2); Absolute Basophils 0.1 10^3/uL (0-0.2); Absolute Eosinophils 1.5 10^3/uL (0-0.7); Absolute Lymphocytes 1.5 10^3/uL (1.2-3.4); Absolute Monocytes 0.5 10^3/uL (0.1-0.6); Absolute Neutrophils 3.2 10^3/uL (1.4-6.5); Hematocrit 24.9 % (39.0-52.0); Mean Corp Hgb Conc. 32.1 g/dL (33.0-37.0); Mean Corpuscular Hgb 30.8 pg (27.0-31.0); Mean Corpuscular Volume 95.8 fL (80.0-94.0); Nucleated Red Blood Cells % 0 % (-); Platelet Count 145 10^3/uL (130-400); Red Cell Dist. Width 16.5 % (11.5-14.5); White Blood Cell Count 6.8 10^3/uL (4.8-10.8)
[2024-02-03 12:46] LABS: Erythrocyte Sed Rate 49 mm/hour (0-20)
[2024-02-03 13:53] LABS: Blood Urea Nitrogen 30 mg/dl (9-20); Iron 46 ug/dl (49-181); Percent Saturation 22 % (20-50); Total Iron Binding Capacity 203 ug/dl (261-462)
[2024-02-05 14:17] LABS: Erythropoietin (EPO) 21 mU/mL (4-27)
== END ==
LOC: OIDL 10:18
PROVIDERS: ATTENDING PHYSICIAN Internal Medicine Hematology & Oncology; FAMILY PHYSICIAN Family Medicine
DX: D50.0 Iron deficiency anemia secondary to blood loss (chronic) (principal)
CPT/HCPCS: 36415; 82565; 82668; 82728; 83540; 83550; 84520; 85025; 85652

== ENCOUNTER → 2024-02-08 10:32 | Outpatient (REF) | payer OTHER, SELFPAY | LOC: WOUND 10:32 | PROVIDERS: ATTENDING PHYSICIAN Surgery; FAMILY PHYSICIAN Family Medicine | DX: I87.313 Chronic venous hypertension (idiopathic) with ulcer of bilateral lower extremity (principal); L97.811 Non-pressure chronic ulcer of other part of right lower leg limited to breakdown of skin; L97.821 Non-pressure chronic ulcer of other part of left lower leg limited to breakdown of skin; L97.411 Non-pressure chronic ulcer of right heel and midfoot limited to breakdown of skin; L97.421 Non-pressure chronic ulcer of left heel and midfoot limited to breakdown of skin; N18.4 Chronic kidney disease, stage 4 (severe); Z79.01 Long term (current) use of anticoagulants; I87.2 Venous insufficiency (chronic) (peripheral); I73.9 Peripheral vascular disease, unspecified; Z95.1 Presence of aortocoronary bypass graft; Z95.0 Presence of cardiac pacemaker | CPT/HCPCS: 99213 ==

== ENCOUNTER → 2024-02-15 09:25 | Outpatient (REF) | payer OTHER, SELFPAY | LOC: WOUND 09:25 | PROVIDERS: ATTENDING PHYSICIAN Surgery; FAMILY PHYSICIAN Family Medicine | DX: I87.313 Chronic venous hypertension (idiopathic) with ulcer of bilateral lower extremity (principal); L97.811 Non-pressure chronic ulcer of other part of right lower leg limited to breakdown of skin; L97.821 Non-pressure chronic ulcer of other part of left lower leg limited to breakdown of skin; L97.411 Non-pressure chronic ulcer of right heel and midfoot limited to breakdown of skin; L97.421 Non-pressure chronic ulcer of left heel and midfoot limited to breakdown of skin; N18.4 Chronic kidney disease, stage 4 (severe); I73.9 Peripheral vascular disease, unspecified; Z95.1 Presence of aortocoronary bypass graft; Z95.0 Presence of cardiac pacemaker; Z79.01 Long term (current) use of anticoagulants | CPT/HCPCS: 29581; 99213 ==

== ENCOUNTER → 2024-02-19 10:23 | Outpatient (REF) | payer OTHER, SELFPAY ==
[2024-02-19 10:41] LABS: % Basophils 0.2 % (0-2); % Eosinophils 17.7 % (0-6); % Immature Granulocytes 0.2 % (0-0.5); % Lymphocytes 22.1 % (20.5-51.1); % Monocytes 7.9 % (1.7-9.3); % Neutrophils 51.9 % (42.2-75.2); Absolute Eosinophils 1.2 10^3/uL (0-0.7); Absolute Lymphocytes 1.4 10^3/uL (1.2-3.4); Absolute Monocytes 0.5 10^3/uL (0.1-0.6); Absolute Neutrophils 3.4 10^3/uL (1.4-6.5); Hematocrit 27.1 % (39.0-52.0); Hemoglobin 8.8 g/dL (13.0-18.0); Mean Corp Hgb Conc. 32.5 g/dL (33.0-37.0); Mean Corpuscular Volume 92.5 fL (80.0-94.0); Mean Platelet Volume 7.8 fL (7.4-10.4); Platelet Count 151 10^3/uL (130-400); Red Blood Cell Count 2.93 10^6/uL (4.70-6.10); Red Cell Dist. Width 15.7 % (11.5-14.5); White Blood Cell Count 6.5 10^3/uL (4.8-10.8)
[2024-02-19 11:47] LABS: Nucleated Red Blood Cells % 0 % (-)
[2024-02-19 11:55] LABS: Albumin 3.3 g/dl (3.5-5.0); Blood Urea Nitrogen 30 mg/dl (9-20); Carbon Dioxide 28 mmol/L (22-30); Chloride 104 mmol/L (98-107); Glucose 90 mg/dl (70-99); Iron 54 ug/dl (49-181); Phosphorus 3.4 mg/dl (2.5-4.5); Potassium 4.6 mmol/L (3.5-5.1); Sodium 138 mmol/L (135-145); eGFR 39.02
[2024-02-19 12:04] LABS: Percent Saturation 27 % (20-50); Total Iron Binding Capacity 193 ug/dl (261-462)
[2024-02-19 12:52] LABS: Erythrocyte Sed Rate 76 mm/hour (0-20)
[2024-02-20 06:04] LABS: Erythropoietin (EPO) 26 mU/mL (4-27)
== END ==
LOC: OIDL 10:23
PROVIDERS: ATTENDING PHYSICIAN Internal Medicine Hematology & Oncology; FAMILY PHYSICIAN Family Medicine; OTHER PHYSICIAN Specialist
DX: D50.0 Iron deficiency anemia secondary to blood loss (chronic) (principal)
CPT/HCPCS: 36415; 80069; 82668; 82728; 83540; 83550; 85025; 85652

== ENCOUNTER → 2024-02-23 13:31 | Outpatient (REF) | payer OTHER, SELFPAY | LOC: WOUND 13:31 | PROVIDERS: ATTENDING PHYSICIAN Surgery; FAMILY PHYSICIAN Family Medicine | DX: I87.313 Chronic venous hypertension (idiopathic) with ulcer of bilateral lower extremity (principal); L97.811 Non-pressure chronic ulcer of other part of right lower leg limited to breakdown of skin; L97.821 Non-pressure chronic ulcer of other part of left lower leg limited to breakdown of skin; L97.411 Non-pressure chronic ulcer of right heel and midfoot limited to breakdown of skin; L97.421 Non-pressure chronic ulcer of left heel and midfoot limited to breakdown of skin; N18.4 Chronic kidney disease, stage 4 (severe); Z79.01 Long term (current) use of anticoagulants; I87.2 Venous insufficiency (chronic) (peripheral); I73.9 Peripheral vascular disease, unspecified; Z95.1 Presence of aortocoronary bypass graft; Z95.0 Presence of cardiac pacemaker | CPT/HCPCS: 29581; 99213 ==

== ENCOUNTER → 2024-03-01 10:25 | Outpatient (REF) | payer OTHER, SELFPAY | LOC: WOUND 10:25 | PROVIDERS: ATTENDING PHYSICIAN Surgery; FAMILY PHYSICIAN Family Medicine | DX: I87.313 Chronic venous hypertension (idiopathic) with ulcer of bilateral lower extremity (principal); L97.811 Non-pressure chronic ulcer of other part of right lower leg limited to breakdown of skin; L97.821 Non-pressure chronic ulcer of other part of left lower leg limited to breakdown of skin; L97.411 Non-pressure chronic ulcer of right heel and midfoot limited to breakdown of skin; L97.421 Non-pressure chronic ulcer of left heel and midfoot limited to breakdown of skin; N18.4 Chronic kidney disease, stage 4 (severe); I87.2 Venous insufficiency (chronic) (peripheral); I73.9 Peripheral vascular disease, unspecified; Z95.1 Presence of aortocoronary bypass graft; Z79.01 Long term (current) use of anticoagulants | CPT/HCPCS: 29581; 99213 ==

== ENCOUNTER → 2024-03-02 12:31 | Outpatient (REF) | payer OTHER, SELFPAY ==
[2024-03-02 12:58] LABS: % Basophils 0.4 % (0-2); % Eosinophils 15.1 % (0-6); % Immature Granulocytes 0.2 % (0-0.5); % Lymphocytes 23.9 % (20.5-51.1); % Monocytes 9.7 % (1.7-9.3); % Neutrophils 50.7 % (42.2-75.2); Absolute Eosinophils 0.8 10^3/uL (0-0.7); Absolute Lymphocytes 1.2 10^3/uL (1.2-3.4); Absolute Monocytes 0.5 10^3/uL (0.1-0.6); Absolute Neutrophils 2.6 10^3/uL (1.4-6.5); Hematocrit 26.7 % (39.0-52.0); Hemoglobin 8.6 g/dL (13.0-18.0); Mean Corp Hgb Conc. 32.2 g/dL (33.0-37.0); Mean Platelet Volume 8.5 fL (7.4-10.4); Platelet Count 104 10^3/uL (130-400); Red Blood Cell Count 2.87 10^6/uL (4.70-6.10); Red Cell Dist. Width 15.7 % (11.5-14.5); White Blood Cell Count 5.2 10^3/uL (4.8-10.8)
== END ==
LOC: OIDL 12:31
PROVIDERS: ATTENDING PHYSICIAN Internal Medicine Hematology & Oncology
DX: D50.0 Iron deficiency anemia secondary to blood loss (chronic) (principal)
CPT/HCPCS: 36415; 85025

== ENCOUNTER → 2024-03-07 09:43 | Outpatient (REF) | payer OTHER, SELFPAY | LOC: RST 09:43 | PROVIDERS: ATTENDING PHYSICIAN Family Medicine | DX: R05.3 Chronic cough (principal); R13.14 Dysphagia, pharyngoesophageal phase | CPT/HCPCS: 74230; 92611 ==

== ENCOUNTER → 2024-03-07 11:11 | Outpatient (REF) | payer OTHER, SELFPAY | LOC: WOUND 11:11 | PROVIDERS: ATTENDING PHYSICIAN Surgery; FAMILY PHYSICIAN Family Medicine | DX: I87.313 Chronic venous hypertension (idiopathic) with ulcer of bilateral lower extremity (principal); L97.811 Non-pressure chronic ulcer of other part of right lower leg limited to breakdown of skin; L97.821 Non-pressure chronic ulcer of other part of left lower leg limited to breakdown of skin; L97.411 Non-pressure chronic ulcer of right heel and midfoot limited to breakdown of skin; L97.421 Non-pressure chronic ulcer of left heel and midfoot limited to breakdown of skin; N18.4 Chronic kidney disease, stage 4 (severe); I87.2 Venous insufficiency (chronic) (peripheral); I73.9 Peripheral vascular disease, unspecified; Z95.1 Presence of aortocoronary bypass graft; Z79.01 Long term (current) use of anticoagulants | CPT/HCPCS: 29581; 99213 ==

== ENCOUNTER → 2024-03-10 10:50 | Outpatient (REF) | payer OTHER, SELFPAY | LOC: HWRAD 10:50 | PROVIDERS: ATTENDING PHYSICIAN Family Medicine | DX: R31.9 Hematuria, unspecified (principal) | CPT/HCPCS: 76770 ==

== ENCOUNTER → 2024-03-15 10:47 | Outpatient (REF) | payer OTHER, SELFPAY | LOC: WOUND 10:47 | PROVIDERS: ATTENDING PHYSICIAN Surgery; FAMILY PHYSICIAN Nurse Practitioner Family | DX: I87.313 Chronic venous hypertension (idiopathic) with ulcer of bilateral lower extremity (principal); L97.811 Non-pressure chronic ulcer of other part of right lower leg limited to breakdown of skin; L97.821 Non-pressure chronic ulcer of other part of left lower leg limited to breakdown of skin; L97.411 Non-pressure chronic ulcer of right heel and midfoot limited to breakdown of skin; L97.421 Non-pressure chronic ulcer of left heel and midfoot limited to breakdown of skin; N18.4 Chronic kidney disease, stage 4 (severe); I87.2 Venous insufficiency (chronic) (peripheral); I73.9 Peripheral vascular disease, unspecified; Z95.1 Presence of aortocoronary bypass graft; Z95.0 Presence of cardiac pacemaker; Z79.01 Long term (current) use of anticoagulants | CPT/HCPCS: 99213 ==

== ENCOUNTER → 2024-03-16 10:50 | Outpatient (REF) | payer OTHER, SELFPAY ==
[2024-03-16 11:05] LABS: % Basophils 0.3 % (0-2); % Eosinophils 20.2 % (0-6); % Lymphocytes 26.7 % (20.5-51.1); % Monocytes 9.1 % (1.7-9.3); % Neutrophils 43.7 % (42.2-75.2); Absolute Eosinophils 1.2 10^3/uL (0-0.7); Absolute Lymphocytes 1.6 10^3/uL (1.2-3.4); Absolute Monocytes 0.5 10^3/uL (0.1-0.6); Absolute Neutrophils 2.6 10^3/uL (1.4-6.5); Hematocrit 29.3 % (39.0-52.0); Hemoglobin 9.3 g/dL (13.0-18.0); Mean Corp Hgb Conc. 31.7 g/dL (33.0-37.0); Mean Corpuscular Hgb 29.6 pg (27.0-31.0); Mean Corpuscular Volume 93.3 fL (80.0-94.0); Mean Platelet Volume 8.6 fL (7.4-10.4); Platelet Count 126 10^3/uL (130-400); Red Blood Cell Count 3.14 10^6/uL (4.70-6.10); Red Cell Dist. Width 15.4 % (11.5-14.5); White Blood Cell Count 5.9 10^3/uL (4.8-10.8)
== END ==
LOC: OIDL 10:50
PROVIDERS: ATTENDING PHYSICIAN Internal Medicine Hematology & Oncology
DX: D50.0 Iron deficiency anemia secondary to blood loss (chronic) (principal); D63.1 Anemia in chronic kidney disease
CPT/HCPCS: 36415; 85025

== ENCOUNTER → 2024-03-21 11:16 | Outpatient (REF) | payer OTHER, SELFPAY | LOC: WOUND 11:16 | PROVIDERS: ATTENDING PHYSICIAN Surgery; FAMILY PHYSICIAN Specialist | DX: I87.313 Chronic venous hypertension (idiopathic) with ulcer of bilateral lower extremity (principal); L97.811 Non-pressure chronic ulcer of other part of right lower leg limited to breakdown of skin; L97.821 Non-pressure chronic ulcer of other part of left lower leg limited to breakdown of skin; L97.411 Non-pressure chronic ulcer of right heel and midfoot limited to breakdown of skin; L97.421 Non-pressure chronic ulcer of left heel and midfoot limited to breakdown of skin; N18.4 Chronic kidney disease, stage 4 (severe); I87.2 Venous insufficiency (chronic) (peripheral); I73.9 Peripheral vascular disease, unspecified; Z95.1 Presence of aortocoronary bypass graft; Z79.01 Long term (current) use of anticoagulants | CPT/HCPCS: 97597 ==

== ENCOUNTER → 2024-03-29 09:47 | Outpatient (REF) | payer OTHER, SELFPAY | LOC: WOUND 09:47 | PROVIDERS: ATTENDING PHYSICIAN Surgery; FAMILY PHYSICIAN Family Medicine | DX: I87.313 Chronic venous hypertension (idiopathic) with ulcer of bilateral lower extremity (principal); L97.811 Non-pressure chronic ulcer of other part of right lower leg limited to breakdown of skin; L97.821 Non-pressure chronic ulcer of other part of left lower leg limited to breakdown of skin; L97.411 Non-pressure chronic ulcer of right heel and midfoot limited to breakdown of skin; L97.421 Non-pressure chronic ulcer of left heel and midfoot limited to breakdown of skin; N18.4 Chronic kidney disease, stage 4 (severe); I87.2 Venous insufficiency (chronic) (peripheral); I73.9 Peripheral vascular disease, unspecified; Z95.1 Presence of aortocoronary bypass graft; Z95.0 Presence of cardiac pacemaker | CPT/HCPCS: 99212 ==

== ENCOUNTER 2024-04-08 16:33 | Inpatient (IN) | payer OTHER, SELFPAY ==
[2024-04-08] VITALS (13 sets, daily range): BP systolic 64–103; BP diastolic 39–63; BMI 19.4
--- NOTE | 2024-04-08 14:01 | ED.GENMED ---
History of Present Illness
General
Chief Complaint: Change in Mental Status
Source: patient and family
Exam Limitations: none
Time Seen by Provider: 04/08/24 13:46
History of Present Illness
History of Present Illness:
84yoM with a history of coronary artery disease, CHF, atrial fibrillation, peripheral artery disease, sick sinus syndrome s/p pacemaker, CKD, and hypothyroidism presenting with his for evaluation of hallucinations. Patient was hospitalized
about a year ago for hyponatremia. Patient has been gradually declining since then. He has lost about 50 pounds in the past year and is increasingly weak to the point where he is having trouble ambulating. states no one call tell them what
is wrong. He was reportedly hallucinating yesterday and was banging at the window saying 'she's our neighbor and it's all her fault.' states he was not making any sense. She called her PCP and was sent for lab work yesterday but was told the
results would not be available for a few days.
Past History
Past History
ED Past Medical History: Arrthythmia (afib on Coumadin), CAD, HTN, Hypothyroidism and Other (a fibrillation, HTN, hyperlipidemia, heart valve replacement, pacemaker, renal insufficiency, hyponatremia)
ED Past Surgical History: Cardiac (pacemaker)
Social History
Tobacco: Non-smoker
Alcohol: None
Drug: None
Personal:
Living: with family
Employment: Other
Family History
Family History: Other
Phy Exam
General Physical Exam
General Presentation: no apparent distress
General Skin: warm and dry
General Habitus: cachetic, elderly and failure to thrive
General Mental: alert
General Hydration: dry mucous membranes
ENT Exam
ENT Exam: normocephalic
Cardiovascular Exam
Cardiovascular Exam: regular rate/rhythm
Pulmonary Exam
Pulmonary Exam: lungs clear, no respiratory distress, no rales, no crackles and no rhonchi
Neurological Exam
Neurological Exam: alert
Skin Exam
Skin Exam: normal color and warm/dry
Psychiatric Exam
Psychiatric Exam: normal mood/affect
Course
Orders/Labs/Results
Orders:
Orders
04/08/24 14:00
Electrocardiogram (*1) Urgent
Reason for Study: Fatigue / Weakness
CT Head W/o Iv Contrast Urgent
Comment:
Reason For Exam: AMS
CR Chest - 2 Views Urgent
Comment:
Reason For Exam: failure to thrive
04/08/24 14:03
Complete Blood Count/With Diff Urgent
Comprehensive Metabolic Panel Urgent
Ferritin Urgent
Comment: ADD ON
Folate Urgent
Comment: ADD ON
Free T4 Urgent
Iron Urgent
TSH Reflex To Free T4 Urgent
Total Iron Binding Urgent
Troponin I Urgent
Vitamin B12 Urgent
Comment: ADD ON
04/08/24 14:07
0.9% Sodium Chloride 500 ml [Nss] 500 ml IV BOLUS
04/08/24 Dinner
IDDSI 6 - Soft & Bite Sized
At Your Request: Non-Participating
04/08/24 15:52
Quetiapine Fumarate [Seroquel] 25 mg PO NOW STA
04/08/24 15:53
Admit/Transfer Patient As Directed
Co-Sign Provider:
Level of Care: Inpatient admission
Assign to:: Medical/Surgical
Physician / Group: Htay
Diagnosis: TME / LORIE
Reason for Hospitalization: IVFs
Expected length of stay greater than two midnights?: Yes
ELOS- Estimated Length of Stay in days: 3
I certify the patient meets the requirements for IP care: Yes
04/08/24 15:55
PRN Pain Medication Management As Directed
May give lesser potent ordered pain med per pt: Yes
preference::
Protocol:: Medication orders for pain may be administered in a
manner that supports deferring to patient preference
when the pt is:
- Requesting an ordered lesser potent pain medication.
Least to most potent pain medications are defined
as: acetaminophen < NSAID < tramadol < opioids
(morphine, oxycodone, hydromorphone).
- Requesting a lesser dose of the same medication IF
ORDERED.
- Requesting a less intrusive route of administration
if both routes are prescribed by the provider (PO <
IV).
04/08/24 15:57
COVID-19 Antigen Urgent
Source: Nasal Swab
04/08/24 16:07
Code Status As Directed
Resuscitation Status: Do not resuscitate
Reached after discussion with pt or family/Healthcare POA: Yes
DNR Bracelet Application ONCE
04/08/24 17:41
0.9% Sodium Chloride 500 ml [Nss] 500 ml IV 60 mls/hr
Acetaminophen [Tylenol] 650 mg PO Q4HPRN PRN
Temazepam [Restoril] 15 mg PO HSPRN PRN
04/08/24 17:41
DIETARY CONSULT Routine
Reason for Consult: weight loss
Activity As Directed
Activity Level: Out of Bed-Early Mobility
With Assistance
Bladder Scan As Directed
Follow Bladder Retention/Intermittent Cath Algorithm?: Yes
PRN if no void in __ hours: 6
Frequency: Per Retention Algorithm
If Bladder Scan Result >: 400
then:: Straight cath
Obtain Records As Directed
Dates of Information to be Released: Apr 08
Type of Information Requested: Lab Results
If Other, list type of info requested: Urinalysis / Urine Cultre
Obtain Records from: PCP
Pneumatic Compression Sleeves As Directed
Type: Knee high
Straight Cath As Directed
Frequency: Per Retention Algorithm
Additional Instructions: straight cath as needed per acute urinary retention algorithm for 24 hrs
Additional Instructions: for bladder scan greater than 400 mL
Vital Signs As Directed
Frequency: Per unit guidelines
Weight As Directed
Frequency: Daily
Ot Eval And Treat Routine
Pt Eval And Treat Routine
Activity Level: Out of Bed-Early Mobility
Speech Therapy Eval & Treat Routine
DX Deep Vein Thrombosis Video Routine
04/08/24 20:00
Carvedilol [Coreg] 25 mg PO BID
04/08/24 22:00
Quetiapine Fumarate [Seroquel] 25 mg PO HS
Sertraline HCl [Zoloft] 50 mg PO HS
04/09/24 06:00
Basic Metabolic Panel IN AM
Complete Blood Count/No Diff IN AM
Magnesium IN AM
Levothyroxine [Synthroid] 75 mcg PO DAILY @ 0600
04/09/24 08:00
Allopurinol [Zyloprim] 300 mg PO DAILY
Abnormal Lab Results
04/08/24
14:03
RBC 2.92 L 10^6/uL
(4.70-6.10)
Hgb 8.4 L g/dL
(13.0-18.0)
Hct 26.1 L %
(39.0-52.0)
MCHC 32.2 L g/dL
(33.0-37.0)
RDW 15.4 H %
(11.5-14.5)
Plt Count 93 L 10^3/uL
(130-400)
Absolute Eos (auto) 1.1 H 10^3/uL
(0-0.7)
Eosinophils % 21.5 H %
(0-6)
BUN 75 H mg/dl
(9-20)
Creatinine 2.9 H mg/dL
(0.7-1.3)
Iron 46 L ug/dl
(49-181)
TIBC 205 L ug/dl
(261-462)
Albumin 3.2 L g/dl
(3.5-5.0)
Vitamin B12 > 1000 H pg/ml
(239-931)
Folate > 20.0 H ng/ml
(2.76-20)
TSH (Reflex) 6.10 H uIU/ml
(0.47-4.68)
04/08/24 14:03
04/08/24 14:03
Vital Signs
Initial and Last Documented VS:
Initial Vital Signs
Temp Pulse Resp BP Pulse Ox
97.8 F 66 16 64/39 96
04/08/24 13:15 04/08/24 13:15 04/08/24 13:15 04/08/24 13:15 04/08/24 13:15
Last Documented Vital Signs
Temp Pulse Resp BP Pulse Ox
97.8 F 65 18 102/53 98
04/08/24 13:15 04/08/24 18:13 04/08/24 18:13 04/08/24 18:13 04/08/24 18:13
MDM/Problems Addressed
Differential Diagnosis Includes:
84yoM here with hallucinations x several days. Also with a subacute decline in health over the past year. BP 64/39 in triage. BP 90s/50s on initial exam. Patient is cachectic and appears fatigued. Differential diagnosis includes but is not limited
to: failure to thrive, dehydration, LORIE, UTI
Initial ED plan: Check cardiac labs, TSH, UA, EKG, CXR, and CT head. IV fluid bolus.
*EKG
Interpreted by ED Provider?: Yes
EKG Intrepretation Date: 04/08/24
Heart Rate: 61
Rate: normal
Rhythm: ventricular paced
Ischemia: no ischemia
*Critical Care Note
Total Time (30-74mins, 75-104mins- exclusive of procedures): Not Applicable
Update Note
Update Note:
Creatinine 2.9, up from baseline of 1.7. TSH elevated at 6, T4 pending. CT head negative for acute findings. LORIE possible culprit for his hallucinations. Will admit for further management.
ED Attending Note
-
Portions of this chart may have been created with voice recognition software.� Occasional wrong word or��sound alike� substitutions may have occurred due to the inherent limitations of voice recognition software.
Discharge Plan
Departure
Patient Disposition: Admit
Date of Disposition: 04/08/24
Time of Disposition: 15:25
Presentation/result/management discussed w/ accepting MD/DO: Hospitalist
Discharge Problem:
Acute kidney injury, Altered mental status, Adult failure to thrive
Interventions
Interventions:
*Risk Screen - Suicide Last Done: 04/08/24 18:25
*General Assessment Last Done: 04/08/24 15:00
*Neglect/Abuse Screening Last Done: 04/08/24 17:51
ED- Fall Risk Assessment Last Done: 04/08/24 17:51
*ED COVID-19 Vaccine History Last Done: 04/08/24 15:00
*Nursing Disposition Last Done: 04/08/24 17:52
ED- Neurological Assessment Last Done: 04/08/24 15:00
Discharge Date and Time
Discharge Date/Time: 04/08/24 17:53
[2024-04-08 14:28] LABS: ALT (SGPT) 13 U/L (0-50); AST (SGOT) 29 U/L (17-59); Albumin 3.2 g/dl (3.5-5.0); Alkaline Phosphatase 92 U/L (38-126); Blood Urea Nitrogen 75 mg/dl (9-20); Calcium 9.4 mg/dl (8.4-10.2); Carbon Dioxide 26 mmol/L (22-30); Chloride 103 mmol/L (98-107); Glucose 76 mg/dl (70-99); Sodium 136 mmol/L (135-145); Total Protein 6.3 g/dl (6.3-8.2); eGFR 20.55
[2024-04-08 14:32] LABS: % Eosinophils 21.5 % (0-6); % Immature Granulocytes 0.2 % (0-0.5); % Lymphocytes 23.4 % (20.5-51.1); % Neutrophils 46.9 % (42.2-75.2); Absolute Basophils 0.1 10^3/uL (0-0.2); Absolute Eosinophils 1.1 10^3/uL (0-0.7); Absolute Lymphocytes 1.2 10^3/uL (1.2-3.4); Absolute Monocytes 0.4 10^3/uL (0.1-0.6); Absolute Neutrophils 2.5 10^3/uL (1.4-6.5); Hematocrit 26.1 % (39.0-52.0); Hemoglobin 8.4 g/dL (13.0-18.0); Mean Corp Hgb Conc. 32.2 g/dL (33.0-37.0); Mean Corpuscular Hgb 28.8 pg (27.0-31.0); Mean Corpuscular Volume 89.4 fL (80.0-94.0); Nucleated Red Blood Cells % 0 % (-); Red Blood Cell Count 2.92 10^6/uL (4.70-6.10); Red Cell Dist. Width 15.4 % (11.5-14.5); White Blood Cell Count 5.3 10^3/uL (4.8-10.8)
[2024-04-08 14:40] LABS: Troponin I 0.012 ng/ml
[2024-04-08] MEDS: NSS 500 IV ×2 (14:54→18:15)
[2024-04-08 15:24] LABS: Free T4 1.19 ng/dl (0.78-2.19)
--- NOTE | 2024-04-08 15:27 | HPS.HSE ---
Family Physician
-
Family Physician: Khalida Hopper
Chief Complaint
-
Hallucinations
History of Present Illness
Patient is an 84 y/o male past medical history of CAD, A-Fib, SSS, CKD and Dysphagia who presents with hallucinations. Additional history is obtained from patient's at bedside. Patient has been experiencing hallucinations for the past 2-3
nights. contacted patient's PCP yesterday who ordered a a urine culture and started him on empiric antibiotics. Last night the hallucinations were much worse prompting her to bring him to the emergency department for evaluation. Patient had a
recent VSE which deal reveal aspiration but no improvement with thickening liquids so patient remains on regular solids with thin liquids. Patient has had poor appetite recently and PCP notes indicate weight loss, but patient / family did not want
to pursue feeding tube placement.
Medical History
Past Medical History
Past Medical History: Reports Other
Additional Past Medical History:
Coronary Artery Disease
Paroxysmal Atrial Fibrillation
Sick Sinus Syndrome s/p Permanent Pacemaker
Essential Hypertension
CKD Stage IIIB
Dysphagia
Chronic Anemia
Hypothyroidism
Depression
Obstructive Sleep Apnea
Gout
Past Surgical History: Reports Other
Additional Past Surgical History:
CABG
Mitral Valve Repair
Cardiac Pacemaker
Social History
Tobacco: Non-smoker
Alcohol: None
Drug: None
Personal:
Living: With Family
Employment: Retired
Family History
Family History: Not pertinent
Allergies / Home Medications
Allergies reflects when Allergies were last updated in [facility].
Home Medications with original date entered in [facility]
Allergy/Medication List:
Allergies
Allergy/AdvReac Type Severity Reaction Status Date / Time
Ybsfzix-VBY-TiN Reductase Allergy Unknown Verified 04/08/24 13:19
Inhibitor
[Bdqadiy-Zrw-Akr Reductase
Inhibitor]
Home Medications
allopurinol 300 mg tablet 300 mg PO DAILY Gout 12/18/19
ascorbic acid (vitamin C) 500 mg tablet (Vitamin C) 500 mg PO DAILY Supplement 12/18/19
levothyroxine 75 mcg tablet 75 mcg PO DAILY Thyroid 12/18/19
furosemide 20 mg tablet 20 mg PO MOWEFR Fluid Retention/Swelling 03/02/23
folic acid 1 mg tablet 1 mg PO DAILY Supplement 10/15/23
carvedilol 25 mg tablet (Coreg) 25 mg PO BID 04/08/24
cephalexin 500 mg capsule 500 mg PO TID 04/08/24
enalapril maleate 5 mg tablet 5 mg PO DAILY 04/08/24
sertraline 50 mg tablet 50 mg PO HS 04/08/24
temazepam 15 mg capsule 15 mg PO HSPRN PRN sleep 04/08/24
Review of Systems
-
Unable to obtain full review of systems at this time due to: Acuity
Physical Exam
Vital Signs
Vital Signs
Temp Pulse Resp BP Pulse Ox
97.8 F 60 18 93/59 99
04/08/24 13:15 04/08/24 14:15 04/08/24 14:15 04/08/24 14:00 04/08/24 14:15
Physical Exam
General: Comfortable, Conversant, Appears Chronically Ill and Cachectic
HEENT: NormoCephalic, Anicteric and Atraumatic
Respiratory: Clear and Non Labored Respirations
Cardiac: S1/S2 and Regular Rhythm
GI: Soft and Non Tender
Musculoskeletal: No Clubbing, No Cyanosis and No Edema
Skin: Warm and Dry
Neuro: Awake, Alert, Oriented and Nonfocal/grossly intact
Psych: Calm and Other (Hallucinations)
Laboratory Results
-
04/08/24 14:03
04/08/24 14:03
Laboratory Results
Total Bilirubin 1.0 mg/dl (0.2-1.3) 04/08/24 14:03
AST 29 U/L (17-59) 04/08/24 14:03
ALT 13 U/L (0-50) 04/08/24 14:03
Alkaline Phosphatase 92 U/L (38-126) 04/08/24 14:03
Troponin I 0.012 ng/ml 04/08/24 14:03
Data Reviewed
-
Lab Data: Labs Reviewed by me
Impression/Plan
-
TME with Hallucinations secondary to LORIE
-Start Seroquel for hallucinations
-Await urinalysis
-Attempt to obtain urine culture results obtained yesterday as outpatient
-Consider Psych consult if hallucinations are not improving
Acute Kidney Injury on CKD III
-Continue IVFS
-Hold furosemide and enalapril
-Recheck labs in AM
Dysphagia
-Plan for IDDS 6 as patient mostly on soft foods at come
-Continue thin liquids
-Consult Speech
-Prior outpatient notes indicate patient / family do not want feeding tube
Paroxysmal Atrial Fibrillation
-Continue Coreg for rate control
-Patient is not on anticoagulation
Essential Hypertension
-BP running low in setting of LORIE
-Enalapril on hold
Chronic Anemia
-Hgb at baseline
Hypothyroidism
-Thyroid studies consistent with sick euthyroid
-Continue levothyroxine
Depression
-Continue sertraline
Severe Protein Calorie Malnutrition
-Consult Dietary
Hx Coronary Artery Disease s/p CABG
Hx Sick Sinus Syndrome s/p Permanent Pacemaker
DVT proph: SCDs
Code Status: DNR
[2024-04-08 15:31] LABS: Mean Platelet Volume 10.2 fL (7.4-10.4); Platelet Count 93 10^3/uL (130-400)
[2024-04-08] MEDS: SEROQUEL 25 MG PO ×2 (16:07→20:34)
--- NOTE | 2024-04-08 16:09 | W.PN.UPDATE ---
Update Note
Progress Note Update
This note serves as an addendum to the H&P by carbon setter MILEY
Tyra DIETERICK
HPI
84M HX CKD3b , baseline eGFR hi 30s, baseline Cr 1.7s , CAD, PAD, CHF, A Fib , HTN, HLD seen at ER for evalaution - pw AMS with agitation
- visual hallucinations and paranoia for last few months
- reports significant wt loss 40-50 lbs over 6- 12 months but spouse reports good appetite
- general decline in health x 1 year. BP 64/39 in triage
- NEG HCT
- Pending UA
Hypotensive BP in 90s/50s currently.
Creatinine 2.9, up from baseline of 1.7
PHX: as above
Vital Signs
Temp Pulse Resp BP Pulse Ox
97.8 F 60 18 93/59 99
04/08/24 13:15 04/08/24 14:15 04/08/24 14:15 04/08/24 14:00 04/08/24 14:15
PE
Gen: thin ,cahectic, active visual
HEENT: slurrig speech due to dry mouth
Neck: supple
Lungs: CTA
Cor: RRR S1 S2
Abdomen: soft benign
PRESSURE TESTING TECHNICIAN: alert, actively visual hallucinating
MS: no edema
Psych:actively visual hallucinating
Laboratory Tests
02/19/24 03/02/24 03/16/24
10:35 12:36 10:54
Hgb 8.6 L 9.3 L
MCV
BUN
Creatinine 1.7 H
eGFR 39.02
04/08/24
14:03
Hgb 8.4 L
MCV 89.4
BUN 75 H
Creatinine 2.9 H
eGFR 20.55
04/08/23 CXR:
1. Small bilateral pleural effusions.
2. Minimal haziness of the left hemidiaphragm, which may be related to small left pleural effusion and/or mild left lower lobe airspace disease.
HCT
1. No acute intracranial abnormalities appreciated.
2. Mild atrophy and mild chronic small vessel change.
3. Hyperattenuating material within the right-sided paranasal sinuses as detailed above, suggestive of chronic inspissated secretions due to chronic sinusitis. Right nasal polyp may also be present. No significant change compared to prior CT.
ASSESSMENT & PLAN
OLRIE; clinically dehydrated with hypotension. HX CKD3b
Associated TME with Psychotic symtoms due to LORIE
- s/p 500 assisted of NS at ER.
- cont. second 500 cc IV NS @ 60/H
- Hold Frusemide, Enalarpril
- Coreg with hold parameter for SBP less tahn 110
Associated TME with Psychotic symtoms ( VH and parnoia ) due to LORIE
- Seroquel 25 mg now and HS
- If no clinical relief of VH, to consider Psych consult in AM
- Correct LORIE and observe MS
Hypotensive
Suspect dehydration and hypovolemia
- Hold Frusemide, Enalapril
- Coreg with hold parameter for SBP less than 110
HX Prx AF
- Coreg with hold parameter for SBP less than 110
Currently on CHEESE COOKER Cephalexin just filled yesterday of uncertain indication ? may be UTI
- pending UA
- cont. Cephalexin for now
Hypothyroid; Mildly elevated TSH, nl FT4 c/w sick euthyroid due to LORIE
Unexplained wt loss so far
- c/w CHEESE COOKER LT4 75mcg daily
Chr gait dysfunction
- use walker
- PT/OT
Recent HX VSE as OP
- currently on regular diet
- ST consult
HX CAD, PAD
HX CHF
HX A Fib
HLD
DVT Px: SCD
DNR per
IP MS
[2024-04-08 16:19] LABS: Iron 46 ug/dl (49-181)
[2024-04-08 16:28] LABS: Percent Saturation 22 % (20-50); Total Iron Binding Capacity 205 ug/dl (261-462)
[2024-04-08 16:55] LABS: COVID-19 Antigen Negative (Negative)
[2024-04-08 17:11] LABS: Folate > 20.0 ng/ml (2.76-20); Vitamin B12 > 1000 pg/ml (239-931)
--- NOTE | 2024-04-08 20:05 | PTCARENOTE ---
Patient recieved in bed. Patient awake and will respond with garbled speech to name. Patient impulsive withmulitple attempts of getting up on own with in first hor of shift. Bed alarm in place and functioning properly. Attempted to assist with
urinal. Patient resistant with care and swatting at nurse. Patient unsteady with any attempt to transfer.
[2024-04-08] MEDS: ZOLOFT 50 MG PO (20:34)
[2024-04-08] MEDS: COREG PO (20:35)
[2024-04-08 22:19] LABS: Urine Albumin 1+ (Neg - Trace); Urine Bilirubin Negative (Negative); Urine Character Clear (Clear); Urine Color Yellow; Urine Glucose Negative (Negative); Urine Ketone Negative (Negative); Urine Leukocyte Negative (Negative); Urine Nitrite Negative (Negative); Urine Occult Blood 2+ (Negative); Urine Urobilinogen Negative (Neg - 1+)
[2024-04-08 22:55] LABS: Urine Squamous Cell 0-2 /LPF (Few)
[2024-04-09 04:11] VITALS: BMI 19.1
[2024-04-09] MEDS: SYNTHROID 75 MCG PO (05:56)
[2024-04-09 07:37] VITALS: BP 93/57
[2024-04-09 08:34] LABS: Hematocrit 25.5 % (39.0-52.0); Hemoglobin 8.1 g/dL (13.0-18.0); Mean Corp Hgb Conc. 31.8 g/dL (33.0-37.0); Mean Corpuscular Hgb 28.7 pg (27.0-31.0); Mean Corpuscular Volume 90.4 fL (80.0-94.0); Mean Platelet Volume 10.4 fL (7.4-10.4); Platelet Count 73 10^3/uL (130-400); Red Blood Cell Count 2.82 10^6/uL (4.70-6.10); Red Cell Dist. Width 15.5 % (11.5-14.5); White Blood Cell Count 3.5 10^3/uL (4.8-10.8)
[2024-04-09] MEDS: COREG 25 MG PO (08:38)
[2024-04-09] MEDS: ZYLOPRIM 300 MG PO (08:39)
[2024-04-09 09:08] LABS: Blood Urea Nitrogen 70 mg/dl (9-20); Carbon Dioxide 24 mmol/L (22-30); Chloride 105 mmol/L (98-107); Estimated Creatinine Clearance 19 ml/min; Glucose 32 mg/dl (70-99); Magnesium 2.3 mg/dl (1.6-2.3); Potassium 4.8 mmol/L (3.5-5.1); Sodium 135 mmol/L (135-145)
[2024-04-09 09:23] LABS: Glucose - Point of Care 49 mg/dl (70-99)
[2024-04-09 09:37] LABS: Glucose - Point of Care 57 mg/dl (70-99)
[2024-04-09 10:02] LABS: Glucose - Point of Care 98 mg/dl (70-99)
--- NOTE | 2024-04-09 10:08 | CM ---
Addendum entered by Netta Mccrary 04/09/24 12:07:
Met with , per , patient resides with her in a second floor apartment, one step to enter building, elevator access to second floor. requesting referral to [facility] if patient is recommended rehab.
Original Note:
CM reviewed chart, patient asleep in chair. Patient admitted for hallucinations. Phone call to to complete assessment, per , she will be at hospital this afternoon and would like to meet with CM. Per previous admissions, patient history at
[facility], [facility]. CM will continue to follow for all discharge planning needs.
Plan; will depend on further medical workup, will meet with this afternoon.
[2024-04-09] MEDS: D5/0.9% SODIUM CHLORIDE 1000 IV ×2 (10:49→23:03)
[2024-04-09 12:14] VITALS: BMI 19.1
--- NOTE | 2024-04-09 13:36 | W.PN.HOSP.TC ---
Today's Communication/Plan
-
IVF
CT
Assessment / Plan
Assessment / Plan
84 year-old presented with hallucinations for the past 2-3 nights prior to admission seen by PCP who ordered urine culture and empiric antibiotics, Keflex. stated that she called PCP and the Asked to take him to the ER.
On examination patient is confused sitting in a chair
Cardiovascular system S1-S2 appreciated
Chest clear to auscultation
Abdomen firm nontender
Mild pedal edema
Confused, slow nonfocal
# TME with hallucinations
# Acute kidney injury on CKD stage III
Hold Lasix, enalapril
Follow creatinine
# Significant weight loss-check CT chest abdomen pelvis with p.o. contrast only due to LORIE
# Dysphagia-IDDSI 6 diet
Speech therapy evaluation
# Paroxysmal atrial fibrillation-continue Coreg
Not on anticoagulation as outpatient secondary to severe anemia hemoglobin was 4.5 in September
# Coronary artery disease with history of CABG
# History of sick sinus syndrome status post pacemaker placement
# Chronic HFpEF-hold enalapril and Lasix. Continue Coreg
Echo 10/22/2023-inferobasal akinesis with EF 50 to 55%, status post MV repair, mild MR, aortic sclerosis, mild pulmonary hypertension 35 to 40 mmHg
# History of mitral valve repair
# Hypertension-continue Coreg for A-fib but hold enalapril
# Chronic anemia-likely secondary to chronic disease. Iron studies and B12 adequate
EGD-10/17/23-normal esophagus. Gastritis
Colonoscopy 12/21/2019-blood in the sigmoid colon. 8 mm polyp in AC, 3mm PolypAC,6 mm Polyp DC,Diverticulosis DC,Non Bleeding Int and Ext Hemorrhoids
# Hypothyroidism-continue Synthroid
# Depression-continue sertraline Temazepam
# Gout-continue allopurinol
# PAD status post angio with revascularization of left lower extremity.Chronic left lower extremity arterial ulcers
# LENA
# History of Gilbert syndrome
# Severe protein calorie malnutrition-dietary consultation. Supplements added
# Ambulatory dysfunction
# DVT prophylaxis-subcutaneous heparin
# DNR form with at bedside
Discussed with and [id number] at bedside. Reviewed the plan
Discussed with nursing at bedside
time over 50 min
Anticipated Discharge: 24 - 48 hours
Subjective/Interval History
-
Date of Service: April 09, 2024
Objective Data
-
Labs:
Laboratory Results
04/09/24
07:50
WBC 3.5 L
Hgb 8.1 L
Hct 25.5 L
Plt Count 73 L D
Sodium 135
Potassium 4.8
Chloride 105
Carbon Dioxide 24
BUN 70 H
Creatinine 2.7 H
Glucose 32 L*
Calcium 9.0
Vital Signs:
Vital Signs
Temp Pulse Resp BP Pulse Ox
98.1 F 63 16 93/57 97
04/08/24 23:05 04/09/24 07:37 04/09/24 07:37 04/09/24 07:37 04/09/24 07:37
I&O
04/08/24 04/09/24 04/10/24
06:59 06:59 06:59
Intake Total 620 / 620
Output Total 235 / 235
Balance 385 / 385
[2024-04-09] MEDS: OMNIPAQUE 50 ML PO (14:57)
[2024-04-09] MEDS: VITAMIN B1 100 MG PO (14:58)
[2024-04-09 15:00] VITALS: BP 80/44
[2024-04-09 15:25] VITALS: BP 86/48
[2024-04-09] MEDS: NSS 250 IV (15:33)
--- NOTE | 2024-04-09 17:13 | W.PN.UPDATE ---
Update Note
Progress Note Update
BP low
CXR with infiltrate
Transfer to IMU
Hold Coreg
Start pressors
IVF
[2024-04-09] MEDS: ZOSYN 50 IV (18:41)
[2024-04-09 18:51] VITALS: BMI 18.4
[2024-04-09 18:58] LABS: Glucose - Point of Care 113 mg/dl (70-99)
--- NOTE | 2024-04-09 19:46 | PTCARENOTE ---
Pt received at beginning of shift in bed. AAOx0. Lethargic. Slightly arousable with sternal rub. Slightly moans, grunts. BP remains hypotensive currently 83/59 MAP 68. Levophed gtt infusing at 5mcq/min. IVF's infusing as ordered. Accucheck 137 at
beginning of shift will recheck Q6hrs. Currently 100% Vpaced on CM. RR 16 POX RA 95%. Skin cold to touch. Unable to obtain temp even via rectally. Shannan Galindo TT'd and made aware. Order entered for roel maciel which is currently on pt. IVT to place
2nd iv site for antibiotics. Informed during report pt can be impulsive. Bed alarm and working. Rest of assessment as documented. Maintained on Q2hr turns. Will continue to monitor.
--- NOTE | 2024-04-09 20:46 | PTCARENOTE ---
Currently maxed on Levo gtt at 8mcq/min. BP 79/53 MAP 62. Also pt desatted down to 81% on RA. Placed on 6L NC pox 93%. Shannan MARTINI TT'd and made aware. 500ml NSS bolus ordered and infusing. Pt remains lethargic. Bladder scanned for 240mls. CC
in place. Will continue to monitor.
[2024-04-09] MEDS: NSS 1000 IV (20:50)
--- NOTE | 2024-04-09 21:25 | PTCARENOTE ---
Still unable to obtain temperature via any route. Order obtained from Shannan MARTINI for thermoster mead which was placed. Temp reading 87.4. Warm blankets placed underneath pt along with roel hugger. Bolus continues infusing. Current BP 90/66 MAP 74.
Levo gtt maxed at 8mcq/min. Shannan MARTINI will attempt to reach .
--- NOTE | 2024-04-09 21:54 | W.PN.UPDATE ---
Addendum entered and electronically signed by LIANET Hernandez 04/09/24 22:33:
Will transfer to ICU after second pressor (phenyephrine) added. Also concern for adrenal crisis (hypoglycemia, hypotension, hypothermia) will add Hydrocortisone 100 mg q8 IV.
Original Note:
Update Note
Progress Note Update
Patient noted with hypotension and sub normal temperature verified with thermoster mead placement. Ric hugger placed along with warm blankets as well as warmed NS IVF boluse. Discussed with and she prefers for him to be comfortable. Explained
we would continue what we are doing ( IVF, levophed and warming) she is in agreement and updated his DNR to include no intubation/ventilator but would like CPR. Explained about possibly moving him to ICU and she would prefer us to maintain him where
he is.
[2024-04-09] MEDS: ZOLOFT PO (21:55)
[2024-04-09] MEDS: NSS 500 IV (21:55)
--- NOTE | 2024-04-09 21:56 | PTCARENOTE ---
First 500ml bolus finished. BP 78/48 MAP 58. Second 1L NS bolus ordered and infusing. Levo gtt at 8mcq/min. Stat Labs/blood cultures obtained. IVF's wrapped in warm Kpad. Skin checks as documented. Current temp 88.6. Will continue to monitor.
[2024-04-09 22:02] LABS: Lactic Acid < 0.5 mmol/L (0.7-2.0)
[2024-04-09] MEDS: NEO-SYNEPHRINE 250 IV (22:16)
[2024-04-09 22:23] LABS: Procalcitonin < 0.05 ng/ml (0.0-0.25)
[2024-04-09] MEDS: SOLU-CORTEF 100 MG IV (22:34)
--- NOTE | 2024-04-09 22:42 | PTCARENOTE ---
Pt continues to be unstable with hypotension - now on 2 pressors - Levophed gtt at 8mcq/min and Phenylevrine gtt at 60mcq/min. Temperature via mead 90.1. Decision made to transfer pt to ICU.
[2024-04-09 23:15] VITALS: BP 99/59
--- NOTE | 2024-04-09 23:15 | PTCARENOTE ---
pt tx to ICU, T 91.3F, Ric maciel on high, VPaced HR 60, B/L IV WNL- IVF, Levo, Kenroy gtts infusing per work list. Sat 97 on 4LNC. pt opens eyes to stimulation, no verbal response/only moans with turning. care ongoing.
[2024-04-09 23:28] LABS: Glucose - Point of Care 152 mg/dl (70-99)
[2024-04-09 23:30] VITALS: BP 104/54
[2024-04-10] VITALS (67 sets, daily range): BP systolic 92–143; BP diastolic 55–89; BMI 18.2
[2024-04-10] MEDS: ZOSYN 50 IV ×2 (00:19→05:03)
[2024-04-10 00:22] LABS: Hematocrit 25.5 % (39.0-52.0); Hemoglobin 8.2 g/dL (13.0-18.0); Mean Corp Hgb Conc. 32.2 g/dL (33.0-37.0); Mean Corpuscular Hgb 29.5 pg (27.0-31.0); Mean Corpuscular Volume 91.7 fL (80.0-94.0); Mean Platelet Volume 10.5 fL (7.4-10.4); Platelet Count 66 10^3/uL (130-400); Red Blood Cell Count 2.78 10^6/uL (4.70-6.10); Red Cell Dist. Width 15.8 % (11.5-14.5); White Blood Cell Count 5.3 10^3/uL (4.8-10.8)
--- NOTE | 2024-04-10 00:28 | PTCARENOTE ---
BP's for shift in IMU prior to transfer to ICU ranged from SBP 60's-low 90's. MAPs between low 50's-low 60's.
[2024-04-10 00:45] LABS: ALT (SGPT) 11 U/L (0-50); AST (SGOT) 25 U/L (17-59); Albumin 2.5 g/dl (3.5-5.0); Alkaline Phosphatase 79 U/L (38-126); Blood Urea Nitrogen 68 mg/dl (9-20); Carbon Dioxide 23 mmol/L (22-30); Chloride 109 mmol/L (98-107); Creatine Phosphokinase 116 U/L (55-170); Estimated Creatinine Clearance 17 ml/min; Glucose 147 mg/dl (70-99); Magnesium 2.1 mg/dl (1.6-2.3); PT 16.5 Sec (11.4-14.6); Potassium 4.5 mmol/L (3.5-5.1); Sodium 138 mmol/L (135-145); Total Bilirubin 0.9 mg/dl (0.2-1.3); Total Protein 5.4 g/dl (6.3-8.2); eGFR 21.44
[2024-04-10 00:46] LABS: APTT 50.4 Sec (23.4-35.0); Fibrinogen 371 MG/DL (199-459)
[2024-04-10] MEDS: LEVOPHED 250 IV (01:12)
[2024-04-10] MEDS: D5/0.45%NACL 1000 IV (01:14)
[2024-04-10 01:17] LABS: TSH Reflex To Free T4 4.14 uIU/ml (0.47-4.68)
[2024-04-10 01:58] LABS: Cortisol, Random > 123.0 ug/dl
--- NOTE | 2024-04-10 04:00 | PTCARENOTE ---
temp at goal, roel hugger off, titrating levo gtt, pt more awake- moaning at times. no further changes.
[2024-04-10 04:54] LABS: Hematocrit 26.5 % (39.0-52.0); Hemoglobin 8.6 g/dL (13.0-18.0); Mean Corp Hgb Conc. 32.5 g/dL (33.0-37.0); Mean Corpuscular Hgb 29.9 pg (27.0-31.0); Mean Platelet Volume 9.6 fL (7.4-10.4); Platelet Count 68 10^3/uL (130-400); Red Blood Cell Count 2.88 10^6/uL (4.70-6.10); Red Cell Dist. Width 15.6 % (11.5-14.5); White Blood Cell Count 7.9 10^3/uL (4.8-10.8)
[2024-04-10] MEDS: SYNTHROID PO (05:03)
[2024-04-10 05:08] LABS: Blood Urea Nitrogen 68 mg/dl (9-20); Calcium 8.1 mg/dl (8.4-10.2); Carbon Dioxide 20 mmol/L (22-30); Chloride 109 mmol/L (98-107); Estimated Creatinine Clearance 17 ml/min; Glucose 143 mg/dl (70-99); Magnesium 1.9 mg/dl (1.6-2.3); Phosphorus 5.8 mg/dl (2.5-4.5); Sodium 139 mmol/L (135-145); eGFR 20.55
[2024-04-10] MEDS: ZYLOPRIM PO (07:19)
[2024-04-10] MEDS: VITAMIN B1 PO (07:19)
[2024-04-10] MEDS: SOLU-CORTEF 100 MG IV ×2 (07:27→16:56)
--- NOTE | 2024-04-10 07:31 | CON.INTV ---
Consultation
Consultation Request
Date/Time Consultation Requested: 04/10/2024-8 AM
Date/Time Consultation Performed: 04/10/2024-8 AM
Requesting Provider: Hospitalist
Performing Provider: Dr. Tuttle
Reason for Consultation: Sepsis/critical care management
Medical History
-
Chief Complaint: Hallucinations
History of Present Illness:
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 Patient is lethargic and adequate and reliable review of systems was unobtainable.
Past Medical History
Past Medical History: None (Hypertension. CKD stage IIIb. Dysphagia. Hypothyroid. LENA. Gout. CAD/CABG/mitral valve repair. PAF. SSS/PPM.)
Social History
Tobacco: Non-smoker
Alcohol: None
Drug: None
Personal:
Living: With Family
Occupational Exposures: No known asbestos exposure
Environmental Exposures: No known tuberculosis exposure
Family History
Family History: Reviewed & Not Pertinent
Allergies / Home Medications
Allergies
Allergy/AdvReac Type Severity Reaction Status Date / Time
Nkmrtgq-IXZ-KeI Reductase Allergy Unknown Verified 04/08/24 13:19
Inhibitor
[Htpobav-Hrk-Crs Reductase
Inhibitor]
Home Medications
�Medication �Instructions �Recorded �Confirmed �Last Taken �Type
allopurinol 300 mg tablet 300 mg PO DAILY Gout 12/18/19 04/08/24 04/07/24 History
ascorbic acid (vitamin C) 500 mg 500 mg PO DAILY Supplement 12/18/19 04/08/24 04/07/24 History
tablet (Vitamin C)
levothyroxine 75 mcg tablet 75 mcg PO DAILY Thyroid 12/18/19 04/08/24 04/07/24 History
furosemide 20 mg tablet 20 mg PO MOWEFR Fluid 03/02/23 04/08/24 09/22/23 History
Retention/Swelling
folic acid 1 mg tablet 1 mg PO DAILY Supplement 10/15/23 04/08/24 Unknown History
carvedilol 25 mg tablet (Coreg) 25 mg PO BID 04/08/24 04/08/24 Unknown History
cephalexin 500 mg capsule 500 mg PO TID 04/08/24 04/08/24 04/07/24 History
enalapril maleate 5 mg tablet 5 mg PO DAILY 04/08/24 04/08/24 Unknown History
sertraline 50 mg tablet 50 mg PO HS 04/08/24 04/08/24 04/07/24 History
temazepam 15 mg capsule 15 mg PO HSPRN PRN sleep 04/08/24 04/08/24 Unknown History
Review of Systems
-
Unable to Obtain full review of systems at this time due to: Other (Per HPI)
Vitals / Labs / Diagnostic Testing
Vital Signs
Temp Pulse Resp BP Pulse Ox
96.9 F L 63 24 111/66 100
04/10/24 07:00 04/10/24 07:30 04/10/24 07:30 04/10/24 07:15 04/10/24 07:30
Lab Data
04/10/24 04:25
04/10/24 04:25
Laboratory Results
04/10/24
00:06
PT 16.5 H
INR 1.30
APTT 50.4 H
Diagnostic Testing:
Physical Exam
-
Exam:
Well-nourished and well-developed in no apparent distress
HEENT-atraumatic, normocephalic
Neck-supple, no JVD, no bruit
Heart regular with systolic murmur
Chest with diminished breath sounds, crackles, rhonchi and few forced wheezes
Abdomen-soft, nontender, nondistended, no hepatosplenomegaly
Extremities-no cyanosis, clubbing, edema and good peripheral pulses
Integument-intact, no rashes, lesions or ecchymosis
Neurologically opens eyes, moving extremities, nonfocal
Assessment
-
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
Sepsis with shock unresponsive to fluids requiring pressors
Community-acquired pneumonia versus aspiration pneumonia
Moderate right pleural effusion
Hypothermia
Metabolic encephalopathy
LORIE
Wofjyy-omwpphnrcy-urkcdylsel 8.6
Thrombocytopenia-platelets 68
Metabolic acidosis
Hyperglycemia
Hypocalcemia
DNR
Conditions present prior to admission:
Hypertension.
CKD stage IIIb.
Dysphagia.
Hypothyroid.
LENA.
Gout.
CAD/CABG/mitral valve repair. PAF. SSS/PPM.
Plan
Patient was transferred to medical intensive care unit for persistent hypotension despite fluid resuscitation requiring pressors
Supplement oxygen as needed
High flow oxygen if needed
BiPAP if necessary
DO NOT INTUBATE
Aspiration precautions
Nebulizers if needed
Moderate pleural effusion noted-consider ultrasound and thoracentesis once stabilizes-at risk for parapneumonic/empyema
Bear hugger for pronounced hypothermia
Consider cortisol and TSH if not appropriately normalizing
Cultures reviewed
Blood cultures-pending
MRSA screen negative
Sputum culture if able to produce
Empiric antibiotics-Zosyn initiated
Consider Infectious disease consultation
Monitor leukocytosis
Fluid resuscitation with 30 mL/kg crystalloid-preferably lactated ringer-(less LORIE) with subsequent boluses as needed
Monitor lactate
Follow CVP if possible
Attempt noninvasive bedside tissue perfusion evaluation to see if fluid bolus responsive
Measure pulse pressure and stroke volume variation if patient on ventilator, passively breathing without arrhythmia and with temporary large tidal volume ventilation and if > 13% then likely fluid bolus responsive
If patient active then consider measuring bedside leg lift for 3 minutes and if cardiac output increases or if there is a rise of 2-4 on end-tidal CO2 then fluid bolus
If bedside ultrasound available then measure IVC diameter variation to evaluate for fluid bolus responsiveness
Begin pressors as needed for MAP goal of 65-Norepinephrine first, then Vasopressin and consider Angiotensin II if continues to be hypotensive
Consider methylene blue if available-specific inhibitor of induced nitric oxide synthase iNOS and its downstream enzyme soluble guanylate cyclase-noninferiority study shown to reduce time to vasopressor discontinuation, decreased ICU length of stay,
hospital stay but no change in mortality-published Critical Care 05/05/2022
If persistently hypotensive then consider checking random cortisol-hydrocortisone if random less than 3, if 3-15 then consider ACTH stimulation test
Random cortisol > 123
Hydrocortisone 100 mg IV every 8 hours initiated-could taper fairly rapidly if placed for potential sepsis/adrenal insufficiency
If persistently hyperthermic then correcting hyperthermia can decrease pressor requirements, increased chances of reversal of shock and decrease mortality
Monitor hemoglobin
Transfuse as needed
Monitor blood sugars
Insulin supplementation as needed
Monitor renal function
Consider nephrology evaluation if does not improve
Replace electrolytes
DVT prophylaxis recommended-mechanical at least and pharmacological if no contraindications-currently anemic and thrombocytopenic
Early nutrition if possible
Early mobilization/bedside range of motion
requesting hospice evaluation
Critical care statement: A total of 65 minutes of critical care time was provided for this patient today. This includes management of unstable vital signs, evaluation of the patient at bedside, reviewing the patient's pertinent medical records
including radiographs, pneumonia management, pressor management, microbiology, laboratory evaluations, and discussion with primary team, consultants, pharmacy, nutrition, physical therapy, case management, charge nurse, critical care nursing, and
respiratory therapy.
Diagnostic data:
Chest x-ray 12/10/2023-new right lower lobe atelectasis and left lower lobe scarring
Chest x-ray 04/08/2024-small bilateral pleural effusions, minimal haziness left hemidiaphragm
Chest x-ray 04/09/2024-right perihilar and right lower lobe pneumonia
CT chest abdomen pelvis 04/10/2024-right upper lobe pneumonia 3 cm nodular parenchymal opacification, follow-up recommended, right middle lobe pneumonia, moderate right and small left pleural effusion, cholelithiasis, moderate to small volume ascites
CT head 04/08/2024-no acute intracranial abnormalities, mild atrophy
Echocardiogram 10/22/2023-EF 50-55%, aortic sclerosis without stenosis, PA systolic 35
Data Reviewed
-
EKG: Report reviewed by me
Radiology: Image personally visualized and interpreted and Report reviewed by me
CT Scan: Report reviewed by me
Medical Tests (Nuc Med, Echo etc): Report reviewed by me
Labs: Labs reviewed by me
Old Records: Reviewed
Critical Care Time (in minutes): 65
--- NOTE | 2024-04-10 07:32 | PTCARENOTE ---
Received patient from mine shifter. Patient is lethargic, resting in bed, has some garbled speech, bilateral mitts, not following any commands, does arouse to voice and touch. he is Vpaced on monitor, levophed gtt infusing at 2mcg/min with
maintenance fluids. He is on 4L saturating 100%, coarse and diminished throughout with poor inspiratory effort. Patient is NPO, cachectic. Reyna has celeste/sediment urine, minimal output, 5cc at change of shift assessment. SCDS are on,
administered IV steroids and will keep patient NPO, did not give oral meds. Will review orders, patient is limited DNR.
[2024-04-10 07:51] LABS: Glucose - Point of Care 143 mg/dl (70-99)
--- NOTE | 2024-04-10 09:10 | W.PN.HOSP.TC ---
Today's Communication/Plan
-
CT results pending
requesting hospice
Terminal diagnosis ? but has lost weight and has FTT , will consult to get Hospice opinion. .
Assessment / Plan
Assessment / Plan
84 year-old presented with hallucinations for the past 2-3 nights prior to admission seen by PCP who ordered urine culture and empiric antibiotics, Keflex. stated that she called PCP and the Asked to take him to the ER.
On examination patient is confused and drowsy
Cardiovascular system S1-S2 irregular appreciated
Chest clear to auscultation
Abdomen firm tender today
Mild pedal edema
Confused, slow nonfocal
CXR reviewed by me
# Shock- Unclear cause-possibly septic shock
Continue IVF . Off pressors this am
Check CT of the abdomen and pelvis without contrast as he cannot drink contrast but at the same time his abdomen is tender today.
Antibiotics started for pneumonia community-acquired pneumonia versus aspiration pneumonia-Likely latter
Blood cultures pending
# Hypothermia-warming blanket
# TME with hallucinations
# Acute kidney injury on CKD stage III
Hold Lasix, enalapril
Follow creatinine
IVF
# Significant weight loss-check CT chest abdomen pelvis with p.o. contrast only due to LORIE
# Dysphagia-IDDSI 6 diet
Speech therapy evaluation
# Paroxysmal atrial fibrillation-continue Coreg (reduce dose)
Not on anticoagulation as outpatient secondary to severe anemia hemoglobin was 4.5 in September
# Coronary artery disease with history of CABG
# History of sick sinus syndrome status post pacemaker placement
# Chronic HFpEF-hold enalapril and Lasix. Continue Coreg with parameters
Echo 10/22/2023-inferobasal akinesis with EF 50 to 55%, status post MV repair, mild MR, aortic sclerosis, mild pulmonary hypertension 35 to 40 mmHg
# History of mitral valve repair
# Hypertension-continue Coreg for A-fib but hold enalapril
# Chronic anemia-likely secondary to chronic disease. Iron studies and B12 adequate
EGD-10/17/23-normal esophagus. Gastritis
Colonoscopy 12/21/2019-blood in the sigmoid colon. 8 mm polyp in AC, 3mm PolypAC,6 mm Polyp DC,Diverticulosis DC,Non Bleeding Int and Ext Hemorrhoids
# Hypothyroidism-continue Synthroid
# Depression-continue sertraline Temazepam
# Gout-continue allopurinol
# PAD status post angio with revascularization of left lower extremity.Chronic left lower extremity arterial ulcers
# LENA
# History of Gilbert syndrome
# Severe protein calorie malnutrition-dietary consultation. Supplements added
# Ambulatory dysfunction
# DVT prophylaxis-subcutaneous heparin
# DNR D/W with again today and changed to full DNR
Discussed with on the phone and updated. She is concerned that he is hooked up to a lot of things and he would not want any of these. We discussed that at present he is on IV fluids, monitor, antibiotics and a warming blanket. Once CAT scan
is back I will update her. She confirmed that he is a full DNR.
She does not want him to suffer. She is requesting hospice.
Failure to thrive may be a his diagnosis? I will consult hospice and get their opinion.
Discussed with nursing at bedside
Total Critical Care Time 32 minutes. I was immediately available to the patient and staff. I personally examined, reviewed labs, diagnostic images/reports, interpretations, treatment plans, discussed patient care with other providers and family ,
entered orders as appropriate and documented the medical record.
Anticipated Discharge: > 48 hours
Subjective/Interval History
-
Date of Service: April 10, 2024
Objective Data
-
Labs:
Laboratory Results
04/10/24 04/10/24
00:06 04:25
WBC 5.3 7.9
Hgb 8.2 L 8.6 L
Hct 25.5 L 26.5 L
Plt Count 66 L 68 L
PT 16.5 H
INR 1.30
APTT 50.4 H
Sodium 138 139
Potassium 4.5 5.0
Chloride 109 H 109 H
Carbon Dioxide 23 20 L
BUN 68 H 68 H
Creatinine 2.8 H 2.9 H
Glucose 147 H 143 H
Calcium 8.0 L 8.1 L
Total Bilirubin 0.9
AST 25
ALT 11
Alkaline Phosphatase 79
Vital Signs:
Vital Signs
Temp Pulse Resp BP Pulse Ox
96.5 F L 63 24 111/66 100
04/10/24 07:31 04/10/24 07:30 04/10/24 07:30 04/10/24 07:15 04/10/24 07:41
I&O
04/09/24 04/10/24 04/11/24
06:59 06:59 06:59
Intake Total 620 / 620 1901.0 / 1982.5 82.5 / 82.5
Output Total 235 / 235 45 / 50 5 / 5
Balance 385 / 385 1856.0 / 1933.5 77.5 / 77.5
--- NOTE | 2024-04-10 11:00 | PTCARENOTE ---
Alexandro continues to call out, is disoriented, confused, present at bedside with sister, asking to stop all drips. they would like full DNR and comfort care. they did not want any life systaining medications, do not want zosyn, accu checks
or IV pressors. notified Dr. Mai.
[2024-04-10] MEDS: ZOSYN IV ×2 (12:54→16:50)
--- NOTE | 2024-04-10 12:58 | CM ---
Patient and sister here with patient and requesting information about hospice. CM sent referral to [facility] hospice and they will talk today around 4pm. Family only interested in [facility] if he needs placement does not feel that she can take care
of patient in 'small apartment'. CM will continue to follow for discharge planning needs.
Plan; Hospice referral; discussion with patient and sister.
--- NOTE | 2024-04-10 13:32 | CHAP ---
Visited Mr. Lauren at 10:25 - he was resting, minimally responsive, nonverbal. No family was present. I offered gentle words of comfort and caring. Then at 12:15 called by nurse to return, as family was asking for prayer for him. Informed
by , Debby, that See is Rastafari. We offered prayers from the [employer], commending See to God, giving thanks for his life and love, and asking peace for all. Emotional and spiritual support provided, along with a prayer blanket and
assurance of our on-going availability.
[2024-04-10] MEDS: HALDOL 1 MG IV (14:30)
--- NOTE | 2024-04-10 15:48 | W.PN.UPDATE ---
Addendum entered and electronically signed by Terri Mai MD 04/10/24 17:31:
Son Antonio called back.
Antonio stated that patient has been declining and they do not want to put him through more.
He stated that everybody in the family is in agreement that patient should be on comfort care/hospice as he has been declining and he has had weight loss.
Discussed about CAT scan finding. He also does not think that we should put the patient through any biopsies.
I discussed about hospice and what comfort care as described what it is
He asked if the patient will stay here until he passes.
Discussed that we can start comfort care and see how it progresses before we make that decision.
Will stop all the medicines except for comfort at this time.
Original Note:
Update Note
Progress Note Update
Patient's does not want any further active treatments for this patient.
Reviewed chart.
He had a speech evaluation where he was found to be aspirating and was advised to do ENT evaluation as outpatient which was not done yet. He continues to aspirate
CAT scan reviewed -patient has bilateral pneumonia there is also a density on the right side malignancy cannot be ruled out.
Patient has significant weight loss therefore possible that this is malignancy
Weight was 178 pounds in September and currently 144 pounds which is 34 pound weight loss in 6 months.
As per his quality of life has been poor , has FTT.
I cannot find a power of lan analyst document or advanced directive in our system
I called both sons
Eze - [phone]-stated that patient comfort care is appropriate. He then hung up as he had to take a call from his cousin.
Antonio -[phone]- Did not excelsior picker, I called twice. Left a message once.
Hospice consulted to evaluate to see if the patient qualifies for hospice.
Hospice made me aware he qualifies for hospice for protein Calorie Malnutrition.
But he does not qualify for inpatient hospice yet.
Spoke to who stated that patient has been declining for a while and home losing weight, lately has ambulatory dysfunction and memory issues.
When asked if both sons were also on board with comfort care/hospice she states yes. Patient does not have a power of lan analyst or advance directives document.
A handwritten paper was provided by .
For now, we will hold off on any ' Heroics ' and treatments which does not want.
Hospice continues to follow.
Time spent 37 min
--- NOTE | 2024-04-10 16:24 | HOSPNOTE ---
Hospice Referral received. Reviewed the chart with Dr. Martino. Patient can be hospice appropriate with a terminal diagnosis of protein calorie malnutrition. He is not GIP appropriate at this time. Spoke to his Jenifer and reviewed these findings.
She would like to proceed with comfort measures and see how patient responds. She does understand that patient may be hospice appropriate at home vs facility and not in the hospital. She stated that she is not able to care for patient at home and he
would require 24h care that she could not provide. [facility] I reviewed that room and board is not covered under hospice. is hopeful that patient would meet inpatient criteria after being started on comfort
measures. Communicated this with Attending, Primary RN and CM. Hospice will continue to follow, evaluate and be available for support.
--- NOTE | 2024-04-10 16:47 | PTCARENOTE ---
Per 's wishes, no heroics for patient, no treatments that would not want. will not do accu checks or pressors. Dr. Mai has had repeated conversations with family and hospice following.
--- NOTE | 2024-04-10 17:48 | PTCARENOTE ---
Patient now comfort care.
--- NOTE | 2024-04-10 19:38 | PTCARENOTE ---
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 arousable to tactile. repositioned. pt for tx out of ICU.
[2024-04-10] MEDS: ZOLOFT PO (20:53)
[2024-04-10] MEDS: ATIVAN 0.5 MG PO (20:57)
--- NOTE | 2024-04-10 21:00 | PTCARENOTE ---
pt tx to 2126.
[2024-04-10] MEDS: MORPHINE SULFATE 1 MG IV (21:04)
[2024-04-11] MEDS: SYNTHROID PO (04:18)
[2024-04-11] MEDS: MORPHINE SULFATE 1 MG IV ×3 (05:58→10:41)
[2024-04-11 07:10] VITALS: BP 153/86
--- NOTE | 2024-04-11 10:00 | W.PN.PUL.V3 ---
Today's Communication / Plan
-
Comfort
Pulmonary will sign off
Assessment
-
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
Sepsis with shock unresponsive to fluids requiring pressors
Community-acquired pneumonia versus aspiration pneumonia
Moderate right pleural effusion
Hypothermia
Metabolic encephalopathy
LORIE
Khymhn-emeuocgufy-dxgzcsudnw 8.6
Thrombocytopenia-platelets 68
Metabolic acidosis
Hyperglycemia
Hypocalcemia
DNR
Conditions present prior to admission:
Hypertension.
CKD stage IIIb.
Dysphagia.
Hypothyroid.
LENA.
Gout.
CAD/CABG/mitral valve repair. PAF. SSS/PPM.
Plan
Events noted
Reviewed with nursing
Patient is now on comfort measures/hospice
Pulmonary will sign off-please call with questions
Diagnostic data:
Chest x-ray 12/10/2023-new right lower lobe atelectasis and left lower lobe scarring
Chest x-ray 04/08/2024-small bilateral pleural effusions, minimal haziness left hemidiaphragm
Chest x-ray 04/09/2024-right perihilar and right lower lobe pneumonia
CT chest abdomen pelvis 04/10/2024-right upper lobe pneumonia 3 cm nodular parenchymal opacification, follow-up recommended, right middle lobe pneumonia, moderate right and small left pleural effusion, cholelithiasis, moderate to small volume ascites
CT head 04/08/2024-no acute intracranial abnormalities, mild atrophy
Echocardiogram 10/22/2023-EF 50-55%, aortic sclerosis without stenosis, PA systolic 35
Subjective Data
-
Date of Service:
Date of Service: April 11, 2024
Chief Complaint: Pulmonary Follow Up and Dyspnea Follow Up
Subjective:
Resting comfortably
Review of Systems
General: Unobtainable - Sedation
Objective Data
Data Reviewed
Vital Signs / I&O:
Vital Signs
Temp Pulse Resp BP Pulse Ox
97.7 F 61 16 153/86 99
04/10/24 18:29 04/11/24 07:10 04/11/24 07:10 04/11/24 07:10 04/11/24 07:10
Intake and Output
04/10/24 04/11/24 04/12/24
06:59 06:59 06:59
Intake Total 1901.0 / 1983.5 457.5 / 457.5
Output Total 45 / 50 470 / 470
Balance 1856.0 / 1933.5 -12.5 / -12.5
SaO2: 99
Nasal Cannula flow liters per minute: 4
Physical Exam
General: Respiratory Distress (n) and Comfortable
HEENT: Normocephalic, Anicteric and Moist Mucous Membranes
Cardiovascular: Regular Rhythm
Respiratory: Non-Labored Respirations and Accessory Resp Muscle Use (n)
GI: Soft and Non Distended
Neurology: Lethargic
Skin: Warm and Good Color
Labs/Micro/Reports
Lab Data
04/10/24 04:25
04/10/24 04:25
Microbiology
04/09/24 22:33 Blood/Venous Blood Culture - Preliminary
No Growth in 24 hours- Final report to follow
04/09/24 21:42 Blood/Venous Blood Culture - Preliminary
No Growth in 24 hours- Final report to follow
04/09/24 06:10 Nose MRSA Screen - Final
No Methicillin Resistant Staphylococcus aureus isolated.
--- NOTE | 2024-04-11 10:29 | W.PN.HOSP.TC ---
Addendum entered and electronically signed by Terri Mai MD 04/11/24 15:09:
spoke to and updated
She signed to inpatient hospice
Addendum entered and electronically signed by Terri Mai MD 04/11/24 14:47:
Patient has acute hypoxic respiratory failure secondary to pneumonia
Original Note:
Today's Communication/Plan
-
Hospice placement.
Comfort care for now
Assessment / Plan
Assessment / Plan
84 year-old presented with hallucinations for the past 2-3 nights prior to admission seen by PCP who ordered urine culture and empiric antibiotics, Keflex. stated that she called PCP and the Asked to take him to the ER.
On examination patient is confused and drowsy
Arousable and able to guive one or 2 words
Cardiovascular system S1-S2 irregular appreciated
# Shock- Unclear cause-possibly septic shock from Pneumonia
Off pressors this am
CT of the chest abdomen and pelvis without contrast Pneumonia and possible mass
Antibiotics started for pneumonia community-acquired pneumonia versus aspiration pneumonia-Stopped as he is on Comfort
# Hypothermia
# TME with hallucinations
# Acute kidney injury on CKD stage III
Hold Lasix, enalapril
# Significant weight loss-Possible malignancy. Family does not want Biopsy
# Dysphagia-IDDSI 6 diet
Speech therapy evaluation
# Paroxysmal atrial fibrillation-
Not on anticoagulation as outpatient secondary to severe anemia hemoglobin was 4.5 in September
# Coronary artery disease with history of CABG
# History of sick sinus syndrome status post pacemaker placement
# Chronic HFpEF-hold enalapril and Lasix and coreg
Echo 10/22/2023-inferobasal akinesis with EF 50 to 55%, status post MV repair, mild MR, aortic sclerosis, mild pulmonary hypertension 35 to 40 mmHg
# History of mitral valve repair
# Hypertension-Hols meds
# Chronic anemia-likely secondary to chronic disease. Iron studies and B12 adequate
EGD-10/17/23-normal esophagus. Gastritis
Colonoscopy 12/21/2019-blood in the sigmoid colon. 8 mm polyp in AC, 3mm PolypAC,6 mm Polyp DC,Diverticulosis DC,Non Bleeding Int and Ext Hemorrhoids
# Hypothyroidism-continue Synthroid
# Depression-continue sertraline Temazepam
# Gout-continue allopurinol
# PAD status post angio with revascularization of left lower extremity.Chronic left lower extremity arterial ulcers
# LENA
# History of Gilbert syndrome
# Severe protein calorie malnutrition
# Ambulatory dysfunction
# DVT prophylaxis-subcutaneous heparin
# DNR D/W with again today and changed to full DNR
Discussed with and 2 sons yesterday -All 3 wanted Comfort care/Hospice
Started
Case management and Hospice to evaluate for placement.
D/W Case management and Hospice today
Anticipated Discharge: Within 24 hours
Subjective/Interval History
-
Date of Service: April 11, 2024
Objective Data
-
Vital Signs:
Vital Signs
Temp Pulse Resp BP Pulse Ox
97.7 F 61 16 153/86 99
04/10/24 18:29 04/11/24 07:10 04/11/24 07:10 04/11/24 07:10 04/11/24 10:00
I&O
04/10/24 04/11/24 04/12/24
06:59 06:59 06:59
Intake Total 1901.0 / 1982.5 457.5 / 457.5
Output Total 45 / 50 470 / 470
Balance 1856.0 / 1933.5 -12.5 / -12.5
--- NOTE | 2024-04-11 10:40 | PN.CDI ---
CDI
- -
CDI:
Physician Documentation Request
Admit Date: 04/08/24 16:33
Dear Doctor Pau,
Please review the following and provide your response in the progress notes.
Clinical Indicators:
- Patient admit for TME with hallucinations
- Patient with shock on levophed on francesco
- Documented VS 4L O2
- 04/09 RN Note 'pt desatted down to 81% on RA. Placed on 6L NC pox 93%'
- 04/10 RN Note '4L saturating 100%, coarse and diminished throughout with poor inspiratory effort'
Clarify which of the following accurately represents the patient's respiratory status:
Acute hypoxic respiratory failure
Hypoxia
Other
Additional information for Respiratory Failure:
Recognized criteria for Respiratory Failure (Source: [facility] Hospitalist Dec 2012)
ABGs: (1 or more) Symptoms Please indicate type if known
1. p)2 <60 or RA SPO2 <91% on RA 1. Tachypnea, SOB, dyspnea Hypoxic
2. pCO2 50 and pH <7.35 2. Use of accessory muscles Hypercapnic
3. pO2 decrease of pCO2 increase by 3. Pallor or cyanosis Hypoxic and Hypercapnic
10 mmHg from baseline if known 4. Anxiety or restlessness Unable to determine
5. Unable to speak in full sentences
Supplemental O2 of > 40% (5LPM) Intubation is not required
Use of terms such as suspected, likely, concern for, or probable (associated with a specific diagnosis that is being evaluated, monitored, or treated as if it exists) are acceptable and can be coded in the inpatient setting, when documented at the
time of discharge.
Thank you,
Dm Valadez RN
CDI Specialist
Please use your independent medical judgment in providing your response.
--- NOTE | 2024-04-11 10:48 | WOUNDNOTE ---
EVELIA RN NOTE: Confirmed with nurse Anyi harrigntoncel consult, patient is on comfort care.
[2024-04-11] MEDS: NSS (PRESERVATIVE FREE) 0.25 ML IV (12:03)
[2024-04-11] MEDS: ATIVAN 0.5 MG IV (12:03)
--- NOTE | 2024-04-11 14:14 | PTOTSP ---
Chart reviewed and spoke with RN.
Patient has transitioned to hospice care and is no longer appropriate for skilled therapy and will be discharged from caseload.
If needs change, please re-consult
--- NOTE | 2024-04-11 15:15 | W.PN.UPDATE ---
Update Note
Progress Note Update
[facility] [id number]
== END 2024-04-11 15:13 | disposition hospice, inpatient (51) | DRG 871 ==
LOC: 2 NORTH 16:33
PROVIDERS: Nurse Practitioner Primary Care; Physician Assistant; Physician Assistant Medical; Registered Nurse; ADMITTING PHYSICIAN Internal Medicine; ATTENDING PHYSICIAN Hospitalist; CONSULT PHYSICIAN Internal Medicine Critical Care Medicine; EMERGENCY PHYSICIAN Emergency Medicine; FAMILY PHYSICIAN Family Medicine
DX: A41.9 Sepsis, unspecified organism (principal); E43 Unspecified severe protein-calorie malnutrition; G92.8 Other toxic encephalopathy; R65.21 Severe sepsis with septic shock; J18.9 Pneumonia, unspecified organism; J69.0 Pneumonitis due to inhalation of food and vomit; J96.01 Acute respiratory failure with hypoxia; Z66 Do not resuscitate; Z51.5 Encounter for palliative care; I13.0 Hypertensive heart and chronic kidney disease with heart failure and stage 1 through stage 4 chronic kidney disease, or unspecified chronic kidney disease; I50.32 Chronic diastolic (congestive) heart failure; N17.9 Acute kidney failure, unspecified; R64 Cachexia; Z68.1 Body mass index [BMI] 19.9 or less, adult; E87.20 Acidosis, unspecified; E03.9 Hypothyroidism, unspecified; I25.10 Atherosclerotic heart disease of native coronary artery without angina pectoris; I48.0 Paroxysmal atrial fibrillation; I49.5 Sick sinus syndrome; R62.7 Adult failure to thrive; N18.32 Chronic kidney disease, stage 3b; R44.1 Visual hallucinations; D63.1 Anemia in chronic kidney disease; F32.A Depression, unspecified; G47.33 Obstructive sleep apnea (adult) (pediatric); E78.5 Hyperlipidemia, unspecified; E83.51 Hypocalcemia; E86.0 Dehydration; D69.6 Thrombocytopenia, unspecified; R68.0 Hypothermia, not associated with low environmental temperature; Z79.899 Other long term (current) drug therapy; Z79.890 Hormone replacement therapy; Z95.2 Presence of prosthetic heart valve; Z95.1 Presence of aortocoronary bypass graft; Z95.0 Presence of cardiac pacemaker; Z11.52 Encounter for screening for COVID-19
CPT/HCPCS: 70450; 71045; 71046; 71250; 74176; 80048; 80053; 81003; 81015; 82533; 82550; 82607; 82728; 82746; 82962; 83540; 83550; 83605; 83735; 84100; 84145; 84439; 84443; 84484; 85025; 85027; 85384; 85610; 85730; 87040; 87070; 87811; 93005; 96360; 96361; 97162; 97167; 97530; 99285

== ENCOUNTER 2024-04-11 15:23 | Inpatient (IN) | payer OTHER, SELFPAY ==
[2024-04-11 15:42] VITALS: BP 153/86
[2024-04-11] MEDS: ATIVAN 0.5 MG IV (15:48)
[2024-04-11] MEDS: NSS (PRESERVATIVE FREE) 0.25 ML IV (15:48)
[2024-04-11] MEDS: MORPHINE SULFATE 1 MG IV ×2 (15:48→18:09)
--- NOTE | 2024-04-11 17:27 | PTCARENOTE ---
pt signed onto inpatient hospice. chart flipped. pt minimally responsive. at bedside requesting trays to stop being ordered. nursing to place order completed. pt received prn ativan and morphine this shift. see charting for proper
documentation.
[2024-04-11 19:00] VITALS: BP 108/64
--- NOTE | 2024-04-11 21:20 | HOSPNOTE ---
Patient has been admitted to [facility] level of hospice care. Patient meets [facility] level of care for frequent nursing assessments and the management of pain and anxiety with iv medications that could not be managed in the outpatient setting. Spouse bedside
and in agreement to hospice. Reviewed limited life expectancy. She just wants patient to be at peace. Reassurance and emotional support provided. Hospice will visit daily.
[2024-04-12 07:05] VITALS: BP 101/56
[2024-04-12] MEDS: MORPHINE SULFATE 1 MG IV ×3 (09:53→22:28)
--- NOTE | 2024-04-12 11:50 | HOSPNOTE ---
Patient is resting comfortably, encouraged staff to medicate prior to care and repositioning for pain and anxiety. Patient continues to be inpatient hospice. Patient will be seen daily by hospice nurse.
--- NOTE | 2024-04-12 12:10 | HOSPNOTE ---
See was sleeping peacefully, non-responsive, and did not appear to be in pain. 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 Emergency Nurse provided emotional and spiritual
support through presence and prayer. Will continue support through weekly visits, and will also check in on the weekend.
--- NOTE | 2024-04-12 13:32 | W.PN.HOSP.TC ---
Today's Communication/Plan
-
Comfort meds
Assessment / Plan
Assessment / Plan
Seen earlier- Late documentation
Appears comfortable
ASSESSMENT:
1. Shock-from aspiration pneumonia-resolved.
2. Hypothermia.
3. Toxic-metabolic encephalopathy with hallucinations.
4. Acute kidney injury on chronic kidney disease, stage 3.
5. Significant weight loss.
6. A 3 cm lung mass.
7. Dysphagia.
8. Paroxysmal atrial fibrillation.
9. Coronary artery disease.
10. History of pacemaker.
11. Chronic heart failure with preserved ejection fraction.
12. History of mitral valve repair.
13. Hypertension.
14. Chronic anemia.
15. Hypothyroidism.
16. Depression.
17. Gout.
18. Peripheral artery disease.
19. History of sleep apnea.
20. History of Gilbert's syndrome.
21. Severe protein calorie malnutrition.
22. Ambulatory dysfunction.
23. Do not resuscitate status.
PLAN:
Inpatient Hospice
Continue as needed morphine and changed to drip when needed
Ativan also as needed
D/W RN
Anticipated Discharge: > 48 hours
Subjective/Interval History
-
Date of Service: April 12, 2024
Objective Data
-
Vital Signs:
Vital Signs
Temp Pulse Resp BP Pulse Ox
97 F 62 15 101/56 97
04/11/24 15:42 04/12/24 07:05 04/12/24 07:05 04/12/24 07:05 04/12/24 07:05
I&O
04/11/24 04/12/24 04/13/24
06:59 06:59 06:59
Intake Total 0 / 0
Output Total 500 / 500
Balance -500 / -500
--- NOTE | 2024-04-12 14:02 | HOSPNOTE ---
hall worker visited with patient who is currently GIP level of care at [facility] to provide supportive services as well as complete initial ALINING INSPECTOR assessment. Patient is an 84 year old who was recently admitted onto hospice services
with primary diagnosis of unspecified severe protein calorie malnutrition. Patient was minimally responsive during visit and spouse Debby was present at bedside along with her sister. Spouse reported that patient was having hallucinations the past
couple of weeks and was relieved to see that patient did not seem to be in pain during visit. Patient has had no po intake. Spouse stated that they have been for 64 years and met in school. Spouse appears unprepared for patient's decline and
feels hopeful that patient is going to get better. Emotional support provided throughout visit. Spouse reported that patient has two sons, Antonio who lives in [place] and Eze who live locally. 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 Patient is non-practicing Anabaptism. Spouse reported that they have a limited support system. Emotional support provided to spouse throughout visit.
[2024-04-12] MEDS: ROBINUL 0.2 MG IV (14:15)
--- NOTE | 2024-04-12 14:26 | HOSPNOTE ---
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 Discharge planning
continues.
[2024-04-12 19:00] VITALS: BP 70/38
[2024-04-13] MEDS: ATIVAN 0.5 MG IV ×3 (03:15→18:44)
[2024-04-13] MEDS: MORPHINE SULFATE 1 MG IV ×7 (03:16→21:52)
--- NOTE | 2024-04-13 03:37 | DOWNTIME ---
There was a [employer] Client Boiler Fitter Downtime on 04/13/2024 from 0100 to 04/13/2023 at 0235 . Downtime documentation of patient's care, including medication administrations, has been reconciled in the electronic record per guidelines. Refer to the
patient's paper chart under the miscellaneous tab to see printed paper medication records and downtime forms.
[2024-04-13 07:07] VITALS: BP 74/39
[2024-04-13] MEDS: ROBINUL 0.2 MG IV ×2 (07:49→18:44)
--- NOTE | 2024-04-13 11:52 | HOSPNOTE ---
Addendum entered by Pilar Escudero RN 04/13/24 11:57:
Discharge planning in progress
Original Note:
Patient assessed in bed, minimally responsive, briefly opened eyes, blank stare. Breathing is currently unlabored. FLACC is currently 0. Just medicated. Extremities are cooling. Patient has had 5 prn morphine, 2 prn lorazpem and 2 prn
glycopyrrolate in the last 24 hours. Will update Family. Patient requires GIP status as he requires IV medication for his comfort and unable to be treated in outpatient setting. Informal conference with nurse Lynn.
--- NOTE | 2024-04-13 12:30 | W.PN.HOSP.TC ---
Today's Communication/Plan
-
cont hospice care
Assessment / Plan
Assessment / Plan
84yo M with PMHx of HTN, hypothyroid, CAD, PAF s/p PPM, LENA admitted with encephalopathy, septic shock most likely 2/2 CAP, poorly responded to treatment and as per conversation with family - admitted to inpatient hospice with comfort measures only
A/P:
#Shock-from aspiration pneumonia-resolved.
#Hypothermia.
#Toxic-metabolic encephalopathy with hallucinations.
#Acute kidney injury on chronic kidney disease, stage 3.
#Significant weight loss.
#A 3 cm lung mass.
#Dysphagia.
#Paroxysmal atrial fibrillation.
#Coronary artery disease.
#history of pacemaker.
#Chronic heart failure with preserved ejection fraction.
#History of mitral valve repair.
#Hypertension.
#Chronic anemia.
#Hypothyroidism.
#Depression.
#Gout.
#Peripheral artery disease.
#History of sleep apnea.
#History of Gilbert's syndrome.
#Severe protein calorie malnutrition.
#Ambulatory dysfunction.
#Do not resuscitate status.
Symptomatic comfort care with ativan/morphine
DVT ppx not indicated
DNR/DNI
I have spent at least 35min reviewing chart, test results and providing direct patient care
Anticipated Discharge: > 48 hours
Subjective/Interval History
-
Date of Service: April 13, 2024
Objective Data
-
Vital Signs:
Vital Signs
Temp Pulse Resp BP Pulse Ox
97 F 64 14 74/39 91
04/11/24 15:42 04/13/24 07:07 04/13/24 07:07 04/13/24 07:07 04/13/24 07:07
I&O
04/12/24 04/13/24 04/14/24
06:59 06:59 06:59
Intake Total 0 / 0 0 / 0
Output Total 500 / 500 225 / 225
Balance -500 / -500 -225 / -225
Review of Systems
-
Unable to obtain full review of systems at this time due to: Acuity
Physical Exam
-
General: Comfortable
Respiratory: Clear to Auscultation
Cardiac: Regular Rhythm
Psych: Calm
--- NOTE | 2024-04-13 12:31 | CM ---
Patient chart reviewed
PLAN: Remains on [facility]osp[facility]
[2024-04-13 19:16] VITALS: BP 58/31
[2024-04-14] MEDS: MORPHINE SULFATE 1 MG IV ×3 (01:01→10:39)
[2024-04-14 07:28] VITALS: BP 49/29
--- NOTE | 2024-04-14 10:17 | W.PN.HOSP.TC ---
Today's Communication/Plan
-
cont hospice care
Assessment / Plan
Assessment / Plan
84yo M with PMHx of HTN, hypothyroid, CAD, PAF s/p PPM, LENA admitted with encephalopathy, septic shock most likely 2/2 CAP, poorly responded to treatment and as per conversation with family - admitted to inpatient hospice with comfort measures only
A/P:
#Shock-from aspiration pneumonia-resolved.
#Hypothermia.
#Toxic-metabolic encephalopathy with hallucinations.
#Acute kidney injury on chronic kidney disease, stage 3.
#Significant weight loss.
#A 3 cm lung mass.
#Dysphagia.
#Paroxysmal atrial fibrillation.
#Coronary artery disease.
#history of pacemaker.
#Chronic heart failure with preserved ejection fraction.
#History of mitral valve repair.
#Hypertension.
#Chronic anemia.
#Hypothyroidism.
#Depression.
#Gout.
#Peripheral artery disease.
#History of sleep apnea.
#History of Gilbert's syndrome.
#Severe protein calorie malnutrition.
#Ambulatory dysfunction.
#Do not resuscitate status.
Symptomatic comfort care with ativan/morphine
DVT ppx not indicated
DNR/DNI
I have spent at least 35min reviewing chart, test results and providing direct patient care
Anticipated Discharge: 24 - 48 hours
Subjective/Interval History
-
Date of Service: April 14, 2024
Objective Data
-
Vital Signs:
Vital Signs
Temp Pulse Resp BP Pulse Ox
97 F 61 12 49/29 92
04/11/24 15:42 04/14/24 07:28 04/14/24 07:28 04/14/24 07:28 04/14/24 09:05
I&O
04/13/24 04/14/24 04/15/24
06:59 06:59 06:59
Intake Total 0 / 0
Output Total 225 / 225 215 / 215
Balance -225 / -225 -215 / -215
Review of Systems
-
Unable to obtain full review of systems at this time due to: Acuity
Physical Exam
-
General: Comfortable
--- NOTE | 2024-04-14 13:53 | CM ---
Chart reviewed.
PLAN: Remains on hospice
--- NOTE | 2024-04-14 16:02 | HOSPNOTE ---
Patient is on GIP level of hospice care. He is appropriate for hospice services inpatient for the management of pain, dyspnea and anxiety that could not be managed in the outpatient setting. Patient is unresponsive and does appear to be
imminent. Spoke to Debby, she was unable to visit today due to car battery dying. I reviewed that appears imminent. She was going to let the family know. I did make her aware that she will be notified even in the middle of the night if
he passes. She is thankful for all the help and support. Hospice will continue to visit daily.
[2024-04-14 19:13] VITALS: BP 53/28
[2024-04-15 07:45] VITALS: BP 54/31
--- NOTE | 2024-04-15 10:02 | W.PN.HOSP.TC ---
Today's Communication/Plan
-
cont hospice. Discussed with
Assessment / Plan
Assessment / Plan
84yo M with PMHx of HTN, hypothyroid, CAD, PAF s/p PPM, LENA admitted with encephalopathy, septic shock most likely 2/2 CAP, poorly responded to treatment and as per conversation with family - admitted to inpatient hospice with comfort measures only
A/P:
#Shock-from aspiration pneumonia-resolved.
#Hypothermia.
#Toxic-metabolic encephalopathy with hallucinations.
#Acute kidney injury on chronic kidney disease, stage 3.
#Significant weight loss.
#A 3 cm lung mass.
#Dysphagia.
#Paroxysmal atrial fibrillation.
#Coronary artery disease.
#history of pacemaker.
#Chronic heart failure with preserved ejection fraction.
#History of mitral valve repair.
#Hypertension.
#Chronic anemia.
#Hypothyroidism.
#Depression.
#Gout.
#Peripheral artery disease.
#History of sleep apnea.
#History of Gilbert's syndrome.
#Severe protein calorie malnutrition.
#Ambulatory dysfunction.
#Do not resuscitate status.
Symptomatic comfort care with ativan/morphine
DVT ppx not indicated
DNR/DNI
I have spent at least 35min reviewing chart, test results and providing direct patient care
Anticipated Discharge: 24 - 48 hours
Subjective/Interval History
-
Date of Service: April 15, 2024
Objective Data
-
Vital Signs:
Vital Signs
Temp Pulse Resp BP Pulse Ox
97 F 61 6 54/31 92
04/11/24 15:42 04/15/24 07:45 04/15/24 07:45 04/15/24 07:45 04/15/24 07:45
I&O
04/14/24 04/15/24 04/16/24
06:59 06:59 06:59
Output Total 215 /
Balance -215 / -215 -
Review of Systems
-
History Source: Patient
Constitutional: Reports No Symptoms
Physical Exam
-
General: No Apparent Distress
Skin: Warm
Neuro: Awake, Alert and Oriented
Psych: Calm
--- NOTE | 2024-04-15 11:36 | HOSPNOTE ---
Patient is unresponsive. B/P 68/40, RR 2 breaths per minute and shallow. is imminent. He is receiving PRN medications for end of life comfort. Will update patients . He will remain GIP due to needing continued skilled assessment for
titration of medications.
--- NOTE | 2024-04-15 16:19 | PTCARENOTE ---
Patient unresponsive, apneic, cool to touch, unable to obtain temp with AM vitals, MD aware. Warm blankets, hygiene and mouth care provided to patient, patient maintained on q2hr turns. Heel foams applied and B/L legs elevated with pillows, L foot,
L upper arm, R quan foams changed, all other foams C/D/I. at bedside earlier in shift and updated on plan of care.
--- NOTE | 2024-04-15 20:00 | PTCARENOTE ---
Addendum entered by Sally Hoskins RN 04/15/24 21:17:
at approx 2100, pt appeared to be unresponsive with no pulse or respirations. Unable to auscultate pulse. Pulse no longer visible near carotid artery. Provider notified.
Original Note:
Pt. remains unresponsive, hypotensive, cool to touch, and with decreasing respiratory rate. Pt. does not appear uncomfortable or in any pain. Periods of apnea continue
[2024-04-15 20:16] VITALS: BP 50/28
--- NOTE | 2024-04-15 21:52 | W.PN.DEATH ---
Pronouncement of
-
Called to see patient to pronounce.
No spontaneous heart tones or respirations noted.
Patient not responsive to verbal stimuli.
Patient is pronounced .
Time of : 21:05
Date of : 04/15/24
Cause of : sepsis, aspiration PNA
Family Notified: Yes
== END 2024-04-15 21:05 | disposition expired | DRG 951 ==
LOC: 2 NORTH 15:23
PROVIDERS: ADMITTING PHYSICIAN Hospitalist; ATTENDING PHYSICIAN Internal Medicine
DX: Z51.5 Encounter for palliative care (principal); A41.9 Sepsis, unspecified organism; E43 Unspecified severe protein-calorie malnutrition; G92.8 Other toxic encephalopathy; R65.21 Severe sepsis with septic shock; J69.0 Pneumonitis due to inhalation of food and vomit; J18.9 Pneumonia, unspecified organism; Z66 Do not resuscitate; I13.0 Hypertensive heart and chronic kidney disease with heart failure and stage 1 through stage 4 chronic kidney disease, or unspecified chronic kidney disease; N17.9 Acute kidney failure, unspecified; I50.32 Chronic diastolic (congestive) heart failure; C34.11 Malignant neoplasm of upper lobe, right bronchus or lung; I48.0 Paroxysmal atrial fibrillation; N18.30 Chronic kidney disease, stage 3 unspecified; E03.9 Hypothyroidism, unspecified; D63.1 Anemia in chronic kidney disease; M10.9 Gout, unspecified; I25.10 Atherosclerotic heart disease of native coronary artery without angina pectoris; F32.A Depression, unspecified; I73.9 Peripheral vascular disease, unspecified; R62.7 Adult failure to thrive; Z95.0 Presence of cardiac pacemaker